=== PATIENT | male | born 1950 ===

== ENCOUNTER → 2021-12-02 11:46 | Outpatient (BNVA) | payer MEDICARE, BC, SELFPAY | PROVIDERS: PCP Internal Medicine; Visit Provider Psychiatry & Neurology Neurology | DX: G20 Parkinson's disease (principal); F41.9 Anxiety disorder, unspecified | CPT/HCPCS: Q3014 ==

== ENCOUNTER → 2022-01-13 10:30 | Outpatient (BNVA) | payer MEDICARE, BC, SELFPAY | PROVIDERS: PCP Internal Medicine; Visit Provider Psychiatry & Neurology Neurology | DX: G20 Parkinson's disease (principal); F41.9 Anxiety disorder, unspecified | CPT/HCPCS: Q3014 ==

== ENCOUNTER → 2022-03-22 10:01 | Outpatient (BNVA) | payer MEDICARE, BC, SELFPAY | PROVIDERS: PCP Internal Medicine; Visit Provider Psychiatry & Neurology Neurology | DX: Z13.89 Encounter for screening for other disorder (principal) ==

== ENCOUNTER → 2022-05-19 09:55 | Outpatient (BNVA) | payer MEDICARE, BC, SELFPAY | PROVIDERS: PCP Internal Medicine; Visit Provider Psychiatry & Neurology Neurology | DX: G20 Parkinson's disease (principal); F41.9 Anxiety disorder, unspecified | CPT/HCPCS: Q3014 ==

== ENCOUNTER → 2022-06-03 09:58 | Outpatient (BNVA) | payer MEDICARE, BC, SELFPAY | PROVIDERS: PCP Internal Medicine; Visit Provider Surgery | DX: G20 Parkinson's disease (principal) | CPT/HCPCS: 99202 ==

== ENCOUNTER → 2022-10-14 13:49 | Outpatient (BNVA) | payer MEDICARE, BC, SELFPAY | PROVIDERS: PCP Internal Medicine; Visit Provider Psychiatry & Neurology Neurology | DX: G20 Parkinson's disease (principal) | CPT/HCPCS: Q3014 ==

== ENCOUNTER 2023-03-03 16:41 | Inpatient (IN) | payer MEDICARE, SELFPAY ==
--- NOTE | ~2023-03-03 | US_ITS ---
EXAMINATION: US VENOUS ULTRASOUND WITH DOPPLER LOWER EXTREMITY, RIGHT CLINICAL INFORMATION: Edema, pain COMPARISON: None available. TECHNIQUE: Ultrasound of the deep veins is performed from the hip to the calf with compression sonography and color and pulse Doppler assessment. Spectral analysis with color-flow imaging is performed. FINDINGS: Nonocclusive deep venous thrombus is noted extending from the proximal femoral vein through the posterior tibial vein in the calf. The peroneal vein was not identified due to edema. Common femoral vein is patent. There is no significant popliteal fossa cyst. US/US venous duplex LE RT IMPRESSION: Nonocclusive deep venous thrombus is noted extending from the proximal femoral vein through the posterior tibial vein in the calf. The peroneal vein was not identified due to edema. The findings and recommendations were discussed with Aydee Ray RN authorized designate for LOVELY Sarabia by telephone at 05/05/2023 9:08 PM and it was ascertained that the content and urgency of the report was understood at the time of direct communication, with read back confirmation of the findings.
--- OUTSIDE RECORDS SUMMARY | 2023-03-03 16:45 | XMS_ITS | Continuity of Care Document ---
Author Name Unknown Organization [facility] ter Address [address] [place] [address]- Care Team Providers Care Occupational Therapist Per Diem Name Role Phone Nolan SYLVESTER, Charly Owen Primary Care Physician Encounter [facility] Date(s): 01/22/23 - 01/23/[address] [id number] Discharge Disposition: A-D/C Home Attending Physician: Charly Mcmillan MD Admitting Physician: Charly Mcmillan MD Referring Physician: Charly Mcmillan MD Allergies, Adverse Reactions, Alerts Substance Reaction Severity Status oxyCODONE hallucination Active Immunizations Given and Recorded Vaccine Date Status Refusal Reason SARS-CoV-2 (COVID-19) mRNA BNT-162b2 vac 05/29/21 Recorded SARS-CoV-2 (COVID-19) mRNA BNT-162b2 vac 05/08/21 Recorded Medications acetaminophen 500 mg oral tablet 2 tablet = 1,000 mg, By Mouth, Daily, PRN pain, Maintenance, 09/24/21 11:31:00 EDT, ; Start Date: 09/24/21 Status: Ordered alfuzosin 10 mg oral tablet, extended release 1 tablet = 10 mg, By Mouth, Daily, at 4pm, 0 Refills, Maintenance, 01/31/21 15:52:00 EST, ; Start Date: 01/31/21 Status: Ordered Ativan 1 mg oral tablet See Instructions, PRN as needed for anxiety, 1 tablet By Mouth 4 times a day, # 120 tablet, 5 Refills, Maintenance, 08/22/22 10:40:00 EDT, [facility]/pharmacy #[id number], Partial fill upon patient request if theprescription is for a schedule II opioid drug., 175... Start Date: 08/22/22 Status: Ordered atorvastatin 10 mg oral tablet 1 tablet = 10 mg, By Mouth, Daily, 4 pm, Maintenance, 09/24/21 11:26:00 EDT, ; Start Date: 09/24/21 Status: Ordered finasteride 5 mg oral tablet 1 tablet = 5 mg, By Mouth, Daily, at 4pm, Maintenance, 09/24/21 11:30:00 EDT, Tablet, ; Start Date: 09/24/21 Status: Ordered fluticasone 50 mcg/inh nasal spray 1 sprays, Nares, Both, 2 times a day, PRN as needed, Maintenance, 09/24/21 11:30:00 EDT, [place], ; Start Date: 09/24/21 Status: Ordered melatonin 1 mg oral tablet 1 tablet = 1 mg, By Mouth, Daily at bedtime, PRN for insomnia, Maintenance, 09/24/21 11:32:00 EDT, Tablet, ; Start Date: 09/24/21 Status: Ordered Stalevo 100 1 tablet, By Mouth, Takes 8 times a day at 1:00AM, 3:00AM, 7:00 AM, 11:00AM, 3:00PM, 7:00pm, 9:00pm, 11:00pm, 0 Refills, Maintenance, 01/30/21 15:47:00 EST, ; Start Date: 01/30/21 Status: Ordered Stalevo 150 oral tablet 1 tablet, By Mouth, 4 times a day, Takes 4 times a day at 5:00AM, 9:00AM, 1:00PM, 5:00PM, Maintenance, 09/24/21 11:23:00 EDT, ; Start Date: 09/24/21 Status: Ordered venlafaxine 150 mg oral capsule, extended release 1 capsule = 150 mg, By Mouth, Daily, # 90 capsule, 1 Refills, Maintenance, 08/12/22 13:58:00 EDT, ER Capsule, [facility]/pharmacy #[id number], Partial fill upon patient request if the prescription is for a schedule II opioid drug., 175, cm, 09/29/21 0:04:00 EDT, H... Start Date: 08/12/22 Status: Ordered venlafaxine 75 mg oral capsule, extended release 75 mg, 1, capsule, By Mouth, Daily, # 90 capsule, Refills 1, Tot. Refills 1, Maintenance, 08/12/22 13:58:00 EDT, Route to Pharmacy Electronically, [facility]/pharmacy #[id number], Partial fill upon patient request if the prescription is for a schedule II opioid . Start Date: 08/12/22 Status: Ordered Problem List Condition Confirmation Course Effective Dates Status Health St atus Informant Parkinson's disease Confirmed Active Vital Signs Most recent to oldest [Reference Range]: 1 2 3 Height 175 cm (01/23/23 11:00 AM) 175 cm (01/23/23 7:21 AM) 175 cm (01/23/23 3:09 AM) Weight 77 kg (01/21/23 4:16 PM) 78.3 kg (01/21/23 10:38 AM) 77.2 kg (01/19/23 11:32 AM) Oxygen Saturation [94-100 %] 99 % (01/23/23 11:00 AM) 98 % (01/23/23 7:21 AM) 98 % (01/23/23 3:09 AM) Pulse Rate [55-90 bpm] 99 bpm *H* (01/23/23 11:00 AM) 87 bpm (01/23/23 7:21 AM) 85 bpm (01/23/23 3:09 AM) Body Mass Index [18.5-24.99 kg/m2] 25.14 kg/m2 *H* (01/21/23 4:16 PM) 25.57 kg/m2 *H* (01/21/23 10:38 AM) 25.21 kg/m2 *H* (01/19/23 11:32 AM) Blood Pressure [90-138/55-84 mm Hg] 150/78mm Hg *H* (01/23/23 7:21 AM) 95/50mm Hg (01/23/23 3:09 AM) 107/56mm Hg (01/22/23 11:26 PM) Respiratory Rate [16-30 br/min] 18 br/min (01/23/23 11:00 AM) 16 br/min (01/23/23 7:21 AM) 16 br/min (01/23/23 3:09 AM) Temperature [96.8-100.4 DegF] 97.2 DegF (01/23/23 11:00 AM) 98.7 DegF (01/23/23 7:21 AM) 98.7 DegF (01/23/23 3:09 AM) Mode of Delivery (Oxygen) Room air (01/23/23 11:00 AM) Room air (01/23/23 7:21 AM) Room air (01/23/23 3:09 AM) Blood pressure sites Arm, left (01/23/23 7:21 AM) Arm, right (01/23/23 3:09 AM) Arm, left (01/22/23 11:26 PM) Temperature Route Oral (01/23/23 11:00 AM) Oral (01/23/23 7:21 AM) Oral (01/23/23 3:09 AM) Dry Weight 77 kg (01/21/23 4:16 PM) 78.3 kg (01/21/23 10:38 AM) 77.2 kg (01/19/23 11:32 AM) Weight Obtained Via Standing scale (01/21/23 10:38 AM) Patient/family stated (01/19/23 11:32 AM) Dry Weight Obtained Via Standing scale (01/21/23 10:38 AM) Patient/family stated (01/19/23 11:32 AM) Social History Social History Type Response Smoking Status Former smoker, quit more than 30 days ago; Other: Pt states he smoked 40 years ago; entered on: 09/24/21 Sex History and physical note * Event Display: History and Physical Hospital Authored Date: * Event Display: History and Physical Hospital Authored Date: Note * Juan Singh RN: PERFORM Event Display: Discharge/Transfer Note Hospital Authored Date: [id number] Nursing Discharge Note Entered On: 01/23/2023 12:31 EST Performed On: 01/23/2023 12:31 EST by Juan Singh RN Nursing Discharge Note 2 Discharge Time : 01/23/2023 12:55 EST Juan Singh RN - 01/23/2023 13:06 EST Discharge Level of Care at Discharge : Home/Assisted/Foster Care Patient Left Unit Via : Ambulatory Patient Accompanied Off Unit with : Significant other, Responsible adult DC Instructions Provided & Signed by Pt : Yes Patient Understands D/C Instructions : Yes Patient Instructions Discharge Signed : Yes Did Pt have Specialty Bed or Wound Vac : No Juan Singh RN - 01/23/2023 12:31 EST * Milind Neville MD: PERFORM, SIGN, VERIFY Event Display: Discharge/Transfer Note Hospital Authored Date: [id number] Patient: PRASHANT CHISHOLM Age: 72 years Sex: Male : 1950 Associated Diagnoses: None Author: Milind Neville MD Discharge Information Principal Discharge Diagnosis Benign prostatic hyperplasia with incomplete bladder emptying: Present on admission - yes. Secondary Discharge Diagnoses Parkinson's disease: Present on admission - yes. Patient is aware of diagnosis Procedures Urology: TURP. Discharge condition: fair Functional Status: ambulatory Discharge Disposition Home: self care, family. Discharge Date 01/23/2023 Admission Date 01/21/2023 Code Status Full Resuscitation. Hospital Course Typed narrative The patient is a 72-year-old gentleman with history of significant lower urinary symptoms and neurogenic voiding dysfunction with Parkinson's disorder cognitive dysfunction who presented for TURP on 01/21/2023. He did not require continuous bladder irrigation and this was discontinued on 01/22/2023. Patient had significant sundowning and psychomotor agitation during hospitalization likely from his underlying dementia and parkinsonian symptomatology. He was getting his home medications throughout hospitalization. He received as needed Ativan and Seroquel to help modify his psychomotor symptoms. He had to be frequently reoriented. According to his this is somewhat consistent with his baseline neuropsychiatric functioning. His catheter was removed on 01/23/2023. The patient was voiding and frequent small amounts. Bladder scan showed no significant postvoid residual. The patient refused to use the urinal despite redirection by nursing staff continue to just void into the toilet. At this point in time I think it would be best for the patient to be discharged into the care of his family or he can be monitored in his home environment which will be better for his cognitive functioning and baseline status. There is no urgent urologic or metabolic reason to keep him into the hospital. It should be noted that the patient did have an ECG which was negative and negative troponins yesterday when he complained of some substernal pressure in his chest. He no longer has the symptoms. Patient should follow-up with Dr. Mcmillan as directed by his primary urologist. Significant Results Results: Vital signs : VITAL SIGNS SECTION 01/23/2023 11:39 EST Early Warning Score 2.00 01/23/2023 11:00 EST Temperature 97.2 DegF Temperature Route Oral Pulse Rate 99 bpm H Respiratory Rate 18 br/min Oxygen Saturation 99 % Mode of Delivery (Oxygen) Room air 01/23/2023 7:22 EST Early Warning Score 0.00 01/23/2023 7:21 EST Temperature 98.7 DegF Temperature Route Oral Pulse Rate 87 bpm Respiratory Rate 16 br/min Systolic Blood Pressure 150 mm Hg H Diastolic Blood Pressure 78 mm Hg Blood pressure sites Arm, left Mean Arterial Pressure 102 mm Hg Pulse Pressure 72 mm Hg Oxygen Saturation 98 % Mode of Delivery (Oxygen) Room air , Laboratory : LABORATORY 01/22/2023 12:32 EST High Sensitivity Troponin (HSTnT) 12 ng/L 01/05/2023 11:23 EST Urine Culture Urine Culture Urine Culture Urine Culture Appear/Color, Urine DARK YELLOW Specific [place], Urine 1.029 pH, Urine 6.0 Albumin, Urine 1+ Glucose, Urine NEGATIVE Ketones, Urine 1+ Bilirubin, Urine NEGATIVE Hemoglobin, Urine 1+ Nitrite, Urine NEGATIVE Leukocyte, Urine NEGATIVE Urobilinogen NORMAL mg/dL WBC's, Urine 26 /HPF H RBC's, Urine 58 /HPF H Bacteria SLIGHT HPF Squamous Epith <1 /HPF Calcium Oxal SLIGHT /HPF Mucus SLIGHT /LPF 01/05/2023 11:22 EST WBC 10.1 k/mm3 RBC 4.44 m/mm3 L Hgb 13.2 Gm/dL L Hct 41.7 % MCV 93.9 femtoliters MCH 29.7 pg MCHC 31.7 g/dL L Platelet Count 316 k/mm3 RDW-SD 43.8 femtoliters MPV 9.2 femtoliters L Nucleated RBC (Automated) 0.0 #/100 WBC'S Abs. NRBC 0.0 k/mm3 Sodium 143 mmol/L Potassium 4.9 mmol/L Chloride 107 mmol/L Bicarbonate Level 28 mmol/L Anion Gap 8 Glucose Level 101 mg/dL H BUN 18 mg/dL Creatinine-Blood 0.8 mg/dL Estimated GFR Creatinine 95 ML/MIN/1.73 M2 Calcium 9.4 mg/dL Urine Culture Urine Culture Appear/Color, Urine DARK YELLOW Specific [place], Urine 1.029 pH, Urine 6.0 Albumin, Urine 1+ Glucose, Urine NEGATIVE Ketones, Urine 1+ Bilirubin, Urine NEGATIVE Hemoglobin, Urine 1+ Nitrite, Urine NEGATIVE Leukocyte, Urine NEGATIVE Urobilinogen NORMAL mg/dL WBC's, Urine 26 /HPF H RBC's, Urine 58 /HPF H Bacteria SLIGHT HPF Squamous Epith <1 /HPF Calcium Oxal SLIGHT /HPF Mucus SLIGHT /LPF 12/04/2022 9:15 EST Urine Culture Urine Culture Appear/Color, Urine ORANGE Clarity CLEAR Specific [place], Urine 1.020 pH, Urine 6.5 Albumin, Urine 1+ Glucose, Urine NEGATIVE Ketones, Urine TRACE Bilirubin, Urine NEGATIVE Hemoglobin, Urine 1+ Nitrite, Urine NEGATIVE Leukocyte, Urine NEGATIVE Urobilinogen NORMAL mg/dL WBC's, Urine 4 /HPF RBC's, Urine 40 /HPF H Bacteria SLIGHT HPF Granular Cast 1 /LPF Amorphous Crystals SLIGHT /HPF Mucus SLIGHT /LPF Hold Urine Culture Testing available 48 hours from time of collection. 12/04/2022 8:55 EST WBC 6.7 k/mm3 RBC 4.55 m/mm3 L Hgb 13.9 Gm/dL Hct 41.8 % MCV 91.9 femtoliters MCH 30.5 pg MCHC 33.3 g/dL Platelet Count 291 k/mm3 RDW-SD 42.2 femtoliters MPV 8.9 femtoliters L Nucleated RBC (Automated) 0.0 #/100 WBC'S Abs. NRBC 0.0 k/mm3 Abs. Neut 4.3 k/mm3 Abs. Lymph 1.5 k/mm3 Abs. [place] 0.6 k/mm3 Abs. Eo 0.2 k/mm3 Abs. Baso 0.0 k/mm3 Neut % 64.0 % Lymph % 22.2 % [place] % 9.6 % Eos % 3.0 % Baso % 0.6 % Imm Gran 0.6 % Abs. Imm Gran 0.0 k/mm3 Sodium 142 mmol/L Potassium 4.4 mmol/L Chloride 108 mmol/L H Bicarbonate Level 26 mmol/L Anion Gap 8 Glucose Level 136 mg/dL H BUN 16 mg/dL Creatinine-Blood 0.7 mg/dL Estimated GFR Creatinine 99 ML/MIN/1.73 M2 Calcium 9.2 mg/dL Protein, Total 6.4 Gm/dL Albumin 4.2 Gm/dL AG Ratio 1.9 Alkaline Phosphatase 59 units/L AST (SGOT) 12 units/L ALT (SGPT) <5 units/L Bilirubin, Total 0.3 mg/dL 12/04/2022 8:40 EST Influenza A PCR NEGATIVE Influenza B PCR NEGATIVE RSV PCR NEGATIVE COVID-19 PCR Specimen Source NASAL COVID-19 PCR Result NEGATIVE . Discharge Plan Discharge Disposition Discharge: home. * Juan Singh RN: PERFORM Event Display: Patient Education/Instruction Authored Date: [id number] Inpatient Adult Discharge Instructions [address] [address] Name: PRASHANT CHISHOLM : 1950 Visit: 01/22/2023 15:48:00 Current Date: 01/23/2023 12:32 Account: [id number] Inpatient Adult Discharge Instructions We would like to thank you for allowing us to assist you with your healthcare needs. The following includes patient education materials and information regarding your injury/illness. Our entire staffstrives to provide an excellent experience for our patients and their families. PLEASE ENSURE YOU FOLLOW-UP PER THE INSTRUCTIONS BELOW! ?? YOUR OPINION IS IMPORTANT TO US! Please complete the survey you may receive by mail or email. Your feedback will be used to make improvements to the healthcare experiences of our patients and their families. Surveys are administered by [employer] ?? If further treatment with your primary care physician or another doctor is recommended, it is important for you to keep the appointment. Call your primary care physician or return to the Emergency Department immediately if your condition worsens, fails to improve, or new symptoms develop. If you need to find a doctor, you can call [facility] for a referral at [phone] or toll free at [phone] or log in to [email or web address].. ?? You can view and manage your care through the patient portal or by using a health care pravin of your choosing. [employer] is a website that allows you to securely view your medical information including your hospital discharge summary, office visit summaries, medications and follow-up visits. You can also request appointments, renew medications, and request access to your medical information using a health care pravin of your choosing, or just ask a question. You can enroll at [email or web address] or register during your next office visit. You have been discharged from [facility], Patient Care Unit: SW6. If you have any questions regarding these instructions after you leave, please call us and we will be happy to assist you. [facility] Your Care Team Attending Physician Charly Mcmillan MD Consulting Providers Charly Mcmillan MD Discharging Providers Milind Neville MD Reason for Admission CALCULUS IN BLADDER TURPOVN CS Your Diagnosis Benign prostatic hyperplasia with incomplete bladder emptying Parkinson's disease Tests Performed Below is a partial list of the tests performed during your hospitalization. You may have had other tests and procedures not included in this list. Please discuss all test results with your provider. Troponin T, High Sensitivity Primary Care Provider Charly Francisco MD Advance Directive Health Care Proxy on File Yes - Health Care Proxy Discharge Vitals Temperature: 97.2 DegF Height: 175 cm Pulse Rate:??99 bpm??High Weight: 77 kg Respiratory Rate: 18 br/min Body Mass Index:??25.14 kg/m2??High Systolic Blood Pressure:??150 mm Hg??High Body surface area: 1.93 Diastolic Blood Pressure: 78 mm Hg ?? Oxygen Saturation: 99 % ?? Studies Pending All tests and labs ordered during this hospital stay have been completed unless listed below. Please discuss all pending results with your provider listed above in these instructions. ?? Kidney Stone Analysis Pathology Tissue Request () What to do next Instructions From Your Doctor Discharge Orders Scheduled Follow-Up Appointments Tuesday 3:00 PM EST ?? With: Lasha Ragland MD Where: [facility] [address] [place] [address]- Tuesday 11:20 AM EDT ?? With: Wallace Nguyen MD Where: [facility] [address] [place] [address]- You Need to Schedule the Following Appointments Follow Up with??Charly Mcmillan MD When?? Where: [address] [facility] [place] [address]- Discharge Medications PRASHANT CHISHOLM :1950 Visit Date:01/22/2023 Medications: Please continue your medications until treatment is completed or stopped by your provider. Medications not listed below should be discontinued. Discuss any questions related to medications with your provider. What How Much When Instructions Next Dose Unchanged Acetaminophen (acetaminophen 500 mg oral tablet) 2 tab(s) Oral Daily as needed for pain resume as prescribed Unchanged alfuzosin (alfuzosin 10 mg oral tablet, extended release) 1 tab(s) Oral Daily at 4pm ?? resume as prescribed Unchanged Atorvastatin (atorvastatin 10 mg oral tablet) 1 tab(s) Oral Daily 4 pm ?? resume as prescribed Unchanged carbidopa/ entacapone/ levodopa (Stalevo 100) 1 tab(s) Oral Takes 8 times a day at 1:00AM, 3:00AM, 7:00 AM, 11:00AM, 3:00PM, 7:00pm, 9:00pm, 11:00pm ?? resume as prescribed Unchanged carbidopa/ entacapone/ levodopa (Stalevo 150 oral tablet) 1 tab(s) Oral 4 times a day Takes 4 times a day at 5:00AM, 9:00AM, 1:00PM, 5:00PM ?? resume as prescribed Unchanged Finasteride (finasteride 5 mg oral tablet) 1 tab(s) Oral Daily at 4pm ?? resume as prescribed Unchanged Fluticasone Nasal (fluticasone 50 mcg/ inh nasal spray) 1 spray(s) Nares, Both Twice a day as needed for as needed resume as prescribed Unchanged Lorazepam (Ativan 1 mg oral tablet) See instructions 1 tablet By Mouth 4 times a day ?? resume as prescribed Unchanged Melatonin (melatonin 1 mg oral tablet) 1 tab(s) Oral Daily at Bedtime as needed for for insomnia resume as prescribed Unchanged Venlafaxine (venlafaxine 150 mg oral capsule, extended release) 1 capsule Oral Daily resume as prescribed Unchanged Venlafaxine (venlafaxine 75 mg oral capsule, extended release) 1 capsule Oral Daily resume as prescribed Test Results Below is a partial list of the most recent Laboratory test results done prior to this discharge. You may have had other tests and procedures not included in this list. Please discuss all test resultswith your provider. Troponin T, High Sensitivity (01/22/2023) ???High Sensitivity Troponin (HSTnT) - 12 ng/L Allergies (NKA means No Known Allergies) oxyCODONE??(hallucination) Problems Active Problems??(1) Parkinson's disease?? Education Materials Below is the list of Educational Leaflet Providered with your Discharge Instructions. Valuables and Belongings I fully understand and agree that [facility] accepts no responsibility for all my personal property including clothing, toilet articles, radios, jewelry, dentures, hearing aids, rings, money, or any other property that is in my possession or is brought to me after admission. I understand certain valuables may be placed in a hospital safe for a short period of time. I understand that the hospital is not liable for loss or damage due to accident, fire, or other natural occurrence while said property is in the safe. I accept full responsibility for any personal property that I keep with me, and will not hold the hospital responsible in case of loss or disappearance. I acknowledge that i have been encouraged to send valuables and belongings home. ?? Review of Valuable and Belonging List: With family Date for Pt to Sign Valuables/Belongings: 01/22/23 17:27:00 ?? Other Discharge Information ? Case Management Discharge Plan?? Discharge Plan?? Discharge Level of Care at Discharge: Home/Assisted/Foster Care ?? Pulmonary Rehab Status?? Pulmonary Rehab Discharge Status?? Respiratory Rate: 18 br/min ? Common Emergency Awareness Tips IS IT A STROKE? Act FAST and Check for these signs: FACE Does the face look uneven? ARM Does one arm drift down? SPEECH Does their speech sound strange? TIME Call at any sign of stroke ?? Heart Attack Signs Chest discomfort: Most heart attacks involve discomfort in the center of the chest and lasts more than a few minutes, or goes away and comes back. It can feel like uncomfortable pressure, squeezing, fullness or pain. Discomfort in upper body: Symptoms can include pain or discomfort in one or both arms, back, neck, jaw or stomach. Shortness of breath: With or without discomfort. Other signs: Breaking out in a cold sweat, nausea, or lightheaded. Remember, MINUTES DO MATTER. If you experience any of these heart attack warning signs, call to get immediate medical attention! ?? Smoking can increase your chances of developing chronic health problems and can cause harmful effects to other family members in your house. If you smoke, you are strongly encouraged to quit. Please call [facility] [employer] at [phone] or [phone] [phone]) or log in to [email or web address] for referrals to smoking cessation programs. ?? The National Suicide Prevention Hotline is available 20/06 if you or someone you know needs to find a reason to keep living. By calling 4-397-104-Enohm (9163) you'll be connected to a skilled, trained counselor at a crisis center in your area. INPATIENT DISCHARGE INSTRUCTIONS SIGNATURE PAGE LILIPRASHANT Location:[facility] Registration Date and Time:01/22/2023 15:48 EST Primary Care Physician: Nolan SYLVESTER, Charly Owen, I PRASHANT CHISHOLM, have received the above patient education materials/instructions and have verbalized understanding. If ambulance or transport services are being used I further acknowledge being given a choice of service. ?? If you need to contact me, please call me at this number: . Patient/Handhole Machine Operator Name: Prashant Chisholm Patient/Handhole Machine Operator Signature: Relationship to Patient: Witness Name/Signature: Date: * Event Display: Adult Preadmission Health Questionnaire Authored Date: EKG study * Event Display: ECG 12-Lead Authored Date: Please click on pdf link to open report * Event Display: ECG 12-Lead Authored Date: Ventricular Rate: 94 BPM Atrial Rate: 94 BPM P-R Interval: 150 ms QRS Duration: 66 ms Q-T Interval: 354 ms QTC Calculation(Bazett): 442 ms P [place]: 53 degrees R [place]: 0 degrees T [place]: 78 degrees Normal sinus rhythm Normal ECG When compared with ECG of 04-DEC-2022 09:04, Nonspecific T wave abnormality now evident in Lateral leads Confirmed by CRYS SYLVESTER [facility] ([id number]) on 01/22/2023 5:14:12 PM [place]: CRYS SYLVESTER,[facility] Progress note * Juan Singh RN: PERFORM, SIGN, VERIFY Event Display: [facility] Authored Date: Patient: PRASHANT CHISHOLM Age: 72 years Sex: Male : 1950 Associated Diagnoses: None Author: Juan Singh RN Findings Problem Related to Alteration in Genitourinary : Alteration in Genitourinary Function/new 01/23/2023 7:00 EST Alteration in Status Related to Urology procedure, Other: TURP Goals & Outcomes, Genitourinary Pt will achieve normal/improved fluid balance, Pt will maintainadequate GI function appropriate for pt, Pt will maintain adequate function appropriate for pt, Pt will maintain normal fluid balance, Pt will resume normal pattern of elimination, Pt/caregiver will state understanding of self-care skills, Resolved problem, Goals/Outcomes met Interventions, Assess/monitor/maintain Genitourinary status, Assist & encourage pt with meticulous federico care, Encourage PO fluid intake as allowed by diet BH Goals/Interventions, Genitourinary Yes Genitourinary, Problem Start 01/21/2023 21:00 Reviewed Plan with, Genitourinary Patient Patient Progression, Genitourinary Patient progressing according to plan Genitourinary, Problem Ongoing Yes . Nursing Data Gastrointestinal Data. : Gastrointestinal Data. 01/23/2023 10:27 EST GI WNL . Genitourinary Data. : Genitourinary Data. 01/23/2023 10:27 EST Genitourinary Symptoms Dysuria Urine Color Sod WNL except . Integumentary Data. : Integumentary Data. 01/23/2023 10:27 EST Integumentary WNL 01/23/2023 10:26 EST Sensory Perception No impairment Moisture Occasionally moist Activity Walks occasionally Mobility Slightly limited Nutrition Probably inadequate Friction and Shear No apparent problem Saúl Score 18 Nursing Care Plan initiated/updated Yes . Musculoskeletal Data. : Musculoskeletal Data. 01/23/2023 10:27 EST Musculoskeletal WNL . Vital Signs : VITAL SIGNS SECTION 01/23/2023 7:21 EST Temperature 98.7 DegF Temperature Route Oral Pulse Rate 87 bpm Respiratory Rate 16 br/min Systolic Blood Pressure 150 mm Hg H Diastolic Blood Pressure 78 mm Hg Blood pressure sites Arm, left Mean Arterial Pressure 102 mm Hg Pulse Pressure 72 mm Hg Oxygen Saturation 98 % Mode of Delivery (Oxygen) Room air . Narrative/Incidental Patient is not alert and oriented, often confused and feels the need to pull trevino catheter and go home. Patient was found to be going down stairwell on unit, charge nurse notified. Security and clinical spooling supervisor were notified and helped escort patient back to room. Patient continues to be oriented by RN for safety. Lung sounds clear in all duque, denies shortness of breath or chest pains. Pulses palpable bilat, no edema noted. Tremors noted at baseline. Denies pain. Bowel sounds hypoactive in all duque, denies nausea or vomiting at this time. Abdomen is round, soft and nontender to palpation. Awaiting patient to void. Ambulates with one to two person assist. Call stephens within reach, resting comfortably now. . . * Kelin SYLVESTER, Milind Rodarte: PERFORM, SIGN, VERIFY Event Display: Progress Note Hospital Authored Date: [id number] Patient: PRASHANT CHISHOLM Age: 72 years Sex: Male : 1950 Associated Diagnoses: None Author: Milind Neville MD LOS 0 days The patient is status post TURP/cystolitholapaxy with Dr. Mcmillan The patient has baseline dementia and confusion and appears confused but is able to be redirected. A code yellow was called earlier this morning as the patient ambulated off the unit and was found inthe stairwell on M4 His catheter was removed and we are awaiting the patient to void. We will communicate with his wifeas to his baseline and whether it would be suitable to discharge the patient as he appears to be having difficulty in the hospital environment He was given a dose of Seroquel yesterday for agitation which was not effective. He was placed backon Ativan 2 mg every 6 hours. Review of Systems Review of systems is Oral Intake: solids. Genitourinary: trevino. Gastrointestinal: abdominal pain. Physical Examination Vital Signs Vitals : VITALS 01/23/2023 7:21 EST Height 175 cm Temperature 98.7 DegF Temperature Route Oral Pulse Rate 87 bpm Respiratory Rate 16 br/min Systolic Blood Pressure 150 mm Hg H Diastolic Blood Pressure 78 mm Hg Blood pressure sites Arm, left Mean Arterial Pressure 102 mm Hg Pulse Pressure 72 mm Hg Oxygen Saturation 98 % Mode of Delivery (Oxygen) Room air . Physical exam Flank: no flank pain, no CVA tendersness. Abdomen/GI: Abdomen is (soft, not distended, not tender). Drains: Urinary Trevino Catheter. Results Review 7 Day Results Results Laboratory : LABORATORY 01/22/2023 12:32 EST High Sensitivity Troponin (HSTnT) 12 ng/L Impression and Plan Benign prostatic hyperplasia with incomplete bladder emptying COMPREHENSIVE PLAN The patient's catheter was removed and we are awaiting voiding trial. We will monitor postvoid residual. Patient's mental status appears to be his biggest issue at the present time and he has a history ofbaseline dementia and psychomotor agitation due to his Parkinson's disorder. He is on his home medications. He was started on Ativan 2 mg every 6 hours. He was given a trial of Seroquel last night without significant improvement. Will discuss with his suitability for discharge as it may be better to get the patient out of the hospital and into his home environment. This is assuming the patient can void without being recatheterized. We will monitor the patient the remainder of the day. Quality/Care Management DC Trevino Cath: Yes. * Ravin Chung RN: PERFORM, SIGN, VERIFY Event Display: Progress Note Hospital Authored Date: Patient: PRASHANT CHISHOLM Age: 72 years Sex: Male : 1950 Associated Diagnoses: None Author: Ravin Chung RN Findings Problem Related to Alteration in Genitourinary : Alteration in Genitourinary Function/new 01/22/2023 21:00 EST Alteration in Status Related to Urology procedure, Other: TURP Goals & Outcomes, Genitourinary Pt will achieve normal/improved fluid balance, Pt will maintainadequate GI function appropriate for pt, Pt will maintain adequate function appropriate for pt, Pt will maintain normal fluid balance, Pt will resume normal pattern of elimination, Pt/caregiver will state understanding of self-care skills, Resolved problem, Goals/Outcomes met Interventions, Assess/monitor/maintain Genitourinary status, Assist & encourage pt with meticulous federico care, Encourage PO fluid intake as allowed by diet, Resolved problem, Interventions no longer in effect Goals/Interventions, Genitourinary Yes Genitourinary, Problem Start 01/21/2023 21:00 Reviewed Plan with, Genitourinary Patient Patient Progression, Genitourinary Patient progressing according to plan Genitourinary, Problem Ongoing Yes . Nursing Data Vital Signs : VITAL SIGNS SECTION 01/22/2023 23:26 EST Temperature 97.9 DegF Temperature Route Oral Pulse Rate 85 bpm Respiratory Rate 16 br/min Systolic Blood Pressure 107 mm Hg Diastolic Blood Pressure 56 mm Hg Blood pressure sites Arm, left Mean Arterial Pressure 73 mm Hg Pulse Pressure 51 mm Hg Oxygen Saturation 96 % Mode of Delivery (Oxygen) Room air . Narrative/Incidental Pt awake alert, going in & out of confusion, constant cancer genetic counselor @ bedside overnight, report some discomfort with trevino, attempted to pull it out but able to redirect, f/c putting out orangy urinept continue on pyridium for urinary spasm, pt have some parkinson tremor, continue on carbidopa every 2 hour, LS diminished, no SOB, not on respiratory distress, denies chest pain, VS stable, no other complaints, cared for & will continue to monitor, call stephens within reach.. Patient Care team information Care Team Personnel Name: Mark Tesfaye RN Position: S RN Member Role: Primary Care Nurse Name: Charly Francisco MD Position: Reference Physician Member Role: PCP Address: Address: [address] [place] [address], [place], [place] [address] Name: Ravin hCung RN Position: S RN Member Role: Primary Care Nurse Name: Dinesh Sheehan RN Position: S RN Member Role: Primary Care Nurse Name: Juan Singh RN Position: S RN Member Role: Primary Care Nurse Care Team Related Persons Name: EM CHISHOLM Address: [address] [address]
--- OUTSIDE RECORDS SUMMARY | 2023-03-03 16:45 | XMS_ITS | Continuity of Care Document ---
Author Name Unknown Organization [facility] Address [address] [place] [id number]- Care Team Providers Care Investment Officer Name Role Phone Nolan SYLVESTER, Charly Owen Primary Care Physician Encounter [facility] [place] Date(s): 10/05/21 - 11/04/21 [facility] [address] [place] [id number]- Attending Physician: Tatianna Kumar Admitting Physician: Tatianna Kumar Referring Physician: AdmtrTatianna Allergies, Adverse Reactions, Alerts Substance Reaction Severity Status oxyCODONE Active Immunizations Given and Recorded Vaccine Date [...] tablet = 10 mg, By Mouth, Daily, 0 Refills, Maintenance, 01/31/21 15:52:00 EST, ; Start Date: 01/31/21 Status: Ordered atorvastatin 10 mg oral tablet 1 tablet = 10 mg, By Mouth, Daily, 6pm, Maintenance, 09/24/21 11:26:00 EDT, ; Start Date: 09/24/21 Status: Ordered clonazePAM 0.25 mg oral tablet, disintegrating See Instructions, 1 tablet By Mouth 7 times daily 6am, 9am, 12pm, 3pm, 8pm, 10pm & 12am, # 98 tablet, 5 Refills, Maintenance, 10/27/21 11:44:00 EST, DIS Tablet, [facility]/pharmacy #[id number], Partial fill upon patient request if the prescription is for a schedu... Start Date: 10/27/21 Status: Ordered clonazePAM 0.5 mg oral tablet = 0.25 mg, By Mouth, 7 times daily 6am, 9am, 12pm, 3pm, 8pm, 10pm & 12am, Maintenance, 09/24/2111:27:00 EDT, ; Start Date: 09/24/21 Status: Ordered Effexor XR 75 mg oral capsule, extended release 75 mg, 1, capsule, By Mouth, Daily, # 30 capsule, Refills 3, Tot. Refills 3, Maintenance, 10/27/21 11:40:00 EST, [id number] fill upon patient request if the prescription is for a schedule II opioid dr... Start Date: 10/27/21 Status: Ordered finasteride 5 mg oral tablet 1 tablet = 5 mg, By Mouth, Daily, Maintenance, 09/24/21 11:30:00 EDT, Tablet, ; Start Date: 09/24/21 Status: Ordered fluticasone 50 mcg/inh nasal spray 1 sprays, Nares, Both, 2 times a day, PRN as needed, Maintenance, 09/24/21 11:30:00 EDT, [place], ; Start Date: 09/24/21 Status: Ordered melatonin 1 mg oral tablet 1 tablet = 1 mg, By Mouth, Daily at bedtime, PRN for insomnia, Maintenance, 09/24/21 11:32:00 EDT, Tablet, ; Start Date: 09/24/21 Status: Ordered SEROquel 25 mg oral tablet 25 mg, 1, tablet, By Mouth, 3 times a day, # 90 tablet, Refills 0, Tot. Refills 0, Maintenance, 09/30/21 10:01:00 EDT, [facility], Partial fill upon patient request if the prescription is for a schedule II opioid drug. Start Date: 09/30/21 Stop Date: 10/30/21 Status: Ordered Stalevo 100 1 tablet, By Mouth, 6 times a day, 12am, 4am, 8am, 12pm, 4pm & 6pm, 0 Refills, Maintenance, 01/30/21 15:47:00 EST, ; Start Date: 01/30/21 Status: Ordered Stalevo 150 oral tablet 1 tablet, By Mouth, 4 times a day, 2am, 6am, 10am & 2pm, Maintenance, 09/24/21 11:23:00 EDT, ; Start Date: 09/24/21 Status: Ordered venlafaxine 37.5 mg oral capsule, extended release 2 capsule = 75 mg, By Mouth, Daily in AM, 8am, Maintenance, 09/24/21 11:25:00 EDT, ; Start Date: 09/24/21 Status: Ordered Problem List Condition Effective Dates Status Health Status Inform ant Parkinson's disease(Confirmed) Active Social History Social History Type Response Smoking Status Former smoker, quit more than 30 days ago; Other: Pt states he smoked 40 years ago; entered on: 09/24/21 Sex
--- OUTSIDE RECORDS SUMMARY | 2023-03-03 16:45 | XMS_ITS | Summary of Care ---
Author Name Unknown Organization [facility] Address [address] [place] [address]- Encounter 07/27/17 - 07/27/17 [facility] [address] [place] [address]- Discharge Disposition: Against medical advice, with follow-up Attending Physician: Mia Carey MD Vital Signs Most recent to oldest [Reference Range]: 1 Temperature Oral F [96.4-99.1 DegF] 98.0 DegF (07/27/17 1:41 PM) Peripheral Pulse Rate [60-100 bpm] 100 b pm (07/27/17 1:41 PM) Blood Pressure [90-140/60-90 mmHg] 152/7 4mmHg *HI* (07/27/17 1:41 PM) Extremity used to obtain blood pressure Left Arm (07/27/17 1:41 PM) Temperature Oral [35.8-37.3 DegC] 36.7 D egC (07/27/17 1:41 PM) Allergies, Adverse Reactions, Alerts Substance Reaction Severity Status No Known Allergies Active Medications acetaminophen 325 mg oral tablet 650 mg = 2 tab, Oral, q4hr PRN, Mild pain Start Date: 07/27/17 Status: Ordered atorvastatin 10 mg oral tablet 10 mg = 1 tab, Oral, Before dinner Start Date: 07/27/17 Status: Ordered carbidopa-levodopa 25 mg-100 mg oral tablet See Instructions, VERIFY TABLET STRENGTH. 1.5 tab PO 6 X day. Due at : [id number] Start Date: 07/27/17 Status: Ordered ceFAZolin IVPB 2 gm, IV Piggyback, q6hr Start Date: 07/27/17 Status: Ordered docusate sodium 100 mg oral capsule 100 mg, Cap, Oral, BID, Hold for : diarrhea or loose stools Start Date: 07/27/17 Status: Ordered DULoxetine 60 mg oral delayed release capsule 60 mg = 1 cap, Cap-DR, Oral, BID, (do not crush or chew) Start Date: 07/27/17 Status: Ordered entacapone 200 mg oral tablet 200 mg = 1 tab, Tab, Oral, 6x/Day, with each dose of carbidopa-levodopa. Due at : [id number] Start Date: 07/27/17 Status: Ordered famotidine 20 mg oral tablet 20 mg = 1 tab, Tab, Oral, BID Start Date: 07/27/17 Status: Ordered finasteride 5 mg oral tablet 5 mg = 1 tab, Tab, Oral, Daily Start Date: 07/27/17 Status: Ordered lactobacillus rhamnosus GG oral capsule 1 cap, Cap, Oral, Daily, cap Start Date: 07/27/17 Status: Ordered LORazepam 1 mg oral tablet 1 mg = 1 tab, Tab, Oral, BID Start Date: 07/27/17 Status: Ordered Milk of Magnesia 8% oral suspension 2.4 gm, 30 mL, Susp, Oral, BID PRN, Constipation Start Date: 07/27/17 Status: Ordered ondansetron 2 mg/mL injectable solution 4 mg = 2 mL, Soln-Inj, IV Push, q6hr PRN, Nausea or vomiting Start Date: 07/27/17 Status: Ordered OXcarbazepine 300 mg oral tablet 300 mg = 1 tab, Tab, Oral, TID, Due at : [id number] Start Date: 07/27/17 Status: Ordered tamsulosin 0.4 mg oral capsule 0.4 mg = 1 cap, Cap, Oral, QHS Start Date: 07/27/17 Status: Ordered
--- OUTSIDE RECORDS SUMMARY | 2023-03-03 16:45 | XMS_ITS | Continuity of Care Document ---
Author Name Unknown Organization [facility] Address [address] [place] [address]- Care Team Providers Care Reinforcing Metal Worker Name Role Phone Nolan SYLVESTER, Charly Owen Primary Care Physician Encounter [facility] [place] Date(s): 02/04/23 - 02/11/[address] [address]- Attending Physician: Lasha Ragland MD Allergies, Adverse Reactions, Alerts Substance Reaction [...] tablet, 5 Refills, Maintenance, 08/22/22 10:40:00 EDT, [facility]/pharmacy #[id number], Partial fill upon patient request if theprescription [...] PRN as needed, Maintenance, 09/24/21 11:30:00 EDT, [place], ; Start Date: 09/24/21 Status: Ordered melatonin [...] 150 mg oral capsule, extended release 1 capsule, By Mouth, Daily, # 90 capsule, 1 Refills, Maintenance, 02/07/23 10:36:00 EDT, [facility] [id number], 175, cm, 01/23/23 11:39:00 EST, Height, 77, kg, 01/21/23 19:32:00 EST, Dry Weight Start Date: 02/07/23 Status: Ordered Problem List Condition Confirmation Course Effective Dates Status Health St [facility]us Informant Parkinson's disease Confirmed Active Social History Social History Type Response Smoking Status Former smoker, quit more than 30 days ago; Other: Pt states he smoked 40 years ago; entered on: 09/24/21 Sex Patient Care team information Care Team Personnel Name: Mark Tesfaye RN Position: S RN Member Role: Primary Care Nurse Name: Charly Francisco MD Position: Reference Physician Member Role: PCP Address: Address: [address] [place] [address], [place], [place] [address] Name: Ravin Chung RN Position: S RN Member Role: Primary Care Nurse Name: Dinesh Sheehan RN Position: S RN Member Role: Primary Care Nurse Name: Juan Singh RN Position: S RN Member Role: Primary Care Nurse Care Team Related Persons Name: EM PEARSON Address: [address] [address]
--- OUTSIDE RECORDS SUMMARY | 2023-03-03 16:45 | XMS_ITS | Continuity of Care Document ---
Author Name Unknown Organization [facility] Address [address] [place] [address]- Care Team Providers Care Sports Medicine Specialist Name Role Phone Nolan SYLVESTER, Charly Owen Primary Care Physician Encounter [facility] Date(s): 12/04/22 - 12/04/[address] [address]- Discharge Disposition: A-Transfer SNF Attending Physician: Ami Arellano MD Admitting Physician: Ami Arellano MD Referring Physician: Not on Staff, Referring MD Allergies, Adverse Reactions, Alerts Substance Reaction [...] tablet, 5 Refills, Maintenance, 08/22/22 10:40:00 EDT, [facility]/pharmacy #[id number], Partial fill upon patient request if theprescription is for a schedule II opioid drug., 175... Start Date: 08/22/22 Status: Ordered atorvastatin 10 mg oral tablet 1 tablet = 10 mg, By Mouth, Daily, 6pm, Maintenance, 09/24/21 11:26:00 EDT, ; Start Date: 09/24/21 Status: Ordered busPIRone 10 mg oral tablet See Instructions, Start 1/2 tablet BID for one week, then 1 tablet BID for two weeks, then 1 tabletTID., # 90 tablet, Refills 2, Tot. Refills 2, Maintenance, 10/12/22 11:28:00 EST, Instructions Replace Required Details, Route to Pharmacy Electronical... Start Date: 10/12/22 Status: Ordered finasteride 5 mg oral tablet 1 tablet = 5 mg, By Mouth, Daily, Maintenance, 09/24/21 11:30:00 EDT, Tablet, ; Start Date: 09/24/21 Status: Ordered fluticasone 50 mcg/inh nasal spray 1 sprays, Nares, Both, 2 times a day, PRN as needed, Maintenance, 09/24/21 11:30:00 EDT, [facility], ; Start Date: 09/24/21 Status: Ordered melatonin 1 mg oral tablet 1 tablet = 1 mg, By Mouth, Daily at bedtime, PRN for insomnia, Maintenance, 09/24/21 11:32:00 EDT, Tablet, ; Start Date: 09/24/21 Status: Ordered QUEtiapine 50 mg oral tablet 1 tablet, By Mouth, 2 times a day, # 60 tablet, 1 Refills, Maintenance, 10/25/22 11:57:00 EST, [id number], 175, cm, 09/29/21 0:04:00 EDT, Height, 80.5, kg, 09/24/21 21:41:00 EDT, Dry Weight Start Date: 10/25/22 Status: Ordered Stalevo 100 1 tablet, By Mouth, pt has own home medication, 0 Refills, Maintenance, 12/04/22 10:31:00 EST, Partial fill upon patient request if the prescription is for a schedule II opioid drug. Start Date: 12/04/22 Status: Ordered Stalevo 100 1 tablet, By [...] Refills, Maintenance, 08/12/22 13:58:00 EDT, ER Capsule, [facility]/pharmacy #[id number], Partial fill upon patient request if the prescription is for a schedule II opioid drug., 175, cm, 09/29/21 0:04:00 EDT, H... Start Date: 08/12/22 Status: Ordered venlafaxine 75 mg oral capsule, extended release 75 mg, 1, capsule, By Mouth, Daily, # 90 capsule, Refills 1, Tot. Refills 1, Maintenance, 08/12/22 13:58:00 EDT, Route to Pharmacy Electronically, [facility]/pharmacy #[id number], Partial fill upon patient request if the prescription is for a schedule II opioid Start Date: 08/12/22 Status: Ordered Problem List Condition Confirmation Course Effective Dates Status [facility] Parkinson's disease Confirmed Active Results Radiology Reports * Exam Date Time Procedure Performing Provider Status 12/04/22 10:[address] Abdomen and Pelvi s W/O Contrast Marisel Walker; Auth (Verified) Notes: (CT Abdomen and Pelvis W/O Contrast) Reason For Exam: Flank pain, kidney stone suspected;Other: RESULT: CT Abdomen and Pelvis W/O Contrast CT Abdomen and Pelvis W/O Contrast Hx of Present Illness: Pt comes in from home via EMS for c o urinary issues x 2 weeks. Recently treat for UTI. Pt also reports feeling sob but reports this happens some times due to his Parkinsons. Pt denies any sob at this time and speaking; Reason: Other:; Flank pain, kidney stone suspected; Clinical Question(s): Calculus; Right Side flank TECHNIQUE: Spiral CT through the abdomen and pelvis without IV contrast formatted in 3 planes. Thisstudy was performed without oral contrast. Weight- based protocol using automatic tube modulation was used to optimize exposure parameters. CTDIvol Body: 16.82 mGy, DLP Body: 827 mGy*cm. COMPARISON: None FINDINGS: Deflash And Wash Operator View Findings, Lines and Tubes: None. Visualized Chest: Lung bases are clear. No pleural effusion. No pericardial effusion. Diaphragm: Normal. Liver: Normal. Gallbladder: No CT evidence of gallbladder pathology. Bile ducts: No biliary ductal dilation. Spleen: Normal. Pancreas: Normal. Adrenal glands: Normal. Kidneys and ureters: No hydronephrosis or noncontrast evidence of suspicious masses. Multiple nonobstructing 0.2 cm bilateral renal calculi. Simple appearing renal cysts are noted, requiring no dedicated follow up. Bladder: Intraluminal bladder stone. 1.8 cm. Hounsfield measurements of 1350. Stomach, small bowel, and large bowel: Diverticulosis of the sigmoid colon without acute inflammation. Appendix: Normal. Peritoneum and retroperitoneum: No ascites or pneumoperitoneum. No omental or mesenteric lesions. Lymph nodes: No enlarged lymph nodes. Blood vessels: Normal. No aneurysm. Abdominal and pelvic wall:Small fat-containing umbilical hernia. Bones: Multilevel degenerative changes of the lumbar spine including grade I anterolisthesis of L5 on S1 with posterior fusion hardware at L5-S1. IMPRESSION: Intraluminal bladder stone with small bilateral nonobstructing renal calculi. I have personally reviewed the images and I agree with this report. WSN: [id number] Ordering Physician: Jose Cherry Dictated By: Ann Gonsalez MD Dictated Date/Time: 12/04/22 11:47 a Reviewed By: Rene Kim MD Signed By: Rene Kim MD Signed Date/Time: 12/04/22 11:52 am Transcribed By: SRINIVAS Transcribed Date/Time: 12/04/22 11:23 am * Exam Date Time Procedure Performing Provider Status 12/04/22 9:41 AM Chest 2 Views Frontal and Lat Laurie Lafleur (Verified) Notes: (Chest 2 Views Frontal and Lat) Reason For Exam: Shortness of Breath, Fever;Other: RESULT: Chest 2 Views Frontal and Lat Chest 2 Views Frontal and Lat Hx of Present Illness: Pt comes in from home via EMS for c o urinary issues x 2 weeks. Recently treat for UTI. Pt also reports feeling sob but reports this happens some times due to his Parkinsons. Pt denies any sob at this time and speaking; Reason: Other:; Shortness of Breath, Fever; Clinical Question(s): Pneumonia COMPARISON: 09/24/2021 FINDINGS: No acute cardiopulmonary process IMPRESSION: No acute abnormality. WSN: [id number] Ordering Physician: Jose Cherry Dictated By: Rene Kim MD Dictated Date/Time: 12/04/22 9:47 am Reviewed By: Rene Kim MD Signed By: Rene Kim MD Signed Date/Time: 12/04/22 9:47 am Transcribed By: SRINIVAS Transcribed Date/Time: 12/04/22 9:46 am Vital Signs Most recent to oldest [Reference Range]: 1 2 3 Height 175 cm (12/04/22 6:37 PM) 175 cm (12/04/22 8:37 AM) Weight 77.5 kg (12/04/22 6:37 PM) 77.5 kg (12/04/22 8:37 AM) Oxygen Saturation [94-100 %] 95 % (12/04/22 6:37 PM) 95 % (12/04/22 1:06 PM) 98 % (12/04/22 8:34 AM) Pulse Rate [55-90 bpm] 73 bpm (12/04/22 6:37 PM) 84 bpm (12/04/22 1:06 PM) 93 bpm *H* (12/04/22 8:34 AM) Body Mass Index [18.5-24.99 kg/m2] 25.31 kg/m2 *H* (12/04/22 6:37 PM) Blood Pressure [90-138/55-84 mm Hg] 149/66mm Hg *H* (12/04/22 6:37 PM) 130/108mm Hg (12/04/22 1:06 PM) 171/88mm Hg *H* (12/04/22 8:34 AM) Respiratory Rate [16-30 br/min] 18 br/min (12/04/22 6:37 PM) 18 br/min (12/04/22 1:06 PM) 20 br/min (12/04/22 8:34 AM) Temperature [96.8-100.4 DegF] 97.3 DegF (12/04/22 6:37 PM) 97.7 DegF (12/04/22 8:34 AM) Liters per Minute 0 L/min (12/04/22 1:06 PM) 0 L/min (12/04/22 8:34 AM) Mode of Delivery (Oxygen) Room air (12/04/22 6:37 PM) Room air (12/04/22 1:06 PM) Room air (12/04/22 8:34 AM) Blood pressure sites Arm, left (12/04/22 6:37 PM) Temperature Route Oral (12/04/22 6:37 PM) Temporal (12/04/22 8:34 AM) Dry Weight 77.5 kg (12/04/22 6:37 PM) 77.5 kg (12/04/22 8:37 AM) Dry Weight Obtained Via Patient lift dyer ging scale (12/04/22 8:37 AM) Social History Social History Type Response Smoking Status Former smoker, quit more than 30 days ago; Other: Pt states he smoked 40 years ago; entered on: 09/24/21 Sex Note * Marianela Dodge: PERFORM, SIGN, VERIFY Event Display: Case Management Discharge Plan Authored Date: Patient: PRASHANT PEARSON Age: 72 years Sex: Male : 1950 Associated Diagnoses: None Author: Marianela Dodge Discharge Plan Case Management Discharge Plan : Case Management Discharge Plan Data 12/04/2022 16:37 EST Discharge Level of Care at Discharge halfway facility Discharge Nursing Homes/Rehab Facilities Care [facility] Discharge Transportation Arranged [facility] [address] [facility] [id number] [phone] Mode of Transportation Arranged Ambulance Name of Agency #1 [facility] Agency Director Of Partnerships #1 Intake Service Categories #1 Occupational Therapy, Physical Therapy, Assisted * MURRAY Jesus S: PIERRE Kim MD, Rene P: VERIFY Event Display: Result: Authored Date: Chest 2 Views Frontal and Lat Hx of Present Illness: Pt comes in from home via EMS for c o urinary issues x 2 weeks. Recently treat for UTI. Pt also reports feeling sob but reports this happens some times due to his Parkinsons. Pt denies any sob at this time and speaking; Reason: Other:; Shortness of Breath, Fever; Clinical Question(s): Pneumonia COMPARISON: 09/24/2021 FINDINGS: No acute cardiopulmonary process IMPRESSION: No acute abnormality. WSN: [id number] Ordering Physician: Jose Cherry Dictated By: Rene Kim MD Dictated Date/Time: 12/04/22 9:47 am Reviewed By: Rene Kim MD Signed By: Rene Kim MD Signed Date/Time: 12/04/22 9:47 am Transcribed By: SRINIVAS Transcribed Date/Time: 12/04/22 9:[address] Abdomen and Pelvis WO contrast * [facility] , CIS S: TRANSCRIBE Rene Kim MD: VERIFY Ann Gonsalez MD: SIGN Event Display: Result: Authored Date: [id number] CT Abdomen and Pelvis W/O Contrast Hx of Present Illness: Pt comes in from home via EMS for c o urinary issues x 2 weeks. Recently treat for UTI. Pt also reports feeling sob but reports this happens some times due to his Parkinsons. Pt denies any sob at this time and speaking; Reason: Other:; Flank pain, kidney stone suspected; Clinical Question(s): Calculus; Right Side flank TECHNIQUE: Spiral CT through the abdomen and pelvis without IV contrast formatted in 3 planes. Thisstudy was performed without oral contrast. Weight- based protocol using automatic tube modulation was used to optimize exposure parameters. CTDIvol Body: 16.82 mGy, DLP Body: 827 mGy*cm. COMPARISON: None FINDINGS: Deflash And Wash Operator View Findings, Lines and Tubes: None. Visualized Chest: Lung bases are clear. No pleural effusion. No pericardial effusion. Diaphragm: Normal. Liver: Normal. Gallbladder: No CT evidence of gallbladder pathology. Bile ducts: No biliary ductal dilation. Spleen: Normal. Pancreas: Normal. Adrenal glands: Normal. Kidneys and ureters: No hydronephrosis or noncontrast evidence of suspicious masses. Multiple nonobstructing 0.2 cm bilateral renal calculi. Simple appearing renal cysts are noted, requiring no dedicated follow up. Bladder: Intraluminal bladder stone. 1.8 cm. Hounsfield measurements of 1350. Stomach, small bowel, and large bowel: Diverticulosis of the sigmoid colon without acute inflammation. Appendix: Normal. Peritoneum and retroperitoneum: No ascites or pneumoperitoneum. No omental or mesenteric lesions. Lymph nodes: No enlarged lymph nodes. Blood vessels: Normal. No aneurysm. Abdominal and pelvic wall:Small fat-containing umbilical hernia. Bones: Multilevel degenerative changes of the lumbar spine including grade I anterolisthesis of L5 on S1 with posterior fusion hardware at L5-S1. IMPRESSION: Intraluminal bladder stone with small bilateral nonobstructing renal calculi. I have personally reviewed the images and I agree with this report. WSN: [id number] Ordering Physician: Jose Cherry Dictated By: Ann Gonsalez MD Dictated Date/Time: 12/04/22 11:47 a Reviewed By: Rene Kim MD Signed By: Rene Kim MD Signed Date/Time: 12/04/22 11:52 am Transcribed By: SRINIVAS Transcribed Date/Time: 12/04/22 11:23 am Patient Care team information Care Team Personnel Name: Mark Tesfaye RN Position: [facility] RN Member Role: Primary Care Nurse Name: Charly Francisco MD Position: Reference Physician Member Role: PCP Address: Address: [address] [place] [id number]- Name: Dinesh Sheehan RN Position: [facility] RN Member Role: Primary Care Nurse Name: Bk Collins RN Position: [facility] ED RN W/OE and Tasks Member Role: Patient Care Provider Name: Daniel Macdonald Position: [facility] ED OA Member Role: Patient Care Provider Name: Ami Arellano MD Position: [facility] ED Medicine MD Member Role: Admitting Physician Address: Address: [address] [place] [address] [place] [address]- Care Team Related Persons Name: LILI EM Address: [address] [address] [place]
--- OUTSIDE RECORDS SUMMARY | 2023-03-03 16:45 | XMS_ITS | Continuity of Care Document ---
Author Name Unknown Organization [facility] Address [address] [place] [address]- Care Team Providers Care Customer Greeter Name Role Phone Nolan SYLVESTER, Charly Owen Primary Care Physician [place] [id number] Date(s): 09/25/21 - 09/30/[address] [address]- Discharge Disposition: A-Transfer SNF Attending Physician: Brenda SYLVESTER, Idrisbreana Admitting Physician: Farrukh Don MD Referring Physician: Not on Staff, Referring [...] 8pm, 10pm & 12am, # 98 tablet, 0 Refills, Maintenance, 09/30/21 10:00:00 EDT, DIS Tablet, Partial fill upon patient request if the prescription is for a schedule II opioid drug. Start Date: 09/30/21 Status: Ordered clonazePAM 0.5 mg oral tablet [...] PRN as needed, Maintenance, 09/24/21 11:30:00 EDT, [place], ; Start Date: 09/24/21 Status: Ordered melatonin [...] Health Status Inform ant Parkinson's disease(Confirmed) Active Results Radiology Reports * Exam Date Time Procedure Performing Provider Status 09/24/21 1:40 PM Chest Portable Nabeel Lee; Auth (V erified) Notes: (Chest Portable) Reason For Exam: Shortness of Breath RESULT: Chest Portable Chest Portable Hx of Present Illness: Pt became unable way to move while he was ambulating at home. Hx of parkinson's. Also had a panic attack and became incontinent of urine; Reason: Shortness of Breath; Clinical Question(s): CHF COMPARISON: 01/30/2021 FINDINGS: LINES AND TUBES: None. LUNGS AND PLEURA: Clear lungs. Normal pulmonary vascularity. No pleural effusion. No pneumothorax. HEART, MEDIASTINUM AND ERICA: Unchanged. BONES AND SOFT TISSUES: No acute abnormality. IMPRESSION: No acute abnormality. WSN: [id number] Ordering Physician: Emiile Martin Dictated By: Cornell Lebron MD Dictated Date/Time: 09/24/21 1:45 pm Reviewed By: Cornell Lebron MD Signed By: Cornell Lebron MD Signed Date/Time: 09/24/21 1:45 pm Transcribed By: SRINIVAS Transcribed Date/Time: 09/24/21 1:45 pm Vital Signs Most recent to oldest [Reference Range]: 1 2 3 Height 175 cm (09/29/21 12:04 AM) 175 cm (09/28/21 8:52 PM) 175 cm (09/28/21 12:49 AM) Weight 80.5 kg (09/24/21 9:41 PM) 78 kg (09/24/21 4:25 PM) 78 kg (09/24/21 11:31 AM) Oxygen Saturation [94-100 %] 95 % (09/30/21 7:32 AM) 97 % (09/29/21 4:11 PM) 98 % (09/29/21 12:23 PM) Pulse Rate [55-90 bpm] 78 bpm (09/30/21 7:32 AM) 90 bpm (09/29/21 4:11 PM) 100 bpm *H* (09/29/21 12:23 PM) Body Mass Index [18.5-24.99] 26.29 *H* (09/24/21 9:41 PM) 25.47 *H* (09/24/21 4:25 PM) 25.47 *H* (09/24/21 11:31 AM) Blood Pressure [90-138/55-84 mm Hg] 122/66mm Hg (09/30/21 7:32 AM) 117/67mm Hg (09/29/21 4:11 PM) 159/76mm Hg *H* (09/29/21 12:23 PM) Respiratory Rate [16-30 br/min] 20 br/min (09/30/21 7:32 AM) 15 br/min *L* (09/29/21 4:11 PM) 18 br/min (09/29/21 12:23 PM) Temperature [96.8-100.4 DegF] 97.9 DegF (09/30/21 7:32 AM) 97.4 DegF (09/29/21 4:11 PM) 97.8 DegF (09/29/21 12:23 PM) Liters per Minute 0 L/min (09/29/21 4:11 PM) 0 L/min (09/29/21 12:23 PM) 0 L/min (09/29/21 8:07 AM) Mode of Delivery (Oxygen) Room air (09/30/21 7:32 AM) Room air (09/29/21 4:11 PM) Room air (09/29/21 12:23 PM) Blood pressure sites Arm, left (09/30/21 7:32 AM) Arm, left (09/29/21 4:11 PM) Arm, left (09/29/21 12:23 PM) Temperature Route Temporal (09/30/21 7:32 AM) Temporal (09/29/21 4:11 PM) Temporal (09/29/21 12:23 PM) Dry Weight 80.5 kg (09/24/21 9:41 PM) 78 kg (09/24/21 4:25 PM) 78 kg (09/24/21 11:31 AM) Social History Social History Type Response Smoking Status Former smoker, quit more than 30 days ago; Other: Pt states he smoked 40 years ago; entered on: 09/24/21 Sex
--- OUTSIDE RECORDS SUMMARY | 2023-03-03 16:45 | XMS_ITS | Continuity of Care Document ---
Author Name Unknown Organization [facility] Address [address] [place] [address]- Care Team Providers Care Manager Rn Case Name Role Phone Nolan SYLVESTER, Charly Owen Primary Care Physician Encounter [facility] NBR [id number] Date(s): 01/30/21 - 01/31/[address] [address]- Encounter Diagnosis Parkinsons disease(Final) - 01/30/21 Discharge Disposition: A-Transfer SNF Attending Physician: Christal Garcia MD Admitting Physician: Iris Duarte DO Referring Physician: Jose Cherry MD Allergies, Adverse Reactions, Alerts Substance Reaction Severity Status LORazepam Active oxyCODONE Active Medications alfuzosin 10 mg oral tablet, extended release 1 tablet = 10 mg, By Mouth, Daily, 0 Refills, Maintenance, 01/31/21 15:52:00 EST, Partial fill uponpatient request if the prescription is for a schedule II opioid drug. Start Date: 01/31/21 Status: Ordered Cymbalta 60 mg oral enteric coated capsule See Instructions, 1 capsule BID, # 180 capsule, 0 Refills, Maintenance, 01/30/21 12:20:00 EST, EC Capsule, [facility]/pharmacy #[id number] Start Date: 01/30/21 Status: Ordered KlonoPIN 0.5 mg oral tablet 1 tablet = 0.5 mg, By Mouth, 3 times a day, This replaces Ativan rx and prior Klonopin rx., # 90 tablet, 5 Refills, Maintenance, 01/31/21 14:57:00 EST Start Date: 01/31/21 Status: Ordered melatonin 10 mg oral capsule 1 capsule = 10 mg, By Mouth, Daily at bedtime, for 14 days, # 14 capsule, 0 Refills, Acute 02/14/2114:53:00 EDT, 01/31/21 14:53:00 EST, Partial fill upon patient request if the prescription is for aschedule II opioid drug. Start Date: 01/31/21 Stop Date: 02/14/21 Status: Ordered OXcarbazepine 300 mg oral tablet 1, tablet, By Mouth, 3 times a day, # 270 tablet, Refills 3, Tot. Refills 0, Maintenance, 10/28/20 9:28:00 EST, Route to Pharmacy Electronically, [id number], 175.26, cm, 11/08/18 7:05:00 EST, Height, 88.9, kg, 11/08/18 7:05:00 EST, Dry Weight Start Date: 10/28/20 Status: Ordered Simvastatin By Mouth, Daily at bedtime, 0 Refills, Maintenance Start Date: 10/19/11 Status: Ordered Stalevo 100 1 tablet, By Mouth, 6 times a day, 0 Refills, Maintenance, 01/30/21 15:47:00 EST, Partial fill uponpatient request if the prescription is for a schedule II opioid drug. Start Date: 01/30/21 Status: Ordered Stalevo 150 oral tablet See Instructions, 1 tablet By Mouth 6 times a day 90 days. May use generic if available., # 540 tablet, 2 Refills, Maintenance, 03/27/18 9:53:28 EDT Start Date: 03/27/18 Status: Ordered Problem List Condition Effective Dates Status Health Status Inform ant Parkinson's disease(Confirmed) Active Results Orders for Microbiology Reports Name Date Blood Culture 01/30/21 Blood Culture #2 01/30/21 Microbiology Reports TEST:Blood Culture, Second Order STATUS:Unauthenticated BODY SITE: SOURCE:Blood COLLECTED DATE/TIME:01/30/21 3:45 PM Blood Culture, Second Order SPECIMEN DESCRIPTION : BLOOD R HAND SPECIAL REQUESTS : NONE CULTURE : NO GROWTH AFTER 24 HOURS REPORT STATUS : PRELIMINARY REPORT TEST:Blood Culture STATUS:Unauthenticated BODY SITE: SOURCE:Blood COLLECTED DATE/TIME:01/30/21 3:40 PM Blood Culture SPECIMEN DESCRIPTION : BLOOD RAC SPECIAL REQUESTS : NONE CULTURE : NO GROWTH AFTER 24 HOURS REPORT STATUS : PRELIMINARY REPORT Radiology Reports * Exam Date Time Procedure Performing Provider Status 01/30/21 5:10 PM Chest Portable Yesica Oreilly; Auth (Verified) Notes: (Chest Portable) Reason For Exam: Shortness of Breath RESULT: Chest Portable Chest Portable Hx of Present Illness: family looking for temp placement for rehab due to weakness and parkinson's 2-3 week decreased fluid and solid intake, has had excessive urination. PCP referred to ER for rehabplacement and med clearance.; Reason: Shortness of Breath; Clinical Question(s): CHF COMPARISON: 09/29/2015 FINDINGS: LINES AND TUBES: None. LUNGS AND PLEURA: Low lung volumes with mild basilar atelectasis. Lungs are otherwise clear with no consolidation. No pleural effusion. No pneumothorax. HEART, MEDIASTINUM AND ERICA: Heart is normal in size. Normal upper mediastinal and hilar contour. BONES AND SOFT TISSUES: No acute abnormality. IMPRESSION: No acute abnormality. WSN: [id number] Ordering Physician: Jose Cherry Dictated By: Daniel Jensen MD Dictated Date/Time: 01/30/21 5:17 pm Reviewed By: Daniel Jensen MD Signed By: Daniel Jensen MD Signed Date/Time: 01/30/21 5:17 pm Transcribed By: SRINIVAS Transcribed Date/Time: 01/30/21 5:16 pm Vital Signs Most recent to oldest [Reference Range]: 1 2 3 Height 176 cm (01/31/21 1:55 PM) 176 cm (01/31/21 5:26 AM) 176 cm (01/30/21 8:51 PM) Weight 82 kg (01/30/21 8:41 PM) 82 kg (01/30/21 3:39 PM) 82 kg (01/30/21 3:37 PM) Oxygen Saturation [94-100 %] 94 % (01/31/21 1:55 PM) 95 % (01/31/21 5:26 AM) 95 % (01/30/21 8:51 PM) Pulse Rate [55-90 bpm] 83 bpm (01/31/21 1:55 PM) 80 bpm (01/31/21 5:26 AM) 79 bpm (01/30/21 8:51 PM) Body Mass Index [18.5-24.99] 26.47 *H* (01/30/21 8:41 PM) 26.47 *H* (01/30/21 3:37 PM) Blood Pressure [90-138/55-84 mm Hg] 112/70mm Hg (01/31/21 1:55 PM) 161/83mm Hg *H* (01/31/21 5:26 AM) 163/88mm Hg *H* (01/30/21 8:51 PM) Respiratory Rate [16-30 br/min] 20 br/min (01/31/21 1:55 PM) 19 br/min (01/31/21 5:26 AM) 19 br/min (01/30/21 8:51 PM) Temperature [96.8-100.4 DegF] 99.1 DegF (01/31/21 1:55 PM) 97.8 DegF (01/31/21 5:26 AM) 98.5 DegF (01/30/21 8:51 PM) Mode of Delivery (Oxygen) Room air (01/31/21 1:55 PM) Room air (01/31/21 5:26 AM) Room air (01/30/21 8:51 PM) Blood pressure sites Arm, right (01/31/21 1:55 PM) Arm, right (01/31/21 5:26 AM) Arm, left (01/30/21 8:51 PM) Temperature Route Oral (01/31/21 1:55 PM) Oral (01/31/21 5:26 AM) Oral (01/30/21 8:51 PM) Dry Weight 82 kg (01/30/21 8:41 PM) 82 kg (01/30/21 3:39 PM) 82 kg (01/30/21 3:37 PM) Weight Obtained Via Standing scale (01/30/21 8:41 PM) Patient/family stated (01/30/21 3:37 PM) Dry Weight Obtained Via Patient/family s tated (01/30/21 8:41 PM) Patient/family stated (01/30/21 3:37 PM) Social History Social History Type Response Smoking Status Former smoker, quit more than 30 days ago entered on: 01/30/21 Sex
--- OUTSIDE RECORDS SUMMARY | 2023-03-03 16:45 | XMS_ITS | Continuity of Care Document ---
Author Name Unknown Organization [facility] Address [address] [place] [address]- Care Team Providers Care Global Logistics Manager Name Role Phone Charly Francisco MD Primary Care Physician Encounter [facility] [place] Date(s): 09/29/21 - 11/04/21 [facility] [address] [place] [id number]- Attending Physician: Ian Schaefer MD Admitting Physician: Ian Schaefer MD Referring Physician: Charly Francisco MD Allergies, Adverse Reactions, Alerts Substance Reaction [...] Refills, Maintenance, 10/27/21 11:44:00 EST, DIS Tablet, [facility]/pharmacy #[id number], Partial fill upon patient request [...] 10/27/21 11:40:00 EST, Route to Pharmacy Electronically, [facility]/pharmacy #[id number], Partial fill upon patient request [...] PRN as needed, Maintenance, 09/24/21 11:30:00 EDT, [place], ; Start Date: 09/24/21 Status: Ordered melatonin [...]
[2023-03-03 17:20] VITALS: BMI 25.1
[2023-03-03 17:36] VITALS: BP 166/87; PULSE 79; RESP 18; TEMP 36.2; O2SAT 97
[2023-03-03 18:00] VITALS: BP 194/88; PULSE 84; RESP 16; TEMP 36.1; O2SAT 94
[2023-03-03] MEDS: LORazepam 1 MG TABLET PO (18:49)
--- NOTE | 2023-03-03 18:57 | PC.NURSE ---
Addendum entered by Ceci Pennington RN 03/03/23 19:09: called and notified of pts admission and will bring HCP information in. Original Note: 72 yr old pt admitted for anxiety/moments of paranoia. Admitted prev to [facility] for UTI treated and resolved per [facility]. Hx of prev TURP due to BPH. Blood tinged urine noted this evening. Pt with extreme diaphoresis due to increased anxiety. Hx of Parkinsons and medicated at home q2h decreased to q6hrs via [facility]. Upper ext tremors notable. Difficulty transferring with walker needing 1 assist. Presently resting in bed, medicated with ativan due to increased anxiety. Oriented to floor but pt unable to comprehend any direction and states cannot answer questions at this time.
[2023-03-03] MEDS: traZODone HCL 50 MG TABLET PO (20:30)
[2023-03-03] MEDS: Melatonin 3 MG TABLET PO (20:30)
[2023-03-04] MEDS: Acetaminophen 325 MG TABLET 650 MG PO (01:30)
[2023-03-04] MEDS: LORazepam 1 MG TABLET PO ×2 (01:37→15:59)
[2023-03-04] MEDS: traZODone HCL 25 MG HALFTAB PO (01:38)
[2023-03-04] MEDS: Carbidopa/Levodopa 25/100 TABLET 2 TAB PO (02:23)
[2023-03-04 06:00] VITALS: BP 105/79; PULSE 102; RESP 18; TEMP 36.8; O2SAT 98
[2023-03-04 09:14] LABS: Alanine Aminotransferase 15 U/L (0-40); Alkaline Phosphatase 53 U/L (39-117); Anion Gap 14 (12-20); Aspartate Amino Transferase 41 U/L (5-37); Bilirubin Total 0.9 mg/dL (0.0-1.0); Blood Urea Nitrogen 19 mg/dL (9-16); Calcium 9.4 mg/dL (8.4-10.2); Carbon Dioxide 23 mmol/L (22-29); Chloride 111 mmol/L (96-108); Cholesterol 143 mg/dL; Creatinine Clr Calc Pharmacy 49.6; Estimated Glomerular Filt Rate 53; Glucose Fasting 115 mg/dL (60-99); HDL Cholesterol 52 mg/dL; LDL Cholesterol Calculated 79 mg/dl; Potassium 4.4 mmol/L (3.3-5.1); Sodium 144 mmol/L (135-145); Total Protein 6.4 g/dL (6.5-8.0); Triglycerides 60 mg/dL
[2023-03-04] MEDS: Atorvastatin Calcium 10 MG TABLET PO (09:47)
[2023-03-04] MEDS: Venlafaxine HCl ER 150 MG CAP.ER.24H PO (09:47)
--- NOTE | 2023-03-04 14:03 | HO.PSYADMNOT ---
HPI Date of Service: 03/04/23 Chief Complaint: SI Sources of Information: patient interviewed, chart reviewed and crisis/core team assessment reviewed HPI Subjective Notes: Li Warning and Conditional Voluntary Narrative: The patient is a 72-year-old male, , mother of adult children, with good social support with a long history of Parkinson's disease for at least 10 years. The patient was initially admitted to the emergency department of [facility] after he presented respiratory distress, changes in his mental status and decreased activity. According to the crisis assessment, his reported that he has several meltdowns with suicidal ideation. He was initially treated at [facility], where he was seen by Neurology and Psychiatry and he was deemed for inpatient level of care. The patient has presented with visual and auditory hallucinations, agitation and anxiety behaviors that scared his . Also, he complained of depressed mood, anhedonia, lack of energy, feelings of hopelessness and worthlessness and suicidal ideation. Since he was not able to contract for safety at [facility] he was transfer into the ureteric unit in this hospital. On the intake interview, the patient was a very poor historian but he reported that he has suffered several years with Parkinson's. He looked confused and scared stating that there is green pillow around his hand. There were no pillows around his hand and he was responding to internal stimuli. He also acknowledged depressive symptoms and passive suicidal ideation. Past Psychiatric History: The patient has a previous diagnosis of depression, treated as an outpatient only by Dr. Nguyen. No prior admissions into psychiatry. According to the chart he had a poor response to SSRIs. Medical Evaluation Reviewed: Yes [facility] Medical History Anxiety Arthritis Parkinsons disease Surgical History H/O spinal fusion Diagnostics Vital Signs (24Hr): Vital Signs - 24 hr 03/03/23 17:36 03/03/23 18:00 03/04/23 06:00 Temperature 97.1 F 96.9 F 98.2 F Pulse Rate 79 84 102 H Respiratory Rate 18 16 18 Blood Pressure 166/87 H 194/88 H 105/79 Pulse Oximetry 97 94 98 Oxygen Delivery Method Room Air Room Air Room Air BMI result Body Mass Index 25.1 Labs 03/04/23 08:47 Labs: Laboratory Results - last 48 hr 03/04/23 08:47 Sodium 144 Potassium 4.4 Chloride 111 H Carbon Dioxide 23 Anion Gap 14 BUN 19 H Creatinine 1.32 Estim Creat Clear Calc 49.6 Estimated GFR 53 Fasting Glucose 115 H Calcium 9.4 Total Bilirubin 0.9 AST 41 H ALT 15 Alkaline Phosphatase 53 Total Protein 6.4 L Albumin 4.0 Triglycerides 60 Cholesterol 143 LDL Cholesterol, Calc 79 HDL Cholesterol 52 Meds/Allergies Meds Home Medications Medication Instructions Recorded Confirmed Type atorvastatin 10 mg tablet (Lipitor) 10 mg PO DAILY 12/02/21 03/03/23 History lorazepam 1 mg tablet 1 mg PO QID PRN Anxiety 05/19/22 03/03/23 History venlafaxine 150 mg 150 mg PO DAILY 10/14/22 03/03/23 History capsule,extended release 24 hr acetaminophen 500 mg PO 1XD PRN Pain 03/03/23 03/03/23 History carbidopa 25 mg-levodopa 100 1 tab PO QID 03/03/23 03/03/23 History mg-entacapone 200 mg tablet (Stalevo 100) fluticasone propionate 50 1 spray intranasal BID 03/03/23 03/03/23 History mcg/actuation nasal spray,suspension melatonin 1 mg tablet 1 mg PO BEDTIME PRN Insomnia 03/03/23 03/03/23 History trazodone 50 mg tablet 25 mg PO BID PRN Anxiety 03/03/23 03/03/23 History Allergies Allergies Allergy/AdvReac Type Severity Reaction Status Date / Time oxycodone Allergy Unknown Verified 10/14/22 13:51 pollen extracts Allergy skin rash Verified 10/14/22 13:51 Mental Status Exam Mental Status Exam Patient Appearance: Appropriate Patient Orientation: Person and Situation Level of Consciousness: Awake and Lethargic Patient Behavior: Passive and Asleep Mood Description: Withdrawn and Depressed Affect Description: Blunted Patient Cognition Impaired: Yes Ability to Follow Directions: Fair Speech Pattern: Soft-Spoken Hallucinations: Visual Delusions: Paranoid Ideation Thought Process: Illogical and Distracted Thought Content: positive for Poverty of Content, positive for Loose Associations and positive for Disorganized Judgement: Poor Assessment & Plan Assessment & Plan (1) Parkinsons disease: Status: Acute Code(s): G20 - Parkinson's disease (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 The patient had been on Sinemet for several years and he reported that he had in the past hallucinations in the context of dopaminergic agents. Plan 1. Gather collateral information. We will have to contact her prior prescriber hers and family. 2. Continue with Sinemet and on her antiparkinsonian medications. 3. Continue with antidepressant. 4. Start a slow titration of haloperidol to target psychotic symptoms. 5. . Continue medical workout . 6. Reassessment with results Patient educated on: diagnosis Informed Consent: further education needed Reason for continued inpatient stay Substantial Risk for: harm to self, inability to function, rapid decompensation and med/psych decompensation Statement Statement: I have reviewed the history and physical and performed a pertinent examination on my patient. No changes have occurred unless specified. If the History and Physical was not performed prior to admission, the Hospitalist's service will be consulted for completing the admission physical. Time Spent With Patient Time: Total time managing care of this patient today _45___ minutes.
[2023-03-04 18:00] VITALS: BP 175/80; PULSE 97; RESP 18; TEMP 36.2; O2SAT 93
[2023-03-04] MEDS: HaloperidoL 0.5 MG TABLET PO (20:05)
[2023-03-04] MEDS: Melatonin 3 MG TABLET PO (20:05)
[2023-03-04] MEDS: traZODone HCL 50 MG TABLET PO (21:56)
[2023-03-05] MEDS: LORazepam 1 MG TABLET PO ×4 (00:39→20:03)
[2023-03-05 08:00] VITALS: BP 160/70; PULSE 95; RESP 18; TEMP 36.7
[2023-03-05] MEDS: Fluticasone Propionate Nasal 16 GM SPRAY 1 SPRAY NOSTRIL-B (08:32)
[2023-03-05] MEDS: Atorvastatin Calcium 10 MG TABLET PO (08:33)
[2023-03-05] MEDS: Venlafaxine HCl ER 150 MG CAP.ER.24H PO (08:33)
[2023-03-05] MEDS: HaloperidoL 0.5 MG TABLET PO ×2 (08:33→20:02)
[2023-03-05] MEDS: Milk of Magnesia 30 ML ORAL.SUSP PO (08:41)
--- NOTE | 2023-03-05 15:35 | HO.PSYCHPN ---
Subjective Subjective Date of Service: 03/05/23 Reason For Visit: SI Interim History: Met with patient; reviewed chart; discussed with team On approach patient lying in bed, right arm shaking rapidly. Patient denies that Ativan overdose was intentional. He says he has been taking his medications but they only help with his Parkinson's a little bit. Patient is oriented to person and situation but not place, says he is not sure where he is. Currently denies SI. Open to medication management for Parkinson's. Mental Status Exam Mental Status Exam Patient Appearance: Appropriate Patient Orientation: Person and Situation Level of Consciousness: Awake Patient Behavior: Anxious and Poor Eye Contact Mood Description: Depressed and Anxious Affect Description: Fearful Patient Cognition Impaired: Yes Ability to Follow Directions: Fair Speech Pattern: Soft-Spoken Hallucinations: None (does not report any) Delusions: Not Present (no expression of delusional thinking) Thought Process: Goal Oriented Thought Content: positive for Perseveration (thinking about parkinsons; Denies SI/HI) Abnormal Motor Activity Signs and Symptoms: Tremors (Parkinsons) Judgement and Insight: impaired Diagnostics Vital Signs (24Hr): Vital Signs - 24 hr 03/04/23 18:00 03/05/23 08:00 Temperature 97.1 F 98.0 F Pulse Rate 97 95 Respiratory Rate 18 18 Blood Pressure 175/80 H 160/70 H Pulse Oximetry 93 Oxygen Delivery Method Room Air Room Air BMI result Body Mass Index 25.1 Labs 03/04/23 08:47 Labs: Laboratory Results - last 48 hr 03/04/23 08:47 Sodium 144 Potassium 4.4 Chloride 111 H Carbon Dioxide 23 Anion Gap 14 BUN 19 H Creatinine 1.32 Estim Creat Clear Calc 49.6 Estimated GFR 53 Fasting Glucose 115 H Calcium 9.4 Total Bilirubin 0.9 AST 41 H ALT 15 Alkaline Phosphatase 53 Total Protein 6.4 L Albumin 4.0 Triglycerides 60 Cholesterol 143 LDL Cholesterol, Calc 79 HDL Cholesterol 52 Medications Medications Current Medications Acetaminophen (Acetaminophen 325 Mg Tablet) 650 mg PO Q6H PRN PRN Reason: Headache/Pain Mild Scale (1-3) Last Admin: 03/04/23 01:30 Dose: 650 mg Al Hydroxide/Mg Hydroxide (Magnesium Hydrox/Alum Hydrox 30 Ml Oral.Susp) 30 ml PO Q6H PRN PRN Reason: Heartburn/Nausea Atorvastatin Calcium (Atorvastatin Calcium 10 Mg Tablet) 10 mg PO DAILY [facility] Last Admin: 03/05/23 08:33 Dose: 10 mg Fluticasone Propionate (Fluticasone Propionate Nasal 16 Gm [place]) 1 spray NOSTRIL-B BID [facility] Last Admin: 03/05/23 08:32 Dose: 1 spray Haloperidol (Haloperidol 0.5 Mg Tablet) 0.5 mg PO BID [facility] Last Admin: 03/05/23 08:33 Dose: 0.5 mg Lorazepam (Lorazepam 1 Mg Tablet) 1 mg PO QID PRN PRN Reason: Anxiety Last Admin: 03/05/23 11:53 Dose: 1 mg Magnesium Hydroxide (Milk Of Magnesia 30 Ml Oral.Susp) 30 ml PO DAILY PRN PRN Reason: Constipation Last Admin: 03/05/23 08:41 Dose: 30 ml Melatonin (Melatonin 3 Mg Tablet) 3 mg PO BEDTIME [facility] Last Admin: 03/04/23 20:05 Dose: 3 mg Pt Own (Carbidopa- Levodopa-Entacapone [Stalevo 100] 25-100 -200 Mg Tablet 1 tab PO QID [facility] Last Admin: 03/05/23 12:30 Dose: 1 tab Trazodone HCl (Trazodone Hcl 50 Mg Tablet) 50 mg PO BEDTIME MRX1 PRN PRN Reason: Insomnia Last Admin: 03/04/23 21:56 Dose: 50 mg Trazodone HCl (Trazodone Hcl 25 Mg Halftab) 25 mg PO BID PRN PRN Reason: Agitation Last Admin: 03/04/23 01:38 Dose: 25 mg Venlafaxine HCl (Venlafaxine Hcl Er 150 Mg Cap.Er.24h) 150 mg PO DAILY [facility] Last Admin: 03/05/23 08:33 Dose: 150 mg Allergies Allergies Allergy/AdvReac Type Severity Reaction Status Date / Time oxycodone Allergy Unknown Verified 10/14/22 13:51 pollen extracts Allergy skin rash Verified 10/14/22 13:51 Assessment & Plan Assessment & Plan (1) Parkinsons disease: Status: Acute Code(s): G20 - Parkinson's disease (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 The patient had been on Sinemet for several years and he reported that he had in the past hallucinations in the context of dopaminergic agents. Hospital course: 03/06 patient obviously suffering from side effects of Parkinson's with severe, bilateral hand tremor, right being the worst. He denies intentional overdose. There was mention and report that his Sinemet medication has been reduced recently, possibly for concern for psychotic symptoms. Currently admitting provider started Haldol to see if can help, though risks worsening parkinsonian symptoms. Will have to discuss history of medication management further; will reach out to pharmacy as well Plan 1. Gather collateral information. We will have to contact her prior prescriber hers and family. 2. Continue with Sinemet and on her antiparkinsonian medications. 3. Continue with antidepressant. 4. Start a slow titration of haloperidol to target psychotic symptoms. 5. . Continue medical workout . 6. Reassessment with results Patient educated on: diagnosis, medication risk/benefits and medical condition Informed Consent: further education needed Reason for contiued inpatient stay Substantial Risk for: inability to function Time Spent With Patient Time: Total time managing care of this patient today ____ minutes.
--- NOTE | 2023-03-05 15:51 | HO.PM.IMCN ---
History of Present Illness Data of Consult Service Date: 03/05/23 Primary Care Provider: Unknown Physician HPI Reason for consult: Admission H&P Pt is a 72-year-old male with a PMH significant for?Parkinson's disorder, TURP for BPH, HLD, anxiety, with acute onset of psychosis with depression and SI who is admitted to [facility] for possible SI attempt. Pt's apparently discovered 50 Ativan pills missing from a recent refill and found pt somnolent and difficult to arouse. Medical consult for admission H&P. Nursing staff states that this morning they discovered patient disoriented, confused, rigid, and incapable of ambulating or speaking. Upon receiving second dose of carbidopa-levodopa today, pt became much more responsive and capable of speaking and ambulating. Stated he had been hallucinating. When pt seen for history and physical, was found lying in bed, with uncontrollable right upper extremity shaking and left-sided rigidity. Pt was alert to person and time only. HPI and physical exam difficult to obtain d/t pt's mentation and condition. Labs reviewed, unremarkable. Review of Systems Review of Systems: Difficult to obtain d/t pt's mentation. Pt complains of headache and wanting to stop shaking. Yes all other systems are reviewed and are negative [facility] Medical History Anxiety Arthritis Parkinsons disease Family History Mother Lung cancer Surgical History H/O spinal fusion Social History Household Members: Spouse and Caregiver Housing: Condominium Do you presently have visiting nurse or other home services: Yes ([employer] 8-3 5 days/wk and 9p-4a 3 days/wk) Unable to assess alcohol history related to: Unknown Alcohol intake: never Patient Tobacco Use Status: Never used Tobacco Use of substances other than those prescribed or required for medical reasons: Unknown Currently Displaying Signs/Symptoms of Drug Intoxication Withdrawal: No Advance Directives: No Advance Directives Information Provided: Yes Do you have thoughts of harming others: None Do you have a plan to hurt others: No Plan Recently lost weight without trying: Unsure Poor oral hygiene: No (speech eval ordered not completed at [facility] swallow eval done ok to take meds) service: Yes Sexual orientation: Straight/Heterosexual Meds Allergies Allergy/AdvReac Type Severity Reaction Status Date / Time oxycodone Allergy Unknown Verified 10/14/22 13:51 pollen extracts Allergy skin rash Verified 10/14/22 13:51 Active Medications: Current Medications Acetaminophen (Acetaminophen 325 Mg Tablet) 650 mg PO Q6H PRN PRN Reason: Headache/Pain Mild Scale (1-3) Last Admin: 03/04/23 01:30 Dose: 650 mg Al Hydroxide/Mg Hydroxide (Magnesium Hydrox/Alum Hydrox 30 Ml Oral.Susp) 30 ml PO Q6H PRN PRN Reason: Heartburn/Nausea Atorvastatin Calcium (Atorvastatin Calcium 10 Mg Tablet) 10 mg PO DAILY [facility] Last Admin: 03/05/23 08:33 Dose: 10 mg Fluticasone Propionate (Fluticasone Propionate Nasal 16 Gm [place]) 1 spray NOSTRIL-B BID [facility] Last Admin: 03/05/23 08:32 Dose: 1 spray Haloperidol (Haloperidol 0.5 Mg Tablet) 0.5 mg PO BID [facility] Last Admin: 03/05/23 08:33 Dose: 0.5 mg Lorazepam (Lorazepam 1 Mg Tablet) 1 mg PO QID PRN PRN Reason: Anxiety Last Admin: 03/05/23 11:53 Dose: 1 mg Magnesium Hydroxide (Milk Of Magnesia 30 Ml Oral.Susp) 30 ml PO DAILY PRN PRN Reason: Constipation Last Admin: 03/05/23 08:41 Dose: 30 ml Melatonin (Melatonin 3 Mg Tablet) 3 mg PO BEDTIME [facility] Last Admin: 03/04/23 20:05 Dose: 3 mg Pt Own (Carbidopa- Levodopa-Entacapone [Stalevo 100] 25-100 -200 Mg Tablet 1 tab PO QID [facility] Last Admin: 03/05/23 12:30 Dose: 1 tab Trazodone HCl (Trazodone Hcl 50 Mg Tablet) 50 mg PO BEDTIME MRX1 PRN PRN Reason: Insomnia Last Admin: 03/04/23 21:56 Dose: 50 mg Trazodone HCl (Trazodone Hcl 25 Mg Halftab) 25 mg PO BID PRN PRN Reason: Agitation Last Admin: 03/04/23 01:38 Dose: 25 mg Venlafaxine HCl (Venlafaxine Hcl Er 150 Mg Cap.Er.24h) 150 mg PO DAILY [facility] Last Admin: 03/05/23 08:33 Dose: 150 mg Home Medications Medication Instructions Recorded Confirmed Last Taken Type atorvastatin 10 mg tablet (Lipitor) 10 mg PO DAILY 12/02/21 03/03/23 Unknown History lorazepam 1 mg tablet 1 mg PO QID PRN Anxiety 05/19/22 03/03/23 Unknown History venlafaxine 150 mg 150 mg PO DAILY 10/14/22 03/03/23 Unknown History capsule,extended release 24 hr acetaminophen 500 mg PO 1XD PRN Pain 03/03/23 03/03/23 Unknown History carbidopa 25 mg-levodopa 100 1 tab PO QID 03/03/23 03/03/23 Unknown History mg-entacapone 200 mg tablet (Stalevo 100) fluticasone propionate 50 1 spray intranasal BID 03/03/23 03/03/23 Unknown History mcg/actuation nasal spray,suspension melatonin 1 mg tablet 1 mg PO BEDTIME PRN Insomnia 03/03/23 03/03/23 Unknown History trazodone 50 mg tablet 25 mg PO BID PRN Anxiety 03/03/23 03/03/23 Unknown History Physical Exam Vital Signs and Narrative: Vital Signs: Last Vital Signs Temp 98.0 F 03/05/23 08:00 Pulse 95 03/05/23 08:00 Resp 18 03/05/23 08:00 BP 160/70 H 03/05/23 08:00 Pulse Ox 93 03/04/23 18:00 O2 Del Method Room Air 03/05/23 08:00 BMI result Body Mass Index 25.1 General: Alert and oriented to person and time only. Pt seen agitated with uncontrollable upper right extremity resting tremor. In no acute distress Resp: CTA bilaterally CVS: S1, S2, RRR GI: +BS, NT, no distention Skin: Warm, dry Neuro: Pt could not move left upper or lower extremity. 1/5 strength right lower extremity. 2/5 strength upper extremity. Severe resting tremor of upper right extremity. No intentional tremor of right upper extremity noted. Extremities: No edema Results Labs 03/04/23 08:47 Assessment and Plan (1) Routine history and physical examination of adult: Status: Acute Plan Pt is a 72-year-old male with a PMH significant for?Parkinson's disorder, TURP for BPH, HLD, anxiety, with acute onset of psychosis with depression and SI who is admitted to [facility] for possible SI attempt. Pt's apparently discovered 50 Ativan pills missing from a recent refill and found pt somnolent and difficult to arouse. Medical consult for admission H&P. Nursing staff states that this morning they discovered patient disoriented, confused, rigid, and incapable of ambulating or speaking. Upon receiving second dose of carbidopa-levodopa today, pt became much more responsive and capable of speaking and ambulating. Stated he had been hallucinating. When pt seen for history and physical, was found lying in bed, with uncontrollable right upper extremity shaking and left-sided rigidity. Mood disorder Plan as per psychiatry Advanced Parkinson's disease Pt has lately been having poor response to his medications Apparently it has been taking 45-90 minutes for Stalevo to have positive response and then lasts for only 30 minutes Has had worsening memory and hallucinations since at least September of last year Followed by Dr. Chavez who has tried numerous medication changes See Dr. Chavez's notes on 10/14/22 and 12/28/22 for more details Continue Stalevo Neurology consult Headache Acetaminophen for pain management HLD Continue statin Thank you for allowing us to participate in the care of this patient. Signing off at this time. Please let us know if there are any acute complaints or questions. Time Spent With Patient Time: Total time managing care of this patient today ____ minutes.
[2023-03-05 18:00] VITALS: BP 130/80; PULSE 100; RESP 18; TEMP 36.8; O2SAT 92
[2023-03-05] MEDS: Melatonin 3 MG TABLET PO (20:03)
[2023-03-05] MEDS: Multivitamin TABLET 1 TAB PO (20:03)
[2023-03-05] MEDS: Acetaminophen 325 MG TABLET 650 MG PO (20:40)
[2023-03-06 08:05] VITALS: BP 172/78; PULSE 106; RESP 22; TEMP 36.1; O2SAT 95
[2023-03-06] MEDS: HaloperidoL 0.5 MG TABLET PO ×2 (08:14→20:05)
[2023-03-06] MEDS: Venlafaxine HCl ER 150 MG CAP.ER.24H PO (08:14)
[2023-03-06] MEDS: Atorvastatin Calcium 10 MG TABLET PO (08:14)
--- NOTE | 2023-03-06 10:24 | P.PNPSI_ITS ---
Subjective Subjective Date of Service: 03/06/23 Reason For Visit: SI Interim History: met w/ patient; discussed with team; discussed med regimen w/ pharmacist pt presents depressed with continued Parkinsons symptoms; he agrees Ativan gave some minor temporary relief; discussed possible tx including Clozapine and pt is open as long as he is still able to sleep. Pharamcy will review med and confirm hx of dosing Mental Status Exam Mental Status Exam Patient Appearance: Appropriate Patient Orientation: Person and Situation Level of Consciousness: Awake Patient Behavior: Anxious and Poor Eye Contact Mood Description: Depressed and Anxious Affect Description: Fearful Patient Cognition Impaired: Yes Ability to Follow Directions: Fair Speech Pattern: Soft-Spoken Hallucinations: None (does not report any) Delusions: Not Present (no expression of delusional thinking) Thought Process: Goal Oriented Thought Content: positive for Perseveration (thinking about parkinsons; Denies SI/HI) Abnormal Motor Activity Signs and Symptoms: Tremors (Parkinsons) Judgement and Insight: impaired Diagnostics Vital Signs (24Hr): Vital Signs - 24 hr 03/05/23 18:00 03/06/23 08:05 Temperature 98.2 F 97 F Pulse Rate 100 106 H Respiratory Rate 18 22 H Blood Pressure 130/80 172/78 H Pulse Oximetry 92 95 Oxygen Delivery Method Room Air Room Air BMI result Body Mass Index 25.1 Labs 03/04/23 08:47 Medications Medications Current Medications Acetaminophen (Acetaminophen 325 Mg Tablet) 650 mg PO Q6H PRN PRN Reason: Headache/Pain Mild Scale (1-3) Last Admin: 03/05/23 20:40 Dose: 650 mg Al Hydroxide/Mg Hydroxide (Magnesium Hydrox/Alum Hydrox 30 Ml Oral.Susp) 30 ml PO Q6H PRN PRN Reason: Heartburn/Nausea Atorvastatin Calcium (Atorvastatin Calcium 10 Mg Tablet) 10 mg PO DAILY [facility] Last Admin: 03/06/23 08:14 Dose: 10 mg Fluticasone Propionate (Fluticasone Propionate Nasal 16 Gm [place]) 1 spray NOST RIL-B BID [facility] Last Admin: 03/06/23 08:31 Dose: Not Given Haloperidol (Haloperidol 0.5 Mg Tablet) 0.5 mg PO BID [facility] Last Admin: 03/06/23 08:14 Dose: 0.5 mg Lorazepam (Lorazepam 1 Mg Tablet) 1 mg PO QID PRN PRN Reason: Anxiety Last Admin: 03/05/23 20:03 Dose: 1 mg Magnesium Hydroxide (Milk Of Magnesia 30 Ml Oral.Susp) 30 ml PO DAILY PRN PRN Reason: Constipation Last Admin: 03/05/23 08:41 Dose: 30 ml Melatonin (Melatonin 3 Mg Tablet) 3 mg PO BEDTIME [facility] Last Admin: 03/05/23 20:03 Dose: 3 mg Multivitamins/Vitamin C (Multivitamin Tablet) 1 tab PO BEDTIME [facility] Last Admin: 03/05/23 20:03 Dose: 1 tab Pt Own (Carbidopa- Levodopa-Entacapone [Stalevo 100] 25-100 -200 Mg Tablet 1 tab PO QID [facility] Last Admin: 03/06/23 08:14 Dose: 1 tab Trazodone HCl (Trazodone Hcl 50 Mg Tablet) 50 mg PO BEDTIME MRX1 PRN PRN Reason: Insomnia Last Admin: 03/04/23 21:56 Dose: 50 mg Trazodone HCl (Trazodone Hcl 25 Mg Halftab) 25 mg PO BID PRN PRN Reason: Agitation Last Admin: 03/04/23 01:38 Dose: 25 mg Venlafaxine HCl (Venlafaxine Hcl Er 150 Mg Cap.Er.24h) 150 mg PO DAILY [facility] Last Admin: 03/06/23 08:14 Dose: 150 mg Allergies Allergies Allergy/AdvReac Type Severity Reaction Status Date / Time oxycodone Allergy Unknown Verified 10/14/22 13:51 pollen extracts Allergy skin rash Verified 10/14/22 13:51 Assessment & Plan Assessment & Plan (1) Parkinsons disease: Status: Acute Code(s): G20 - Parkinson's disease (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 The patient had been on Sinemet for several years and he reported that he had in the past hallucinations in the context of dopaminergic agents. Hospital course: 03/06 patient obviously suffering from side effects of Parkinson's with severe, bilateral hand tremor, right being the worst. He denies intentional overdose. There was mention and report that his Sinemet medication has been reduced recently due to trigger of psychotic symptoms. Currently admitting provider started Haldol to see if can help; considered Clozapine which can also be used for refractory Parkinsons, also limiting psychotic symptoms. This is chronic condition with hx of multiple treatment trials; at this point will leave regimen as is as collateral continues to be gathered and Neuro consult pending. Plan 1. Gather collateral information. We will have to contact her prior prescriber hers and family. 2. Continue with Sinemet and on her antiparkinsonian medications. 3. Continue with antidepressant. 4. Start a slow titration of haloperidol to target psychotic symptoms. 5. . Continue medical workout . 6. Reassessment with results Patient educated on: diagnosis, medication risk/benefits and medical condition Informed Consent: understands, does not understand and further education needed Reason for contiued inpatient stay Substantial Risk for: inability to function Time Spent With Patient Time: Total time managing care of this patient today ____ minutes.
[2023-03-06] MEDS: LORazepam 1 MG TABLET PO ×2 (14:36→20:05)
[2023-03-06 18:00] VITALS: BP 125/59; PULSE 64; RESP 16; TEMP 36.9; O2SAT 95
[2023-03-06] MEDS: Melatonin 3 MG TABLET PO (20:05)
[2023-03-06] MEDS: traZODone HCL 50 MG TABLET PO (20:05)
[2023-03-07] MEDS: LORazepam 1 MG TABLET PO ×2 (01:43→13:04)
[2023-03-07 05:10] VITALS: BP 162/77; PULSE 84; RESP 18; O2SAT 97
[2023-03-07] MEDS: Venlafaxine HCl ER 150 MG CAP.ER.24H PO (08:12)
[2023-03-07] MEDS: Atorvastatin Calcium 10 MG TABLET PO (08:12)
[2023-03-07] MEDS: Fluticasone Propionate Nasal 16 GM SPRAY 1 SPRAY NOSTRIL-B (08:12)
[2023-03-07] MEDS: HaloperidoL 0.5 MG TABLET PO ×3 (08:12→20:23)
--- NOTE | 2023-03-07 13:16 | P.PNPSI_ITS ---
Subjective Subjective Date of Service: 03/07/23 Reason For Visit: SI Subjective Notes: Conditional Voluntary Interim History: The nursing staff reported the patient had been compliant with treatment, he slept only 2 or 3 hours. His blood pressure has been slightly high and he has been requesting more leveled up a carbidopa due to his involuntary movements. He denies auditory or visual hallucinations but staff has noticed delusive statements. On interview the patient looks confused but he was able to contract for safety I explained him that Sinemet can make him more psychotic and confused. Mental Status Exam Mental Status Exam Patient Appearance: Well Grooomed and Appropriate Patient Orientation: Person and Situation Level of Consciousness: Awake and Appropriate Patient Behavior: Guarded and Passive Mood Description: Withdrawn Affect Description: Constricted Patient Cognition Impaired: Yes Ability to Follow Directions: Good Speech Pattern: Clear, Impoverished and Monotone Hallucinations: None Delusions: Paranoid Ideation Thought Process: Distracted and Slowed Thinking Thought Content: positive for [place] and positive for Circumstantial Judgement: Fair Diagnostics Vital Signs (24Hr): Vital Signs - 24 hr 03/06/23 18:00 03/07/23 05:10 Temperature 98.5 F Pulse Rate 64 84 Respiratory Rate 16 18 Blood Pressure 125/59 L 162/77 H Pulse Oximetry 95 97 Oxygen Delivery Method Room Air Room Air BMI result Body Mass Index 25.1 Labs 03/04/23 08:47 Medications Medications Current Medications Acetaminophen (Acetaminophen 325 Mg Tablet) 650 mg PO Q6H PRN PRN Reason: Headache/Pain Mild Scale (1-3) Last Admin: 03/05/23 20:40 Dose: 650 mg Al Hydroxide/Mg Hydroxide (Magnesium Hydrox/Alum Hydrox 30 Ml Oral.Susp) 30 ml PO Q6H PRN PRN Reason: Heartburn/Nausea Atorvastatin Calcium (Atorvastatin Calcium 10 Mg Tablet) 10 mg PO DAILY [facility] Last Admin: 03/07/23 08:12 Dose: 10 mg Fluticasone Propionate (Fluticasone Propionate Nasal 16 Gm [place]) 1 spray NOSTRIL-B BID [facility] Last Admin: 03/07/23 08:12 Dose: 1 spray Haloperidol (Haloperidol 0.5 Mg Tablet) 0.5 mg PO BID [facility] Last Admin: 03/07/23 08:12 Dose: 0.5 mg Lorazepam (Lorazepam 1 Mg Tablet) 1 mg PO QID PRN PRN Reason: Anxiety Last Admin: 03/07/23 13:04 Dose: 1 mg Magnesium Hydroxide (Milk Of Magnesia 30 Ml Oral.Susp) 30 ml PO DAILY PRN PRN Reason: Constipation Last Admin: 03/05/23 08:41 Dose: 30 ml Melatonin (Melatonin 3 Mg Tablet) 3 mg PO BEDTIME [facility] Last Admin: 03/06/23 20:05 Dose: 3 mg Multivitamins/Vitamin C (Multivitamin Tablet) 1 tab PO BEDTIME [facility] Last Admin: 03/06/23 22:35 Dose: Not Given Pt Own (Carbidopa- Levodopa-Entacapone [Stalevo 100] 25-100 -200 Mg Tablet 1 tab PO QID [facility] Last Admin: 03/07/23 13:04 Dose: 1 tab Trazodone HCl (Trazodone Hcl 50 Mg Tablet) 50 mg PO BEDTIME MRX1 PRN PRN Reason: Insomnia Last Admin: 03/06/23 20:05 Dose: 50 mg Trazodone HCl (Trazodone Hcl 25 Mg Halftab) 25 mg PO BID PRN PRN Reason: Agitation Last Admin: 03/04/23 01:38 Dose: 25 mg Venlafaxine HCl (Venlafaxine Hcl Er 150 Mg Cap.Er.24h) 150 mg PO DAILY [facility] Last Admin: 03/07/23 08:12 Dose: 150 mg Allergies Allergies Allergy/AdvReac Type Severity Reaction Status Date / Time oxycodone Allergy Unknown Verified 10/14/22 13:51 pollen extracts Allergy skin rash Verified 10/14/22 13:51 Assessment & Plan Assessment & Plan (1) Parkinsons disease: Status: Acute Code(s): G20 - Parkinson's disease (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 The patient had been on Sinemet for several years and he reported t hat he had in the past hallucinations in the context of dopaminergic agents. Hospital course: 03/06 patient obviously suffering from side effects of Parkinson's with severe, bilateral hand tremor, right being the worst. He denies intentional overdose. There was mention and report that his Sinemet medication has been reduced recently due to trigger of psychotic symptoms. Currently admitting provider started Haldol to see if can help; considered Clozapine which can also be used for refractory Parkinsons, also limiting psychotic symptoms. This is chronic condition with hx of multiple treatment trials; at this point will leave regimen as is as collateral continues to be gathered and Neuro consult pending. Plan 1. Gather collateral information. We will have to contact her prior prescriber hers and family. 2. Continue with Sinemet and on her antiparkinsonian medications. 3. Continue with antidepressant. 4. Start a slow titration of haloperidol to target psychotic symptoms. Increase Haldol to 0.5 mg po tid on 03/07 5. . Continue medical workout . 6. Reassessment with results Reason for contiued inpatient stay Substantial Risk for: inability to function, rapid decompensation and med/psych decompensation Time Spent With Patient Time: Total time managing care of this patient today __20__ minutes.
[2023-03-07 18:00] VITALS: BP 168/83; PULSE 97; RESP 16; TEMP 36.2; O2SAT 97
[2023-03-07] MEDS: Melatonin 3 MG TABLET PO (20:23)
[2023-03-07] MEDS: Multivitamin TABLET 1 TAB PO (20:23)
[2023-03-08] MEDS: LORazepam 1 MG TABLET PO (00:34)
[2023-03-08] MEDS: HaloperidoL 0.5 MG TABLET PO ×3 (09:08→19:58)
[2023-03-08] MEDS: Venlafaxine HCl ER 150 MG CAP.ER.24H PO (09:08)
[2023-03-08] MEDS: Atorvastatin Calcium 10 MG TABLET PO (09:08)
[2023-03-08 09:16] VITALS: BP 162/73; PULSE 106; RESP 18; TEMP 36.2; O2SAT 96
--- NOTE | 2023-03-08 16:54 | HO.PSYCHPN ---
Subjective Subjective Date of Service: 03/08/23 Reason For Visit: SI Subjective Notes: Conditional Voluntary Interim History: The nursing staff reported the patient has been anxious, he slept well and his appetite is normal. He slept well last night. The staff has reported that he did not complained of auditory or visual hallucinations. The pediatric social worker reported that we will have a family meeting on 11:00 o'clock. The occupational therapist could not do a cognitive test since he had been on bed most time. The pediatric social worker also admitted that the family wants to be placed on a nursing home facility. On interview the patient was internally preoccupied disengaged but he denies auditory or visual hallucinations. No evidence of EPS, involuntary movements due to Parkinson Mental Status Exam Mental Status Exam Patient Appearance: Appropriate Patient Orientation: Person and Situation Level of Consciousness: Awake Patient Behavior: Guarded Mood Description: Blunted Affect Description: Constricted Patient Cognition Impaired: Yes Ability to Follow Directions: Good Speech Pattern: Clear Hallucinations: None Delusions: Not Present Thought Content: positive for [place] and positive for [place] Judgement: Poor Diagnostics Vital Signs (24Hr): Vital Signs - 24 hr 03/07/23 18:00 03/08/23 09:16 Temperature 97.2 F 97.1 F Pulse Rate 97 106 H Respiratory Rate 16 18 Blood Pressure 168/83 H 162/73 H Pulse Oximetry 97 96 Oxygen Delivery Method Room Air Room Air BMI result Body Mass Index 25.1 Labs 03/04/23 08:47 Medications Medications Current Medications Acetaminophen (Acetaminophen 325 Mg Tablet) 650 mg PO Q6H PRN PRN Reason: Headache/Pain Mild Scale (1-3) Last Admin: 03/05/23 20:40 Dose: 650 mg Al Hydroxide/Mg Hydroxide (Magnesium Hydrox/Alum Hydrox 30 Ml Oral.Susp) 30 ml PO Q6H PRN PRN Reason: Heartburn/Nausea Atorvastatin Calcium (Atorvastatin Calcium 10 Mg Tablet) 10 mg PO DAILY [facility] Last Admin: 03/08/23 09:08 Dose: 10 mg Fluticasone Propionate (Fluticasone Propionate Nasal 16 Gm [place]) 1 spray NOSTRIL-B BID [facility] Last Admin: 03/08/23 09:16 Dose: Not Given Haloperidol (Haloperidol 0.5 Mg Tablet) 0.5 mg PO TID [facility] Last Admin: 03/08/23 13:57 Dose: 0.5 mg Lorazepam (Lorazepam 1 Mg Tablet) 1 mg PO QID PRN PRN Reason: Anxiety Last Admin: 03/08/23 00:34 Dose: 1 mg Magnesium Hydroxide (Milk Of Magnesia 30 Ml Oral.Susp) 30 ml PO DAILY PRN PRN Reason: Constipation Last Admin: 03/05/23 08:41 Dose: 30 ml Melatonin (Melatonin 3 Mg Tablet) 3 mg PO BEDTIME [facility] Last Admin: 03/07/23 20:23 Dose: 3 mg Multivitamins/Vitamin C (Multivitamin Tablet) 1 tab PO BEDTIME [facility] Last Admin: 03/07/23 20:23 Dose: 1 tab Pt Own (Carbidopa- Levodopa-Entacapone [Stalevo 100] 25-100 -200 Mg Tablet 1 tab PO QID [facility] Last Admin: 03/08/23 16:40 Dose: 1 tab Trazodone HCl (Trazodone Hcl 50 Mg Tablet) 50 mg PO BEDTIME MRX1 PRN PRN Reason: Insomnia Last Admin: 03/06/23 20:05 Dose: 50 mg Trazodone HCl (Trazodone Hcl 25 Mg Halftab) 25 mg PO BID PRN PRN Reason: Agitation Last Admin: 03/04/23 01:38 Dose: 25 mg Venlafaxine HCl (Venlafaxine Hcl Er 150 Mg Cap.Er.24h) 150 mg PO DAILY [facility] Last Admin: 03/08/23 09:08 Dose: 150 mg Allergies Allergies Allergy/AdvReac Type Severity Reaction Status Date / Time oxycodone Allergy Unknown Verified 10/14/22 13:51 pollen extracts Allergy skin rash Verified 10/14/22 13:51 Assessment & Plan Assessment & Plan (1) Parkinsons disease: Status: Acute Code(s): G20 - Parkinson's disease (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 The patient had been on Sinemet for several years and he reported that he had in the past hallucinations in the context of dopaminergic agents. Hospital course: 03/06 patient obviously suffering from side effects of Parkinson's with severe, bilateral hand tremor, right being the worst. He denies intentional overdose. There was mention and report that his Sinemet medication has been reduced recently due to trigger of psychotic symptoms. Currently admitting provider started Haldol to see if can help; considered Clozapine which can also be used for refractory Parkinsons, also limiting psychotic symptoms. This is chronic condition with hx of multiple treatment trials; at this point will leave regimen as is as collateral continues to be gathered and Neuro consult pending. Plan 1. Gather collateral information. We will have to contact her prior prescriber hers and family. 2. Continue with Sinemet and on her antiparkinsonian medications. 3. Continue with antidepressant. 4. Start a slow titration of haloperidol to target psychotic symptoms. Increase Haldol to 0.5 mg po tid on 03/07 5. . Continue medical workout . 6. Reassessment with results Reason for contiued inpatient stay Substantial Risk for: inability to function, rapid decompensation and med/psych decompensation Time Spent With Patient Time: Total time managing care of this patient today __20__ minutes.
[2023-03-08 18:00] VITALS: BP 163/84; PULSE 102; RESP 17; TEMP 36.1; O2SAT 97
[2023-03-08] MEDS: Multivitamin TABLET 1 TAB PO (19:58)
[2023-03-08] MEDS: Melatonin 3 MG TABLET PO (19:58)
[2023-03-08] MEDS: Acetaminophen 325 MG TABLET 650 MG PO (22:05)
[2023-03-09 08:10] VITALS: BP 135/76; PULSE 108; RESP 18; TEMP 36.6; O2SAT 97
[2023-03-09] MEDS: HaloperidoL 0.5 MG TABLET PO ×3 (08:26→20:37)
[2023-03-09] MEDS: Venlafaxine HCl ER 150 MG CAP.ER.24H PO (08:26)
[2023-03-09] MEDS: Atorvastatin Calcium 10 MG TABLET PO (08:26)
--- NOTE | 2023-03-09 10:41 | PM.NEUROCN ---
History of Present Illness Data of Consult Service Date: 03/09/23 Primary Care Provider: Unknown Physician HPI Reason for consult: Parkinson's disease 72 years old man who I was asked to see for Parkinson's disease. At this time he was admitted on psychiatric inpatient floor. Apparently he carried diagnosis of Parkinson's disease for more than 10 years and was treated medicines. He was seeing Dr. Chavez for this condition. He was taking 6-7 tablets of Comtan every day before he recently was admitted to [facility] with change in mental status suicidal ideation depression and hallucinations. Apparently his dose of Parkinson's medicines was decreased and after treatment he was advised to be staying inpatient for psychiatric reasons. At this time, he was taking four Comtan a day. Review of Systems Review of Systems: Recently noted depression and PMFSH Past Medical History Medical History Anxiety Arthritis Parkinsons disease Family History Family History Mother Lung cancer Surgical History Surgical History H/O spinal fusion Social History Social History Household Members: Spouse and Caregiver Housing: Condominium Do you presently have visiting nurse or other home services: Yes ([employer] 8-3 5 days/wk and 9p-4a 3 days/wk) Unable to assess alcohol history related to: Unknown Alcohol intake: never Patient Tobacco Use Status: Never used Tobacco Use of substances other than those prescribed or required for medical reasons: Unknown Currently Displaying Signs/Symptoms of Drug Intoxication Withdrawal: No Advance Directives: No Advance Directives Information Provided: Yes Do you have thoughts of harming others: None Do you have a plan to hurt others: No Plan Recently lost weight without trying: Unsure Poor oral hygiene: No (speech eval ordered not completed at [facility] swallow eval done ok to take meds) service: Yes Sexual orientation: Straight/Heterosexual Meds Allergies Allergy/AdvReac Type Severity Reaction Status Date / Time oxycodone Allergy Unknown Verified 10/14/22 13:51 pollen extracts Allergy skin rash Verified 10/14/22 13:51 Active Medications: Current Medications Acetaminophen (Acetaminophen 325 Mg Tablet) 650 mg PO Q6H PRN PRN Reason: Headache/Pain Mild Scale (1-3) Last Admin: 03/08/23 22:05 Dose: 650 mg Al Hydroxide/Mg Hydroxide (Magnesium Hydrox/Alum Hydrox 30 Ml Oral.Susp) 30 ml PO Q6H PRN PRN Reason: Heartburn/Nausea Atorvastatin Calcium (Atorvastatin Calcium 10 Mg Tablet) 10 mg PO DAILY [facility] Last Admin: 03/09/23 08:26 Dose: 10 mg Fluticasone Propionate (Fluticasone Propionate Nasal 16 Gm [place]) 1 spray NOSTRIL-B BID [facility] Last Admin: 03/09/23 08:33 Dose: Not Given Haloperidol (Haloperidol 0.5 Mg Tablet) 0.5 mg PO TID [facility] Last Admin: 03/09/23 08:26 Dose: 0.5 mg Magnesium Hydroxide (Milk Of Magnesia 30 Ml Oral.Susp) 30 ml PO DAILY PRN PRN Reason: Constipation Last Admin: 03/05/23 08:41 Dose: 30 ml Melatonin (Melatonin 3 Mg Tablet) 3 mg PO BEDTIME [facility] Last Admin: 03/08/23 19:58 Dose: 3 mg Multivitamins/Vitamin C (Multivitamin Tablet) 1 tab PO BEDTIME [facility] Last Admin: 03/08/23 19:58 Dose: 1 tab Pt Own (Carbidopa- Levodopa-Entacapone [Stalevo 100] 25-100 -200 Mg Tablet 1 tab PO QID [facility] Last Admin: 03/09/23 08:25 Dose: 1 tab Trazodone HCl (Trazodone Hcl 50 Mg Tablet) 50 mg PO BEDTIME MRX1 PRN PRN Reason: Insomnia Last Admin: 03/06/23 20:05 Dose: 50 mg Trazodone HCl (Trazodone Hcl 25 Mg Halftab) 25 mg PO BID PRN PRN Reason: Agitation Last Admin: 03/04/23 01:38 Dose: 25 mg Venlafaxine HCl (Venlafaxine Hcl Er 150 Mg Cap.Er.24h) 150 mg PO DAILY [facility] Last Admin: 03/09/23 08:26 Dose: 150 mg Home Medications Medication Instructions Recorded Confirmed Last Taken Type atorvastatin 10 mg tablet (Lipitor) 10 mg PO DAILY 12/02/21 03/03/23 Unknown History lorazepam 1 mg tablet 1 mg PO QID PRN Anxiety 05/19/22 03/03/23 Unknown History venlafaxine 150 mg 150 mg PO DAILY 10/14/22 03/03/23 Unknown History capsule,extended release 24 hr acetaminophen 500 mg PO 1XD PRN Pain 03/03/23 03/03/23 Unknown History carbidopa 25 mg-levodopa 100 1 tab PO QID 03/03/23 03/03/23 Unknown History mg-entacapone 200 mg tablet (Stalevo 100) fluticasone propionate 50 1 spray intranasal BID 03/03/23 03/03/23 Unknown History mcg/actuation nasal spray,suspension melatonin 1 mg tablet 1 mg PO BEDTIME PRN Insomnia 03/03/23 03/03/23 Unknown History trazodone 50 mg tablet 25 mg PO BID PRN Anxiety 03/03/23 03/03/23 Unknown History Physical Exam Vital Signs: Vital Signs: Last Vital Signs Temp 97.9 F 03/09/23 08:10 Pulse 108 H 03/09/23 08:10 Resp 18 03/09/23 08:10 BP 135/76 03/09/23 08:10 Pulse Ox 97 03/09/23 08:10 O2 Del Method Room Air 03/09/23 08:10 BMI result Body Mass Index 25.1 Results Labs 03/04/23 08:47 Labs: sitting in a wheelchair not able to get up. Decreased facial expression blinking. Mild hand tremor. Moderate bilateral arm cogwheeling rigidity. Deep tendon reflexes are absent. Gaze is full. Assessment and Plan (1) Parkinsons disease: Status: Acute [age] years old man with moderate to severe Parkinson's features with EDSS score of 6-7. After years of Parkinson's, he also has developed depression and psychotic features. I do not have access to his previous workup including brain imaging, but this evolution of his condition suggested that he might be going into or his underlying condition could very well be dementia with Lewy body disease. Review of brain scan done, maybe at [facility], can help. In any case, dopaminergic drugs are known to have possible psychiatric side effects but at the same time without dopamine supplementation, patient has significant physical disability. A balance has to be reached. In that regard, I would suggest discontinuing Stalevo, which is a combination of drugs. Instead of that, try plain carbidopa levodopa 25/100 2 tablets 4 to 5 times a day. Starting tomorrow, prescribed 1st does at 06:00 and then repeat that does at 10:00, 14:00, 18:00. make an observation tomorrow if that works out better and further adjustment can be made based upon how he reacts to this dose. If psychiatrically not better, may consider Nuplazid. Time Spent With Patient Time: Total time managing care of this patient today ____ minutes. Procedures Date of Service Date of Service: 03/09/23
--- NOTE | 2023-03-09 12:59 | HO.PSYCHPN ---
Subjective Subjective Date of Service: 03/09/23 Reason For Visit: SI Subjective Notes: Conditional Voluntary Interim History: The nursing staff reported the patient has limited p.o. intake, his urine was very concentrated but he had been eating. The occupational therapist assessed him and he needs help for ADL less. He denies auditory hallucinations. On interview he looks confused at times despondent but denies hallucinations since we started Haldol. Mental Status Exam Mental Status Exam Patient Appearance: Appropriate Patient Orientation: Person and Situation Level of Consciousness: Awake and Appropriate Patient Behavior: Guarded and Passive Mood Description: Withdrawn Affect Description: Constricted Patient Cognition Impaired: Yes Ability to Follow Directions: Good Speech Pattern: Clear Hallucinations: None Delusions: Not Present Thought Process: Distracted and Evasive Thought Content: positive for [place] and positive for [place] Judgement: Fair Diagnostics Vital Signs (24Hr): Vital Signs - 24 hr 03/08/23 18:00 03/09/23 08:10 Temperature 96.9 F 97.9 F Pulse Rate 102 H 108 H Respiratory Rate 17 18 Blood Pressure 163/84 H 135/76 Pulse Oximetry 97 97 Oxygen Delivery Method Room Air Room Air BMI result Body Mass Index 25.1 Labs 03/04/23 08:47 Medications Medications Current Medications Acetaminophen (Acetaminophen 325 Mg Tablet) 650 mg PO Q6H PRN PRN Reason: Headache/Pain Mild Scale (1-3) Last Admin: 03/08/23 22:05 Dose: 650 mg Al Hydroxide/Mg Hydroxide (Magnesium Hydrox/Alum Hydrox 30 Ml Oral.Susp) 30 ml PO Q6H PRN PRN Reason: Heartburn/Nausea Atorvastatin Calcium (Atorvastatin Calcium 10 Mg Tablet) 10 mg PO DAILY [facility] Last Admin: 03/09/23 08:26 Dose: 10 mg Fluticasone Propionate (Fluticasone Propionate Nasal 16 Gm [place]) 1 spray NOSTRIL-B BID [facility] Last Admin: 03/09/23 08:33 Dose: Not Given Haloperidol (Haloperidol 0.5 Mg Tablet) 0.5 mg PO TID [facility] Last Admin: 03/09/23 08:26 Dose: 0.5 mg Magnesium Hydroxide (Milk Of Magnesia 30 Ml Oral.Susp) 30 ml PO DAILY PRN PRN Reason: Constipation Last Admin: 03/05/23 08:41 Dose: 30 ml Melatonin (Melatonin 3 Mg Tablet) 3 mg PO BEDTIME [facility] Last Admin: 03/08/23 19:58 Dose: 3 mg Multivitamins/Vitamin C (Multivitamin Tablet) 1 tab PO BEDTIME [facility] Last Admin: 03/08/23 19:58 Dose: 1 tab Pt Own (Carbidopa- Levodopa-Entacapone [Stalevo 100] 25-100 -200 Mg Tablet 1 tab PO QID [facility] Last Admin: 03/09/23 12:49 Dose: 1 tab Trazodone HCl (Trazodone Hcl 50 Mg Tablet) 50 mg PO BEDTIME MRX1 PRN PRN Reason: Insomnia Last Admin: 03/06/23 20:05 Dose: 50 mg Trazodone HCl (Trazodone Hcl 25 Mg Halftab) 25 mg PO BID PRN PRN Reason: Agitation Last Admin: 03/04/23 01:38 Dose: 25 mg Venlafaxine HCl (Venlafaxine Hcl Er 150 Mg Cap.Er.24h) 150 mg PO DAILY [facility] Last Admin: 03/09/23 08:26 Dose: 150 mg Allergies Allergies Allergy/AdvReac Type Severity Reaction Status Date / Time oxycodone Allergy Unknown Verified 10/14/22 13:51 pollen extracts Allergy skin rash Verified 10/14/22 13:51 Assessment & Plan Assessment & Plan (1) Parkinsons disease: Status: Acute Code(s): G20 - Parkinson's disease Assessment and Plan: [age] years old man with moderate to severe Parkinson's features with EDSS score of 6-7. After years of Parkinson's, he also has developed depression and psychotic features. I do not have access to his previous workup including brain imaging, but this evolution of his condition suggested that he might be going into or his underlying condition could very well be dementia with Lewy body disease. Review of brain scan done, maybe at [facility], can help. In any case, dopaminergic drugs are known to have possible psychiatric side effects but at the same time without dopamine supplementation, patient has significant physical disability. A balance has to be reached. In that regard, I would suggest discontinuing Stalevo, which is a combination of drugs. Instead of that, try plain carbidopa levodopa 25/100 2 tablets 4 to 5 times a day. Starting tomorrow, prescribed 1st does at 06:00 and then repeat that does at 10:00, 14:00, 18:00. make an observation tomorrow if that works out better and further adjustment can be made based upon how he reacts to this dose. If psychiatrically not better, may consider Nuplazid. (2) Major depressive disorder: Status: Acute Code(s): F32.9 - Major depressive disorder, single episode, unspecified (3) Psychosis: Status: Acute Code(s): F29 - Unspecified psychosis not due to a substance or known physiological condition Plan Elderly male with past history of Parkinson's disease that is advanced admitted for psychotic symptoms in the context of Sinemet. Plan 1. Gather collateral information. 2. Continue Haldol 0.5 p.o. t.i.d. to target psychosis. 3. Continue with medical workout. 4. Assessment with results. 5. reported that he had a 2nd dose of effexor in the evenging, we will start 37,5 mg po at 5 pm Reason for contiued inpatient stay Substantial Risk for: inability to function, rapid decompensation and med/psych decompensation Time Spent With Patient Time: Total time managing care of this patient today __20__ minutes.
[2023-03-09 17:14] LABS: Appearance Urine Cloudy; Color Urine Dark Yellow; Glucose Urine UA Negative (Negative); Leukocyte Esterase Urine Moderate (2+) (Negative); Nitrite Urine Negative (Negative); PH 5.5 (5.0-9.0); Specific Gravity - Urine >= 1.030 (1.005-1.025); UMIC TRIGGER UACC YES; Urine Blood Trace (Negative); Urine Ketones 15 mg/dL (Negative); Urine Protein 100 (2+) mg/dL (Neg-Trace)
[2023-03-09 17:43] LABS: Bacteria Urine None Seen (None Seen); Squamous Epithelial Cell Urine 0-2 /HPF (0-2); UACC Culture Trigger YES; WBC Urine >50 /HPF (0-5)
[2023-03-09 18:00] VITALS: BP 128/60; PULSE 90; RESP 16; TEMP 36.6; O2SAT 95
[2023-03-09] MEDS: Melatonin 3 MG TABLET PO (20:37)
[2023-03-09] MEDS: Multivitamin TABLET 1 TAB PO (20:37)
[2023-03-10 07:30] VITALS: BP 134/65; PULSE 96; RESP 16; TEMP 36.5; O2SAT 98
[2023-03-10 08:16] LABS: MANUAL DIFF FLAG NO
[2023-03-10 08:18] LABS: Basophils Percent Auto 0.3 % (0-2); Eosinophils Percent Auto 0.3 % (0-4); Hematocrit 41.7 % (42.0-52.0); Hemoglobin 14.3 g/dl (14.0-18.0); Imm Gran Abs Auto 0.04 X10*3/uL (0.00-0.03); Imm Gran Pct Auto 0.4 % (0.0-0.4); Lymphocytes Absolute Auto 0.9 X10*3/uL (1.2-4.9); Lymphocytes Percent Auto 9.5 % (20-40); Mean Corpuscular HGB Conc 34.3 g/dl (31.0-36.0); Mean Corpuscular Hemoglobin 30.6 pg (27.0-33.0); Mean Corpuscular Volume 89.1 fL (80.0-98.0); Mean Platelet Volume 9.8 fL (9.4-12.4); Monocytes Absolute Auto 0.8 X10*3/uL (0.1-1.2); Monocytes Percent Auto 8.1 % (2-11); Neutrophils Absolute Auto 7.9 x10*3/uL (2.0-8.3); Neutrophils Percent Auto 81.4 % (45-73); Platelet Count 223 X10*3/uL (160-400); Red Blood Count 4.68 X10*6/uL (4.60-5.80); Red Cell Distribution Width 12.6 % (11.0-16.0); White Blood Count 9.7 X10*3/uL (4.8-10.8)
[2023-03-10] MEDS: Atorvastatin Calcium 10 MG TABLET PO (08:56)
[2023-03-10] MEDS: HaloperidoL 0.5 MG TABLET PO ×3 (08:56→20:39)
[2023-03-10] MEDS: Venlafaxine HCl ER 150 MG CAP.ER.24H PO (08:56)
[2023-03-10 09:13] LABS: Anion Gap 14 (12-20); Blood Urea Nitrogen 28 mg/dL (9-16); Calcium 9.2 mg/dL (8.4-10.2); Carbon Dioxide 24 mmol/L (22-29); Chloride 108 mmol/L (96-108); Creatinine Clr Calc Pharmacy 53.7; Estimated Glomerular Filt Rate 59; Glucose Random 146 mg/dL (60-115); Potassium 4.1 mmol/L (3.3-5.1); Sodium 142 mmol/L (135-145)
[2023-03-10 09:26] LABS: Thyroid Stimulating Hormone 0.56 uIU/mL (0.32-4.0)
--- NOTE | 2023-03-10 14:43 | P.PNPSI_ITS ---
Subjective Subjective Date of Service: 03/10/23 Reason For Visit: SI Subjective Notes: Conditional Voluntary Interim History: the nursing staff reported the patient had been compliant with treatment, he looks dysphoric and needs help for his ADL less. Yesterday that neurologist saw him and suggested to discontinue his antiparkinsonian and start level though back carbidopa out only. Today we had a family meeting with his and son and explained him the and nature of the degenerative disease that he suffers. Still dysphoric. On interview denies new symptoms he looks dysphoric. Mental Status Exam Mental Status Exam Patient Appearance: Appropriate Patient Orientation: Person and Situation Level of Consciousness: Appropriate Patient Behavior: Guarded, Cooperative and Passive Mood Description: Withdrawn and Depressed Affect Description: Blunted Patient Cognition Impaired: Yes Ability to Follow Directions: Fair Speech Pattern: Clear Hallucinations: None Delusions: Not Present Thought Process: Distracted and Slowed Thinking Thought Content: positive for [place] and positive for Circumstantial Judgement: Fair Diagnostics Vital Signs (24Hr): Vital Signs - 24 hr 03/09/23 18:00 03/10/23 07:30 Temperature 97.8 F 97.7 F Pulse Rate 90 96 Respiratory Rate 16 16 Blood Pressure 128/60 134/65 Pulse Oximetry 95 98 Oxygen Delivery Method Room Air Room Air BMI result Body Mass Index 25.1 Labs 03/10/23 07:58 03/10/23 07:58 Labs: Laboratory Results - last 48 hr 03/09/23 03/10/23 03/10/23 17:00 07:58 07:58 WBC 9.7 RBC 4.68 Hgb 14.3 Hct 41.7 L MCV 89.1 MCH 30.6 MCHC 34.3 RDW 12.6 Plt Count 223 MPV 9.8 Immature Gran % (Auto) 0.4 Neut % (Auto) 81.4 H Lymph % (Auto) 9.5 L [place] % (Auto) 8.1 Eos % (Auto) 0.3 Baso % (Auto) 0.3 Lymph # (Auto) 0.9 L [place] # (Auto) 0.8 Eos # (Auto) 0.0 Baso # (Auto) 0.0 Abs Immat Gran (auto) 0.04 H Absolute Neuts (auto) 7.9 Absolute Nucleated RBC 0.000 Nucleated RBC % (auto) 0.0 Sodium 142 Potassium 4.1 Chloride 108 Carbon Dioxide 24 Anion Gap 14 BUN 28 H Creatinine 1.22 Estim Creat Clear Calc 53.7 Estimated GFR 59 Random Glucose 146 H Calcium 9.2 TSH 0.56 Urine Color Dark Yellow Urine Appearance Cloudy Urine pH 5.5 Ur Specific [place] >= 1.030 H Urine Protein 100 (2+) H Urine Glucose (UA) Negative Urine Ketones 15 Urine Blood Trace H Urine Nitrite Negative Ur Leukocyte Esterase Moderate (2+) H Urine RBC 6-10 H Urine WBC >50 H Ur Squamous Epith Cells 0-2 Urine Bacteria None Seen Hyaline Casts 6-10 Medications Medications Current Medications Acetaminophen (Acetaminophen 325 Mg Tablet) 650 mg PO Q6H PRN PRN Reason: Headache/Pain Mild Scale (1-3) Last Admin: 03/08/23 22:05 Dose: 650 mg Al Hydroxide/Mg Hydroxide (Magnesium Hydrox/Alum Hydrox 30 Ml Oral.Susp) 30 ml PO Q6H PRN PRN Reason: Heartburn/Nausea Atorvastatin Calcium (Atorvastatin Calcium 10 Mg Tablet) 10 mg PO DAILY [facility]PLACED BY [facility] Last Admin: 03/10/23 08:56 Dose: 10 mg Carbidopa/Levodopa (Carbidopa/Levodopa 10/100 Tablet) 1 tab PO QID REPLACED BY [facility] Last Admin: 03/10/23 13:42 Dose: 1 tab Fluticasone Propionate (Fluticasone Propionate Nasal 16 Gm [place]) 1 spray NOSTRIL-B BID REPLACED BY [facility] Last Admin: 03/10/23 09:00 Dose: Not Given Haloperidol (Haloperidol 0.5 Mg Tablet) 0.5 mg PO TID REPLACED BY [facility] Last Admin: 03/10/23 08:56 Dose: 0.5 mg Magnesium Hydroxide (Milk Of Magnesia 30 Ml Oral.Susp) 30 ml PO DAILY PRN PRN Reason: Constipation Last Admin: 03/05/23 08:41 Dose: 30 ml Melatonin (Melatonin 3 Mg Tablet) 3 mg PO BEDTIME REPLACED BY [facility] Last Admin: 03/09/23 20:37 Dose: 3 mg Multivitamins/Vitamin C (Multivitamin Tablet) 1 tab PO BEDTIME REPLACED BY [facility] Last Admin: 03/09/23 20:37 Dose: 1 tab Trazodone HCl (Trazodone Hcl 50 Mg Tablet) 50 mg PO BEDTIME MRX1 PRN PRN Reason: Insomnia Last Admin: 03/06/23 20:05 Dose: 50 mg Trazodone HCl (Trazodone Hcl 25 Mg Halftab) 25 mg PO BID PRN PRN Reason: Agitation Last Admin: 03/04/23 01:38 Dose: 25 mg Venlafaxine HCl (Venlafaxine Hcl Er 150 Mg Cap.Er.24h) 150 mg PO DAILY [facility] Last Admin: 03/10/23 08:56 Dose: 150 mg Venlafaxine HCl (Venlafaxine Hcl Er 37.5 Mg Cap.Er.24h) 37.5 mg PO DAILY [facility] Allergies Allergies Allergy/AdvReac Type Severity Reaction Status Date / Time oxycodone Allergy Unknown Verified 10/14/22 13:51 pollen extracts Allergy skin rash Verified 10/14/22 13:51 Assessment & Plan Assessment & Plan (1) Parkinsons disease: Status: Acute Code(s): G20 - Parkinson's disease Assessment and Plan: [age] years old man with moderate to severe Parkinson's features with EDSS score of 6-7. After years of Parkinson's, he also has developed depression and psychotic features. I do not have access to his previous workup including brain imaging, but this evolution of his condition suggested that he might be going into or his underlying condition could very well be dementia with Lewy body disease. Review of brain scan done, maybe at [facility], can help. In any case, dopaminergic drugs are known to have possible psychiatric side effects but at the same time without dopamine supplementation, patient has significant physical disability. A balance has to be reached. In that regard, I would suggest discontinuing Stalevo, which is a combination of drugs. Instead of that, try plain carbidopa levodopa 25/100 2 tablets 4 to 5 times a day. Starting tomorrow, prescribed 1st does at 06:00 and then repeat that does at 10:00, 14:00, 18:00. make an observation tomorrow if that works out better and further adjustment can be made based upon how he reacts to this dose. If psychiatrically not better, may consider Nuplazid. (2) Major depressive disorder: Status: Acute Code(s): F32.9 - Major depressive disorder, single episode, unspecified (3) Psychosis: Status: Acute Code(s): F29 - Unspecified psychosis not due to a substance or known physiological condition Plan Elderly male with past history of Parkinson's disease that is advanced admitted for psychotic symptoms in the context of Sinemet. Plan 1. Gather collateral information. 2. Continue Haldol 0.5 p.o. t.i.d. to target psychosis. 3. Continue with medical workout. 4. Assessment with results. 5. reported that he had a 2nd dose of effexor in the evenging, we will start 37,5 mg po at 5 pm On March 09. 6. Change his antiparkinsonian to Sinemet 4 times a day. Reason for contiued inpatient stay Substantial Risk for: inability to function, rapid decompensation and med/psych decompensation Time Spent With Patient Time: Total time managing care of this patient today _20___ minutes.
[2023-03-10] MEDS: Venlafaxine HCl ER 37.5 MG CAP.ER.24H PO (17:16)
[2023-03-10 20:38] VITALS: BP 155/57; PULSE 83; RESP 18; TEMP 36.3; O2SAT 98
[2023-03-10] MEDS: Melatonin 3 MG TABLET PO (20:39)
[2023-03-10] MEDS: Multivitamin TABLET 1 TAB PO (20:40)
[2023-03-11 08:45] VITALS: BP 162/75; PULSE 97; RESP 18; TEMP 36.4; O2SAT 96
[2023-03-11] MEDS: Venlafaxine HCl ER 150 MG CAP.ER.24H PO (08:56)
[2023-03-11] MEDS: HaloperidoL 0.5 MG TABLET PO ×3 (08:57→20:44)
[2023-03-11] MEDS: Venlafaxine HCl ER 37.5 MG CAP.ER.24H PO (08:57)
[2023-03-11] MEDS: Atorvastatin Calcium 10 MG TABLET PO (08:57)
--- NOTE | 2023-03-11 12:57 | MHC.CLN ---
NUTRITION ALERTED BY STAFF THAT PATIENT NOT EATING WELL. NOT TAKING ANY FOODS AT LUNCH TODAY. DIET=REGULAR. RD TO FOLLOW FOR INTAKE.
--- NOTE | 2023-03-11 14:25 | P.PNPSI_ITS ---
Subjective Subjective Date of Service: 03/11/23 Reason For Visit: SI Subjective Notes: Conditional Voluntary Interim History: The nursing staff reported the patient showered yesterday, he showed poor appetite but he slept well last night. The high school social studies tutor reported that we had a family meeting yesterday and showed progressive cognitive and neurological damage. On interview the patient was very dysphoric, selectively mute. We will increase Effexor up to 75 in the afternoon. Mental Status Exam Mental Status Exam Patient Appearance: Well Grooomed and Appropriate Patient Orientation: Person and Situation Level of Consciousness: Awake and Appropriate Patient Behavior: Guarded and Passive Mood Description: Withdrawn and Constricted Affect Description: Calm Patient Cognition Impaired: Yes Ability to Follow Directions: Good Speech Pattern: Clear Hallucinations: None Delusions: Not Present Thought Process: Incoherent and Distracted Thought Content: positive for [place] and positive for Circumstantial Judgement: Fair Diagnostics Vital Signs (24Hr): Vital Signs - 24 hr 03/10/23 20:38 03/11/23 08:45 Temperature 97.4 F 97.6 F Pulse Rate 83 97 Respiratory Rate 18 18 Blood Pressure 155/57 H 162/75 H Pulse Oximetry 98 96 Oxygen Delivery Method Room Air Room Air BMI result Body Mass Index 25.1 Labs 03/10/23 07:58 03/10/23 07:58 Labs: Laboratory Results - last 48 hr 03/09/23 03/10/23 03/10/23 17:00 07:58 07:58 WBC 9.7 RBC 4.68 Hgb 14.3 Hct 41.7 L MCV 89.1 MCH 30.6 MCHC 34.3 RDW 12.6 Plt Count 223 MPV 9.8 Immature Gran % (Auto) 0.4 Neut % (Auto) 81.4 H Lymph % (Auto) 9.5 L [place] % (Auto) 8.1 Eos % (Auto) 0.3 Baso % (Auto) 0.3 Lymph # (Auto) 0.9 L [place] # (Auto) 0.8 Eos # (Auto) 0.0 Baso # (Auto) 0.0 Abs Immat Gran (auto) 0.04 H Absolute Neuts (auto) 7.9 Absolute Nucleated RBC 0.000 Nucleated RBC % (auto) 0.0 Sodium 142 Potassium 4.1 Chloride 108 Carbon Dioxide 24 Anion Gap 14 BUN 28 H Creatinine 1.22 Estim Creat Clear Calc 53.7 Estimated GFR 59 Random Glucose 146 H Calcium 9.2 TSH 0.56 Urine Color Dark Yellow Urine Appearance Cloudy Urine pH 5.5 Ur Specific [place] >= 1.030 H Urine Protein 100 (2+) H Urine Glucose (UA) Negative Urine Ketones 15 Urine Blood Trace H Urine Nitrite Negative Ur Leukocyte Esterase Moderate (2+) H Urine RBC 6-10 H Urine WBC >50 H Ur Squamous Epith Cells 0-2 Urine Bacteria None Seen Hyaline Casts 6-10 Medications Medications Current Medications Acetaminophen (Acetaminophen 325 Mg Tablet) 650 mg PO Q6H PRN PRN Reason: Headache/Pain Mild Scale (1-3) Last Admin: 03/08/23 22:05 Dose: 650 mg Al Hydroxide/Mg Hydroxide (Magnesium Hydrox/Alum Hydrox 30 Ml Oral.Susp) 30 ml PO Q6H PRN PRN Reason: Heartburn/Nausea Atorvastatin Calcium (Atorvastatin Calcium 10 Mg Tablet) 10 mg PO DAILY [facility] Last Admin: 03/11/23 08:57 Dose: 10 mg Carbidopa/Levodopa (Carbidopa/Levodopa 10/100 Tablet) 2 tab PO QID [facility] Last Admin: 03/11/23 08:57 Dose: 2 tab Fluticasone Propionate (Fluticasone Propionate Nasal 16 Gm [place]) 1 spray NOSTRIL-B BID [facility] Last Admin: 03/11/23 09:00 Dose: Not Given Haloperidol (Haloperidol 0.5 Mg Tablet) 0.5 mg PO TID [facility] Last Admin: 03/11/23 08:57 Dose: 0.5 mg Magnesium Hydroxide (Milk Of Magnesia 30 Ml Oral.Susp) 30 ml PO DAILY PRN PRN Reason: Constipation Last Admin: 03/05/23 08:41 Dose: 30 ml Melatonin (Melatonin 3 Mg Tablet) 3 mg PO BEDTIME [facility] Last Admin: 03/10/23 20:39 Dose: 3 mg Multivitamins/Vitamin C (Multivitamin Tablet) 1 tab PO BEDTIME [facility] Last Admin: 03/10/23 20:40 Dose: 1 tab Trazodone HCl (Trazodone Hcl 50 Mg Tablet) 50 mg PO BEDTIME MRX1 PRN PRN Reason: Insomnia Last Admin: 03/06/23 20:05 Dose: 50 mg Trazodone HCl (Trazodone Hcl 25 Mg Halftab) 25 mg PO BID PRN PRN Reason: Agitation Last Admin: 03/04/23 01:38 Dose: 25 mg Venlafaxine HCl (Venlafaxine Hcl Er 150 Mg Cap.Er.24h) 150 mg PO DAILY [facility] Last Admin: 03/11/23 08:56 Dose: 150 mg Venlafaxine HCl (Venlafaxine Hcl Er 75 Mg Cap.Er.24h) 75 mg PO DAILY [facility] Allergies Allergies Allergy/AdvReac Type Severity Reaction Status Date / Time oxycodone Allergy Unknown Verified 10/14/22 13:51 pollen extracts Allergy skin rash Verified 10/14/22 13:51 Assessment & Plan Assessment & Plan (1) Parkinsons disease: Status: Acute Code(s): G20 - Parkinson's disease Assessment and Plan: [age] years old man with moderate to severe Parkinson's features with EDSS score of 6-7. After years of Parkinson's, he also has developed depression and psychotic features. I do not have access to his previous workup including brain imaging, but this evolution of his condition suggested that he might be going into or his underlying condition could very well be dementia with Lewy body disease. Review of brain scan done, maybe at [facility], can help. In any case, dopaminergic drugs are known to have possible psychiatric side effects but at the same time without dopamine supplementation, patient has significant physical disability. A balance has to be reached. In that regard, I would suggest discontinuing Stalevo, which is a combination of drugs. Instead of that, try plain carbidopa levodopa 25/100 2 tablets 4 to 5 times a day. Starting tomorrow, prescribed 1st does at 06:00 and then repeat that does at 10:00, 14:00, 18:00. make an observation tomorrow if that works out better and further adjustment can be made based upon how he reacts to this dose. If psychiatrically not better, may consider Nuplazid. (2) Major depressive disorder: Status: Acute Code(s): F32.9 - Major depressive disorder, single episode, unspecified (3) Psychosis: Status: Acute Code(s): F29 - Unspecified psychosis not due to a substance or known physiological condition Plan Elderly male with past history of Parkinson's disease that is advanced admitted for psychotic symptoms in the context of Sinemet. Plan 1. Gather collateral information. 2. Continue Haldol 0.5 p.o. t.i.d. to target psychosis. 3. Continue with medical workout. 4. Assessment with results. 5. reported that he had a 2nd dose of effexor in the evenging, we will start 37,5 mg po at 5 pm On March 09. Increase Effexor XR 2nd dose up to 75 on March 11 6. Change his antiparkinsonian to Sinemet 4 times a day. Reason for continued inpatient stay Substantial Risk for: inability to function, rapid decompensation and med/psych decompensation Time Spent With Patient Time: Total time managing care of this patient today __20__ minutes.
[2023-03-11 18:00] VITALS: BP 125/62; PULSE 79; RESP 17; TEMP 36.3; O2SAT 93
[2023-03-11] MEDS: Multivitamin TABLET 1 TAB PO (20:44)
[2023-03-11] MEDS: Melatonin 3 MG TABLET PO (20:44)
[2023-03-11] MEDS: traZODone HCL 50 MG TABLET PO (23:33)
[2023-03-12 06:00] VITALS: BP 161/84; PULSE 99; RESP 16; TEMP 35.8; O2SAT 97
[2023-03-12] MEDS: Venlafaxine HCl ER 75 MG CAP.ER.24H PO (08:44)
[2023-03-12] MEDS: HaloperidoL 0.5 MG TABLET PO ×3 (08:44→19:55)
[2023-03-12] MEDS: Atorvastatin Calcium 10 MG TABLET PO (08:44)
[2023-03-12] MEDS: Venlafaxine HCl ER 150 MG CAP.ER.24H PO (08:44)
--- NOTE | 2023-03-12 11:35 | P.PNPSI_ITS ---
Subjective Subjective Date of Service: 03/12/23 Reason For Visit: SI Interim History: Patient depressed and withdrawn tremulous and internally preoccupied Diagnostics Vital Signs (24Hr): Vital Signs - 24 hr 03/11/23 18:00 03/12/23 06:00 Temperature 97.4 F 96.5 F L Pulse Rate 79 99 Respiratory Rate 17 16 Blood Pressure 125/62 161/84 H Pulse Oximetry 93 97 Oxygen Delivery Method Room Air Room Air BMI result Body Mass Index 25.1 Labs 03/10/23 07:58 03/10/23 07:58 Medications Medications Current Medications Acetaminophen (Acetaminophen 325 Mg Tablet) 650 mg PO Q6H PRN PRN Reason: Headache/Pain Mild Scale (1-3) Last Admin: 03/08/23 22:05 Dose: 650 mg Al Hydroxide/Mg Hydroxide (Magnesium Hydrox/Alum Hydrox 30 Ml Oral.Susp) 30 ml PO Q6H PRN PRN Reason: Heartburn/Nausea Atorvastatin Calcium (Atorvastatin Calcium 10 Mg Tablet) 10 mg PO DAILY [facility] Last Admin: 03/12/23 08:44 Dose: 10 mg Carbidopa/Levodopa (Carbidopa/Levodopa 10/100 Tablet) 2 tab PO QID [facility] Last Admin: 03/12/23 08:44 Dose: 2 tab Fluticasone Propionate (Fluticasone Propionate Nasal 16 Gm [place]) 1 spray NOSTRIL-B BID [facility] Last Admin: 03/12/23 08:45 Dose: Not Given Haloperidol (Haloperidol 0.5 Mg Tablet) 0.5 mg PO TID [facility] Last Admin: 03/12/23 08:44 Dose: 0.5 mg Magnesium Hydroxide (Milk Of Magnesia 30 Ml Oral.Susp) 30 ml PO DAILY PRN PRN Reason: Constipation Last Admin: 03/05/23 08:41 Dose: 30 ml Melatonin (Melatonin 3 Mg Tablet) 3 mg PO BEDTIME [facility] Last Admin: 03/11/23 20:44 Dose: 3 mg Multivitamins/Vitamin C (Multivitamin Tablet) 1 tab PO BEDTIME [facility] Last Admin: 03/11/23 20:44 Dose: 1 tab Trazodone HCl (Trazodone Hcl 50 Mg Tablet) 50 mg PO BEDTIME MRX1 PRN PRN Reason: Insomnia Last Admin: 03/11/23 23:33 Dose: 50 mg Trazodone HCl (Trazodone Hcl 25 Mg Halftab) 25 mg PO BID PRN PRN Reason: Agitation Last Admin: 03/04/23 01:38 Dose: 25 mg Venlafaxine HCl (Venlafaxine Hcl Er 150 Mg Cap.Er.24h) 150 mg PO DAILY [facility] Last Admin: 03/12/23 08:44 Dose: 150 mg Venlafaxine HCl (Venlafaxine Hcl Er 75 Mg Cap.Er.24h) 75 mg PO DAILY [facility] Last Admin: 03/12/23 08:44 Dose: 75 mg Allergies Allergies Allergy/AdvReac Type Severity Reaction Status Date / Time oxycodone Allergy Unknown Verified 10/14/22 13:51 pollen extracts Allergy skin rash Verified 10/14/22 13:51 Assessment & Plan Assessment & Plan (1) Parkinsons disease: Status: Acute Code(s): G20 - Parkinson's disease Assessment and Plan: [age] years old man with moderate to severe Parkinson's features with EDSS score of 6-7. After years of Parkinson's, he also has developed depression and psychotic features. I do not have access to his previous workup including brain imaging, but this evolution of his condition suggested that he might be going into or his underlying condition could very well be dementia with Lewy body disease. Review of brain scan done, maybe at [facility], can help. In any case, dopaminergic drugs are known to have possible psychiatric side effects but at the same time without dopamine supplementation, patient has significant physical disability. A balance has to be reached. In that regard, I would suggest discontinuing Stalevo, which is a combination of drugs. Instead of that, try plain carbidopa levodopa 25/100 2 tablets 4 to 5 times a day. Starting tomorrow, prescribed 1st does at 06:00 and then repeat that does at 10:00, 14:00, 18:00. make an observation tomorrow if that works out better and further adjustment can be made based upon how he reacts to this dose. If psychiatrically not better, may consider Nuplazid. 03/12/2023 Patient on Haldol tremulous poor ambulation dysphoric on Haldol unclear why this was chosen Consider clozapine Seroquel (2) Major depressive disorder: Status: Acute Code(s): F32.9 - Major depressive disorder, single episode, unspecified (3) Psychosis: Status: Acute Code(s): F29 - Unspecified psychosis not due to a substance or known physiological condition Plan Elderly male with past history of Parkinson's disease that is advanced admitted for psychotic symptoms in the context of Sinemet. Plan 1. Gather collateral information. 2. Continue Haldol 0.5 p.o. t.i.d. to target psychosis. 3. Continue with medical workout. 4. Assessment with results. 5. reported that he had a 2nd dose of effexor in the evenging, we will start 37,5 mg po at 5 pm On March 09. Increase Effexor XR 2nd dose up to 75 on March 11 6. Change his antiparkinsonian to Sinemet 4 times a day. Reason for continued inpatient stay Substantial Risk for: inability to function and rapid decompensation Time Spent With Patient Time: Total time managing care of this patient today ____ minutes.
[2023-03-12] MEDS: traZODone HCL 25 MG HALFTAB PO (16:16)
[2023-03-12 16:25] VITALS: BP 164/77; PULSE 89; TEMP 36.3
[2023-03-12 19:46] VITALS: BP 119/60; PULSE 78; RESP 18; TEMP 36.1; O2SAT 96
[2023-03-12] MEDS: Melatonin 3 MG TABLET PO (19:55)
[2023-03-12] MEDS: traZODone HCL 50 MG TABLET PO (19:55)
[2023-03-12] MEDS: Multivitamin TABLET 1 TAB PO (19:55)
[2023-03-13] MEDS: Venlafaxine HCl ER 75 MG CAP.ER.24H PO (09:18)
[2023-03-13] MEDS: HaloperidoL 0.5 MG TABLET PO ×3 (09:19→19:56)
[2023-03-13 09:30] VITALS: BP 120/66; PULSE 97; RESP 18; TEMP 36.1; O2SAT 98
--- NOTE | 2023-03-13 14:22 | HO.PSYCHPN ---
Subjective Subjective Date of Service: 03/13/23 Reason For Visit: [facility] Proxy: Yes Interim History: Patient depressed withdrawn quite tremulous case reviewed extensively with patient's Says patient has been talking about dying for many months feels like he has no quality of life there was a discussion regarding hospice Mental Status Exam Mental Status Exam Patient Appearance: Unkempt Patient Orientation: Person and Situation Level of Consciousness: Awake and Appropriate Patient Behavior: Guarded, Passive and Suspicious Mood Description: Withdrawn Affect Description: Constricted Patient Cognition Impaired: Yes Ability to Follow Directions: Fair Speech Pattern: Clear Hallucinations: None Delusions: Not Present Thought Process: Distracted and Slowed Thinking Thought Content: positive for [place] and positive for Circumstantial Judgement: Fair Diagnostics Vital Signs (24Hr): Vital Signs - 24 hr 03/12/23 16:25 03/12/23 19:46 03/13/23 09:30 Temperature 97.4 F 97.0 F 96.9 F Pulse Rate 89 78 97 Respiratory Rate 18 18 Blood Pressure 164/77 H 119/60 120/66 Pulse Oximetry 96 98 Oxygen Delivery Method Room Air Room Air BMI result Body Mass Index 25.1 Labs 03/10/23 07:58 03/10/23 07:58 Medications Medications Current Medications Acetaminophen (Acetaminophen 325 Mg Tablet) 650 mg PO Q6H PRN PRN Reason: Headache/Pain Mild Scale (1-3) Last Admin: 03/08/23 22:05 Dose: 650 mg Al Hydroxide/Mg Hydroxide (Magnesium Hydrox/Alum Hydrox 30 Ml Oral.Susp) 30 ml PO Q6H PRN PRN Reason: Heartburn/Nausea Atorvastatin Calcium (Atorvastatin Calcium 10 Mg Tablet) 10 mg PO DAILY [facility] Last Admin: 03/13/23 09:22 Dose: Not Given Carbidopa/Levodopa (Carbidopa/Levodopa 10/100 Tablet) 2 tab PO QID [facility] Last Admin: 03/13/23 12:36 Dose: 2 tab Fluticasone Propionate (Fluticasone Propionate Nasal 16 Gm [place]) 1 spray NOSTRIL-B BID [facility] Last Admin: 03/13/23 10:03 Dose: Not Given Haloperidol (Haloperidol 0.5 Mg Tablet) 0.5 mg PO TID [facility] Last Admin: 03/13/23 09:19 Dose: 0.5 mg Magnesium Hydroxide (Milk Of Magnesia 30 Ml Oral.Susp) 30 ml PO DAILY PRN PRN Reason: Constipation Last Admin: 03/05/23 08:41 Dose: 30 ml Melatonin (Melatonin 3 Mg Tablet) 3 mg PO BEDTIME [facility] Last Admin: 03/12/23 19:55 Dose: 3 mg Multivitamins/Vitamin C (Multivitamin Tablet) 1 tab PO BEDTIME [facility] Last Admin: 03/12/23 19:55 Dose: 1 tab Trazodone HCl (Trazodone Hcl 50 Mg Tablet) 50 mg PO BEDTIME MRX1 PRN PRN Reason: Insomnia Last Admin: 03/12/23 19:55 Dose: 50 mg Trazodone HCl (Trazodone Hcl 25 Mg Halftab) 25 mg PO BID PRN PRN Reason: Agitation Last Admin: 03/12/23 16:16 Dose: 25 mg Venlafaxine HCl (Venlafaxine Hcl Er 75 Mg Cap.Er.24h) 225 mg PO DAILY [facility] Allergies Allergies Allergy/AdvReac Type Severity Reaction Status Date / Time oxycodone Allergy Unknown Verified 10/14/22 13:51 pollen extracts Allergy skin rash Verified 10/14/22 13:51 Assessment & Plan Assessment & Plan (1) Parkinsons disease: Status: Acute Code(s): G20 - Parkinson's disease Assessment and Plan: [age] years old man with moderate to severe Parkinson's features with EDSS score of 6-7. After years of Parkinson's, he also has developed depression and psychotic features. I do not have access to his previous workup including brain imaging, but this evolution of his condition suggested that he might be going into or his underlying condition could very well be dementia with Lewy body disease. Review of brain scan done, maybe at [facility], can help. In any case, dopaminergic drugs are known to have possible psychiatric side effects but at the same time without dopamine supplementation, patient has significant physical disability. A balance has to be reached. In that regard, I would suggest discontinuing Stalevo, which is a combination of drugs. Instead of that, try plain carbidopa levodopa 25/100 2 tablets 4 to 5 times a day. Starting tomorrow, prescribed 1st does at 06:00 and then repeat that does at 10:00, 14:00, 18:00. make an observation tomorrow if that works out better and further adjustment can be made based upon how he reacts to this dose. If psychiatrically not better, may consider Nuplazid. 03/12/2023 Patient on Haldol tremulous poor ambulation dysphoric on Haldol unclear why this was chosen Consider clozapine Seroquel 03/13/23 Consider as above even ect might be helpful with parkinsons and depression hospice was also discussed with hcp (2) Major depressive disorder: Status: Acute Code(s): F32.9 - Major depressive disorder, single episode, unspecified (3) Psychosis: Status: Acute Code(s): F29 - Unspecified psychosis not due to a substance or known physiological condition Plan Elderly male with past history of Parkinson's disease that is advanced admitted for psychotic symptoms in the context of Sinemet. Plan 1. Gather collateral information. 2. Continue Haldol 0.5 p.o. t.i.d. to target psychosis. 3. Continue with medical workout. 4. Assessment with results. 5. reported that he had a 2nd dose of effexor in the evenging, we will start 37,5 mg po at 5 pm On March 09. Increase Effexor XR 2nd dose up to 75 on March 11 6. Change his antiparkinsonian to Sinemet 4 times a day. Reason for continued inpatient stay Substantial Risk for: harm to self, inability to function and rapid decompensation Time Spent With Patient Time: Total time managing care of this patient today ____ minutes.
[2023-03-13] MEDS: Venlafaxine HCl ER 75 MG CAP.ER.24H 150 MG PO (14:51)
[2023-03-13 15:11] VITALS: BP 175/87; PULSE 98; RESP 28; O2SAT 97
--- NOTE | 2023-03-13 15:11 | PC.NURSE ---
Patient reporting I can't breathe appears very anxious don't leave... pt assisted to bed with elevated HOB, VS obtained and reported to Dr Ozuna w/ symptoms, lungs clear anteriorally, pt declined to allow lung sounds to be assessed posteriorally
--- NOTE | 2023-03-13 15:42 | PC.NURSE ---
Pt resting in bed, resp unlabored.
[2023-03-13] MEDS: LORazepam 0.5 MG TABLET PO ×2 (16:06→23:45)
--- NOTE | 2023-03-13 16:26 | PC.NURSE ---
Pt OOB, at dining table, resp unlabored, no further report of SOB.
[2023-03-13 18:00] VITALS: BP 139/66; PULSE 81; RESP 18; TEMP 36.6; O2SAT 98
--- NOTE | 2023-03-13 18:29 | PC.NURSE ---
After patient received lorazepam he appeared increasingly flexible, ambulated independently, conversing w/ peers. Ate 75% of meal. Currently resting, resp unlabored.
[2023-03-13] MEDS: Multivitamin TABLET 1 TAB PO (19:55)
[2023-03-13] MEDS: traZODone HCL 50 MG TABLET PO (19:55)
[2023-03-13] MEDS: Melatonin 3 MG TABLET PO (19:56)
[2023-03-13 20:00] VITALS: BP 152/72; PULSE 90; RESP 24; TEMP 36.6; O2SAT 97
[2023-03-14 08:45] VITALS: BP 136/72; PULSE 88; RESP 20; TEMP 36.3; O2SAT 97
[2023-03-14] MEDS: Atorvastatin Calcium 10 MG TABLET PO (09:08)
[2023-03-14] MEDS: HaloperidoL 0.5 MG TABLET PO ×3 (09:09→21:03)
[2023-03-14] MEDS: Venlafaxine HCl ER 75 MG CAP.ER.24H 225 MG PO (09:09)
--- NOTE | 2023-03-14 10:49 | P.PNPSI_ITS ---
Subjective Subjective Date of Service: 03/14/23 Reason For Visit: SI Subjective Notes: Conditional Voluntary Interim History: The nursing staff reported the patient had been awake at 04:30 in the morning complaining of anxiety. He reported the for the last 2 nights he complained of dyspnea due to anxiety. his oxygen saturation had been within normal limits. The Effexor had been changed to help him for compliance. On interview the patient remains anxious and dysphoric. No hallucinations or delusions at this moment. Mental Status Exam Mental Status Exam Patient Appearance: Unkempt Patient Orientation: Person and Situation Level of Consciousness: Awake and Appropriate Patient Behavior: Guarded, Passive and Suspicious Mood Description: Withdrawn Affect Description: Constricted Patient Cognition Impaired: Yes Ability to Follow Directions: Fair Speech Pattern: Clear Hallucinations: None Delusions: Not Present Thought Process: Distracted and Slowed Thinking Thought Content: positive for [place] and positive for Circumstantial Judgement: Fair Diagnostics Vital Signs (24Hr): Vital Signs - 24 hr 03/13/23 15:11 03/13/23 18:00 03/13/23 20:00 Temperature 97.8 F 98 F Pulse Rate 98 81 90 Respiratory Rate 28 H 18 24 H Blood Pressure 175/87 H 139/66 152/72 H Pulse Oximetry 97 98 97 Oxygen Delivery Method Room Air Room Air Room Air 03/14/23 08:45 Temperature 97.4 F Pulse Rate 88 Respiratory Rate 20 Blood Pressure 136/72 Pulse Oximetry 97 Oxygen Delivery Method BMI result Body Mass Index 25.1 Labs 03/10/23 07:58 03/10/23 07:58 Medications Medications Current Medications Acetaminophen (Acetaminophen 325 Mg Tablet) 650 mg PO Q6H PRN PRN Reason: Headache/Pain Mild Scale (1-3) Last Admin: 03/08/23 22:05 Dose: 650 mg Al Hydroxide/Mg Hydroxide (Magnesium Hydrox/Alum Hydrox 30 Ml Oral.Susp) 30 ml PO Q6H PRN PRN Reason: Heartburn/Nausea Atorvastatin Calcium (Atorvastatin Calcium 10 Mg Tablet) 10 mg PO DAILY [facility] Last Admin: 03/14/23 09:08 Dose: 10 mg Carbidopa/Levodopa (Carbidopa/Levodopa 10/100 Tablet) 2 tab PO QID [facility] Last Admin: 03/14/23 09:09 Dose: 2 tab Fluticasone Propionate (Fluticasone Propionate Nasal 16 Gm [place]) 1 spray NOSTRIL-B BID [facility] Last Admin: 03/14/23 09:09 Dose: Not Given Haloperidol (Haloperidol 0.5 Mg Tablet) 0.5 mg PO TID [facility] Last Admin: 03/14/23 09:09 Dose: 0.5 mg Lorazepam (Lorazepam 0.5 Mg Tablet) 0.5 mg PO TID PRN PRN Reason: Anxiety Last Admin: 03/13/23 23:45 Dose: 0.5 mg Magnesium Hydroxide (Milk Of Magnesia 30 Ml Oral.Susp) 30 ml PO DAILY PRN PRN Reason: Constipation Last Admin: 03/05/23 08:41 Dose: 30 ml Melatonin (Melatonin 3 Mg Tablet) 3 mg PO BEDTIME [facility] Last Admin: 03/13/23 19:56 Dose: 3 mg Multivitamins/Vitamin C (Multivitamin Tablet) 1 tab PO BEDTIME [facility] Last Admin: 03/13/23 19:55 Dose: 1 tab Trazodone HCl (Trazodone Hcl 50 Mg Tablet) 50 mg PO BEDTIME MRX1 PRN PRN Reason: Insomnia Last Admin: 03/13/23 19:55 Dose: 50 mg Trazodone HCl (Trazodone Hcl 25 Mg Halftab) 25 mg PO BID PRN PRN Reason: Agitation Last Admin: 03/12/23 16:16 Dose: 25 mg Venlafaxine HCl (Venlafaxine Hcl Er 75 Mg Cap.Er.24h) 225 mg PO DAILY [facility] Last Admin: 03/14/23 09:09 Dose: 225 mg Allergies Allergies Allergy/AdvReac Type Severity Reaction Status Date / Time oxycodone Allergy Unknown Verified 10/14/22 13:51 pollen extracts Allergy skin rash Verified 10/14/22 13:51 Assessment & Plan Assessment & Plan (1) Parkinsons disease: Status: Acute Code(s): G20 - Parkinson's disease Assessment and Plan: [age] years old man with moderate to severe Parkinson's features with EDSS score of 6-7. After years of Parkinson's, he also has developed depression and psychotic features. I do not have access to his previous workup including brain imaging, but this evolution of his condition suggested that he might be going into or his underlying condition could very well be dementia with Lewy body disease. Review of brain scan done, maybe at [facility], can help. In any case, dopaminergic drugs are known to have possible psychiatric side effects but at the same time without dopamine supplementation, patient has significant physical disability. A balance has to be reached. In that regard, I would suggest discontinuing Stalevo, which is a combination of drugs. Instead of that, try plain carbidopa levodopa 25/100 2 tablets 4 to 5 times a day. Starting tomorrow, prescribed 1st does at 06:00 and then repeat that does at 10:00, 14:00, 18:00. make an observation tomorrow if that works out better and further adjustment can be made based upon how he reacts to this dose. If psychiatrically not better, may consider Nuplazid. Plan 1. Continue with same treatment. 2. Keep Effexor as prescribed (2) Major depressive disorder: Status: Acute Code(s): F32.9 - Major depressive disorder, single episode, unspecified (3) Psychosis: Status: Acute Code(s): F29 - Unspecified psychosis not due to a substance or known physiological condition Plan Elderly male with past history of Parkinson's disease that is advanced admitted for psychotic symptoms in the context of Sinemet. Plan 1. Gather collateral information. 2. Continue Haldol 0.5 p.o. t.i.d. to target psychosis. 3. Continue with medical workout. 4. Assessment with results. 5. reported that he had a 2nd dose of effexor in the evenging, we will start 37,5 mg po at 5 pm On March 09. Increase Effexor XR 2nd dose up to 75 on March 11 6. Change his antiparkinsonian to Sinemet 4 times a day. Reason for continued inpatient stay Substantial Risk for: inability to function, rapid decompensation and med/psych decompensation Time Spent With Patient Time: Total time managing care of this patient today ___20_ minutes.
[2023-03-14] MEDS: LORazepam 0.5 MG TABLET PO ×2 (11:59→15:58)
--- NOTE | 2023-03-14 14:25 | MHC.CLN ---
F/U STAFF REPORTED THAT PATIENT ATE WELL AT BREAKFAST TODAY. MED ADJUSTMENTS, SEE MD NOTES. DIET=REGULAR. CONTINUE TO FOLLOW FOR INTAKE.
[2023-03-14 18:00] VITALS: BP 144/68; PULSE 87; RESP 18; TEMP 36.4; O2SAT 100
[2023-03-14] MEDS: traZODone HCL 25 MG HALFTAB PO (19:40)
[2023-03-14] MEDS: Multivitamin TABLET 1 TAB PO (21:03)
[2023-03-14] MEDS: Melatonin 3 MG TABLET PO (21:03)
[2023-03-15] MEDS: LORazepam 0.5 MG TABLET PO ×3 (05:47→18:10)
[2023-03-15 08:33] VITALS: BP 164/75; PULSE 77; RESP 16; TEMP 36.5; O2SAT 96
[2023-03-15] MEDS: Venlafaxine HCl ER 75 MG CAP.ER.24H 225 MG PO (08:37)
[2023-03-15] MEDS: Atorvastatin Calcium 10 MG TABLET PO (08:37)
[2023-03-15] MEDS: HaloperidoL 0.5 MG TABLET PO ×3 (08:37→21:33)
--- NOTE | 2023-03-15 12:07 | HO.PSYCHPN ---
Subjective Subjective Date of Service: 03/15/23 Reason For Visit: SI Subjective Notes: Conditional Voluntary Interim History: The nursing staff reported the patient has been alert oriented x2, he receive a p.r.n. Ativan with good response. His speech is clear and he has a little more balance. He had been incontinent of urine and feces. His appetite improved he is eating better and yesterday he have a good day according to occupational therapist. On interview the patient reports feeling slightly anxious but more engaged he looked more awake and alert. Mental Status Exam Mental Status Exam Patient Appearance: Well Grooomed Patient Orientation: Person and Situation Level of Consciousness: Awake and Appropriate Patient Behavior: Guarded and Passive Mood Description: Withdrawn Affect Description: Constricted Patient Cognition Impaired: Yes Ability to Follow Directions: Good Speech Pattern: Clear Hallucinations: None Delusions: Not Present Thought Process: Goal Oriented and Slowed Thinking Thought Content: positive for [place] and positive for Circumstantial Judgement: Fair Diagnostics Vital Signs (24Hr): Vital Signs - 24 hr 03/14/23 18:00 03/15/23 08:33 Temperature 97.5 F 97.7 F Pulse Rate 87 77 Respiratory Rate 18 16 Blood Pressure 144/68 H 164/75 H Pulse Oximetry 100 96 Oxygen Delivery Method Room Air Room Air BMI result Body Mass Index 25.1 Labs 03/10/23 07:58 03/10/23 07:58 Medications Medications Current Medications Acetaminophen (Acetaminophen 325 Mg Tablet) 650 mg PO Q6H PRN PRN Reason: Headache/Pain Mild Scale (1-3) Last Admin: 03/08/23 22:05 Dose: 650 mg Al Hydroxide/Mg Hydroxide (Magnesium Hydrox/Alum Hydrox 30 Ml Oral.Susp) 30 ml PO Q6H PRN PRN Reason: Heartburn/Nausea Atorvastatin Calcium (Atorvastatin Calcium 10 Mg Tablet) 10 mg PO DAILY [facility] Last Admin: 03/15/23 08:37 Dose: 10 mg Carbidopa/Levodopa (Carbidopa/Levodopa 10/100 Tablet) 2 tab PO QID [facility] Last Admin: 03/15/23 08:37 Dose: 2 tab Fluticasone Propionate (Fluticasone Propionate Nasal 16 Gm [place]) 1 spray NOSTRIL-B BID [facility] Last Admin: 03/15/23 08:38 Dose: Not Given Haloperidol (Haloperidol 0.5 Mg Tablet) 0.5 mg PO TID [facility] Last Admin: 03/15/23 08:37 Dose: 0.5 mg Lorazepam (Lorazepam 0.5 Mg Tablet) 0.5 mg PO TID PRN PRN Reason: Anxiety Last Admin: 03/15/23 05:47 Dose: 0.5 mg Magnesium Hydroxide (Milk Of Magnesia 30 Ml Oral.Susp) 30 ml PO DAILY PRN PRN Reason: Constipation Last Admin: 03/05/23 08:41 Dose: 30 ml Melatonin (Melatonin 3 Mg Tablet) 3 mg PO BEDTIME [facility] Last Admin: 03/14/23 21:03 Dose: 3 mg Multivitamins/Vitamin C (Multivitamin Tablet) 1 tab PO BEDTIME [facility] Last Admin: 03/14/23 21:03 Dose: 1 tab Trazodone HCl (Trazodone Hcl 50 Mg Tablet) 50 mg PO BEDTIME MRX1 PRN PRN Reason: Insomnia Last Admin: 03/13/23 19:55 Dose: 50 mg Trazodone HCl (Trazodone Hcl 25 Mg Halftab) 25 mg PO BID PRN PRN Reason: Agitation Last Admin: 03/14/23 19:40 Dose: 25 mg Venlafaxine HCl (Venlafaxine Hcl Er 75 Mg Cap.Er.24h) 225 mg PO DAILY [facility] Last Admin: 03/15/23 08:37 Dose: 225 mg Allergies Allergies Allergy/AdvReac Type Severity Reaction Status Date / Time oxycodone Allergy Unknown Verified 10/14/22 13:51 pollen extracts Allergy skin rash Verified 10/14/22 13:51 Assessment & Plan Assessment & Plan (1) Parkinsons disease: Status: Acute Code(s): G20 - Parkinson's disease Assessment and Plan: [age] years old man with moderate to severe Parkinson's features with EDSS score of 6-7. After years of Parkinson's, he also has developed depression and psychotic features. I do not have access to his previous workup including brain imaging, but this evolution of his condition suggested that he might be going into or his underlying condition could very well be dementia with Lewy body disease. Review of brain scan done, maybe at [facility], can help. In any case, dopaminergic drugs are known to have possible psychiatric side effects but at the same time without dopamine supplementation, patient has significant physical disability. A balance has to be reached. In that regard, I would suggest discontinuing Stalevo, which is a combination of drugs. Instead of that, try plain carbidopa levodopa 25/100 2 tablets 4 to 5 times a day. Starting tomorrow, prescribed 1st does at 06:00 and then repeat that does at 10:00, 14:00, 18:00. make an observation tomorrow if that works out better and further adjustment can be made based upon how he reacts to this dose. If psychiatrically not better, may consider Nuplazid. Plan 1. Continue with same treatment. 2. Keep Effexor as prescribed 225 mg only the morning. 3. Keep on Sinemet as a prescribing doses. 4. We will keep Ativan 00.5 p.o. t.i.d. since it has helped him (2) Major depressive disorder: Status: Acute Code(s): F32.9 - Major depressive disorder, single episode, unspecified (3) Psychosis: Status: Acute Code(s): F29 - Unspecified psychosis not due to a substance or known physiological condition Plan Elderly male with past history of Parkinson's disease that is advanced admitted for psychotic symptoms in the context of Sinemet. Plan 1. Gather collateral information. 2. Continue Haldol 0.5 p.o. t.i.d. to target psychosis. 3. Continue with medical workout. 4. Assessment with results. 5. reported that he had a 2nd dose of effexor in the evenging, we will start 37,5 mg po at 5 pm On March 09. Increase Effexor XR 2nd dose up to 75 on March 11. Later on, Effexor has been changed to 1 single dose of 225 mg in the morning 6. Change his antiparkinsonian to Sinemet 4 times a day. Reason for continued inpatient stay Substantial Risk for: inability to function, rapid decompensation and med/psych decompensation Time Spent With Patient Time: Total time managing care of this patient today __20__ minutes.
[2023-03-15] MEDS: Magnesium Hydrox/Alum Hydrox 30 ML ORAL.SUSP PO (17:37)
[2023-03-15 18:51] VITALS: BP 155/77; PULSE 93; RESP 18; TEMP 37.1; O2SAT 97
[2023-03-15] MEDS: Melatonin 3 MG TABLET PO (21:32)
[2023-03-15] MEDS: Multivitamin TABLET 1 TAB PO (21:33)
[2023-03-15] MEDS: Acetaminophen 325 MG TABLET 650 MG PO (21:33)
[2023-03-15] MEDS: traZODone HCL 25 MG HALFTAB PO (21:45)
[2023-03-16] MEDS: traZODone HCL 50 MG TABLET PO (01:44)
[2023-03-16 02:06] VITALS: BP 153/74; PULSE 82; RESP 20; TEMP 37.2; O2SAT 95
[2023-03-16] MEDS: LORazepam 0.5 MG TABLET PO ×4 (06:04→20:15)
[2023-03-16 08:10] VITALS: BP 117/60; PULSE 82; RESP 16; TEMP 36.7; O2SAT 98
[2023-03-16] MEDS: Atorvastatin Calcium 10 MG TABLET PO (08:28)
[2023-03-16] MEDS: Venlafaxine HCl ER 75 MG CAP.ER.24H 225 MG PO (08:28)
[2023-03-16] MEDS: Acetaminophen 325 MG TABLET 650 MG PO ×2 (08:28→18:08)
[2023-03-16] MEDS: HaloperidoL 0.5 MG TABLET PO ×3 (08:28→20:15)
[2023-03-16] MEDS: Trolamine Salicylate 10 % Cream 85 GM TUBE 1 APPL TOPICAL (10:53)
--- NOTE | 2023-03-16 14:09 | P.PNPSI_ITS ---
Subjective Subjective Date of Service: 03/16/23 Reason For Visit: SI Subjective Notes: Conditional Voluntary Interim History: the nursing staff reported the patient has been restless and anxious, he complains of stomach pain after meals. She has been noticed by the staff that we combined lorazepam with Sinemet his symptoms improved dramatically. On interview the patient denies new symptoms he is awake and alert, confused at times but much better. Dysphoria has improved in the last days. Mental Status Exam Mental Status Exam Patient Appearance: Appropriate Patient Orientation: Person and Situation Level of Consciousness: Awake and Appropriate Patient Behavior: Guarded and Passive Mood Description: Calm Affect Description: Constricted Patient Cognition Impaired: Yes Ability to Follow Directions: Good Speech Pattern: Clear Hallucinations: None Delusions: Not Present Thought Process: Distracted and Evasive Thought Content: positive for [place] Judgement: Fair Diagnostics Vital Signs (24Hr): Vital Signs - 24 hr 03/15/23 18:51 03/16/23 02:06 03/16/23 08:10 Temperature 98.7 F 98.9 F 98.0 F Pulse Rate 93 82 82 Respiratory Rate 18 20 16 Blood Pressure 155/77 H 153/74 H 117/60 Pulse Oximetry 97 95 98 Oxygen Delivery Method Room Air Room Air Room Air BMI result Body Mass Index 25.1 Labs 03/10/23 07:58 03/10/23 07:58 Medications Medications Current Medications Acetaminophen (Acetaminophen 325 Mg Tablet) 650 mg PO Q6H PRN PRN Reason: Headache/Pain Mild Scale (1-3) Last Admin: 03/16/23 08:28 Dose: 650 mg Al Hydroxide/Mg Hydroxide (Magnesium Hydrox/Alum Hydrox 30 Ml Oral.Susp) 30 ml PO Q6H PRN PRN Reason: Heartburn/Nausea Last Admin: 03/15/23 17:37 Dose: 30 ml Atorvastatin Calcium (Atorvastatin Calcium 10 Mg Tablet) 10 mg PO DAILY [facility] Last Admin: 03/16/23 08:28 Dose: 10 mg Carbidopa/Levodopa (Carbidopa/Levodopa 10/100 Tablet) 2 tab PO QID [facility] Last Admin: 03/16/23 12:53 Dose: 2 tab Fluticasone Propionate (Fluticasone Propionate Nasal 16 Gm [place]) 1 spray NOSTRIL-B BID [facility] Last Admin: 03/16/23 08:28 Dose: Not Given Haloperidol (Haloperidol 0.5 Mg Tablet) 0.5 mg PO TID [facility] Last Admin: 03/16/23 08:28 Dose: 0.5 mg Lorazepam (Lorazepam 0.5 Mg Tablet) 0.5 mg PO TID PRN PRN Reason: Anxiety Last Admin: 03/16/23 06:04 Dose: 0.5 mg Magnesium Hydroxide (Milk Of Magnesia 30 Ml Oral.Susp) 30 ml PO DAILY PRN PRN Reason: Constipation Last Admin: 03/05/23 08:41 Dose: 30 ml Melatonin (Melatonin 3 Mg Tablet) 3 mg PO BEDTIME [facility] Last Admin: 03/15/23 21:32 Dose: 3 mg Multivitamins/Vitamin C (Multivitamin Tablet) 1 tab PO BEDTIME [facility] Last Admin: 03/15/23 21:33 Dose: 1 tab Trazodone HCl (Trazodone Hcl 50 Mg Tablet) 50 mg PO BEDTIME MRX1 PRN PRN Reason: Insomnia Last Admin: 03/16/23 01:44 Dose: 50 mg Trazodone HCl (Trazodone Hcl 25 Mg Halftab) 25 mg PO BID PRN PRN Reason: Agitation Last Admin: 03/15/23 21:45 Dose: 25 mg Trolamine Salicylate (Trolamine Salicylate 10 % Cream 141 Gm Tube) 1 appl TOPICAL QID PRN; Protocol PRN Reason: Pain, Moderate (Pain Scale 4-6 Venlafaxine HCl (Venlafaxine Hcl Er 75 Mg Cap.Er.24h) 225 mg PO DAILY [facility] Last Admin: 03/16/23 08:28 Dose: 225 mg Allergies Allergies Allergy/AdvReac Type Severity Reaction Status Date / Time oxycodone Allergy Unknown Verified 10/14/22 13:51 pollen extracts Allergy skin rash Verified 10/14/22 13:51 Assessment & Plan Assessment & Plan (1) Parkinsons disease: Status: Acute Code(s): G20 - Parkinson's disease Assessment and Plan: [age] years old man with moderate to severe Parkinson's features with EDSS score of 6-7. After years of Parkinson's, he also has developed depression and psychotic features. I do not have access to his previous workup including brain imaging, but this evolution of his condition suggested that he might be going into or his underlying condition could very well be dementia with Lewy body disease. Review of brain scan done, maybe at [facility], can help. In any case, dopaminergic drugs are known to have possible psychiatric side effects but at the same time without dopamine supplementation, patient has significant physical disability. A balance has to be reached. In that regard, I would suggest discontinuing Stalevo, which is a combination of drugs. Instead of that, try plain carbidopa levodopa 25/100 2 tablets 4 to 5 times a day. Starting tomorrow, prescribed 1st does at 06:00 and then repeat that does at 10:00, 14:00, 18:00. make an observation tomorrow if that works out better and further adjustment can be made based upon how he reacts to this dose. If psychiatrically not better, may consider Nuplazid. Plan 1. Continue with same treatment. 2. Keep Effexor as prescribed 225 mg only the morning. 3. Keep on Sinemet as a prescribing doses. 4. Ativan will be changed to 4 times a day we Sinemet (2) Major depressive disorder: Status: Acute Code(s): F32.9 - Major depressive disorder, single episode, unspecified (3) Psychosis: Status: Acute Code(s): F29 - Unspecified psychosis not due to a substance or known physiological condition Plan Elderly male with past history of Parkinson's disease that is advanced admitted for psychotic symptoms in the context of Sinemet. Plan 1. Gather collateral information. 2. Continue Haldol 0.5 p.o. t.i.d. to target psychosis. 3. Continue with medical workout. 4. Assessment with results. 5. reported that he had a 2nd dose of effexor in the evenging, we will start 37,5 mg po at 5 pm On March 09. Increase Effexor XR 2nd dose up to 75 on March 11. Later on, Effexor has been changed to 1 single dose of 225 mg in the morning 6. Change his antiparkinsonian to Sinemet 4 times a day. Reason for continued inpatient stay Substantial Risk for: inability to function, rapid decompensation and med/psych decompensation Time Spent With Patient Time: Total time managing care of this patient today _20___ minutes.
[2023-03-16] MEDS: Trolamine Salicylate 10 % Cream 141 gm Tube 1 APPL TOPICAL (14:46)
[2023-03-16 18:00] VITALS: BP 118/56; PULSE 79; RESP 18; TEMP 36.6; O2SAT 94
[2023-03-16] MEDS: Multivitamin TABLET 1 TAB PO (20:15)
[2023-03-16] MEDS: Melatonin 3 MG TABLET PO (20:15)
[2023-03-17] MEDS: Acetaminophen 325 MG TABLET 650 MG PO ×3 (00:34→20:00)
[2023-03-17] MEDS: traZODone HCL 50 MG TABLET PO ×2 (00:34→20:02)
[2023-03-17] MEDS: Trolamine Salicylate 10 % Cream 141 gm Tube 1 APPL TOPICAL (00:35)
[2023-03-17 06:00] VITALS: BP 154/76; PULSE 99; RESP 18; TEMP 36.4; O2SAT 98
[2023-03-17] MEDS: LORazepam 0.5 MG TABLET PO ×4 (08:20→20:02)
[2023-03-17] MEDS: HaloperidoL 0.5 MG TABLET PO ×3 (08:20→20:02)
[2023-03-17] MEDS: Atorvastatin Calcium 10 MG TABLET PO (08:21)
[2023-03-17] MEDS: Venlafaxine HCl ER 75 MG CAP.ER.24H 225 MG PO (08:21)
--- NOTE | 2023-03-17 14:04 | P.PNPSI_ITS ---
Subjective Subjective Date of Service: 03/17/23 Reason For Visit: SI Subjective Notes: Conditional Voluntary Interim History: The nursing staff reported the patient had been more cooperative and pleasant still anxious and depressed but better with a combination of Ativan and Sinemet. The social services coordinator reported that his family wants to place him or [facility]. On interview the patient denies new symptoms Mental Status Exam Mental Status Exam Patient Appearance: Well Grooomed and Appropriate Patient Orientation: Person and Situation Level of Consciousness: Awake and Appropriate Patient Behavior: Guarded and Passive Mood Description: Calm Affect Description: Constricted Patient Cognition Impaired: Yes Ability to Follow Directions: Good Speech Pattern: Clear Hallucinations: None Delusions: Not Present Thought Process: Distracted and Linear Thought Content: positive for [place] and positive for Circumstantial Judgement: Fair Diagnostics Vital Signs (24Hr): Vital Signs - 24 hr 03/16/23 18:00 03/17/23 06:00 Temperature 97.9 F 97.5 F Pulse Rate 79 99 Respiratory Rate 18 18 Blood Pressure 118/56 L 154/76 H Pulse Oximetry 94 98 Oxygen Delivery Method Room Air BMI result Body Mass Index 25.1 Labs 03/10/23 07:58 03/10/23 07:58 Medications Medications Current Medications Acetaminophen (Acetaminophen 325 Mg Tablet) 650 mg PO Q6H PRN PRN Reason: Headache/Pain Mild Scale (1-3) Last Admin: 03/17/23 12:58 Dose: 650 mg Al Hydroxide/Mg Hydroxide (Magnesium Hydrox/Alum Hydrox 30 Ml Oral.Susp) 30 ml PO Q6H PRN PRN Reason: Heartburn/Nausea Last Admin: 03/15/23 17:37 Dose: 30 ml Atorvastatin Calcium (Atorvastatin Calcium 10 Mg Tablet) 10 mg PO DAILY [facility] Last Admin: 03/17/23 08:21 Dose: 10 mg Carbidopa/Levodopa (Carbidopa/Levodopa 10/100 Tablet) 2 tab PO QID [facility] Last Admin: 03/17/23 12:22 Dose: 2 tab Fluticasone Propionate (Fluticasone Propionate Nasal 16 Gm [place]) 1 spray NOSTRIL-B BID [facility] Last Admin: 03/17/23 08:26 Dose: Not Given Haloperidol (Haloperidol 0.5 Mg Tablet) 0.5 mg PO TID [facility] Last Admin: 03/17/23 08:20 Dose: 0.5 mg Lorazepam (Lorazepam 0.5 Mg Tablet) 0.5 mg PO QID [facility] Last Admin: 03/17/23 12:22 Dose: 0.5 mg Magnesium Hydroxide (Milk Of Magnesia 30 Ml Oral.Susp) 30 ml PO DAILY PRN PRN Reason: Constipation Last Admin: 03/05/23 08:41 Dose: 30 ml Melatonin (Melatonin 3 Mg Tablet) 3 mg PO BEDTIME [facility] Last Admin: 03/16/23 20:15 Dose: 3 mg Multivitamins/Vitamin C (Multivitamin Tablet) 1 tab PO BEDTIME [facility] Last Admin: 03/16/23 20:15 Dose: 1 tab Trazodone HCl (Trazodone Hcl 50 Mg Tablet) 50 mg PO BEDTIME MRX1 PRN PRN Reason: Insomnia Last Admin: 03/17/23 00:34 Dose: 50 mg Trazodone HCl (Trazodone Hcl 25 Mg Halftab) 25 mg PO BID PRN PRN Reason: Agitation Last Admin: 03/15/23 21:45 Dose: 25 mg Trolamine Salicylate (Trolamine Salicylate 10 % Cream 141 Gm Tube) 1 appl TOPICAL QID PRN; Protocol PRN Reason: Pain, Moderate (Pain Scale 4-6 Last Admin: 03/17/23 00:35 Dose: 1 appl Venlafaxine HCl (Venlafaxine Hcl Er 75 Mg Cap.Er.24h) 225 mg PO DAILY [facility] Last Admin: 03/17/23 08:21 Dose: 225 mg Allergies Allergies Allergy/AdvReac Type Severity Reaction Status Date / Time oxycodone Allergy Unknown Verified 10/14/22 13:51 pollen extracts Allergy skin rash Verified 10/14/22 13:51 Assessment & Plan Assessment & Plan (1) Parkinsons disease: Status: Acute Code(s): G20 - Parkinson's disease Assessment and Plan: [age] years old man with moderate to severe Parkinson's features with EDSS score of 6-7. After years of Parkinson's, he also has developed depression and psychotic features. I do not have access to his previous workup including brain imaging, but this evolution of his condition suggested that he might be going into or his underlying condition could very well be dementia with Lewy body disease. Review of brain scan done, maybe at [facility], can help. In any case, dopaminergic drugs are known to have possible psychiatric side effects but at the same time without dopamine supplementation, patient has significant physical disability. A balance has to be reached. In that regard, I would suggest discontinuing Stalevo, which is a combination of drugs. Instead of that, try plain carbidopa levodopa 25/100 2 tablets 4 to 5 times a day. Starting tomorrow, prescribed 1st does at 06:00 and then repeat that does at 10:00, 14:00, 18:00. make an observation tomorrow if that works out better and further adjustment can be made based upon how he reacts to this dose. If psychiatrically not better, may consider Nuplazid. Plan 1. Continue with same treatment. 2. Keep Effexor as prescribed 225 mg only the morning. 3. Keep on Sinemet as a prescribing doses. 4. Ativan will be changed to 4 times a day we Sinemet (2) Major depressive disorder: Status: Acute Code(s): F32.9 - Major depressive disorder, single episode, unspecified (3) Psychosis: Status: Acute Code(s): F29 - Unspecified psychosis not due to a substance or known physiological condition Plan Elderly male with past history of Parkinson's disease that is advanced admitted for psychotic symptoms in the context of Sinemet. Plan 1. Gather collateral information. 2. Continue Haldol 0.5 p.o. t.i.d. to target psychosis. 3. Continue with medical workout. 4. Assessment with results. 5. reported that he had a 2nd dose of effexor in the evenging, we will start 37,5 mg po at 5 pm On March 09. Increase Effexor XR 2nd dose up to 75 on March 11. Later on, Effexor has been changed to 1 single dose of 225 mg in the morning 6. Change his antiparkinsonian to Sinemet 4 times a day. Reason for continued inpatient stay Substantial Risk for: inability to function, rapid decompensation and med/psych decompensation Time Spent With Patient Time: Total time managing care of this patient today _20___ minutes.
[2023-03-17 19:56] VITALS: BP 137/65; PULSE 88; RESP 18; TEMP 36.6; O2SAT 96
[2023-03-17] MEDS: Melatonin 3 MG TABLET PO (20:02)
[2023-03-17] MEDS: traZODone HCL 25 MG HALFTAB PO (20:02)
[2023-03-17] MEDS: Multivitamin TABLET 1 TAB PO (20:02)
[2023-03-18] MEDS: traZODone HCL 50 MG TABLET PO ×2 (00:27→20:21)
[2023-03-18] MEDS: traMADoL HCL 50 MG TABLET 25 MG PO (03:25)
[2023-03-18 06:00] VITALS: BP 166/73; PULSE 82; RESP 18; TEMP 36.6; O2SAT 93
[2023-03-18] MEDS: LORazepam 0.5 MG TABLET PO ×4 (09:00→20:20)
[2023-03-18] MEDS: Venlafaxine HCl ER 75 MG CAP.ER.24H 225 MG PO (09:00)
[2023-03-18] MEDS: HaloperidoL 0.5 MG TABLET PO ×3 (09:01→20:20)
[2023-03-18] MEDS: Atorvastatin Calcium 10 MG TABLET PO (09:01)
[2023-03-18] MEDS: traZODone HCL 25 MG HALFTAB PO (11:38)
[2023-03-18] MEDS: Acetaminophen 325 MG TABLET 650 MG PO ×2 (11:38→20:19)
--- NOTE | 2023-03-18 15:09 | HO.PSYCHPN ---
Subjective Subjective Date of Service: 03/18/23 Reason For Visit: SI Subjective Notes: Conditional Voluntary Interim History: The nursing staff reported the patient complained of pain at night and the hospitalist suggested to used tramadol with for improvement. He slept poorly last night trazodone has helped him. On interview we discussed options, he reported that he is sleeping poorly he agreed increase melatonin and start standing trazodone 50 p.o. q.h.s. every night. Mental Status Exam Mental Status Exam Patient Appearance: Appropriate Patient Orientation: Person and Situation Level of Consciousness: Awake and Appropriate Patient Behavior: Guarded and Passive Mood Description: Calm Affect Description: Constricted Patient Cognition Impaired: Yes Ability to Follow Directions: Good Speech Pattern: Appropriate Hallucinations: None Delusions: Not Present Thought Process: Evasive and Slowed Thinking Thought Content: positive for [place] and positive for Circumstantial Judgement: Fair Diagnostics Vital Signs (24Hr): Vital Signs - 24 hr 03/17/23 19:56 Temperature 97.9 F Pulse Rate 88 Respiratory Rate 18 Blood Pressure 137/65 Pulse Oximetry 96 Oxygen Delivery Method Room Air BMI result Body Mass Index 25.1 Labs 03/10/23 07:58 03/10/23 07:58 Medications Medications Current Medications Acetaminophen (Acetaminophen 325 Mg Tablet) 650 mg PO Q6H PRN PRN Reason: Headache/Pain Mild Scale (1-3) Last Admin: 03/18/23 11:38 Dose: 650 mg Al Hydroxide/Mg Hydroxide (Magnesium Hydrox/Alum Hydrox 30 Ml Oral.Susp) 30 ml PO Q6H PRN PRN Reason: Heartburn/Nausea Last Admin: 03/15/23 17:37 Dose: 30 ml Atorvastatin Calcium (Atorvastatin Calcium 10 Mg Tablet) 10 mg PO DAILY [facility] Last Admin: 03/18/23 09:01 Dose: 10 mg Carbidopa/Levodopa (Carbidopa/Levodopa 10/100 Tablet) 2 tab PO QID [facility] Last Admin: 03/18/23 12:10 Dose: 2 tab Fluticasone Propionate (Fluticasone Propionate Nasal 16 Gm [place]) 1 spray NOSTRIL-B BID [facility] Last Admin: 03/18/23 09:07 Dose: Not Given Haloperidol (Haloperidol 0.5 Mg Tablet) 0.5 mg PO TID [facility] Last Admin: 03/18/23 15:00 Dose: 0.5 mg Lorazepam (Lorazepam 0.5 Mg Tablet) 0.5 mg PO QID [facility] Last Admin: 03/18/23 12:10 Dose: 0.5 mg Magnesium Hydroxide (Milk Of Magnesia 30 Ml Oral.Susp) 30 ml PO DAILY PRN PRN Reason: Constipation Last Admin: 03/05/23 08:41 Dose: 30 ml Melatonin (Melatonin 3 Mg Tablet) 6 mg PO BEDTIME [facility] Multivitamins/Vitamin C (Multivitamin Tablet) 1 tab PO BEDTIME [facility] Last Admin: 03/17/23 20:02 Dose: 1 tab Tramadol HCl (Tramadol Hcl 50 Mg Tablet) 25 mg PO Q6H PRN PRN Reason: Pain, Moderate (Pain Scale 4-6 Trazodone HCl (Trazodone Hcl 50 Mg Tablet) 50 mg PO BEDTIME MRX1 PRN PRN Reason: Insomnia Last Admin: 03/18/23 00:27 Dose: 50 mg Trazodone HCl (Trazodone Hcl 25 Mg Halftab) 25 mg PO BID PRN PRN Reason: Agitation Last Admin: 03/18/23 11:38 Dose: 25 mg Trolamine Salicylate (Trolamine Salicylate 10 % Cream 141 Gm Tube) 1 appl TOPICAL QID PRN; Protocol PRN Reason: Pain, Moderate (Pain Scale 4-6 Last Admin: 03/17/23 00:35 Dose: 1 appl Venlafaxine HCl (Venlafaxine Hcl Er 75 Mg Cap.Er.24h) 225 mg PO DAILY [facility] Last Admin: 03/18/23 09:00 Dose: 225 mg Allergies Allergies Allergy/AdvReac Type Severity Reaction Status Date / Time oxycodone Allergy Unknown Verified 10/14/22 13:51 pollen extracts Allergy skin rash Verified 10/14/22 13:51 Assessment & Plan Assessment & Plan (1) Parkinsons disease: Status: Acute Code(s): G20 - Parkinson's disease Assessment and Plan: [age] years old man with moderate to severe Parkinson's features with EDSS score of 6-7. After years of Parkinson's, he also has developed depression and psychotic features. I do not have access to his previous workup including brain imaging, but this evolution of his condition suggested that he might be going into or his underlying condition could very well be dementia with Lewy body disease. Review of brain scan done, maybe at [facility], can help. In any case, dopaminergic drugs are known to have possible psychiatric side effects but at the same time without dopamine supplementation, patient has significant physical disability. A balance has to be reached. In that regard, I would suggest discontinuing Stalevo, which is a combination of drugs. Instead of that, try plain carbidopa levodopa 25/100 2 tablets 4 to 5 times a day. Starting tomorrow, prescribed 1st does at 06:00 and then repeat that does at 10:00, 14:00, 18:00. make an observation tomorrow if that works out better and further adjustment can be made based upon how he reacts to this dose. If psychiatrically not better, may consider Nuplazid. Plan 1. Continue with same treatment. 2. Keep Effexor as prescribed 225 mg only the morning. 3. Keep on Sinemet as a prescribing doses. 4. Ativan will be changed to 4 times a day we Sinemet 5. Minute and increased up to 6 mg on March 18. 6. Trazodone started at 50 mg p.o. q.h.s. standing every night on March 18 (2) Major depressive disorder: Status: Acute Code(s): F32.9 - Major depressive disorder, single episode, unspecified (3) Psychosis: Status: Acute Code(s): F29 - Unspecified psychosis not due to a substance or known physiological condition Plan Elderly male with past history of Parkinson's disease that is advanced admitted for psychotic symptoms in the context of Sinemet. Plan 1. Gather collateral information. 2. Continue Haldol 0.5 p.o. t.i.d. to target psychosis. 3. Continue with medical workout. 4. Assessment with results. 5. reported that he had a 2nd dose of effexor in the evenging, we will start 37,5 mg po at 5 pm On March 09. Increase Effexor XR 2nd dose up to 75 on March 11. Later on, Effexor has been changed to 1 single dose of 225 mg in the morning 6. Change his antiparkinsonian to Sinemet 4 times a day. Reason for continued inpatient stay Substantial Risk for: inability to function, rapid decompensation and med/psych decompensation Time Spent With Patient Time: Total time managing care of this patient today __20__ minutes.
[2023-03-18 18:00] VITALS: BP 112/80; PULSE 82; RESP 18; TEMP 36.1; O2SAT 96
[2023-03-18] MEDS: Melatonin 3 MG TABLET 6 MG PO (20:21)
[2023-03-18] MEDS: Multivitamin TABLET 1 TAB PO (20:21)
[2023-03-19 01:39] VITALS: O2SAT 96
[2023-03-19] MEDS: traZODone HCL 25 MG HALFTAB PO (03:11)
[2023-03-19 08:40] VITALS: BP 157/88; PULSE 93; RESP 16; TEMP 36.6; O2SAT 98
[2023-03-19] MEDS: LORazepam 0.5 MG TABLET PO (08:41)
[2023-03-19] MEDS: Venlafaxine HCl ER 75 MG CAP.ER.24H 225 MG PO (08:41)
[2023-03-19] MEDS: Atorvastatin Calcium 10 MG TABLET PO (08:41)
[2023-03-19] MEDS: HaloperidoL 0.5 MG TABLET PO ×3 (08:41→20:28)
[2023-03-19] MEDS: polyethylene glycoL 3350 17 GM POWD.PACK PO (10:04)
--- NOTE | 2023-03-19 10:53 | P.PNPSI_ITS ---
Subjective Subjective Date of Service: 03/19/23 Reason For Visit: SI Subjective Notes: Conditional Voluntary Interim History: The nursing staff reported the patient had been complaining of dyspnea, that he cannot breathe but his saturations over 98% he looks very anxious. He has been using his walker and his involuntary movements and anxiety have improved with t he change of Ativan and Sinemet. We discussed with the patient the possibility to increase his Ativan a little more to target his anxiety and he agreed on the plan. Mental Status Exam Mental Status Exam Patient Appearance: Well Grooomed and Appropriate Patient Orientation: Person and Situation Level of Consciousness: Awake and Appropriate Patient Behavior: Guarded and Passive Mood Description: Withdrawn and Constricted Affect Description: Calm Patient Cognition Impaired: Yes Ability to Follow Directions: Good Speech Pattern: Clear Hallucinations: None Delusions: Not Present Thought Process: Linear Thought Content: positive for Circumstantial Judgement: Fair Diagnostics Vital Signs (24Hr): Vital Signs - 24 hr 03/18/23 18:00 03/19/23 01:39 03/19/23 08:40 Temperature 97 F 97.8 F Pulse Rate 82 93 Respiratory Rate 18 16 Blood Pressure 112/80 157/88 H Pulse Oximetry 96 96 98 Oxygen Delivery Method Room Air Room Air Room Air BMI result Body Mass Index 25.1 Labs 03/10/23 07:58 03/10/23 07:58 Medications Medications Current Medications Acetaminophen (Acetaminophen 325 Mg Tablet) 650 mg PO Q6H PRN PRN Reason: Headache/Pain Mild Scale (1-3) Last Admin: 03/18/23 20:19 Dose: 650 mg Al Hydroxide/Mg Hydroxide (Magnesium Hydrox/Alum Hydrox 30 Ml Oral.Susp) 30 ml PO Q6H PRN PRN Reason: Heartburn/Nausea Last Admin: 03/15/23 17:37 Dose: 30 ml Atorvastatin Calcium (Atorvastatin Calcium 10 Mg Tablet) 10 mg PO DAILY [facility] Last Admin: 03/19/23 08:41 Dose: 10 mg Carbidopa/Levodopa (Carbidopa/Levodopa 10/100 Tablet) 2 tab PO QID [facility] Last Admin: 03/19/23 08:41 Dose: 2 tab Fluticasone Propionate (Fluticasone Propionate Nasal 16 Gm [place]) 1 spray NOSTRIL-B BID [facility] Last Admin: 03/19/23 08:41 Dose: Not Given Haloperidol (Haloperidol 0.5 Mg Tablet) 0.5 mg PO TID [facility] Last Admin: 03/19/23 08:41 Dose: 0.5 mg Lorazepam (Lorazepam 0.5 Mg Tablet) 0.5 mg PO QID [facility] Last Admin: 03/19/23 08:41 Dose: 0.5 mg Magnesium Hydroxide (Milk Of Magnesia 30 Ml Oral.Susp) 30 ml PO DAILY PRN PRN Reason: Constipation Last Admin: 03/05/23 08:41 Dose: 30 ml Melatonin (Melatonin 3 Mg Tablet) 6 mg PO BEDTIME [facility] Last Admin: 03/18/23 20:21 Dose: 6 mg Multivitamins/Vitamin C (Multivitamin Tablet) 1 tab PO BEDTIME [facility] Last Admin: 03/18/23 20:21 Dose: 1 tab Polyethylene Glycol (Polyethylene Glycol 3350 17 Gm Powd.Pack) 17 gm PO DAILY PRN PRN Reason: Constipation Last Admin: 03/19/23 10:04 Dose: 17 gm Tramadol HCl (Tramadol Hcl 50 Mg Tablet) 25 mg PO Q6H PRN PRN Reason: Pain, Moderate (Pain Scale 4-6 Trazodone HCl (Trazodone Hcl 50 Mg Tablet) 50 mg PO BEDTIME MRX1 PRN PRN Reason: Insomnia Last Admin: 03/18/23 00:27 Dose: 50 mg Trazodone HCl (Trazodone Hcl 25 Mg Halftab) 25 mg PO BID PRN PRN Reason: Agitation Last Admin: 03/19/23 03:11 Dose: 25 mg Trazodone HCl (Trazodone Hcl 50 Mg Tablet) 50 mg PO BEDTIME [facility] Last Admin: 03/18/23 20:21 Dose: 50 mg Trolamine Salicylate (Trolamine Salicylate 10 % Cream 141 Gm Tube) 1 appl TOPICAL QID PRN; Protocol PRN Reason: Pain, Moderate (Pain Scale 4-6 Last Admin: 03/17/23 00:35 Dose: 1 appl Venlafaxine HCl (Venlafaxine Hcl Er 75 Mg Cap.Er.24h) 225 mg PO DAILY [facility] Last Admin: 03/19/23 08:41 Dose: 225 mg Allergies Allergies Allergy/AdvReac Type Severity Reaction Status Date / Time oxycodone Allergy Unknown Verified 10/14/22 13:51 pollen extracts Allergy skin rash Verified 10/14/22 13:51 Assessment & Plan Assessment & Plan (1) Parkinsons disease: Status: Acute Code(s): G20 - Parkinson's disease Assessment and Plan: [age] years old man with moderate to severe Parkinson's features with EDSS score of 6-7. After years of Parkinson's, he also has developed depression and psychotic features. I do not have access to his previous workup including brain imaging, but this evolution of his condition suggested that he might be going into or his underlying condition could very well be dementia with Lewy body disease. Review of brain scan done, maybe at [facility], can help. In any case, dopaminergic drugs are known to have possible psychiatric side effects but at the same time without dopamine supplementation, patient has significant physical disability. A balance has to be reached. In that regard, I would suggest discontinuing Stalevo, which is a combination of drugs. Instead of that, try plain carbidopa levodopa 25/100 2 tablets 4 to 5 times a day. Starting tomorrow, prescribed 1st does at 06:00 and then repeat that does at 10:00, 14:00, 18:00. make an observation tomorrow if that works out better and further adjustment can be made based upon how he reacts to this dose. If psychiatrically not better, may consider Nuplazid. Plan 1. Continue with same treatment. 2. Keep Effexor as prescribed 225 mg only the morning. 3. Keep on Sinemet as a prescribing doses. 4. Ativan will be changed to 4 times a day we Sinemet on March 19 Ativan is increased up to 0.75 5. Minute and increased up to 6 mg on March 18. 6. Trazodone started at 50 mg p.o. q.h.s. standing every night on March 18 (2) Major depressive disorder: Status: Acute Code(s): F32.9 - Major depressive disorder, single episode, unspecified (3) Psychosis: Status: Acute Code(s): F29 - Unspecified psychosis not due to a substance or known physiological condition Plan Elderly male with past history of Parkinson's disease that is advanced admitted for psychotic symptoms in the context of Sinemet. Plan 1. Gather collateral information. 2. Continue Haldol 0.5 p.o. t.i.d. to target psychosis. 3. Continue with medical workout. 4. Assessment with results. 5. reported that he had a 2nd dose of effexor in the evenging, we will start 37,5 mg po at 5 pm On March 09. Increase Effexor XR 2nd dose up to 75 on March 11. Later on, Effexor has been changed to 1 single dose of 225 mg in the morning 6. Change his antiparkinsonian to Sinemet 4 times a day. Reason for continued inpatient stay Substantial Risk for: inability to function, rapid decompensation and med/psych decompensation Time Spent With Patient Time: Total time managing care of this patient today __20__ minutes.
[2023-03-19] MEDS: LORazepam 0.5 MG TABLET 0.75 MG PO ×3 (12:53→20:27)
[2023-03-19] MEDS: Acetaminophen 325 MG TABLET 650 MG PO (12:57)
[2023-03-19 18:37] VITALS: BP 138/95; PULSE 98; RESP 18; TEMP 36.6; O2SAT 98
[2023-03-19] MEDS: Multivitamin TABLET 1 TAB PO (20:27)
[2023-03-19] MEDS: Melatonin 3 MG TABLET 6 MG PO (20:27)
[2023-03-19] MEDS: traZODone HCL 50 MG TABLET PO (20:28)
[2023-03-19] MEDS: Fluticasone Propionate Nasal 16 GM SPRAY 1 SPRAY NOSTRIL-B (20:28)
[2023-03-20 08:31] VITALS: BP 187/88; PULSE 100; RESP 18; TEMP 36.1; O2SAT 96
[2023-03-20] MEDS: HaloperidoL 0.5 MG TABLET PO ×3 (08:35→21:49)
[2023-03-20] MEDS: LORazepam 0.5 MG TABLET 0.75 MG PO ×4 (08:35→21:49)
[2023-03-20] MEDS: Atorvastatin Calcium 10 MG TABLET PO (08:36)
[2023-03-20] MEDS: Venlafaxine HCl ER 75 MG CAP.ER.24H 225 MG PO (08:36)
[2023-03-20] MEDS: Acetaminophen 325 MG TABLET 650 MG PO (09:16)
--- NOTE | 2023-03-20 09:43 | P.PNPSI_ITS ---
Subjective Subjective Date of Service: 03/20/23 Reason For Visit: SI Subjective Notes: Conditional Voluntary Interim History: The nursing staff reported the patient had been very anxious in the evening. The staff has noticed that whenever he receive his Sinemet with Ativan he feels better no over-sedation. On interview the patient had been pleasant but still complains of anxiety no over-sedation with increase of Ativan up to 0.75. We discussed options and he agreed increase up to 1 mg at night. Mental Status Exam Mental Status Exam Patient Appearance: Appropriate Patient Orientation: Person and Situation Level of Consciousness: Awake and Appropriate Patient Behavior: Guarded and Passive Mood Description: Withdrawn Affect Description: Constricted Patient Cognition Impaired: Yes Ability to Follow Directions: Good Speech Pattern: Clear Hallucinations: None Delusions: Not Present Thought Process: Distracted and Slowed Thinking Thought Content: positive for [place] and positive for Circumstantial Judgement: Fair Diagnostics Vital Signs (24Hr): Vital Signs - 24 hr 03/19/23 18:37 03/20/23 08:31 Temperature 97.8 F 97.0 F Pulse Rate 98 100 Respiratory Rate 18 18 Blood Pressure 138/95 H 187/88 H Pulse Oximetry 98 96 Oxygen Delivery Method Room Air Room Air BMI result Body Mass Index 25.1 Labs 03/10/23 07:58 03/10/23 07:58 Medications Medications Current Medications Acetaminophen (Acetaminophen 325 Mg Tablet) 650 mg PO Q6H PRN PRN Reason: Headache/Pain Mild Scale (1-3) Last Admin: 03/20/23 09:16 Dose: 650 mg Al Hydroxide/Mg Hydroxide (Magnesium Hydrox/Alum Hydrox 30 Ml Oral.Susp) 30 ml PO Q6H PRN PRN Reason: Heartburn/Nausea Last Admin: 03/15/23 17:37 Dose: 30 ml Atorvastatin Calcium (Atorvastatin Calcium 10 Mg Tablet) 10 mg PO DAILY [facility] Last Admin: 03/20/23 08:36 Dose: 10 mg Carbidopa/Levodopa (Carbidopa/Levodopa 10/100 Tablet) 2 tab PO QID [facility] Last Admin: 03/20/23 08:35 Dose: 2 tab Fluticasone Propionate (Fluticasone Propionate Nasal 16 Gm [place]) 1 spray NOSTRIL-B BID [facility] Last Admin: 03/20/23 08:36 Dose: Not Given Haloperidol (Haloperidol 0.5 Mg Tablet) 0.5 mg PO TID [facility] Last Admin: 03/20/23 08:35 Dose: 0.5 mg Lorazepam (Lorazepam 0.5 Mg Tablet) 0.75 mg PO QID [facility] Last Admin: 03/20/23 08:35 Dose: 0.75 mg Magnesium Hydroxide (Milk Of Magnesia 30 Ml Oral.Susp) 30 ml PO DAILY PRN PRN Reason: Constipation Last Admin: 03/05/23 08:41 Dose: 30 ml Melatonin (Melatonin 3 Mg Tablet) 6 mg PO BEDTIME [facility] Last Admin: 03/19/23 20:27 Dose: 6 mg Multivitamins/Vitamin C (Multivitamin Tablet) 1 tab PO BEDTIME [facility] Last Admin: 03/19/23 20:27 Dose: 1 tab Polyethylene Glycol (Polyethylene Glycol 3350 17 Gm Powd.Pack) 17 gm PO DAILY PRN PRN Reason: Constipation Last Admin: 03/19/23 10:04 Dose: 17 gm Tramadol HCl (Tramadol Hcl 50 Mg Tablet) 25 mg PO Q6H PRN PRN Reason: Pain, Moderate (Pain Scale 4-6 Trazodone HCl (Trazodone Hcl 50 Mg Tablet) 50 mg PO BEDTIME MRX1 PRN PRN Reason: Insomnia Last Admin: 03/18/23 00:27 Dose: 50 mg Trazodone HCl (Trazodone Hcl 25 Mg Halftab) 25 mg PO BID PRN PRN Reason: Agitation Last Admin: 03/19/23 03:11 Dose: 25 mg Trazodone HCl (Trazodone Hcl 50 Mg Tablet) 50 mg PO BEDTIME [facility] Last Admin: 03/19/23 20:28 Dose: 50 mg Trolamine Salicylate (Trolamine Salicylate 10 % Cream 141 Gm Tube) 1 appl TOPICAL QID PRN; Protocol PRN Reason: Pain, Moderate (Pain Scale 4-6 Last Admin: 03/17/23 00:35 Dose: 1 appl Venlafaxine HCl (Venlafaxine Hcl Er 75 Mg Cap.Er.24h) 225 mg PO DAILY [facility] Last Admin: 03/20/23 08:36 Dose: 225 mg Allergies Allergies Allergy/AdvReac Type Severity Reaction Status Date / Time oxycodone Allergy Unknown Verified 10/14/22 13:51 pollen extracts Allergy skin rash Verified 10/14/22 13:51 Assessment & Plan Assessment & Plan (1) Parkinsons disease: Status: Acute Code(s): G20 - Parkinson's disease Assessment and Plan: [age] years old man with moderate to severe Parkinson's features with EDSS score of 6-7. After years of Parkinson's, he also has developed depression and psychotic features. I do not have access to his previous workup including brain imaging, but this evolution of his condition suggested that he might be going into or his underlying condition could very well be dementia with Lewy body disease. Review of brain scan done, maybe at [facility], can help. In any case, dopaminergic drugs are known to have possible psychiatric side effects but at the same time without dopamine supplementation, patient has significant physical disability. A balance has to be reached. In that regard, I would suggest discontinuing Stalevo, which is a combination of drugs. Instead of that, try plain carbidopa levodopa 25/100 2 tablets 4 to 5 times a day. Starting tomorrow, prescribed 1st does at 06:00 and then repeat that does at 10:00, 14:00, 18:00. make an observation tomorrow if that works out better and further adjustment can be made based upon how he reacts to this dose. If psychiatrically not better, may consider Nuplazid. Plan 1. Continue with same treatment. 2. Keep Effexor as prescribed 225 mg only the morning. 3. Keep on Sinemet as a prescribing doses. 4. Ativan will be changed to 4 times a day we Sinemet on March 19 Ativan is increased up to 0.75 5. Minute and increased up to 6 mg on March 18. 6. Trazodone started at 50 mg p.o. q.h.s. standing every night on March 18 7. Increased Ativan up to 1 mg at night to target anxiety (2) Major depressive disorder: Status: Acute Code(s): F32.9 - Major depressive disorder, single episode, unspecified (3) Psychosis: Status: Acute Code(s): F29 - Unspecified psychosis not due to a substance or known physiological condition Plan Elderly male with past history of Parkinson's disease that is advanced admitted for psychotic symptoms in the context of Sinemet. Plan 1. Gather collateral information. 2. Continue Haldol 0.5 p.o. t.i.d. to target psychosis. 3. Continue with medical workout. 4. Assessment with results. 5. reported that he had a 2nd dose of effexor in the evenging, we will start 37,5 mg po at 5 pm On March 09. Increase Effexor XR 2nd dose up to 75 on March 11. Later on, Effexor has been changed to 1 single dose of 225 mg in the morning 6. Change his antiparkinsonian to Sinemet 4 times a day. Reason for continued inpatient stay Substantial Risk for: inability to function, rapid decompensation and med/psych decompensation Time Spent With Patient Time: Total time managing care of this patient today ___20_ minutes.
[2023-03-20 18:00] VITALS: BP 163/72; PULSE 90; RESP 22; TEMP 37.2; O2SAT 99
[2023-03-20] MEDS: traZODone HCL 50 MG TABLET PO (21:51)
[2023-03-20] MEDS: LORazepam 1 MG TABLET 2 MG PO (21:51)
[2023-03-20] MEDS: Multivitamin TABLET 1 TAB PO (21:51)
[2023-03-20] MEDS: Melatonin 3 MG TABLET 6 MG PO (21:51)
[2023-03-21] MEDS: traMADoL HCL 50 MG TABLET 25 MG PO (06:47)
[2023-03-21 08:00] VITALS: BP 154/74; PULSE 75; RESP 18; TEMP 36.7; O2SAT 95
[2023-03-21] MEDS: LORazepam 0.5 MG TABLET 0.75 MG PO ×4 (09:01→20:10)
[2023-03-21] MEDS: Venlafaxine HCl ER 75 MG CAP.ER.24H 225 MG PO (09:02)
[2023-03-21] MEDS: Atorvastatin Calcium 10 MG TABLET PO (09:03)
[2023-03-21] MEDS: HaloperidoL 0.5 MG TABLET PO ×3 (09:03→20:10)
--- NOTE | 2023-03-21 14:00 | HO.PSYCHPN ---
Subjective Subjective Date of Service: 03/21/23 Reason For Visit: SI Subjective Notes: Conditional Voluntary Interim History: The nursing staff reported the patient had been compliant with treatment, he has been incontinent of stool 3 times last night. Today the staff of the intermediate facility will come and visit him to assess him. The nursing staff also reported that he needed tramadol p.r.n. pain. On interview the patient denies new symptoms he looks tired and dysphoric but no evidence of psychosis. Mental Status Exam Mental Status Exam Patient Appearance: Well Grooomed and Appropriate Patient Orientation: Person and Situation Level of Consciousness: Awake and Appropriate Patient Behavior: Guarded and Passive Mood Description: Withdrawn Affect Description: Constricted Patient Cognition Impaired: Yes Ability to Follow Directions: Good Speech Pattern: Clear Hallucinations: None Delusions: Not Present Thought Process: Linear Thought Content: positive for Circumstantial Judgement: Fair Diagnostics Vital Signs (24Hr): Vital Signs - 24 hr 03/20/23 18:00 03/21/23 08:00 Temperature 99 F 98.1 F Pulse Rate 90 75 Respiratory Rate 22 H 18 Blood Pressure 163/72 H 154/74 H Pulse Oximetry 99 95 Oxygen Delivery Method Room Air Room Air BMI result Body Mass Index 25.1 Labs 03/10/23 07:58 03/10/23 07:58 Medications Medications Current Medications Acetaminophen (Acetaminophen 325 Mg Tablet) 650 mg PO Q6H PRN PRN Reason: Headache/Pain Mild Scale (1-3) Last Admin: 03/20/23 09:16 Dose: 650 mg Al Hydroxide/Mg Hydroxide (Magnesium Hydrox/Alum Hydrox 30 Ml Oral.Susp) 30 ml PO Q6H PRN PRN Reason: Heartburn/Nausea Last Admin: 03/15/23 17:37 Dose: 30 ml Atorvastatin Calcium (Atorvastatin Calcium 10 Mg Tablet) 10 mg PO DAILY [facility] Last Admin: 03/21/23 09:03 Dose: 10 mg Carbidopa/Levodopa (Carbidopa/Levodopa 10/100 Tablet) 2 tab PO QID [facility] Last Admin: 03/21/23 09:02 Dose: 2 tab Fluticasone Propionate (Fluticasone Propionate Nasal 16 Gm [place]) 1 spray NOSTRIL-B BID [facility] Last Admin: 03/21/23 09:34 Dose: Not Given Haloperidol (Haloperidol 0.5 Mg Tablet) 0.5 mg PO TID [facility] Last Admin: 03/21/23 09:03 Dose: 0.5 mg Lorazepam (Lorazepam 0.5 Mg Tablet) 0.75 mg PO QID [facility] Last Admin: 03/21/23 09:01 Dose: 0.75 mg Lorazepam (Lorazepam 1 Mg Tablet) 2 mg PO BEDTIME [facility] Last Admin: 03/20/23 21:51 Dose: 2 mg Magnesium Hydroxide (Milk Of Magnesia 30 Ml Oral.Susp) 30 ml PO DAILY PRN PRN Reason: Constipation Last Admin: 03/05/23 08:41 Dose: 30 ml Melatonin (Melatonin 3 Mg Tablet) 6 mg PO BEDTIME [facility] Last Admin: 03/20/23 21:51 Dose: 6 mg Multivitamins/Vitamin C (Multivitamin Tablet) 1 tab PO BEDTIME [facility] Last Admin: 03/20/23 21:51 Dose: 1 tab Polyethylene Glycol (Polyethylene Glycol 3350 17 Gm Powd.Pack) 17 gm PO DAILY PRN PRN Reason: Constipation Last Admin: 03/19/23 10:04 Dose: 17 gm Tramadol HCl (Tramadol Hcl 50 Mg Tablet) 25 mg PO Q6H PRN PRN Reason: Pain, Moderate (Pain Scale 4-6 Last Admin: 03/21/23 06:47 Dose: 25 mg Trazodone HCl (Trazodone Hcl 50 Mg Tablet) 50 mg PO BEDTIME MRX1 PRN PRN Reason: Insomnia Last Admin: 03/18/23 00:27 Dose: 50 mg Trazodone HCl (Trazodone Hcl 25 Mg Halftab) 25 mg PO BID PRN PRN Reason: Agitation Last Admin: 03/19/23 03:11 Dose: 25 mg Trazodone HCl (Trazodone Hcl 50 Mg Tablet) 50 mg PO BEDTIME [facility] Last Admin: 03/20/23 21:51 Dose: 50 mg Trolamine Salicylate (Trolamine Salicylate 10 % Cream 141 Gm Tube) 1 appl TOPICAL QID PRN; Protocol PRN Reason: Pain, Moderate (Pain Scale 4-6 Last Admin: 03/17/23 00:35 Dose: 1 appl Venlafaxine HCl (Venlafaxine Hcl Er 75 Mg Cap.Er.24h) 225 mg PO DAILY [facility] Last Admin: 03/21/23 09:02 Dose: 225 mg Allergies Allergies Allergy/AdvReac Type Severity Reaction Status Date / Time oxycodone Allergy Unknown Verified 10/14/22 13:51 pollen extracts Allergy skin rash Verified 10/14/22 13:51 Assessment & Plan Assessment & Plan (1) Parkinsons disease: Status: Acute Code(s): G20 - Parkinson's disease Assessment and Plan: [age] years old man with moderate to severe Parkinson's features with EDSS score of 6-7. After years of Parkinson's, he also has developed depression and psychotic features. I do not have access to his previous workup including brain imaging, but this evolution of his condition suggested that he might be going into or his underlying condition could very well be dementia with Lewy body disease. Review of brain scan done, maybe at [facility], can help. In any case, dopaminergic drugs are known to have possible psychiatric side effects but at the same time without dopamine supplementation, patient has significant physical disability. A balance has to be reached. In that regard, I would suggest discontinuing Stalevo, which is a combination of drugs. Instead of that, try plain carbidopa levodopa 25/100 2 tablets 4 to 5 times a day. Starting tomorrow, prescribed 1st does at 06:00 and then repeat that does at 10:00, 14:00, 18:00. make an observation tomorrow if that works out better and further adjustment can be made based upon how he reacts to this dose. If psychiatrically not better, may consider Nuplazid. Plan 1. Continue with same treatment. 2. Keep Effexor as prescribed 225 mg only the morning. 3. Keep on Sinemet as a prescribing doses. 4. Ativan will be changed to 4 times a day we Sinemet on March 19 Ativan is increased up to 0.75 5. Minute and increased up to 6 mg on March 18. 6. Trazodone started at 50 mg p.o. q.h.s. standing every night on March 18 7. Increased Ativan up to 1 mg at night to target anxiety on March 19 (2) Major depressive disorder: Status: Acute Code(s): F32.9 - Major depressive disorder, single episode, unspecified (3) Psychosis: Status: Acute Code(s): F29 - Unspecified psychosis not due to a substance or known physiological condition Plan Elderly male with past history of Parkinson's disease that is advanced admitted for psychotic symptoms in the context of Sinemet. Plan 1. Gather collateral information. 2. Continue Haldol 0.5 p.o. t.i.d. to target psychosis. 3. Continue with medical workout. 4. Assessment with results. 5. reported that he had a 2nd dose of effexor in the evenging, we will start 37,5 mg po at 5 pm On March 09. Increase Effexor XR 2nd dose up to 75 on March 11. Later on, Effexor has been changed to 1 single dose of 225 mg in the morning 6. Change his antiparkinsonian to Sinemet 4 times a day. Reason for continued inpatient stay Substantial Risk for: inability to function, rapid decompensation and med/psych decompensation Time Spent With Patient Time: Total time managing care of this patient today __20__ minutes.
[2023-03-21] MEDS: Acetaminophen 325 MG TABLET 650 MG PO (18:41)
[2023-03-21] MEDS: Melatonin 3 MG TABLET 6 MG PO (20:09)
[2023-03-21] MEDS: LORazepam 1 MG TABLET 2 MG PO (20:10)
[2023-03-21] MEDS: Multivitamin TABLET 1 TAB PO (20:10)
[2023-03-21] MEDS: traZODone HCL 50 MG TABLET PO (20:10)
[2023-03-21 22:17] VITALS: BP 131/62; PULSE 82; RESP 16; TEMP 36.9; O2SAT 95
[2023-03-22] MEDS: Acetaminophen 325 MG TABLET 650 MG PO (05:44)
[2023-03-22 06:00] VITALS: BP 158/77; PULSE 86; RESP 16; TEMP 36.4; O2SAT 95
[2023-03-22] MEDS: LORazepam 0.5 MG TABLET 0.75 MG PO ×4 (09:50→20:01)
[2023-03-22] MEDS: HaloperidoL 0.5 MG TABLET PO ×3 (09:50→20:03)
[2023-03-22] MEDS: Atorvastatin Calcium 10 MG TABLET PO (09:51)
[2023-03-22] MEDS: Venlafaxine HCl ER 75 MG CAP.ER.24H 225 MG PO (09:53)
--- NOTE | 2023-03-22 14:53 | HO.PSYCHPN ---
Subjective Subjective Date of Service: 03/22/23 Reason For Visit: SI Subjective Notes: Conditional Voluntary Interim History: The nursing staff reported the patient have eating 100% of his meal he is medication compliant in good spirits. He slept well last night. On interview he reports that he has some pain at times but in general his anxiety and involuntary movements have improve sings admission, no evidence of psychosis with the addition of a low-dose of Haldol. Mental Status Exam Mental Status Exam Patient Appearance: Well Grooomed and Appropriate Patient Orientation: Person and Situation Level of Consciousness: Awake and Appropriate Patient Behavior: Guarded and Passive Mood Description: Calm Affect Description: Constricted Patient Cognition Impaired: Yes Ability to Follow Directions: Good Speech Pattern: Clear Hallucinations: None Delusions: Not Present Thought Process: Distracted and Slowed Thinking Thought Content: positive for [place] and positive for Circumstantial Judgement: Fair Diagnostics Vital Signs (24Hr): Vital Signs - 24 hr 03/21/23 22:17 03/22/23 06:00 Temperature 98.4 F 97.6 F Pulse Rate 82 86 Respiratory Rate 16 16 Blood Pressure 131/62 158/77 H Pulse Oximetry 95 95 Oxygen Delivery Method Room Air Room Air BMI result Body Mass Index 25.1 Labs 03/10/23 07:58 03/10/23 07:58 Medications Medications Current Medications Acetaminophen (Acetaminophen 325 Mg Tablet) 650 mg PO Q6H PRN PRN Reason: Headache/Pain Mild Scale (1-3) Last Admin: 03/22/23 05:44 Dose: 650 mg Al Hydroxide/Mg Hydroxide (Magnesium Hydrox/Alum Hydrox 30 Ml Oral.Susp) 30 ml PO Q6H PRN PRN Reason: Heartburn/Nausea Last Admin: 03/15/23 17:37 Dose: 30 ml Atorvastatin Calcium (Atorvastatin Calcium 10 Mg Tablet) 10 mg PO DAILY [facility] Last Admin: 03/22/23 09:51 Dose: 10 mg Carbidopa/Levodopa (Carbidopa/Levodopa 10/100 Tablet) 2 tab PO QID [facility] Last Admin: 03/22/23 12:41 Dose: 2 tab Fluticasone Propionate (Fluticasone Propionate Nasal 16 Gm [place]) 1 spray NOSTRIL-B BID [facility] Last Admin: 03/22/23 09:56 Dose: Not Given Haloperidol (Haloperidol 0.5 Mg Tablet) 0.5 mg PO TID [facility] Last Admin: 03/22/23 14:52 Dose: 0.5 mg Lorazepam (Lorazepam 0.5 Mg Tablet) 0.75 mg PO QID [facility] Last Admin: 03/22/23 12:40 Dose: 0.75 mg Lorazepam (Lorazepam 1 Mg Tablet) 2 mg PO BEDTIME [facility] Last Admin: 03/21/23 20:10 Dose: 2 mg Magnesium Hydroxide (Milk Of Magnesia 30 Ml Oral.Susp) 30 ml PO DAILY PRN PRN Reason: Constipation Last Admin: 03/05/23 08:41 Dose: 30 ml Melatonin (Melatonin 3 Mg Tablet) 6 mg PO BEDTIME [facility] Last Admin: 03/21/23 20:09 Dose: 6 mg Multivitamins/Vitamin C (Multivitamin Tablet) 1 tab PO BEDTIME [facility] Last Admin: 03/21/23 20:10 Dose: 1 tab Polyethylene Glycol (Polyethylene Glycol 3350 17 Gm Powd.Pack) 17 gm PO DAILY PRN PRN Reason: Constipation Last Admin: 03/19/23 10:04 Dose: 17 gm Tramadol HCl (Tramadol Hcl 50 Mg Tablet) 25 mg PO Q6H PRN PRN Reason: Pain, Moderate (Pain Scale 4-6 Last Admin: 03/21/23 06:47 Dose: 25 mg Trazodone HCl (Trazodone Hcl 50 Mg Tablet) 50 mg PO BEDTIME MRX1 PRN PRN Reason: Insomnia Last Admin: 03/18/23 00:27 Dose: 50 mg Trazodone HCl (Trazodone Hcl 25 Mg Halftab) 25 mg PO BID PRN PRN Reason: Agitation Last Admin: 03/19/23 03:11 Dose: 25 mg Trazodone HCl (Trazodone Hcl 50 Mg Tablet) 50 mg PO BEDTIME [facility] Last Admin: 03/21/23 20:10 Dose: 50 mg Trolamine Salicylate (Trolamine Salicylate 10 % Cream 141 Gm Tube) 1 appl TOPICAL QID PRN; Protocol PRN Reason: Pain, Moderate (Pain Scale 4-6 Last Admin: 03/17/23 00:35 Dose: 1 appl Venlafaxine HCl (Venlafaxine Hcl Er 75 Mg Cap.Er.24h) 225 mg PO DAILY [facility] Last Admin: 03/22/23 09:53 Dose: 225 mg Allergies Allergies Allergy/AdvReac Type Severity Reaction Status Date / Time oxycodone Allergy Unknown Verified 10/14/22 13:51 pollen extracts Allergy skin rash Verified 10/14/22 13:51 Assessment & Plan Assessment & Plan (1) Parkinsons disease: Status: Acute Code(s): G20 - Parkinson's disease Assessment and Plan: [age] years old man with moderate to severe Parkinson's features with EDSS score of 6-7. After years of Parkinson's, he also has developed depression and psychotic features. I do not have access to his previous workup including brain imaging, but this evolution of his condition suggested that he might be going into or his underlying condition could very well be dementia with Lewy body disease. Review of brain scan done, maybe at [facility], can help. In any case, dopaminergic drugs are known to have possible psychiatric side effects but at the same time without dopamine supplementation, patient has significant physical disability. A balance has to be reached. In that regard, I would suggest discontinuing Stalevo, which is a combination of drugs. Instead of that, try plain carbidopa levodopa 25/100 2 tablets 4 to 5 times a day. Starting tomorrow, prescribed 1st does at 06:00 and then repeat that does at 10:00, 14:00, 18:00. make an observation tomorrow if that works out better and further adjustment can be made based upon how he reacts to this dose. If psychiatrically not better, may consider Nuplazid. Plan 1. Continue with same treatment. 2. Keep Effexor as prescribed 225 mg only the morning. 3. Keep on Sinemet as a prescribing doses. 4. Ativan will be changed to 4 times a day we Sinemet on March 19 Ativan is increased up to 0.75 5. Minute and increased up to 6 mg on March 18. 6. Trazodone started at 50 mg p.o. q.h.s. standing every night on March 18 7. Increased Ativan up to 1 mg at night to target anxiety on March 19 (2) Major depressive disorder: Status: Acute Code(s): F32.9 - Major depressive disorder, single episode, unspecified (3) Psychosis: Status: Acute Code(s): F29 - Unspecified psychosis not due to a substance or known physiological condition Plan Elderly male with past history of Parkinson's disease that is advanced admitted for psychotic symptoms in the context of Sinemet. Plan 1. Gather collateral information. 2. Continue Haldol 0.5 p.o. t.i.d. to target psychosis. 3. Continue with medical workout. 4. Assessment with results. 5. reported that he had a 2nd dose of effexor in the evenging, we will start 37,5 mg po at 5 pm On March 09. Increase Effexor XR 2nd dose up to 75 on March 11. Later on, Effexor has been changed to 1 single dose of 225 mg in the morning 6. Change his antiparkinsonian to Sinemet 4 times a day. Reason for continued inpatient stay Substantial Risk for: inability to function, rapid decompensation and med/psych decompensation Time Spent With Patient Time: Total time managing care of this patient today __20__ minutes.
[2023-03-22 18:00] VITALS: BP 112/56; PULSE 79; TEMP 37
[2023-03-22] MEDS: Multivitamin TABLET 1 TAB PO (20:02)
[2023-03-22] MEDS: LORazepam 1 MG TABLET 2 MG PO (20:02)
[2023-03-22] MEDS: traZODone HCL 50 MG TABLET PO (20:03)
[2023-03-22] MEDS: Melatonin 3 MG TABLET 6 MG PO (20:03)
[2023-03-23] MEDS: HaloperidoL 0.5 MG TABLET PO ×3 (08:15→21:22)
[2023-03-23] MEDS: LORazepam 0.5 MG TABLET 0.75 MG PO ×4 (08:15→21:19)
[2023-03-23] MEDS: Venlafaxine HCl ER 75 MG CAP.ER.24H 225 MG PO (08:15)
[2023-03-23] MEDS: Atorvastatin Calcium 10 MG TABLET PO (08:15)
[2023-03-23 09:05] VITALS: BP 106/58; PULSE 93; RESP 20; TEMP 37.1; O2SAT 99
[2023-03-23] MEDS: Lidocaine 5 % Ointment 35 GM 1 APPL TOPICAL (17:04)
[2023-03-23] MEDS: Hydrocortisone 1 % Ointment 28.35 GM TUBE 1 APPL TOPICAL (17:04)
[2023-03-23] MEDS: traZODone HCL 50 MG TABLET PO (21:22)
[2023-03-23] MEDS: LORazepam 1 MG TABLET 2 MG PO (21:23)
[2023-03-23] MEDS: Multivitamin TABLET 1 TAB PO (21:23)
[2023-03-23] MEDS: Melatonin 3 MG TABLET 6 MG PO (21:24)
[2023-03-23 21:29] VITALS: BP 143/72; PULSE 84; TEMP 36.2; O2SAT 97
--- NOTE | 2023-03-23 22:04 | P.PNPSI_ITS ---
Subjective Subjective Date of Service: 03/23/23 Reason For Visit: SI Subjective Notes: Conditional Voluntary Interim History: Pt reports feeling depressed, no SI/HI. He reports pain around rectum, and feeling constipated. Pt somewhat irritable but not combative behaviors. added hydrocortisone, lidocaine ointment for rectum- will check for hemorroids. Son came to visit pt- updated on treatment. Per nursing, pt slept through the night. No behavioral concerns. Medication Compliance: Yes Review of Systems Review of Systems Recently noted depression and Yes all other systems are reviewed and are negative Mental Status Exam Mental Status Exam Patient Appearance: Well Grooomed and Appropriate Patient Orientation: Person and Situation Level of Consciousness: Awake and Appropriate Patient Behavior: Guarded and Passive Mood Description: Calm Affect Description: Constricted Patient Cognition Impaired: Yes Ability to Follow Directions: Good Speech Pattern: Clear Diagnostics Vital Signs (24Hr): Vital Signs - 24 hr 03/23/23 09:05 03/23/23 21:29 Temperature 98.7 F 97.1 F Pulse Rate 93 84 Respiratory Rate 20 Blood Pressure 106/58 L 143/72 H Pulse Oximetry 99 97 Oxygen Delivery Method Room Air Room Air BMI result Body Mass Index 25.1 Labs 03/10/23 07:58 03/10/23 07:58 Medications Medications Current Medications Acetaminophen (Acetaminophen 325 Mg Tablet) 650 mg PO Q6H PRN PRN Reason: Headache/Pain Mild Scale (1-3) Last Admin: 03/22/23 05:44 Dose: 650 mg Al Hydroxide/Mg Hydroxide (Magnesium Hydrox/Alum Hydrox 30 Ml Oral.Susp) 30 ml PO Q6H PRN PRN Reason: Heartburn/Nausea Last Admin: 03/15/23 17:37 Dose: 30 ml Atorvastatin Calcium (Atorvastatin Calcium 10 Mg Tablet) 10 mg PO DAILY [facility] Last Admin: 03/23/23 08:15 Dose: 10 mg Carbidopa/Levodopa (Carbidopa/Levodopa 10/100 Tablet) 2 tab PO QID [facility] Last Admin: 03/23/23 21:23 Dose: 2 tab Fluticasone Propionate (Fluticasone Propionate Nasal 16 Gm [place]) 1 spray NOSTRIL-B BID [facility] Last Admin: 03/23/23 10:12 Dose: Not Given Haloperidol (Haloperidol 0.5 Mg Tablet) 0.5 mg PO TID [facility] Last Admin: 03/23/23 21:22 Dose: 0.5 mg Hydrocortisone (Hydrocortisone 1 % Ointment 28.35 Gm Tube) 1 appl TOPICAL BID PRN; Protocol PRN Reason: hemorroids Last Admin: 03/23/23 17:04 Dose: 1 appl Lidocaine (Lidocaine 5 % Ointment 35 Gm) 1 appl TOPICAL Q6H PRN; Protocol PRN Reason: hemorroid pain Last Admin: 03/23/23 17:04 Dose: 1 appl Lorazepam (Lorazepam 0.5 Mg Tablet) 0.75 mg PO QID [facility] Last Admin: 03/23/23 21:19 Dose: 0.75 mg Lorazepam (Lorazepam 1 Mg Tablet) 2 mg PO BEDTIME [facility] Last Admin: 03/23/23 21:23 Dose: 2 mg Magnesium Hydroxide (Milk Of Magnesia 30 Ml Oral.Susp) 30 ml PO DAILY PRN PRN Reason: Constipation Last Admin: 03/05/23 08:41 Dose: 30 ml Melatonin (Melatonin 3 Mg Tablet) 6 mg PO BEDTIME [facility] Last Admin: 03/23/23 21:24 Dose: 6 mg Multivitamins/Vitamin C (Multivitamin Tablet) 1 tab PO BEDTIME [facility] Last Admin: 03/23/23 21:23 Dose: 1 tab Polyethylene Glycol (Polyethylene Glycol 3350 17 Gm Powd.Pack) 17 gm PO DAILY PRN PRN Reason: Constipation Last Admin: 03/19/23 10:04 Dose: 17 gm Tramadol HCl (Tramadol Hcl 50 Mg Tablet) 25 mg PO Q6H PRN PRN Reason: Pain, Moderate (Pain Scale 4-6 Last Admin: 03/21/23 06:47 Dose: 25 mg Trazodone HCl (Trazodone Hcl 50 Mg Tablet) 50 mg PO BEDTIME MRX1 PRN PRN Reason: Insomnia Last Admin: 03/18/23 00:27 Dose: 50 mg Trazodone HCl (Trazodone Hcl 25 Mg Halftab) 25 mg PO BID PRN PRN Reason: Agitation Last Admin: 03/19/23 03:11 Dose: 25 mg Trazodone HCl (Trazodone Hcl 50 Mg Tablet) 50 mg PO BEDTIME [facility] Last Admin: 03/23/23 21:22 Dose: 50 mg Trolamine Salicylate (Trolamine Salicylate 10 % Cream 141 Gm Tube) 1 appl TOPICAL QID PRN; Protocol PRN Reason: Pain, Moderate (Pain Scale 4-6 Last Admin: 03/17/23 00:35 Dose: 1 appl Venlafaxine HCl (Venlafaxine Hcl Er 75 Mg Cap.Er.24h) 225 mg PO DAILY [facility] Last Admin: 03/23/23 08:15 Dose: 225 mg Allergies Allergies Allergy/AdvReac Type Severity Reaction Status Date / Time oxycodone Allergy Unknown Verified 10/14/22 13:51 pollen extracts Allergy skin rash Verified 10/14/22 13:51 Assessment & Plan Assessment & Plan (1) Parkinsons disease: Status: Acute Code(s): G20 - Parkinson's disease Assessment and Plan: [age] years old man with moderate to severe Parkinson's features with EDSS score of 6-7. After years of Parkinson's, he also has developed depression and psychotic features. I do not have access to his previous workup including brain imaging, but this evolution of his condition suggested that he might be going into or his underlying condition could very well be dementia with Lewy body disease. Review of brain scan done, maybe at [facility], can help. In any case, dopaminergic drugs are known to have possible psychiatric side effects but at the same time without dopamine supplementation, patient has significant physical disability. A balance has to be reached. In that regard, I would suggest discontinuing Stalevo, which is a combination of drugs. Instead of that, try plain carbidopa levodopa 25/100 2 tablets 4 to 5 times a day. Starting tomorrow, prescribed 1st does at 06:00 and then repeat that does at 10:00, 14:00, 18:00. make an observation tomorrow if that works out better and further adjustment can be made based upon how he reacts to this dose. If psychiatrically not better, may consider Nuplazid. Plan 1. Continue with same treatment. 2. Keep Effexor as prescribed 225 mg only the morning. 3. Keep on Sinemet as a prescribing doses. 4. Ativan will be changed to 4 times a day we Sinemet on March 19 Ativan is increased up to 0.75 5. Minute and increased up to 6 mg on March 18. 6. Trazodone started at 50 mg p.o. q.h.s. standing every night on March 18 7. Increased Ativan up to 1 mg at night to target anxiety on March 1903/23 continue tx. (2) Major depressive disorder: Status: Acute Code(s): F32.9 - Major depressive disorder, single episode, unspecified (3) Psychosis: Status: Acute Code(s): F29 - Unspecified psychosis not due to a substance or known physiological condition Plan Elderly male with past history of Parkinson's disease that is advanced admitted for psychotic symptoms in the context of Sinemet. Plan 1. Gather collateral information. 2. Continue Haldol 0.5 p.o. t.i.d. to target psychosis. 3. Continue with medical workout. 4. Assessment with results. 5. reported that he had a 2nd dose of effexor in the evenging, we will start 37,5 mg po at 5 pm On March 09. Increase Effexor XR 2nd dose up to 75 on March 11. Later on, Effexor has been changed to 1 single dose of 225 mg in the morning 6. Change his antiparkinsonian to Sinemet 4 times a day. Reason for continued inpatient stay Substantial Risk for: inability to function Time Spent With Patient Time: Total time managing care of this patient today ____ minutes.
[2023-03-24 07:00] VITALS: BMI 23.5
[2023-03-24 09:09] VITALS: BP 160/72; PULSE 76; RESP 18; TEMP 36.4; O2SAT 76
[2023-03-24] MEDS: LORazepam 0.5 MG TABLET 0.75 MG PO ×4 (09:13→23:31)
[2023-03-24] MEDS: Venlafaxine HCl ER 75 MG CAP.ER.24H 225 MG PO (09:14)
[2023-03-24] MEDS: Atorvastatin Calcium 10 MG TABLET PO (09:14)
[2023-03-24] MEDS: HaloperidoL 0.5 MG TABLET PO ×3 (09:15→20:16)
[2023-03-24] MEDS: Acetaminophen 325 MG TABLET 650 MG PO ×2 (11:42→23:30)
--- NOTE | 2023-03-24 13:30 | P.PNPSI_ITS ---
Subjective Subjective Date of Service: 03/24/23 Reason For Visit: SI Subjective Notes: Conditional Voluntary Interim History: The nursing staff reported the patient had been medication compliant, he had diarrhea yesterday overall he feels much better with a combination of Sinemet and Ativan at night. He has poor safety awareness he was seen trying to walk without the help of his [facility] Walker. The director of social services reported that another facility could take him since Health system has rejected him. On interview the patient denies symptoms he looks pleasantly confused, easily redirectable. Mental Status Exam Mental Status Exam Patient Appearance: Well Grooomed and Appropriate Patient Orientation: Person and Situation Level of Consciousness: Awake and Appropriate Patient Behavior: Cooperative and Passive Mood Description: Calm Affect Description: Constricted Patient Cognition Impaired: Yes Ability to Follow Directions: Good Speech Pattern: Clear Hallucinations: None Delusions: Not Present Thought Process: Linear Judgement: Fair Diagnostics Vital Signs (24Hr): Vital Signs - 24 hr 03/23/23 21:29 03/24/23 09:09 Temperature 97.1 F 97.6 F Pulse Rate 84 76 Respiratory Rate 18 Blood Pressure 143/72 H 160/72 H Pulse Oximetry 97 76 L Oxygen Delivery Method Room Air Room Air BMI result Body Mass Index 25.1 Labs 03/10/23 07:58 03/10/23 07:58 Medications Medications Current Medications Acetaminophen (Acetaminophen 325 Mg Tablet) 650 mg PO Q6H PRN PRN Reason: Headache/Pain Mild Scale (1-3) Last Admin: 03/24/23 11:42 Dose: 650 mg Al Hydroxide/Mg Hydroxide (Magnesium Hydrox/Alum Hydrox 30 Ml Oral.Susp) 30 ml PO Q6H PRN PRN Reason: Heartburn/Nausea Last Admin: 03/15/23 17:37 Dose: 30 ml Atorvastatin Calcium (Atorvastatin Calcium 10 Mg Tablet) 10 mg PO DAILY [facility] Last Admin: 03/24/23 09:14 Dose: 10 mg Carbidopa/Levodopa (Carbidopa/Levodopa 10/100 Tablet) 2 tab PO QID [facility] Last Admin: 03/24/23 12:36 Dose: 2 tab Fluticasone Propionate (Fluticasone Propionate Nasal 16 Gm [place]) 1 spray NOSTRIL-B BID [facility] Last Admin: 03/24/23 09:15 Dose: Not Given Haloperidol (Haloperidol 0.5 Mg Tablet) 0.5 mg PO TID [facility] Last Admin: 03/24/23 09:15 Dose: 0.5 mg Hydrocortisone (Hydrocortisone 1 % Ointment 28.35 Gm Tube) 1 appl TOPICAL BID PRN; Protocol PRN Reason: hemorroids Last Admin: 03/23/23 17:04 Dose: 1 appl Lidocaine (Lidocaine 5 % Ointment 35 Gm) 1 appl TOPICAL Q6H PRN; Protocol PRN Reason: hemorroid pain Last Admin: 03/23/23 17:04 Dose: 1 appl Lorazepam (Lorazepam 1 Mg Tablet) 2 mg PO BEDTIME [facility] Last Admin: 03/23/23 21:23 Dose: 2 mg Magnesium Hydroxide (Milk Of Magnesia 30 Ml Oral.Susp) 30 ml PO DAILY PRN PRN Reason: Constipation Last Admin: 03/05/23 08:41 Dose: 30 ml Melatonin (Melatonin 3 Mg Tablet) 6 mg PO BEDTIME [facility] Last Admin: 03/23/23 21:24 Dose: 6 mg Multivitamins/Vitamin C (Multivitamin Tablet) 1 tab PO BEDTIME [facility] Last Admin: 03/23/23 21:23 Dose: 1 tab Polyethylene Glycol (Polyethylene Glycol 3350 17 Gm Powd.Pack) 17 gm PO DAILY PRN PRN Reason: Constipation Last Admin: 03/19/23 10:04 Dose: 17 gm Tramadol HCl (Tramadol Hcl 50 Mg Tablet) 25 mg PO Q6H PRN PRN Reason: Pain, Moderate (Pain Scale 4-6 Last Admin: 03/21/23 06:47 Dose: 25 mg Trazodone HCl (Trazodone Hcl 50 Mg Tablet) 50 mg PO BEDTIME MRX1 PRN PRN Reason: Insomnia Last Admin: 03/18/23 00:27 Dose: 50 mg Trazodone HCl (Trazodone Hcl 25 Mg Halftab) 25 mg PO BID PRN PRN Reason: Agitation Last Admin: 03/19/23 03:11 Dose: 25 mg Trazodone HCl (Trazodone Hcl 50 Mg Tablet) 50 mg PO BEDTIME [facility] Last Admin: 03/23/23 21:22 Dose: 50 mg Trolamine Salicylate (Trolamine Salicylate 10 % Cream 141 Gm Tube) 1 appl TOPICAL QID PRN; Protocol PRN Reason: Pain, Moderate (Pain Scale 4-6 Last Admin: 03/17/23 00:35 Dose: 1 appl Venlafaxine HCl (Venlafaxine Hcl Er 75 Mg Cap.Er.24h) 225 mg PO DAILY [facility] Last Admin: 03/24/23 09:14 Dose: 225 mg Allergies Allergies Allergy/AdvReac Type Severity Reaction Status Date / Time oxycodone Allergy Unknown Verified 10/14/22 13:51 pollen extracts Allergy skin rash Verified 10/14/22 13:51 Assessment & Plan Assessment & Plan (1) Neurodegenerative cognitive impairment: Status: Acute Code(s): G31.9 - Degenerative disease of nervous system, unspecified (2) Parkinsons disease: Status: Acute Code(s): G20 - Parkinson's disease Assessment and Plan: [age] years old man with moderate to severe Parkinson's features with EDSS score of 6-7. After years of Parkinson's, he also has developed depression and psychotic features. I do not have access to his previous workup including brain imaging, but this evolution of his condition suggested that he might be going into or his underlying condition could very well be dementia with Lewy body disease. Review of brain scan done, maybe at [facility], can help. In any case, dopaminergic drugs are known to have possible psychiatric side effects but at the same time without dopamine supplementation, patient has significant physical disability. A balance has to be reached. In that regard, I would suggest discontinuing Stalevo, which is a combination of drugs. Instead of that, try plain carbidopa levodopa 25/100 2 tablets 4 to 5 times a day. Starting tomorrow, prescribed 1st does at 06:00 and then repeat that does at 10:00, 14:00, 18:00. make an observation tomorrow if that works out better and further adjustment can be made based upon how he reacts to this dose. If psychiatrically not better, may consider Nuplazid. Plan 1. Continue with same treatment. 2. Keep Effexor as prescribed 225 mg only the morning. 3. Keep on Sinemet as a prescribing doses. 4. Ativan will be changed to 4 times a day we Sinemet on March 19 Ativan is increased up to 0.75 5. Minute and increased up to 6 mg on March 18. 6. Trazodone started at 50 mg p.o. q.h.s. standing every night on March 18 7. Increased Ativan up to 1 mg at night to target anxiety on [place] 22nd (3) Major depressive disorder: Status: Acute Code(s): F32.9 - Major depressive disorder, single episode, unspecified (4) Psychosis: Status: Acute Code(s): F29 - Unspecified psychosis not due to a substance or known physiological condition Plan Elderly male with past history of Parkinson's disease that is advanced admitted for psychotic symptoms in the context of Sinemet. Plan 1. Gather collateral information. 2. Continue Haldol 0.5 p.o. t.i.d. to target psychosis. 3. Continue with medical workout. 4. Assessment with results. 5. reported that he had a 2nd dose of effexor in the evenging, we will start 37,5 mg po at 5 pm On March 09. Increase Effexor XR 2nd dose up to 75 on March 11. Later on, Effexor has been changed to 1 single dose of 225 mg in the morning 6. Change his antiparkinsonian to Sinemet 4 times a day. 7. Waiting for placement Reason for continued inpatient stay Substantial Risk for: inability to function, rapid decompensation and med/psych decompensation Time Spent With Patient Time: Total time managing care of this patient today __20__ minutes.
[2023-03-24 18:00] VITALS: BP 154/74; PULSE 87; RESP 18; TEMP 36.7; O2SAT 97
[2023-03-24] MEDS: Melatonin 3 MG TABLET 6 MG PO (20:16)
[2023-03-24] MEDS: LORazepam 1 MG TABLET 2 MG PO (20:16)
[2023-03-24] MEDS: Multivitamin TABLET 1 TAB PO (20:16)
[2023-03-24] MEDS: traZODone HCL 50 MG TABLET PO (20:16)
[2023-03-25] MEDS: Acetaminophen 325 MG TABLET 650 MG PO (05:53)
[2023-03-25] MEDS: traZODone HCL 25 MG HALFTAB PO (05:54)
[2023-03-25 08:00] VITALS: BP 152/71; PULSE 76; RESP 16; TEMP 36.7; O2SAT 94
[2023-03-25] MEDS: Atorvastatin Calcium 10 MG TABLET PO (08:46)
[2023-03-25] MEDS: LORazepam 0.5 MG TABLET 0.75 MG PO ×4 (08:46→21:37)
[2023-03-25] MEDS: HaloperidoL 0.5 MG TABLET PO ×3 (08:46→21:37)
[2023-03-25] MEDS: Venlafaxine HCl ER 75 MG CAP.ER.24H 225 MG PO (08:47)
--- NOTE | 2023-03-25 09:17 | HO.PSYCHPN ---
Subjective Subjective Date of Service: 03/25/23 Reason For Visit: SI Subjective Notes: Conditional Voluntary Interim History: The nursing staff reported the patient was agitated in the evening but in general his behavior is much better. The health care social worker reported that another jail facility could take him. On interview the patient denies new symptoms, waiting for placement Mental Status Exam Mental Status Exam Patient Appearance: Well Grooomed and Appropriate Patient Orientation: Person and Situation Level of Consciousness: Awake and Appropriate Patient Behavior: Guarded and Passive Mood Description: Withdrawn and Constricted Affect Description: Calm Patient Cognition Impaired: Yes Ability to Follow Directions: Good Speech Pattern: Clear Hallucinations: None Delusions: Not Present Thought Process: Evasive Thought Content: positive for Parker and positive for Poverty of Content Judgement: Poor Diagnostics Vital Signs (24Hr): Vital Signs - 24 hr 03/24/23 18:00 03/25/23 08:00 Temperature 98.1 F 98.1 F Pulse Rate 87 76 Respiratory Rate 18 16 Blood Pressure 154/74 H 152/71 H Pulse Oximetry 97 94 Oxygen Delivery Method Room Air Room Air BMI result Body Mass Index 25.1 Labs 03/10/23 07:58 03/10/23 07:58 Medications Medications Current Medications Acetaminophen (Acetaminophen 325 Mg Tablet) 650 mg PO Q6H PRN PRN Reason: Headache/Pain Mild Scale (1-3) Last Admin: 03/25/23 05:53 Dose: 650 mg Al Hydroxide/Mg Hydroxide (Magnesium Hydrox/Alum Hydrox 30 Ml Oral.Susp) 30 ml PO Q6H PRN PRN Reason: Heartburn/Nausea Last Admin: 03/15/23 17:37 Dose: 30 ml Atorvastatin Calcium (Atorvastatin Calcium 10 Mg Tablet) 10 mg PO DAILY [facility] Last Admin: 03/25/23 08:46 Dose: 10 mg Carbidopa/Levodopa (Carbidopa/Levodopa 10/100 Tablet) 2 tab PO QID [facility] Last Admin: 03/25/23 08:46 Dose: 2 tab Fluticasone Propionate (Fluticasone Propionate Nasal 16 Gm [place]) 1 spray NOSTRIL-B BID [facility] Last Admin: 03/24/23 20:20 Dose: Not Given Haloperidol (Haloperidol 0.5 Mg Tablet) 0.5 mg PO TID [facility] Last Admin: 03/25/23 08:46 Dose: 0.5 mg Hydrocortisone (Hydrocortisone 1 % Ointment 28.35 Gm Tube) 1 appl TOPICAL BID PRN; Protocol PRN Reason: hemorroids Last Admin: 03/23/23 17:04 Dose: 1 appl Lidocaine (Lidocaine 5 % Ointment 35 Gm) 1 appl TOPICAL Q6H PRN; Protocol PRN Reason: hemorroid pain Last Admin: 03/23/23 17:04 Dose: 1 appl Lorazepam (Lorazepam 1 Mg Tablet) 2 mg PO BEDTIME [facility] Last Admin: 03/24/23 20:16 Dose: 2 mg Lorazepam (Lorazepam 0.5 Mg Tablet) 0.75 mg PO QID [facility] Last Admin: 03/25/23 08:46 Dose: 0.75 mg Magnesium Hydroxide (Milk Of Magnesia 30 Ml Oral.Susp) 30 ml PO DAILY PRN PRN Reason: Constipation Last Admin: 03/05/23 08:41 Dose: 30 ml Melatonin (Melatonin 3 Mg Tablet) 6 mg PO BEDTIME [facility] Last Admin: 03/24/23 20:16 Dose: 6 mg Multivitamins/Vitamin C (Multivitamin Tablet) 1 tab PO BEDTIME [facility] Last Admin: 03/24/23 20:16 Dose: 1 tab Polyethylene Glycol (Polyethylene Glycol 3350 17 Gm Powd.Pack) 17 gm PO DAILY PRN PRN Reason: Constipation Last Admin: 03/19/23 10:04 Dose: 17 gm Tramadol HCl (Tramadol Hcl 50 Mg Tablet) 25 mg PO Q6H PRN PRN Reason: Pain, Moderate (Pain Scale 4-6 Last Admin: 03/21/23 06:47 Dose: 25 mg Trazodone HCl (Trazodone Hcl 50 Mg Tablet) 50 mg PO BEDTIME MRX1 PRN PRN Reason: Insomnia Last Admin: 03/18/23 00:27 Dose: 50 mg Trazodone HCl (Trazodone Hcl 25 Mg Halftab) 25 mg PO BID PRN PRN Reason: Agitation Last Admin: 03/25/23 05:54 Dose: 25 mg Trazodone HCl (Trazodone Hcl 50 Mg Tablet) 50 mg PO BEDTIME [facility] Last Admin: 03/24/23 20:16 Dose: 50 mg Trolamine Salicylate (Trolamine Salicylate 10 % Cream 141 Gm Tube) 1 appl TOPICAL QID PRN; Protocol PRN Reason: Pain, Moderate (Pain Scale 4-6 Last Admin: 03/17/23 00:35 Dose: 1 appl Venlafaxine HCl (Venlafaxine Hcl Er 75 Mg Cap.Er.24h) 225 mg PO DAILY [facility] Last Admin: 03/25/23 08:47 Dose: 225 mg Allergies Allergies Allergy/AdvReac Type Severity Reaction Status Date / Time oxycodone Allergy Unknown Verified 10/14/22 13:51 pollen extracts Allergy skin rash Verified 10/14/22 13:51 Assessment & Plan Assessment & Plan (1) Neurodegenerative cognitive impairment: Status: Acute Code(s): G31.9 - Degenerative disease of nervous system, unspecified (2) Parkinsons disease: Status: Acute Code(s): G20 - Parkinson's disease Assessment and Plan: [age] years old man with moderate to severe Parkinson's features with EDSS score of 6-7. After years of Parkinson's, he also has developed depression and psychotic features. I do not have access to his previous workup including brain imaging, but this evolution of his condition suggested that he might be going into or his underlying condition could very well be dementia with Lewy body disease. Review of brain scan done, maybe at [facility], can help. In any case, dopaminergic drugs are known to have possible psychiatric side effects but at the same time without dopamine supplementation, patient has significant physical disability. A balance has to be reached. In that regard, I would suggest discontinuing Stalevo, which is a combination of drugs. Instead of that, try plain carbidopa levodopa 25/100 2 tablets 4 to 5 times a day. Starting tomorrow, prescribed 1st does at 06:00 and then repeat that does at 10:00, 14:00, 18:00. make an observation tomorrow if that works out better and further adjustment can be made based upon how he reacts to this dose. If psychiatrically not better, may consider Nuplazid. Plan 1. Continue with same treatment. 2. Keep Effexor as prescribed 225 mg only the morning. 3. Keep on Sinemet as a prescribing doses. 4. Ativan will be changed to 4 times a day we Sinemet on March 19 Ativan is increased up to 0.75 5. Minute and increased up to 6 mg on March 18. 6. Trazodone started at 50 mg p.o. q.h.s. standing every night on March 18 7. Increased Ativan up to 1 mg at night to target anxiety on March 19 (3) Major depressive disorder: Status: Acute Code(s): F32.9 - Major depressive disorder, single episode, unspecified (4) Psychosis: Status: Acute Code(s): F29 - Unspecified psychosis not due to a substance or known physiological condition Plan Elderly male with past history of Parkinson's disease that is advanced admitted for psychotic symptoms in the context of Sinemet. Plan 1. Gather collateral information. 2. Continue Haldol 0.5 p.o. t.i.d. to target psychosis. 3. Continue with medical workout. 4. Assessment with results. 5. reported that he had a 2nd dose of effexor in the evenging, we will start 37,5 mg po at 5 pm On March 09. Increase Effexor XR 2nd dose up to 75 on March 11. Later on, Effexor has been changed to 1 single dose of 225 mg in the morning 6. Change his antiparkinsonian to Sinemet 4 times a day. 7. Waiting for placement Reason for continued inpatient stay Substantial Risk for: inability to function, rapid decompensation and med/psych decompensation Time Spent With Patient Time: Total time managing care of this patient today __20__ minutes.
[2023-03-25 18:00] VITALS: BP 105/53; PULSE 77; RESP 16; TEMP 36.3; O2SAT 97
[2023-03-25] MEDS: Melatonin 3 MG TABLET 6 MG PO (21:36)
[2023-03-25] MEDS: traZODone HCL 50 MG TABLET PO (21:37)
[2023-03-25] MEDS: Multivitamin TABLET 1 TAB PO (21:37)
[2023-03-26] MEDS: Acetaminophen 325 MG TABLET 650 MG PO ×2 (03:32→20:16)
[2023-03-26] MEDS: traZODone HCL 25 MG HALFTAB PO (03:32)
[2023-03-26 08:00] VITALS: BP 162/79; PULSE 90; RESP 20; TEMP 36.7; O2SAT 99
[2023-03-26] MEDS: LORazepam 0.5 MG TABLET 0.75 MG PO ×4 (08:13→18:30)
[2023-03-26] MEDS: HaloperidoL 0.5 MG TABLET PO ×3 (08:13→20:17)
[2023-03-26] MEDS: Atorvastatin Calcium 10 MG TABLET PO (08:18)
[2023-03-26] MEDS: Venlafaxine HCl ER 75 MG CAP.ER.24H 225 MG PO (08:18)
[2023-03-26] MEDS: traMADoL HCL 50 MG TABLET 25 MG PO (10:47)
[2023-03-26 18:54] VITALS: BP 135/63; PULSE 90; RESP 14; TEMP 36.6; O2SAT 97
--- NOTE | 2023-03-26 19:30 | HO.PSYCHPN ---
Subjective Subjective Date of Service: 03/26/23 Reason For Visit: SI Interim History: The nursing staff reported the patient has been restless and having Parkinsonian tremor. He reports he has been doing so so . He is bothered by his tremors. He continues to feel depressed but no noted agitation or combative behavior. Tolerating medications well. On interview the patient denies new symptoms, waiting for placement. Review of Systems Review of Systems Recently noted depression and Yes all other systems are reviewed and are negative Mental Status Exam Mental Status Exam Patient Appearance: Well Grooomed and Appropriate Patient Orientation: Person and Situation Level of Consciousness: Awake and Appropriate Patient Behavior: Guarded and Passive Mood Description: Withdrawn and Constricted Affect Description: Calm Patient Cognition Impaired: Yes Ability to Follow Directions: Good Speech Pattern: Clear and Soft-Spoken Abnormal Motor Activity Signs and Symptoms: Tremors Diagnostics Vital Signs (24Hr): Vital Signs - 24 hr 03/26/23 08:00 03/26/23 18:54 Temperature 98.0 F 98 F Pulse Rate 90 90 Respiratory Rate 20 14 Blood Pressure 162/79 H 135/63 Pulse Oximetry 99 97 Oxygen Delivery Method Room Air Room Air BMI result Body Mass Index 23.5 Labs 03/10/23 07:58 03/10/23 07:58 Medications Medications Current Medications Acetaminophen (Acetaminophen 325 Mg Tablet) 650 mg PO Q6H PRN PRN Reason: Headache/Pain Mild Scale (1-3) Last Admin: 03/26/23 03:32 Dose: 650 mg Al Hydroxide/Mg Hydroxide (Magnesium Hydrox/Alum Hydrox 30 Ml Oral.Susp) 30 ml PO Q6H PRN PRN Reason: Heartburn/Nausea Last Admin: 03/15/23 17:37 Dose: 30 ml Atorvastatin Calcium (Atorvastatin Calcium 10 Mg Tablet) 10 mg PO DAILY [facility] Last Admin: 03/26/23 08:18 Dose: 10 mg Carbidopa/Levodopa (Carbidopa/Levodopa 10/100 Tablet) 2 tab PO QID [facility] Last Admin: 03/26/23 15:53 Dose: 2 tab Fluticasone Propionate (Fluticasone Propionate Nasal 16 Gm [place]) 1 spray NOSTRIL-B BID [facility] Last Admin: 03/26/23 08:18 Dose: Not Given Haloperidol (Haloperidol 0.5 Mg Tablet) 0.5 mg PO TID [facility] Last Admin: 03/26/23 15:53 Dose: 0.5 mg Hydrocortisone (Hydrocortisone 1 % Ointment 28.35 Gm Tube) 1 appl TOPICAL BID PRN; Protocol PRN Reason: hemorroids Last Admin: 03/23/23 17:04 Dose: 1 appl Lidocaine (Lidocaine 5 % Ointment 35 Gm) 1 appl TOPICAL Q6H PRN; Protocol PRN Reason: hemorroid pain Last Admin: 03/23/23 17:04 Dose: 1 appl Lorazepam (Lorazepam 0.5 Mg Tablet) 0.75 mg PO QID [facility] Last Admin: 03/26/23 18:30 Dose: 0.75 mg Lorazepam (Lorazepam 1 Mg Tablet) 2 mg PO BEDTIME [facility] Magnesium Hydroxide (Milk Of Magnesia 30 Ml Oral.Susp) 30 ml PO DAILY PRN PRN Reason: Constipation Last Admin: 03/05/23 08:41 Dose: 30 ml Melatonin (Melatonin 3 Mg Tablet) 6 mg PO BEDTIME [facility] Last Admin: 03/25/23 21:36 Dose: 6 mg Multivitamins/Vitamin C (Multivitamin Tablet) 1 tab PO BEDTIME [facility] Last Admin: 03/25/23 21:37 Dose: 1 tab Polyethylene Glycol (Polyethylene Glycol 3350 17 Gm Powd.Pack) 17 gm PO DAILY PRN PRN Reason: Constipation Last Admin: 03/19/23 10:04 Dose: 17 gm Tramadol HCl (Tramadol Hcl 50 Mg Tablet) 25 mg PO Q6H PRN PRN Reason: Pain, Moderate (Pain Scale 4-6 Last Admin: 03/26/23 10:47 Dose: 25 mg Trazodone HCl (Trazodone Hcl 50 Mg Tablet) 50 mg PO BEDTIME MRX1 PRN PRN Reason: Insomnia Last Admin: 03/18/23 00:27 Dose: 50 mg Trazodone HCl (Trazodone Hcl 25 Mg Halftab) 25 mg PO BID PRN PRN Reason: Agitation Last Admin: 03/26/23 03:32 Dose: 25 mg Trazodone HCl (Trazodone Hcl 50 Mg Tablet) 50 mg PO BEDTIME [facility] Last Admin: 03/25/23 21:37 Dose: 50 mg Trolamine Salicylate (Trolamine Salicylate 10 % Cream 141 Gm Tube) 1 appl TOPICAL QID PRN; Protocol PRN Reason: Pain, Moderate (Pain Scale 4-6 Last Admin: 03/17/23 00:35 Dose: 1 appl Venlafaxine HCl (Venlafaxine Hcl Er 75 Mg Cap.Er.24h) 225 mg PO DAILY [facility] Last Admin: 03/26/23 08:18 Dose: 225 mg Allergies Allergies Allergy/AdvReac Type Severity Reaction Status Date / Time oxycodone Allergy Unknown Verified 10/14/22 13:51 pollen extracts Allergy skin rash Verified 10/14/22 13:51 Assessment & Plan Assessment & Plan (1) Neurodegenerative cognitive impairment: Status: Acute Code(s): G31.9 - Degenerative disease of nervous system, unspecified (2) Parkinsons disease: Status: Acute Code(s): G20 - Parkinson's disease Assessment and Plan: [age] years old man with moderate to severe Parkinson's features with EDSS score of 6-7. After years of Parkinson's, he also has developed depression and psychotic features. I do not have access to his previous workup including brain imaging, but this evolution of his condition suggested that he might be going into or his underlying condition could very well be dementia with Lewy body disease. Review of brain scan done, maybe at [facility], can help. In any case, dopaminergic drugs are known to have possible psychiatric side effects but at the same time without dopamine supplementation, patient has significant physical disability. A balance has to be reached. In that regard, I would suggest discontinuing Stalevo, which is a combination of drugs. Instead of that, try plain carbidopa levodopa 25/100 2 tablets 4 to 5 times a day. Starting tomorrow, prescribed 1st does at 06:00 and then repeat that does at 10:00, 14:00, 18:00. make an observation tomorrow if that works out better and further adjustment can be made based upon how he reacts to this dose. If psychiatrically not better, may consider Nuplazid. Plan 1. Continue with same treatment. 2. Keep Effexor as prescribed 225 mg only the morning. 3. Keep on Sinemet as a prescribing doses. 4. Ativan will be changed to 4 times a day we Sinemet on March 19 Ativan is increased up to 0.75 5. Minute and increased up to 6 mg on March 18. 6. Trazodone started at 50 mg p.o. q.h.s. standing every night on March 18 7. Increased Ativan up to 1 mg at night to target anxiety on March 19 (3) Major depressive disorder: Status: Acute Code(s): F32.9 - Major depressive disorder, single episode, unspecified (4) Psychosis: Status: Acute Code(s): F29 - Unspecified psychosis not due to a substance or known physiological condition Plan Elderly male with past history of Parkinson's disease that is advanced admitted for psychotic symptoms in the context of Sinemet. Plan 1. Gather collateral information. 2. Continue Haldol 0.5 p.o. t.i.d. to target psychosis. 3. Continue with medical workout. 4. Assessment with results. 5. reported that he had a 2nd dose of effexor in the evenging, we will start 37,5 mg po at 5 pm On March 09. Increase Effexor XR 2nd dose up to 75 on March 11. Later on, Effexor has been changed to 1 single dose of 225 mg in the morning 6. Change his antiparkinsonian to Sinemet 4 times a day. 7. Waiting for placement 03/26: continue current management. Reason for continued inpatient stay Substantial Risk for: harm to self, inability to function and rapid decompensation Time Spent With Patient Time: Total time managing care of this patient today ____ minutes.
[2023-03-26] MEDS: Multivitamin TABLET 1 TAB PO (20:17)
[2023-03-26] MEDS: traZODone HCL 50 MG TABLET PO (20:17)
[2023-03-26] MEDS: LORazepam 1 MG TABLET 2 MG PO (20:17)
[2023-03-26] MEDS: Melatonin 3 MG TABLET 6 MG PO (20:17)
[2023-03-27] MEDS: Venlafaxine HCl ER 75 MG CAP.ER.24H 225 MG PO (08:16)
[2023-03-27] MEDS: Atorvastatin Calcium 10 MG TABLET PO (08:16)
[2023-03-27] MEDS: LORazepam 0.5 MG TABLET 0.75 MG PO ×4 (08:16→20:06)
[2023-03-27] MEDS: HaloperidoL 0.5 MG TABLET PO ×3 (08:17→20:09)
[2023-03-27] MEDS: Acetaminophen 325 MG TABLET 650 MG PO (08:26)
[2023-03-27 08:44] VITALS: BP 174/79; PULSE 97; RESP 15; TEMP 36.2; O2SAT 97
--- NOTE | 2023-03-27 09:31 | HO.PSYCHPN ---
Subjective Subjective Date of Service: 03/27/23 Reason For Visit: SI Interim History: The nursing staff reported the patient has been restless and having Parkinsonian tremor. He needs a lot of encouragement to move. He reports he has been doing so so . He is bothered by his tremors. He continues to feel depressed but no noted agitation or combative behavior. Tolerating medications well. was visiting late morning. On interview the patient denies new symptoms, waiting for placement. Review of Systems Review of Systems Recently noted depression and Yes all other systems are reviewed and are negative Mental Status Exam Mental Status Exam Patient Appearance: Well Grooomed and Appropriate Patient Orientation: Person and Situation Level of Consciousness: Awake and Appropriate Patient Behavior: Guarded and Passive Mood Description: Withdrawn and Constricted Affect Description: Calm Patient Cognition Impaired: Yes Ability to Follow Directions: Good Speech Pattern: Clear and Soft-Spoken Diagnostics Vital Signs (24Hr): Vital Signs - 24 hr 03/26/23 18:54 03/27/23 08:44 Temperature 98 F 97.2 F Pulse Rate 90 97 Respiratory Rate 14 15 Blood Pressure 135/63 174/79 H Pulse Oximetry 97 97 Oxygen Delivery Method Room Air Room Air BMI result Body Mass Index 23.5 Labs 03/10/23 07:58 03/10/23 07:58 Medications Medications Current Medications Acetaminophen (Acetaminophen 325 Mg Tablet) 650 mg PO Q6H PRN PRN Reason: Headache/Pain Mild Scale (1-3) Last Admin: 03/27/23 08:26 Dose: 650 mg Al Hydroxide/Mg Hydroxide (Magnesium Hydrox/Alum Hydrox 30 Ml Oral.Susp) 30 ml PO Q6H PRN PRN Reason: Heartburn/Nausea Last Admin: 03/15/23 17:37 Dose: 30 ml Atorvastatin Calcium (Atorvastatin Calcium 10 Mg Tablet) 10 mg PO DAILY [facility] Last Admin: 03/27/23 08:16 Dose: 10 mg Carbidopa/Levodopa (Carbidopa/Levodopa 10/100 Tablet) 2 tab PO QID [facility] Last Admin: 03/27/23 08:16 Dose: 2 tab Fluticasone Propionate (Fluticasone Propionate Nasal 16 Gm [place]) 1 spray NOSTRIL-B BID [facility] Last Admin: 03/27/23 08:43 Dose: Not Given Haloperidol (Haloperidol 0.5 Mg Tablet) 0.5 mg PO TID [facility] Last Admin: 03/27/23 08:17 Dose: 0.5 mg Hydrocortisone (Hydrocortisone 1 % Ointment 28.35 Gm Tube) 1 appl TOPICAL BID PRN; Protocol PRN Reason: hemorroids Last Admin: 03/23/23 17:04 Dose: 1 appl Lidocaine (Lidocaine 5 % Ointment 35 Gm) 1 appl TOPICAL Q6H PRN; Protocol PRN Reason: hemorroid pain Last Admin: 03/23/23 17:04 Dose: 1 appl Lorazepam (Lorazepam 0.5 Mg Tablet) 0.75 mg PO QID [facility] Last Admin: 03/27/23 08:16 Dose: 0.75 mg Lorazepam (Lorazepam 1 Mg Tablet) 2 mg PO BEDTIME [facility] Last Admin: 03/26/23 20:17 Dose: 2 mg Magnesium Hydroxide (Milk Of Magnesia 30 Ml Oral.Susp) 30 ml PO DAILY PRN PRN Reason: Constipation Last Admin: 03/05/23 08:41 Dose: 30 ml Melatonin (Melatonin 3 Mg Tablet) 6 mg PO BEDTIME [facility] Last Admin: 03/26/23 20:17 Dose: 6 mg Multivitamins/Vitamin C (Multivitamin Tablet) 1 tab PO BEDTIME [facility] Last Admin: 03/26/23 20:17 Dose: 1 tab Polyethylene Glycol (Polyethylene Glycol 3350 17 Gm Powd.Pack) 17 gm PO DAILY PRN PRN Reason: Constipation Last Admin: 03/19/23 10:04 Dose: 17 gm Tramadol HCl (Tramadol Hcl 50 Mg Tablet) 25 mg PO Q6H PRN PRN Reason: Pain, Moderate (Pain Scale 4-6 Last Admin: 03/26/23 10:47 Dose: 25 mg Trazodone HCl (Trazodone Hcl 50 Mg Tablet) 50 mg PO BEDTIME MRX1 PRN PRN Reason: Insomnia Last Admin: 03/18/23 00:27 Dose: 50 mg Trazodone HCl (Trazodone Hcl 25 Mg Halftab) 25 mg PO BID PRN PRN Reason: Agitation Last Admin: 03/26/23 03:32 Dose: 25 mg Trazodone HCl (Trazodone Hcl 50 Mg Tablet) 50 mg PO BEDTIME [facility] Last Admin: 03/26/23 20:17 Dose: 50 mg Trolamine Salicylate (Trolamine Salicylate 10 % Cream 141 Gm Tube) 1 appl TOPICAL QID PRN; Protocol PRN Reason: Pain, Moderate (Pain Scale 4-6 Last Admin: 03/17/23 00:35 Dose: 1 appl Venlafaxine HCl (Venlafaxine Hcl Er 75 Mg Cap.Er.24h) 225 mg PO DAILY [facility] Last Admin: 03/27/23 08:16 Dose: 225 mg Allergies Allergies Allergy/AdvReac Type Severity Reaction Status Date / Time oxycodone Allergy Unknown Verified 10/14/22 13:51 pollen extracts Allergy skin rash Verified 10/14/22 13:51 Assessment & Plan Assessment & Plan (1) Neurodegenerative cognitive impairment: Status: Acute Code(s): G31.9 - Degenerative disease of nervous system, unspecified (2) Parkinsons disease: Status: Acute Code(s): G20 - Parkinson's disease Assessment and Plan: [age] years old man with moderate to severe Parkinson's features with EDSS score of 6-7. After years of Parkinson's, he also has developed depression and psychotic features. I do not have access to his previous workup including brain imaging, but this evolution of his condition suggested that he might be going into or his underlying condition could very well be dementia with Lewy body disease. Review of brain scan done, maybe at [facility], can help. In any case, dopaminergic drugs are known to have possible psychiatric side effects but at the same time without dopamine supplementation, patient has significant physical disability. A balance has to be reached. In that regard, I would suggest discontinuing Stalevo, which is a combination of drugs. Instead of that, try plain carbidopa levodopa 25/100 2 tablets 4 to 5 times a day. Starting tomorrow, prescribed 1st does at 06:00 and then repeat that does at 10:00, 14:00, 18:00. make an observation tomorrow if that works out better and further adjustment can be made based upon how he reacts to this dose. If psychiatrically not better, may consider Nuplazid. Plan 1. Continue with same treatment. 2. Keep Effexor as prescribed 225 mg only the morning. 3. Keep on Sinemet as a prescribing doses. 4. Ativan will be changed to 4 times a day we Sinemet on March 19 Ativan is increased up to 0.75 5. Minute and increased up to 6 mg on March 18. 6. Trazodone started at 50 mg p.o. q.h.s. standing every night on March 18 7. Increased Ativan up to 1 mg at night to target anxiety on March 19 (3) Major depressive disorder: Status: Acute Code(s): F32.9 - Major depressive disorder, single episode, unspecified (4) Psychosis: Status: Acute Code(s): F29 - Unspecified psychosis not due to a substance or known physiological condition Plan Elderly male with past history of Parkinson's disease that is advanced admitted for psychotic symptoms in the context of Sinemet. Plan 1. Gather collateral information. 2. Continue Haldol 0.5 p.o. t.i.d. to target psychosis. 3. Continue with medical workout. 4. Assessment with results. 5. reported that he had a 2nd dose of effexor in the evenging, we will start 37,5 mg po at 5 pm On March 09. Increase Effexor XR 2nd dose up to 75 on March 11. Later on, Effexor has been changed to 1 single dose of 225 mg in the morning 6. Change his antiparkinsonian to Sinemet 4 times a day. 7. Waiting for placement 03/26: continue current management. 03/27: continue current management. Reason for continued inpatient stay Substantial Risk for: inability to function and rapid decompensation Time Spent With Patient Time: Total time managing care of this patient today ____ minutes.
[2023-03-27] MEDS: traMADoL HCL 50 MG TABLET 25 MG PO (17:06)
[2023-03-27 18:00] VITALS: BP 139/72; PULSE 78; RESP 18; TEMP 36.4; O2SAT 96
[2023-03-27] MEDS: Multivitamin TABLET 1 TAB PO (20:08)
[2023-03-27] MEDS: Melatonin 3 MG TABLET 6 MG PO (20:09)
[2023-03-27] MEDS: traZODone HCL 50 MG TABLET PO (20:09)
[2023-03-27] MEDS: LORazepam 1 MG TABLET 2 MG PO (20:27)
[2023-03-28] MEDS: traMADoL HCL 50 MG TABLET 25 MG PO (02:47)
[2023-03-28] MEDS: traZODone HCL 50 MG TABLET PO ×2 (03:54→19:57)
[2023-03-28 06:00] VITALS: BP 178/81; PULSE 80; RESP 14; TEMP 35.9; O2SAT 93
[2023-03-28] MEDS: Acetaminophen 325 MG TABLET 650 MG PO (06:35)
[2023-03-28] MEDS: Venlafaxine HCl ER 75 MG CAP.ER.24H 225 MG PO (08:00)
[2023-03-28] MEDS: HaloperidoL 0.5 MG TABLET PO (08:00)
[2023-03-28] MEDS: Atorvastatin Calcium 10 MG TABLET PO (08:01)
[2023-03-28] MEDS: LORazepam 0.5 MG TABLET 0.75 MG PO ×4 (08:01→19:57)
--- NOTE | 2023-03-28 13:44 | P.PNPSI_ITS ---
Subjective Subjective Date of Service: 03/28/23 Reason For Visit: SI Subjective Notes: Conditional Voluntary Interim History: The nursing staff reported the patient had been visible in the unit, he shower yesterday and reported some anxiety and depression. The occupational therapist reported that they have to work on strategies to improve his gait safety with his Merry Walker. The web content & social media manager reported that continue on the bed search. On interview the patient reports sporadic AH and still anxious and depressed but no suicidal ideation. His main complaint was poor sleep. We discussed options and agreed to D/C Haldol and try Zyprexa at . Mental Status Exam Mental Status Exam Patient Appearance: Well Grooomed and Appropriate Patient Orientation: Person and Situation Level of Consciousness: Awake and Appropriate Patient Behavior: Guarded and Passive Mood Description: Withdrawn Affect Description: Constricted Patient Cognition Impaired: Yes Ability to Follow Directions: Good Speech Pattern: Clear Hallucinations: None Delusions: Not Present Thought Process: Illogical and Distracted Thought Content: positive for [place] Judgement: Fair Diagnostics Vital Signs (24Hr): Vital Signs - 24 hr 03/27/23 18:00 03/28/23 06:00 Temperature 97.6 F 96.7 F L Pulse Rate 78 80 Respiratory Rate 18 14 Blood Pressure 139/72 178/81 H Pulse Oximetry 96 93 Oxygen Delivery Method Room Air Room Air BMI result Body Mass Index 23.5 Labs 03/10/23 07:58 03/10/23 07:58 Medications Medications Current Medications Acetaminophen (Acetaminophen 325 Mg Tablet) 650 mg PO Q6H PRN PRN Reason: Headache/Pain Mild Scale (1-3) Last Admin: 03/28/23 06:35 Dose: 650 mg Al Hydroxide/Mg Hydroxide (Magnesium Hydrox/Alum Hydrox 30 Ml Oral.Susp) 30 ml PO Q6H PRN PRN Reason: Heartburn/Nausea Last Admin: 03/15/23 17:37 Dose: 30 ml Atorvastatin Calcium (Atorvastatin Calcium 10 Mg Tablet) 10 mg PO DAILY [facility] Last Admin: 03/28/23 08:01 Dose: 10 mg Carbidopa/Levodopa (Carbidopa/Levodopa 10/100 Tablet) 2 tab PO QID [facility] Last Admin: 03/28/23 12:11 Dose: 2 tab Fluticasone Propionate (Fluticasone Propionate Nasal 16 Gm [place]) 1 spray NOSTRIL-B BID [facility] Last Admin: 03/28/23 09:00 Dose: Not Given Haloperidol (Haloperidol 0.5 Mg Tablet) 0.5 mg PO TID [facility] Last Admin: 03/28/23 08:00 Dose: 0.5 mg Hydrocortisone (Hydrocortisone 1 % Ointment 28.35 Gm Tube) 1 appl TOPICAL BID PRN; Protocol PRN Reason: hemorroids Last Admin: 03/23/23 17:04 Dose: 1 appl Lidocaine (Lidocaine 5 % Ointment 35 Gm) 1 appl TOPICAL Q6H PRN; Protocol PRN Reason: hemorroid pain Last Admin: 03/23/23 17:04 Dose: 1 appl Lorazepam (Lorazepam 0.5 Mg Tablet) 0.75 mg PO QID [facility] Last Admin: 03/28/23 12:11 Dose: 0.75 mg Lorazepam (Lorazepam 1 Mg Tablet) 2 mg PO BEDTIME [facility] Last Admin: 03/27/23 20:27 Dose: 2 mg Magnesium Hydroxide (Milk Of Magnesia 30 Ml Oral.Susp) 30 ml PO DAILY PRN PRN Reason: Constipation Last Admin: 03/05/23 08:41 Dose: 30 ml Melatonin (Melatonin 3 Mg Tablet) 6 mg PO BEDTIME [facility] Last Admin: 03/27/23 20:09 Dose: 6 mg Multivitamins/Vitamin C (Multivitamin Tablet) 1 tab PO BEDTIME [facility] Last Admin: 03/27/23 20:08 Dose: 1 tab Polyethylene Glycol (Polyethylene Glycol 3350 17 Gm Powd.Pack) 17 gm PO DAILY PRN PRN Reason: Constipation Last Admin: 03/19/23 10:04 Dose: 17 gm Trazodone HCl (Trazodone Hcl 50 Mg Tablet) 50 mg PO BEDTIME MRX1 PRN PRN Reason: Insomnia Last Admin: 03/28/23 03:54 Dose: 50 mg Trazodone HCl (Trazodone Hcl 25 Mg Halftab) 25 mg PO BID PRN PRN Reason: Agitation Last Admin: 03/26/23 03:32 Dose: 25 mg Trazodone HCl (Trazodone Hcl 50 Mg Tablet) 50 mg PO BEDTIME [facility] Last Admin: 03/27/23 20:09 Dose: 50 mg Trolamine Salicylate (Trolamine Salicylate 10 % Cream 141 Gm Tube) 1 appl TOPICAL QID PRN; Protocol PRN Reason: Pain, Moderate (Pain Scale 4-6 Last Admin: 03/17/23 00:35 Dose: 1 appl Venlafaxine HCl (Venlafaxine Hcl Er 75 Mg Cap.Er.24h) 225 mg PO DAILY [facility] Last Admin: 03/28/23 08:00 Dose: 225 mg Allergies Allergies Allergy/AdvReac Type Severity Reaction Status Date / Time oxycodone Allergy Unknown Verified 10/14/22 13:51 pollen extracts Allergy skin rash Verified 10/14/22 13:51 Assessment & Plan Assessment & Plan (1) Neurodegenerative cognitive impairment: Status: Acute Code(s): G31.9 - Degenerative disease of nervous system, unspecified (2) Parkinsons disease: Status: Acute Code(s): G20 - Parkinson's disease Assessment and Plan: [age] years old man with moderate to severe Parkinson's features with EDSS score of 6-7. After years of Parkinson's, he also has developed depression and psychotic features. I do not have access to his previous workup including brain imaging, but this evolution of his condition suggested that he might be going into or his underlying condition could very well be dementia with Lewy body disease. Review of brain scan done, maybe at [facility], can help. In any case, dopaminergic drugs are known to have possible psychiatric side effects but at the same time without dopamine supplementation, patient has significant physical disability. A balance has to be reached. In that regard, I would suggest discontinuing Stalevo, which is a combination of drugs. Instead of that, try plain carbidopa levodopa 25/100 2 tablets 4 to 5 times a day. Starting tomorrow, prescribed 1st does at 06:00 and then repeat that does at 10:00, 14:00, 18:00. make an observation tomorrow if that works out better and further adjustment can be made based upon how he reacts to this dose. If psychiatrically not better, may consider Nuplazid. Plan 1. Continue with same treatment. 2. Keep Effexor as prescribed 225 mg only the morning. 3. Keep on Sinemet as a prescribing doses. 4. Ativan will be changed to 4 times a day we Sinemet on March 19 Ativan is increased up to 0.75 5. Minute and increased up to 6 mg on March 18. 6. Trazodone started at 50 mg p.o. q.h.s. standing every night on March 18 7. Increased Ativan up to 1 mg at night to target anxiety on March 19 8. D/C Haldol on 03/28 and start Zyprexa 5 mg po qhs at 19:00. 9. Waiting for proper placement. (3) Major depressive disorder: Status: Acute Code(s): F32.9 - Major depressive disorder, single episode, unspecified (4) Psychosis: Status: Acute Code(s): F29 - Unspecified psychosis not due to a substance or known physiological condition Plan Elderly male with past history of Parkinson's disease that is advanced admitted for psychotic symptoms in the context of Sinemet. Plan 1. Gather collateral information. 2. Continue Haldol 0.5 p.o. t.i.d. to target psychosis. Stop on 03/28 and start Zyprexa at hs 3. Continue with medical workout. 4. Assessment with results. 5. reported that he had a 2nd dose of effexor in the evenging, we will start 37,5 mg po at 5 pm On March 09. Increase Effexor XR 2nd dose up to 75 on March 11. Later on, Effexor has been changed to 1 single dose of 225 mg in the morning 6. Change his antiparkinsonian to Sinemet 4 times a day. 7. Waiting for placement Reason for continued inpatient stay Substantial Risk for: inability to function, rapid decompensation and med/psych decompensation Time Spent With Patient Time: Total time managing care of this patient today __20__ minutes.
[2023-03-28 19:00] VITALS: BP 133/60; PULSE 71; RESP 18; TEMP 36.7; O2SAT 96
[2023-03-28] MEDS: Melatonin 3 MG TABLET 6 MG PO (19:57)
[2023-03-28] MEDS: LORazepam 1 MG TABLET 2 MG PO (19:58)
[2023-03-29 08:00] VITALS: BP 151/74; PULSE 89; RESP 18; TEMP 36.5; O2SAT 98
[2023-03-29] MEDS: LORazepam 0.5 MG TABLET 0.75 MG PO ×4 (09:06→21:07)
[2023-03-29] MEDS: Atorvastatin Calcium 10 MG TABLET PO (09:06)
[2023-03-29] MEDS: Venlafaxine HCl ER 75 MG CAP.ER.24H 225 MG PO (09:06)
--- NOTE | 2023-03-29 15:11 | HO.PSYCHPN ---
Subjective Subjective Date of Service: 03/29/23 Reason For Visit: SI Subjective Notes: Conditional Voluntary Interim History: The nursing staff reported the patient slept well last night since we started Zyprexa. His son visited him and he reported that he is less anxious. On interview the patient reports that he slept well, will keep Zyprexa at night since it has helped for [facility] Mental Status Exam Mental Status Exam Patient Appearance: Well Grooomed and Appropriate Patient Orientation: Person and Situation Level of Consciousness: Awake and Appropriate Patient Behavior: Guarded and Passive Mood Description: Withdrawn Affect Description: Constricted Patient Cognition Impaired: Yes Ability to Follow Directions: Good Speech Pattern: Clear Hallucinations: Auditory Delusions: Not Present Thought Process: Linear Thought Content: positive for [place] Judgement: Fair Diagnostics Vital Signs (24Hr): Vital Signs - 24 hr 03/28/23 19:00 03/29/23 08:00 Temperature 98.1 F 97.7 F Pulse Rate 71 89 Respiratory Rate 18 18 Blood Pressure 133/60 151/74 H Pulse Oximetry 96 98 Oxygen Delivery Method Room Air Room Air BMI result Body Mass Index 23.5 Labs 03/10/23 07:58 03/10/23 07:58 Medications Medications Current Medications Acetaminophen (Acetaminophen 325 Mg Tablet) 650 mg PO Q6H PRN PRN Reason: Headache/Pain Mild Scale (1-3) Last Admin: 03/28/23 06:35 Dose: 650 mg Al Hydroxide/Mg Hydroxide (Magnesium Hydrox/Alum Hydrox 30 Ml Oral.Susp) 30 ml PO Q6H PRN PRN Reason: Heartburn/Nausea Last Admin: 03/15/23 17:37 Dose: 30 ml Atorvastatin Calcium (Atorvastatin Calcium 10 Mg Tablet) 10 mg PO DAILY [facility] Last Admin: 03/29/23 09:06 Dose: 10 mg Carbidopa/Levodopa (Carbidopa/Levodopa 10/100 Tablet) 2 tab PO QID [facility] Last Admin: 03/29/23 11:52 Dose: 2 tab Fluticasone Propionate (Fluticasone Propionate Nasal 16 Gm [place]) 1 spray NOSTRIL-B BID [facility] Last Admin: 03/29/23 09:11 Dose: Not Given Hydrocortisone (Hydrocortisone 1 % Ointment 28.35 Gm Tube) 1 appl TOPICAL BID PRN; Protocol PRN Reason: hemorroids Last Admin: 03/23/23 17:04 Dose: 1 appl Lidocaine (Lidocaine 5 % Ointment 35 Gm) 1 appl TOPICAL Q6H PRN; Protocol PRN Reason: hemorroid pain Last Admin: 03/23/23 17:04 Dose: 1 appl Lorazepam (Lorazepam 0.5 Mg Tablet) 0.75 mg PO QID [facility] Last Admin: 03/29/23 11:53 Dose: 0.75 mg Lorazepam (Lorazepam 1 Mg Tablet) 2 mg PO BEDTIME [facility] Last Admin: 03/28/23 19:58 Dose: 2 mg Magnesium Hydroxide (Milk Of Magnesia 30 Ml Oral.Susp) 30 ml PO DAILY PRN PRN Reason: Constipation Last Admin: 03/05/23 08:41 Dose: 30 ml Melatonin (Melatonin 3 Mg Tablet) 6 mg PO BEDTIME [facility] Last Admin: 03/28/23 19:57 Dose: 6 mg Multivitamins/Vitamin C (Multivitamin Tablet) 1 tab PO BEDTIME [facility] Last Admin: 03/28/23 20:36 Dose: Not Given Olanzapine (Olanzapine 5 Mg Tablet) 5 mg PO DAILY@1900 [facility] Polyethylene Glycol (Polyethylene Glycol 3350 17 Gm Powd.Pack) 17 gm PO DAILY PRN PRN Reason: Constipation Last Admin: 03/19/23 10:04 Dose: 17 gm Trazodone HCl (Trazodone Hcl 50 Mg Tablet) 50 mg PO BEDTIME MRX1 PRN PRN Reason: Insomnia Last Admin: 03/28/23 03:54 Dose: 50 mg Trazodone HCl (Trazodone Hcl 25 Mg Halftab) 25 mg PO BID PRN PRN Reason: Agitation Last Admin: 03/26/23 03:32 Dose: 25 mg Trazodone HCl (Trazodone Hcl 50 Mg Tablet) 50 mg PO BEDTIME [facility] Last Admin: 03/28/23 19:57 Dose: 50 mg Trolamine Salicylate (Trolamine Salicylate 10 % Cream 141 Gm Tube) 1 appl TOPICAL QID PRN; Protocol PRN Reason: Pain, Moderate (Pain Scale 4-6 Last Admin: 03/17/23 00:35 Dose: 1 appl Venlafaxine HCl (Venlafaxine Hcl Er 75 Mg Cap.Er.24h) 225 mg PO DAILY [facility] Last Admin: 03/29/23 09:06 Dose: 225 mg Allergies Allergies Allergy/AdvReac Type Severity Reaction Status Date / Time oxycodone Allergy Unknown Verified 10/14/22 13:51 pollen extracts Allergy skin rash Verified 10/14/22 13:51 Assessment & Plan Assessment & Plan (1) Neurodegenerative cognitive impairment: Status: Acute Code(s): G31.9 - Degenerative disease of nervous system, unspecified (2) Parkinsons disease: Status: Acute Code(s): G20 - Parkinson's disease Assessment and Plan: [age] years old man with moderate to severe Parkinson's features with EDSS score of 6-7. After years of Parkinson's, he also has developed depression and psychotic features. I do not have access to his previous workup including brain imaging, but this evolution of his condition suggested that he might be going into or his underlying condition could very well be dementia with Lewy body disease. Review of brain scan done, maybe at [facility], can help. In any case, dopaminergic drugs are known to have possible psychiatric side effects but at the same time without dopamine supplementation, patient has significant physical disability. A balance has to be reached. In that regard, I would suggest discontinuing Stalevo, which is a combination of drugs. Instead of that, try plain carbidopa levodopa 25/100 2 tablets 4 to 5 times a day. Starting tomorrow, prescribed 1st does at 06:00 and then repeat that does at 10:00, 14:00, 18:00. make an observation tomorrow if that works out better and further adjustment can be made based upon how he reacts to this dose. If psychiatrically not better, may consider Nuplazid. Plan 1. Continue with same treatment. 2. Keep Effexor as prescribed 225 mg only the morning. 3. Keep on Sinemet as a prescribing doses. 4. Ativan will be changed to 4 times a day we Sinemet on March 19 Ativan is increased up to 0.75 5. Minute and increased up to 6 mg on March 18. 6. Trazodone started at 50 mg p.o. q.h.s. standing every night on March 18 7. Increased Ativan up to 1 mg at night to target anxiety on March 19 8. D/C Haldol on 03/28 and start Zyprexa 5 mg po qhs at 19:00. 9. Waiting for proper placement. (3) Major depressive disorder: Status: Acute Code(s): F32.9 - Major depressive disorder, single episode, unspecified (4) Psychosis: Status: Acute Code(s): F29 - Unspecified psychosis not due to a substance or known physiological condition Plan Elderly male with past history of Parkinson's disease that is advanced admitted for psychotic symptoms in the context of Sinemet. Plan 1. Gather collateral information. 2. Continue Haldol 0.5 p.o. t.i.d. to target psychosis. Stop on 03/28 and start Zyprexa at hs 3. Continue with medical workout. 4. Assessment with results. 5. reported that he had a 2nd dose of effexor in the evenging, we will start 37,5 mg po at 5 pm On March 09. Increase Effexor XR 2nd dose up to 75 on March 11. Later on, Effexor has been changed to 1 single dose of 225 mg in the morning 6. Change his antiparkinsonian to Sinemet 4 times a day. 7. Waiting for placement Reason for continued inpatient stay Substantial Risk for: inability to function, rapid decompensation and med/psych decompensation Time Spent With Patient Time: Total time managing care of this patient today __20__ minutes.
[2023-03-29 18:00] VITALS: BP 175/82; PULSE 92; RESP 14; TEMP 37.1
[2023-03-29] MEDS: Melatonin 3 MG TABLET 6 MG PO (21:04)
[2023-03-29] MEDS: Multivitamin TABLET 1 TAB PO (21:05)
[2023-03-29] MEDS: OLANZapine 5 MG TABLET PO (21:06)
[2023-03-29] MEDS: LORazepam 1 MG TABLET 2 MG PO (21:06)
[2023-03-29] MEDS: traZODone HCL 50 MG TABLET PO (21:07)
[2023-03-30] MEDS: Acetaminophen 325 MG TABLET 650 MG PO (04:44)
[2023-03-30 08:00] VITALS: BP 149/70; PULSE 95; RESP 18; TEMP 36.8; O2SAT 97
[2023-03-30] MEDS: Venlafaxine HCl ER 75 MG CAP.ER.24H 225 MG PO (08:22)
[2023-03-30] MEDS: Atorvastatin Calcium 10 MG TABLET PO (08:23)
[2023-03-30] MEDS: LORazepam 0.5 MG TABLET 0.75 MG PO (08:23)
--- NOTE | 2023-03-30 08:24 | P.PNPSI_ITS ---
Subjective Subjective Date of Service: 03/30/23 Reason For Visit: SI Subjective Notes: Conditional Voluntary Interim History: The nursing staff reported the patient has a lot of involuntary movements but it resolved with Sinemet 8 last only a few hours. He remains mostly dysphoric but with no auditory hallucinations. He was seen in the common areas. On interview the patient reported that Zyprexa help her better than Haldol to control his auditory hallucinations and poor sleep. Still anxious. Mental Status Exam Mental Status Exam Patient Appearance: Appropriate Patient Orientation: Person and Situation Level of Consciousness: Awake and Appropriate Patient Behavior: Guarded and Passive Mood Description: Withdrawn Affect Description: Blunted Patient Cognition Impaired: Yes Ability to Follow Directions: Good Speech Pattern: Clear Hallucinations: None Delusions: Not Present Thought Process: Distracted and Evasive Thought Content: positive for [place] and positive for Circumstantial Judgement: Fair Diagnostics Vital Signs (24Hr): Vital Signs - 24 hr 03/29/23 18:00 Temperature 98.7 F Pulse Rate 92 Respiratory Rate 14 Blood Pressure 175/82 H Oxygen Delivery Method Room Air BMI result Body Mass Index 23.5 Labs 03/10/23 07:58 03/10/23 07:58 Medications Medications Current Medications Acetaminophen (Acetaminophen 325 Mg Tablet) 650 mg PO Q6H PRN PRN Reason: Headache/Pain Mild Scale (1-3) Last Admin: 03/30/23 04:44 Dose: 650 mg Al Hydroxide/Mg Hydroxide (Magnesium Hydrox/Alum Hydrox 30 Ml Oral.Susp) 30 ml PO Q6H PRN PRN Reason: Heartburn/Nausea Last Admin: 03/15/23 17:37 Dose: 30 ml Atorvastatin Calcium (Atorvastatin Calcium 10 Mg Tablet) 10 mg PO DAILY [facility] Last Admin: 03/29/23 09:06 Dose: 10 mg Carbidopa/Levodopa (Carbidopa/Levodopa 10/100 Tablet) 2 tab PO QID [facility] Last Admin: 03/29/23 21:05 Dose: 2 tab Fluticasone Propionate (Fluticasone Propionate Nasal 16 Gm [place]) 1 spray NOSTRIL-B BID [facility] Last Admin: 03/30/23 01:11 Dose: Not Given Hydrocortisone (Hydrocortisone 1 % Ointment 28.35 Gm Tube) 1 appl TOPICAL BID PRN; Protocol PRN Reason: hemorroids Last Admin: 03/23/23 17:04 Dose: 1 appl Lidocaine (Lidocaine 5 % Ointment 35 Gm) 1 appl TOPICAL Q6H PRN; Protocol PRN Reason: hemorroid pain Last Admin: 03/23/23 17:04 Dose: 1 appl Lorazepam (Lorazepam 0.5 Mg Tablet) 0.75 mg PO QID [facility] Last Admin: 03/29/23 21:07 Dose: 0.75 mg Lorazepam (Lorazepam 1 Mg Tablet) 2 mg PO BEDTIME [facility] Last Admin: 03/29/23 21:06 Dose: 2 mg Magnesium Hydroxide (Milk Of Magnesia 30 Ml Oral.Susp) 30 ml PO DAILY PRN PRN Reason: Constipation Last Admin: 03/05/23 08:41 Dose: 30 ml Melatonin (Melatonin 3 Mg Tablet) 6 mg PO BEDTIME [facility] Last Admin: 03/29/23 21:04 Dose: 6 mg Multivitamins/Vitamin C (Multivitamin Tablet) 1 tab PO BEDTIME [facility] Last Admin: 03/29/23 21:05 Dose: 1 tab Olanzapine (Olanzapine 5 Mg Tablet) 5 mg PO DAILY@1900 [facility] Last Admin: 03/29/23 21:06 Dose: 5 mg Polyethylene Glycol (Polyethylene Glycol 3350 17 Gm Powd.Pack) 17 gm PO DAILY PRN PRN Reason: Constipation Last Admin: 03/19/23 10:04 Dose: 17 gm Trazodone HCl (Trazodone Hcl 50 Mg Tablet) 50 mg PO BEDTIME MRX1 PRN PRN Reason: Insomnia Last Admin: 03/28/23 03:54 Dose: 50 mg Trazodone HCl (Trazodone Hcl 25 Mg Halftab) 25 mg PO BID PRN PRN Reason: Agitation Last Admin: 03/26/23 03:32 Dose: 25 mg Trazodone HCl (Trazodone Hcl 50 Mg Tablet) 50 mg PO BEDTIME [facility] Last Admin: 03/29/23 21:07 Dose: 50 mg Trolamine Salicylate (Trolamine Salicylate 10 % Cream 141 Gm Tube) 1 appl TO PICAL QID PRN; Protocol PRN Reason: Pain, Moderate (Pain Scale 4-6 Last Admin: 03/17/23 00:35 Dose: 1 appl Venlafaxine HCl (Venlafaxine Hcl Er 75 Mg Cap.Er.24h) 225 mg PO DAILY [facility] Last Admin: 03/29/23 09:06 Dose: 225 mg Allergies Allergies Allergy/AdvReac Type Severity Reaction Status Date / Time oxycodone Allergy Unknown Verified 10/14/22 13:51 pollen extracts Allergy skin rash Verified 10/14/22 13:51 Assessment & Plan Assessment & Plan (1) Neurodegenerative cognitive impairment: Status: Acute Code(s): G31.9 - Degenerative disease of nervous system, unspecified (2) Parkinsons disease: Status: Acute Code(s): G20 - Parkinson's disease Assessment and Plan: [age] years old man with moderate to severe Parkinson's features with EDSS score of 6-7. After years of Parkinson's, he also has developed depression and psychotic features. I do not have access to his previous workup including brain imaging, but this evolution of his condition suggested that he might be going into or his underlying condition could very well be dementia with Lewy body disease. Review of brain scan done, maybe at [facility], can help. In any case, dopaminergic drugs are known to have possible psychiatric side effects but at the same time without dopamine supplementation, patient has significant physical disability. A balance has to be reached. In that regard, I would suggest discontinuing Stalevo, which is a combination of drugs. Instead of that, try plain carbidopa levodopa 25/100 2 tablets 4 to 5 times a day. Starting tomorrow, prescribed 1st does at 06:00 and then repeat that does at 10:00, 14:00, 18:00. make an observation tomorrow if that works out better and further adjustment can be made based upon how he reacts to this dose. If psychiatrically not better, may consider Nuplazid. Plan 1. Continue with same treatment. 2. Keep Effexor as prescribed 225 mg only the morning. 3. Keep on Sinemet as a prescribing doses. 4. Ativan will be changed to 4 times a day we Sinemet on March 19 Ativan is increased up to 1 mg on 03/30. 5. Minute and increased up to 6 mg on March 18. 6. Trazodone started at 50 mg p.o. q.h.s. standing every night on March 18 7. Increased Ativan up to 2 mg at night to target anxiety on March 19 8. D/C Haldol on 03/28 and start Zyprexa 5 mg po qhs at 19:00. 9. Waiting for proper placement. (3) Major depressive disorder: Status: Acute Code(s): F32.9 - Major depressive disorder, single episode, unspecified (4) Psychosis: Status: Acute Code(s): F29 - Unspecified psychosis not due to a substance or known physiological condition Plan Elderly male with past history of Parkinson's disease that is advanced admitted for psychotic symptoms in the context of Sinemet. Plan 1. Gather collateral information. 2. Continue Haldol 0.5 p.o. t.i.d. to target psychosis. Stop on 03/28 and start Zyprexa at hs 3. Continue with medical workout. 4. Assessment with results. 5. reported that he had a 2nd dose of effexor in the evenging, we will start 37,5 mg po at 5 pm On March 09. Increase Effexor XR 2nd dose up to 75 on March 11. Later on, Effexor has been changed to 1 single dose of 225 mg in the morning 6. Change his antiparkinsonian to Sinemet 4 times a day. 7. Waiting for placement Reason for continued inpatient stay Substantial Risk for: inability to function, rapid decompensation and med/psych decompensation Time Spent With Patient Time: Total time managing care of this patient today _20___ minutes.
[2023-03-30] MEDS: LORazepam 1 MG TABLET PO ×3 (12:35→20:11)
[2023-03-30] MEDS: Lidocaine 5 % Ointment 35 GM 1 APPL TOPICAL (17:29)
[2023-03-30] MEDS: Hydrocortisone 1 % Ointment 28.35 GM TUBE 1 APPL TOPICAL (17:29)
[2023-03-30 18:00] VITALS: BP 144/72; PULSE 78; TEMP 36.1; O2SAT 94
[2023-03-30] MEDS: OLANZapine 5 MG TABLET PO (20:08)
[2023-03-30] MEDS: traZODone HCL 50 MG TABLET PO (20:09)
[2023-03-30] MEDS: Melatonin 3 MG TABLET 6 MG PO (20:09)
[2023-03-30] MEDS: Multivitamin TABLET 1 TAB PO (20:10)
[2023-03-30] MEDS: LORazepam 1 MG TABLET 2 MG PO (20:22)
[2023-03-31 06:00] VITALS: BP 166/81; PULSE 74; RESP 18; TEMP 36.2; O2SAT 96
[2023-03-31 07:00] VITALS: BMI 23.5
[2023-03-31] MEDS: Atorvastatin Calcium 10 MG TABLET PO (08:04)
[2023-03-31] MEDS: Venlafaxine HCl ER 75 MG CAP.ER.24H 225 MG PO (08:04)
[2023-03-31] MEDS: LORazepam 1 MG TABLET PO ×4 (08:04→19:53)
--- NOTE | 2023-03-31 15:21 | HO.PSYCHPN ---
Subjective Subjective Date of Service: 03/31/23 Reason For Visit: SI Subjective Notes: Conditional Voluntary Interim History: The nursing staff reported the patient slept well last night he is doing well he had been more active. The social staff worker reported that [facility] will come today to assess him and looking for placement. On interview the patient denies new symptoms he feels much better, waiting for placement Mental Status Exam Mental Status Exam Patient Appearance: Appropriate Patient Orientation: Person and Situation Level of Consciousness: Awake and Appropriate Patient Behavior: Guarded and Passive Mood Description: Calm Affect Description: Constricted Patient Cognition Impaired: Yes Ability to Follow Directions: Good Speech Pattern: Clear Hallucinations: None Delusions: Not Present Thought Process: Linear Thought Content: positive for Circumstantial Judgement: Fair Diagnostics Vital Signs (24Hr): Vital Signs - 24 hr 03/30/23 18:00 03/31/23 06:00 Temperature 96.9 F 97.1 F Pulse Rate 78 74 Respiratory Rate 18 Blood Pressure 144/72 H 166/81 H Pulse Oximetry 94 96 Oxygen Delivery Method Room Air Room Air BMI result Body Mass Index 23.5 Labs 03/10/23 07:58 03/10/23 07:58 Medications Medications Current Medications Acetaminophen (Acetaminophen 325 Mg Tablet) 650 mg PO Q6H PRN PRN Reason: Headache/Pain Mild Scale (1-3) Last Admin: 03/30/23 04:44 Dose: 650 mg Al Hydroxide/Mg Hydroxide (Magnesium Hydrox/Alum Hydrox 30 Ml Oral.Susp) 30 ml PO Q6H PRN PRN Reason: Heartburn/Nausea Last Admin: 03/15/23 17:37 Dose: 30 ml Atorvastatin Calcium (Atorvastatin Calcium 10 Mg Tablet) 10 mg PO DAILY [facility] Last Admin: 03/31/23 08:04 Dose: 10 mg Carbidopa/Levodopa (Carbidopa/Levodopa 10/100 Tablet) 2 tab PO QID [facility] Last Admin: 03/31/23 12:03 Dose: 2 tab Fluticasone Propionate (Fluticasone Propionate Nasal 16 Gm [place]) 1 spray NOSTRIL-B BID [facility] Last Admin: 03/31/23 08:43 Dose: Not Given Hydrocortisone (Hydrocortisone 1 % Ointment 28.35 Gm Tube) 1 appl TOPICAL BID PRN; Protocol PRN Reason: hemorroids Last Admin: 03/30/23 17:29 Dose: 1 appl Lidocaine (Lidocaine 5 % Ointment 35 Gm) 1 appl TOPICAL Q6H PRN; Protocol PRN Reason: hemorroid pain Last Admin: 03/30/23 17:29 Dose: 1 appl Lorazepam (Lorazepam 1 Mg Tablet) 2 mg PO BEDTIME [facility] Last Admin: 03/30/23 20:22 Dose: 2 mg Lorazepam (Lorazepam 1 Mg Tablet) 1 mg PO QID [facility] Last Admin: 03/31/23 12:03 Dose: 1 mg Magnesium Hydroxide (Milk Of Magnesia 30 Ml Oral.Susp) 30 ml PO DAILY PRN PRN Reason: Constipation Last Admin: 03/05/23 08:41 Dose: 30 ml Melatonin (Melatonin 3 Mg Tablet) 6 mg PO BEDTIME [facility] Last Admin: 03/30/23 20:09 Dose: 6 mg Multivitamins/Vitamin C (Multivitamin Tablet) 1 tab PO BEDTIME [facility] Last Admin: 03/30/23 20:10 Dose: 1 tab Olanzapine (Olanzapine 5 Mg Tablet) 5 mg PO DAILY@1900 [facility] Last Admin: 03/30/23 20:08 Dose: 5 mg Polyethylene Glycol (Polyethylene Glycol 3350 17 Gm Powd.Pack) 17 gm PO DAILY PRN PRN Reason: Constipation Last Admin: 03/19/23 10:04 Dose: 17 gm Trazodone HCl (Trazodone Hcl 50 Mg Tablet) 50 mg PO BEDTIME MRX1 PRN PRN Reason: Insomnia Last Admin: 03/28/23 03:54 Dose: 50 mg Trazodone HCl (Trazodone Hcl 25 Mg Halftab) 25 mg PO BID PRN PRN Reason: Agitation Last Admin: 03/26/23 03:32 Dose: 25 mg Trazodone HCl (Trazodone Hcl 50 Mg Tablet) 50 mg PO BEDTIME [facility] Last Admin: 03/30/23 20:09 Dose: 50 mg Trolamine Salicylate (Trolamine Salicylate 10 % Cream 141 Gm Tube) 1 appl TOPICAL QID PRN; Protocol PRN Reason: Pain, Moderate (Pain Scale 4-6 Last Admin: 03/17/23 00:35 Dose: 1 appl Venlafaxine HCl (Venlafaxine Hcl Er 75 Mg Cap.Er.24h) 225 mg PO DAILY [facility] Last Admin: 03/31/23 08:04 Dose: 225 mg Allergies Allergies Allergy/AdvReac Type Severity Reaction Status Date / Time oxycodone Allergy Unknown Verified 10/14/22 13:51 pollen extracts Allergy skin rash Verified 10/14/22 13:51 Assessment & Plan Assessment & Plan (1) Neurodegenerative cognitive impairment: Status: Acute Code(s): G31.9 - Degenerative disease of nervous system, unspecified (2) Parkinsons disease: Status: Acute Code(s): G20 - Parkinson's disease Assessment and Plan: [age] years old man with moderate to severe Parkinson's features with EDSS score of 6-7. After years of Parkinson's, he also has developed depression and psychotic features. I do not have access to his previous workup including brain imaging, but this evolution of his condition suggested that he might be going into or his underlying condition could very well be dementia with Lewy body disease. Review of brain scan done, maybe at [facility], can help. In any case, dopaminergic drugs are known to have possible psychiatric side effects but at the same time without dopamine supplementation, patient has significant physical disability. A balance has to be reached. In that regard, I would suggest discontinuing Stalevo, which is a combination of drugs. Instead of that, try plain carbidopa levodopa 25/100 2 tablets 4 to 5 times a day. Starting tomorrow, prescribed 1st does at 06:00 and then repeat that does at 10:00, 14:00, 18:00. make an observation tomorrow if that works out better and further adjustment can be made based upon how he reacts to this dose. If psychiatrically not better, may consider Nuplazid. Plan 1. Continue with same treatment. 2. Keep Effexor as prescribed 225 mg only the morning. 3. Keep on Sinemet as a prescribing doses. 4. Ativan will be changed to 4 times a day we Sinemet on March 19 Ativan is increased up to 1 mg on 03/30. 5. Minute and increased up to 6 mg on March 18. 6. Trazodone started at 50 mg p.o. q.h.s. standing every night on March 18 7. Increased Ativan up to 2 mg at night to target anxiety on March 19 8. D/C Haldol on 03/28 and start Zyprexa 5 mg po qhs at 19:00. 9. Waiting for proper placement. (3) Major depressive disorder: Status: Acute Code(s): F32.9 - Major depressive disorder, single episode, unspecified (4) Psychosis: Status: Acute Code(s): F29 - Unspecified psychosis not due to a substance or known physiological condition Plan Elderly male with past history of Parkinson's disease that is advanced admitted for psychotic symptoms in the context of Sinemet. Plan 1. Gather collateral information. 2. Continue Haldol 0.5 p.o. t.i.d. to target psychosis. Stop on 03/28 and start Zyprexa at hs 3. Continue with medical workout. 4. Assessment with results. 5. reported that he had a 2nd dose of effexor in the evenging, we will start 37,5 mg po at 5 pm On March 09. Increase Effexor XR 2nd dose up to 75 on March 11. Later on, Effexor has been changed to 1 single dose of 225 mg in the morning 6. Change his antiparkinsonian to Sinemet 4 times a day. 7. Waiting for placement Reason for continued inpatient stay Substantial Risk for: inability to function, rapid decompensation and med/psych decompensation Time Spent With Patient Time: Total time managing care of this patient today _20___ minutes.
[2023-03-31] MEDS: LORazepam 1 MG TABLET 2 MG PO (19:53)
[2023-03-31] MEDS: OLANZapine 5 MG TABLET PO (19:54)
[2023-03-31] MEDS: traZODone HCL 50 MG TABLET PO (19:55)
[2023-03-31] MEDS: Melatonin 3 MG TABLET 6 MG PO (19:55)
[2023-03-31] MEDS: Multivitamin TABLET 1 TAB PO (19:56)
[2023-04-01 08:00] VITALS: BP 155/72; PULSE 104; RESP 18; TEMP 36.8; O2SAT 99
[2023-04-01] MEDS: Venlafaxine HCl ER 75 MG CAP.ER.24H 225 MG PO (08:22)
[2023-04-01] MEDS: LORazepam 1 MG TABLET PO ×3 (08:22→16:12)
[2023-04-01] MEDS: Atorvastatin Calcium 10 MG TABLET PO (08:22)
--- NOTE | 2023-04-01 12:18 | HO.PSYCHPN ---
Subjective Subjective Date of Service: 04/01/23 Reason For Visit: SI Subjective Notes: Conditional Voluntary Interim History: The nursing staff reported the patient had been doing well fully compliant with treatment, anxiety has improved. The dialysis social worker reported that we are waiting for financial clearance. Yesterday [facility] came and assessed him. On interview the patient denies new symptoms, waiting for placement Mental Status Exam Mental Status Exam Patient Appearance: Well Grooomed and Appropriate Patient Orientation: Person and Situation Level of Consciousness: Awake and Appropriate Patient Behavior: Guarded and Cooperative Mood Description: Calm Affect Description: Constricted Patient Cognition Impaired: Yes Ability to Follow Directions: Good Speech Pattern: Clear Hallucinations: None Delusions: Not Present Thought Process: Distracted and Linear Thought Content: positive for [place] and positive for Circumstantial Judgement: Fair Diagnostics Vital Signs (24Hr): Vital Signs - 24 hr 04/01/23 08:00 Temperature 98.2 F Pulse Rate 104 H Respiratory Rate 18 Blood Pressure 155/72 H Pulse Oximetry 99 Oxygen Delivery Method Room Air BMI result Body Mass Index 23.5 Labs 03/10/23 07:58 03/10/23 07:58 Medications Medications Current Medications Acetaminophen (Acetaminophen 325 Mg Tablet) 650 mg PO Q6H PRN PRN Reason: Headache/Pain Mild Scale (1-3) Last Admin: 03/30/23 04:44 Dose: 650 mg Al Hydroxide/Mg Hydroxide (Magnesium Hydrox/Alum Hydrox 30 Ml Oral.Susp) 30 ml PO Q6H PRN PRN Reason: Heartburn/Nausea Last Admin: 03/15/23 17:37 Dose: 30 ml Atorvastatin Calcium (Atorvastatin Calcium 10 Mg Tablet) 10 mg PO DAILY [facility] Last Admin: 04/01/23 08:22 Dose: 10 mg Carbidopa/Levodopa (Carbidopa/Levodopa 10/100 Tablet) 2 tab PO QID [facility] Last Admin: 04/01/23 12:03 Dose: 2 tab Fluticasone Propionate (Fluticasone Propionate Nasal 16 Gm [place]) 1 spray NOSTRIL-B BID [facility] Last Admin: 04/01/23 09:05 Dose: Not Given Hydrocortisone (Hydrocortisone 1 % Ointment 28.35 Gm Tube) 1 appl TOPICAL BID PRN; Protocol PRN Reason: hemorroids Last Admin: 03/30/23 17:29 Dose: 1 appl Lidocaine (Lidocaine 5 % Ointment 35 Gm) 1 appl TOPICAL Q6H PRN; Protocol PRN Reason: hemorroid pain Last Admin: 03/30/23 17:29 Dose: 1 appl Lorazepam (Lorazepam 1 Mg Tablet) 1 mg PO QID [facility] Last Admin: 04/01/23 12:03 Dose: 1 mg Lorazepam (Lorazepam 1 Mg Tablet) 2 mg PO BEDTIME [facility] Magnesium Hydroxide (Milk Of Magnesia 30 Ml Oral.Susp) 30 ml PO DAILY PRN PRN Reason: Constipation Last Admin: 03/05/23 08:41 Dose: 30 ml Melatonin (Melatonin 3 Mg Tablet) 6 mg PO BEDTIME [facility] Last Admin: 03/31/23 19:55 Dose: 6 mg Multivitamins/Vitamin C (Multivitamin Tablet) 1 tab PO BEDTIME [facility] Last Admin: 03/31/23 19:56 Dose: 1 tab Olanzapine (Olanzapine 5 Mg Tablet) 5 mg PO DAILY@1900 [facility] Last Admin: 03/31/23 19:54 Dose: 5 mg Polyethylene Glycol (Polyethylene Glycol 3350 17 Gm Powd.Pack) 17 gm PO DAILY PRN PRN Reason: Constipation Last Admin: 03/19/23 10:04 Dose: 17 gm Trazodone HCl (Trazodone Hcl 50 Mg Tablet) 50 mg PO BEDTIME MRX1 PRN PRN Reason: Insomnia Last Admin: 03/28/23 03:54 Dose: 50 mg Trazodone HCl (Trazodone Hcl 25 Mg Halftab) 25 mg PO BID PRN PRN Reason: Agitation Last Admin: 03/26/23 03:32 Dose: 25 mg Trazodone HCl (Trazodone Hcl 50 Mg Tablet) 50 mg PO BEDTIME [facility] Last Admin: 03/31/23 19:55 Dose: 50 mg Trolamine Salicylate (Trolamine Salicylate 10 % Cream 141 Gm Tube) 1 appl TOPICAL QID PRN; Protocol PRN Reason: Pain, Moderate (Pain Scale 4-6 Last Admin: 03/17/23 00:35 Dose: 1 appl Venlafaxine HCl (Venlafaxine Hcl Er 75 Mg Cap.Er.24h) 225 mg PO DAILY [facility] Last Admin: 04/01/23 08:22 Dose: 225 mg Allergies Allergies Allergy/AdvReac Type Severity Reaction Status Date / Time oxycodone Allergy Unknown Verified 10/14/22 13:51 pollen extracts Allergy skin rash Verified 10/14/22 13:51 Assessment & Plan Assessment & Plan (1) Neurodegenerative cognitive impairment: Status: Acute Code(s): G31.9 - Degenerative disease of nervous system, unspecified (2) Parkinsons disease: Status: Acute Code(s): G20 - Parkinson's disease Assessment and Plan: [age] years old man with moderate to severe Parkinson's features with EDSS score of 6-7. After years of Parkinson's, he also has developed depression and psychotic features. I do not have access to his previous workup including brain imaging, but this evolution of his condition suggested that he might be going into or his underlying condition could very well be dementia with Lewy body disease. Review of brain scan done, maybe at [facility], can help. In any case, dopaminergic drugs are known to have possible psychiatric side effects but at the same time without dopamine supplementation, patient has significant physical disability. A balance has to be reached. In that regard, I would suggest discontinuing Stalevo, which is a combination of drugs. Instead of that, try plain carbidopa levodopa 25/100 2 tablets 4 to 5 times a day. Starting tomorrow, prescribed 1st does at 06:00 and then repeat that does at 10:00, 14:00, 18:00. make an observation tomorrow if that works out better and further adjustment can be made based upon how he reacts to this dose. If psychiatrically not better, may consider Nuplazid. Plan 1. Continue with same treatment. 2. Keep Effexor as prescribed 225 mg only the morning. 3. Keep on Sinemet as a prescribing doses. 4. Ativan will be changed to 4 times a day we Sinemet on March 19 Ativan is increased up to 1 mg on 03/30. 5. Minute and increased up to 6 mg on March 18. 6. Trazodone started at 50 mg p.o. q.h.s. standing every night on March 18 7. Increased Ativan up to 2 mg at night to target anxiety on March 19 8. D/C Haldol on 03/28 and start Zyprexa 5 mg po qhs at 19:00. 9. Waiting for proper placement. (3) Major depressive disorder: Status: Acute Code(s): F32.9 - Major depressive disorder, single episode, unspecified (4) Psychosis: Status: Acute Code(s): F29 - Unspecified psychosis not due to a substance or known physiological condition Plan Elderly male with past history of Parkinson's disease that is advanced admitted for psychotic symptoms in the context of Sinemet. Plan 1. Gather collateral information. 2. Continue Haldol 0.5 p.o. t.i.d. to target psychosis. Stop on 03/28 and start Zyprexa at hs 3. Continue with medical workout. 4. Assessment with results. 5. reported that he had a 2nd dose of effexor in the evenging, we will start 37,5 mg po at 5 pm On March 09. Increase Effexor XR 2nd dose up to 75 on March 11. Later on, Effexor has been changed to 1 single dose of 225 mg in the morning 6. Change his antiparkinsonian to Sinemet 4 times a day. 7. Waiting for placement Reason for continued inpatient stay Substantial Risk for: inability to function, rapid decompensation and med/psych decompensation Time Spent With Patient Time: Total time managing care of this patient today _20___ minutes.
[2023-04-01] MEDS: LORazepam 1 MG TABLET 2 MG PO (19:53)
[2023-04-01] MEDS: Multivitamin TABLET 1 TAB PO (19:53)
[2023-04-01] MEDS: Melatonin 3 MG TABLET 6 MG PO (19:54)
[2023-04-01] MEDS: traZODone HCL 50 MG TABLET PO (19:55)
[2023-04-01] MEDS: OLANZapine 5 MG TABLET PO (19:55)
[2023-04-01 20:00] VITALS: BP 156/74; PULSE 81; RESP 18; TEMP 36.7; O2SAT 98
[2023-04-02] MEDS: traZODone HCL 50 MG TABLET PO ×2 (00:47→19:51)
[2023-04-02 08:00] VITALS: BP 137/61; PULSE 92; RESP 16; TEMP 36.3; O2SAT 96
[2023-04-02] MEDS: LORazepam 1 MG TABLET PO ×3 (08:41→16:10)
[2023-04-02] MEDS: Venlafaxine HCl ER 75 MG CAP.ER.24H 225 MG PO (08:41)
[2023-04-02] MEDS: Atorvastatin Calcium 10 MG TABLET PO (08:41)
[2023-04-02] MEDS: Fluticasone Propionate Nasal 16 GM SPRAY 1 SPRAY NOSTRIL-B (08:46)
--- NOTE | 2023-04-02 16:45 | HO.PSYCHPN ---
Subjective Subjective Date of Service: 04/02/23 Reason For Visit: SI Interim History: Met with patient; discussed with team Patient reports that he has a lot of anxiety still and that it gets worse right before he takes his next anxiety pill Mental Status Exam Mental Status Exam Patient Appearance: Well Grooomed and Appropriate Patient Orientation: Person and Situation Level of Consciousness: Awake and Appropriate Patient Behavior: Guarded and Cooperative Mood Description: Anxious Affect Description: Constricted and Anxious Patient Cognition Impaired: Yes Ability to Follow Directions: Good Speech Pattern: Clear Hallucinations: None Delusions: Not Present Thought Process: Distracted and Linear Thought Content: positive for [place] and positive for Circumstantial Judgement: Fair Diagnostics Vital Signs (24Hr): Vital Signs - 24 hr 04/01/23 20:00 04/02/23 08:00 Temperature 98.1 F 97.4 F Pulse Rate 81 92 Respiratory Rate 18 16 Blood Pressure 156/74 H 137/61 Pulse Oximetry 98 96 Oxygen Delivery Method Room Air Room Air BMI result Body Mass Index 23.5 Labs 03/10/23 07:58 03/10/23 07:58 Medications Medications Current Medications Acetaminophen (Acetaminophen 325 Mg Tablet) 650 mg PO Q6H PRN PRN Reason: Headache/Pain Mild Scale (1-3) Last Admin: 03/30/23 04:44 Dose: 650 mg Al Hydroxide/Mg Hydroxide (Magnesium Hydrox/Alum Hydrox 30 Ml Oral.Susp) 30 ml PO Q6H PRN PRN Reason: Heartburn/Nausea Last Admin: 03/15/23 17:37 Dose: 30 ml Atorvastatin Calcium (Atorvastatin Calcium 10 Mg Tablet) 10 mg PO DAILY [facility] Last Admin: 04/02/23 08:41 Dose: 10 mg Carbidopa/Levodopa (Carbidopa/Levodopa 10/100 Tablet) 2 tab PO QID [facility] Last Admin: 04/02/23 16:10 Dose: 2 tab Fluticasone Propionate (Fluticasone Propionate Nasal 16 Gm [place]) 1 spray NOSTRIL-B BID [facility] Last Admin: 04/02/23 08:46 Dose: 1 spray Hydrocortisone (Hydrocortisone 1 % Ointment 28.35 Gm Tube) 1 appl TOPICAL BID PRN; Protocol PRN Reason: hemorroids Last Admin: 03/30/23 17:29 Dose: 1 appl Lidocaine (Lidocaine 5 % Ointment 35 Gm) 1 appl TOPICAL Q6H PRN; Protocol PRN Reason: hemorroid pain Last Admin: 03/30/23 17:29 Dose: 1 appl Lorazepam (Lorazepam 1 Mg Tablet) 1 mg PO QID [facility] Last Admin: 04/02/23 16:10 Dose: 1 mg Lorazepam (Lorazepam 1 Mg Tablet) 2 mg PO BEDTIME [facility] Last Admin: 04/01/23 19:53 Dose: 2 mg Magnesium Hydroxide (Milk Of Magnesia 30 Ml Oral.Susp) 30 ml PO DAILY PRN PRN Reason: Constipation Last Admin: 03/05/23 08:41 Dose: 30 ml Melatonin (Melatonin 3 Mg Tablet) 6 mg PO BEDTIME [facility] Last Admin: 04/01/23 19:54 Dose: 6 mg Multivitamins/Vitamin C (Multivitamin Tablet) 1 tab PO BEDTIME [facility] Last Admin: 04/01/23 19:53 Dose: 1 tab Olanzapine (Olanzapine 5 Mg Tablet) 5 mg PO DAILY@1900 [facility] Last Admin: 04/01/23 19:55 Dose: 5 mg Polyethylene Glycol (Polyethylene Glycol 3350 17 Gm Powd.Pack) 17 gm PO DAILY PRN PRN Reason: Constipation Last Admin: 03/19/23 10:04 Dose: 17 gm Tramadol HCl (Tramadol Hcl 50 Mg Tablet) 50 mg PO Q6H PRN PRN Reason: Pain, Moderate(Pain Scale 4-6) Trazodone HCl (Trazodone Hcl 50 Mg Tablet) 50 mg PO BEDTIME MRX1 PRN PRN Reason: Insomnia Last Admin: 04/02/23 00:47 Dose: 50 mg Trazodone HCl (Trazodone Hcl 25 Mg Halftab) 25 mg PO BID PRN PRN Reason: Agitation Last Admin: 03/26/23 03:32 Dose: 25 mg Trazodone HCl (Trazodone Hcl 50 Mg Tablet) 50 mg PO BEDTIME [facility] Last Admin: 04/01/23 19:55 Dose: 50 mg Trolamine Salicylate (Trolamine Salicylate 10 % Cream 141 Gm Tube) 1 appl TOPICAL QID PRN; Protocol PRN Reason: Pain, Moderate (Pain Scale 4-6 Last Admin: 03/17/23 00:35 Dose: 1 appl Venlafaxine HCl (Venlafaxine Hcl Er 75 Mg Cap.Er.24h) 225 mg PO DAILY [facility] Last Admin: 04/02/23 08:41 Dose: 225 mg Allergies Allergies Allergy/AdvReac Type Severity Reaction Status Date / Time oxycodone Allergy Unknown Verified 10/14/22 13:51 pollen extracts Allergy skin rash Verified 10/14/22 13:51 Assessment & Plan Assessment & Plan (1) Neurodegenerative cognitive impairment: Status: Acute Code(s): G31.9 - Degenerative disease of nervous system, unspecified (2) Parkinsons disease: Status: Acute Code(s): G20 - Parkinson's disease Assessment and Plan: [age] years old man with moderate to severe Parkinson's features with EDSS score of 6-7. After years of Parkinson's, he also has developed depression and psychotic features. I do not have access to his previous workup including brain imaging, but this evolution of his condition suggested that he might be going into or his underlying condition could very well be dementia with Lewy body disease. Review of brain scan done, maybe at [facility], can help. In any case, dopaminergic drugs are known to have possible psychiatric side effects but at the same time without dopamine supplementation, patient has significant physical disability. A balance has to be reached. In that regard, I would suggest discontinuing Stalevo, which is a combination of drugs. Instead of that, try plain carbidopa levodopa 25/100 2 tablets 4 to 5 times a day. Starting tomorrow, prescribed 1st does at 06:00 and then repeat that does at 10:00, 14:00, 18:00. make an observation tomorrow if that works out better and further adjustment can be made based upon how he reacts to this dose. If psychiatrically not better, may consider Nuplazid. Plan 1. Continue with same treatment. 2. Keep Effexor as prescribed 225 mg only the morning. 3. Keep on Sinemet as a prescribing doses. 4. Ativan will be changed to 4 times a day we Sinemet on March 19 Ativan is increased up to 1 mg on 03/30. 5. Minute and increased up to 6 mg on March 18. 6. Trazodone started at 50 mg p.o. q.h.s. standing every night on March 18 7. Increased Ativan up to 2 mg at night to target anxiety on March 19 8. D/C Haldol on 03/28 and start Zyprexa 5 mg po qhs at 19:00. 9. Waiting for proper placement. (3) Major depressive disorder: Status: Acute Code(s): F32.9 - Major depressive disorder, single episode, unspecified (4) Psychosis: Status: Acute Code(s): F29 - Unspecified psychosis not due to a substance or known physiological condition Plan Elderly male with past history of Parkinson's disease that is advanced admitted for psychotic symptoms in the context of Sinemet. Hospital course: 04/02 continue current treatment; patient already on considerable amount of Ativan; likely defer to primary team to address continued anxiety Plan 1. Gather collateral information. 2. Continue Haldol 0.5 p.o. t.i.d. to target psychosis. Stop on 03/28 and start Zyprexa at hs 3. Continue with medical workout. 4. Assessment with results. 5. reported that he had a 2nd dose of effexor in the evenging, we will start 37,5 mg po at 5 pm On March 09. Increase Effexor XR 2nd dose up to 75 on March 11. Later on, Effexor has been changed to 1 single dose of 225 mg in the morning 6. Change his antiparkinsonian to Sinemet 4 times a day. 7. Waiting for placement Patient educated on: diagnosis and medication risk/benefits Informed Consent: understands and further education needed Reason for continued inpatient stay Substantial Risk for: inability to function Time Spent With Patient Time: Total time managing care of this patient today ____ minutes.
[2023-04-02 18:00] VITALS: BP 143/68; PULSE 82; RESP 16; TEMP 36.3; O2SAT 98
[2023-04-02] MEDS: OLANZapine 5 MG TABLET PO (18:05)
[2023-04-02] MEDS: Melatonin 3 MG TABLET 6 MG PO (19:41)
[2023-04-02] MEDS: LORazepam 1 MG TABLET 2 MG PO (19:41)
[2023-04-03 06:00] VITALS: BP 172/79; PULSE 91; RESP 18; TEMP 36.8; O2SAT 98
[2023-04-03] MEDS: Venlafaxine HCl ER 75 MG CAP.ER.24H 225 MG PO (08:05)
[2023-04-03] MEDS: LORazepam 1 MG TABLET PO ×3 (08:06→16:03)
[2023-04-03] MEDS: Atorvastatin Calcium 10 MG TABLET PO (08:06)
[2023-04-03] MEDS: traZODone HCL 25 MG HALFTAB PO (11:06)
[2023-04-03 18:00] VITALS: BP 151/72; PULSE 82; RESP 16; TEMP 36.6; O2SAT 98
--- NOTE | 2023-04-03 18:15 | P.PNPSI_ITS ---
Subjective Subjective Date of Service: 04/03/23 Reason For Visit: SI Interim History: Met with patient; discussed with team Discussed medications with patient and he agrees to wait to discuss further with primary team; otherwise same presentation Mental Status Exam Mental Status Exam Patient Appearance: Well Grooomed and Appropriate Patient Orientation: Person and Situation Level of Consciousness: Awake and Appropriate Patient Behavior: Guarded and Cooperative Mood Description: Anxious Affect Description: Constricted and Anxious Patient Cognition Impaired: Yes Ability to Follow Directions: Good Speech Pattern: Clear Hallucinations: None Delusions: Not Present Thought Process: Distracted and Linear Thought Content: positive for [place] and positive for Circumstantial Judgement: Fair Diagnostics Vital Signs (24Hr): Vital Signs - 24 hr 04/03/23 06:00 Temperature 98.2 F Pulse Rate 91 Respiratory Rate 18 Blood Pressure 172/79 H Pulse Oximetry 98 Oxygen Delivery Method Room Air BMI result Body Mass Index 23.5 Labs 03/10/23 07:58 03/10/23 07:58 Medications Medications Current Medications Acetaminophen (Acetaminophen 325 Mg Tablet) 650 mg PO Q6H PRN PRN Reason: Headache/Pain Mild Scale (1-3) Last Admin: 03/30/23 04:44 Dose: 650 mg Al Hydroxide/Mg Hydroxide (Magnesium Hydrox/Alum Hydrox 30 Ml Oral.Susp) 30 ml PO Q6H PRN PRN Reason: Heartburn/Nausea Last Admin: 03/15/23 17:37 Dose: 30 ml Atorvastatin Calcium (Atorvastatin Calcium 10 Mg Tablet) 10 mg PO DAILY [facility] Last Admin: 04/03/23 08:06 Dose: 10 mg Carbidopa/Levodopa (Carbidopa/Levodopa 10/100 Tablet) 2 tab PO QID [facility] Last Admin: 04/03/23 16:02 Dose: 2 tab Fluticasone Propionate (Fluticasone Propionate Nasal 16 Gm [place]) 1 spray NOSTRIL-B BID [facility] Last Admin: 04/03/23 08:06 Dose: Not Given Hydrocortisone (Hydrocortisone 1 % Ointment 28.35 Gm Tube) 1 appl TOPICAL BID PRN; Protocol PRN Reason: hemorroids Last Admin: 03/30/23 17:29 Dose: 1 appl Lidocaine (Lidocaine 5 % Ointment 35 Gm) 1 appl TOPICAL Q6H PRN; Protocol PRN Reason: hemorroid pain Last Admin: 03/30/23 17:29 Dose: 1 appl Lorazepam (Lorazepam 1 Mg Tablet) 2 mg PO BEDTIME [facility] Last Admin: 04/02/23 19:41 Dose: 2 mg Lorazepam (Lorazepam 1 Mg Tablet) 1 mg PO TID@0900,1300,1600 [facility] Last Admin: 04/03/23 16:03 Dose: 1 mg Magnesium Hydroxide (Milk Of Magnesia 30 Ml Oral.Susp) 30 ml PO DAILY PRN PRN Reason: Constipation Last Admin: 03/05/23 08:41 Dose: 30 ml Melatonin (Melatonin 3 Mg Tablet) 6 mg PO BEDTIME [facility] Last Admin: 04/02/23 19:41 Dose: 6 mg Multivitamins/Vitamin C (Multivitamin Tablet) 1 tab PO BEDTIME [facility] Last Admin: 04/02/23 19:41 Dose: Not Given Olanzapine (Olanzapine 5 Mg Tablet) 5 mg PO DAILY@1900 [facility] Last Admin: 04/02/23 18:05 Dose: 5 mg Polyethylene Glycol (Polyethylene Glycol 3350 17 Gm Powd.Pack) 17 gm PO DAILY PRN PRN Reason: Constipation Last Admin: 03/19/23 10:04 Dose: 17 gm Tramadol HCl (Tramadol Hcl 50 Mg Tablet) 50 mg PO Q6H PRN PRN Reason: Pain, Moderate(Pain Scale 4-6) Trazodone HCl (Trazodone Hcl 50 Mg Tablet) 50 mg PO BEDTIME MRX1 PRN PRN Reason: Insomnia Last Admin: 04/02/23 00:47 Dose: 50 mg Trazodone HCl (Trazodone Hcl 25 Mg Halftab) 25 mg PO BID PRN PRN Reason: Agitation Last Admin: 04/03/23 11:06 Dose: 25 mg Trazodone HCl (Trazodone Hcl 50 Mg Tablet) 50 mg PO BEDTIME [facility] Last Admin: 04/02/23 19:51 Dose: 50 mg Trolamine Salicylate (Trolamine Salicylate 10 % Cream 141 Gm Tube) 1 appl T OPICAL QID PRN; Protocol PRN Reason: Pain, Moderate (Pain Scale 4-6 Last Admin: 03/17/23 00:35 Dose: 1 appl Venlafaxine HCl (Venlafaxine Hcl Er 75 Mg Cap.Er.24h) 225 mg PO DAILY [facility] Last Admin: 04/03/23 08:05 Dose: 225 mg Allergies Allergies Allergy/AdvReac Type Severity Reaction Status Date / Time oxycodone Allergy Unknown Verified 11/17/22 13:51 pollen extracts Allergy skin rash Verified 10/14/22 13:51 Assessment & Plan Assessment & Plan (1) Neurodegenerative cognitive impairment: Status: Acute Code(s): G31.9 - Degenerative disease of nervous system, unspecified (2) Parkinsons disease: Status: Acute Code(s): G20 - Parkinson's disease Assessment and Plan: [age] years old man with moderate to severe Parkinson's features with EDSS score of 6-7. After years of Parkinson's, he also has developed depression and psychotic features. I do not have access to his previous workup including brain imaging, but this evolution of his condition suggested that he might be going into or his underlying condition could very well be dementia with Lewy body disease. Review of brain scan done, maybe at [facility], can help. In any case, dopaminergic drugs are known to have possible psychiatric side effects but at the same time without dopamine supplementation, patient has significant physical disability. A balance has to be reached. In that regard, I would suggest discontinuing Stalevo, which is a combination of drugs. Instead of that, try plain carbidopa levodopa 25/100 2 tablets 4 to 5 times a day. Starting tomorrow, prescribed 1st does at 06:00 and then repeat that does at 10:00, 14:00, 18:00. make an observation tomorrow if that works out better and further adjustment can be made based upon how he reacts to this dose. If psychiatrically not better, may consider Nuplazid. Plan 1. Continue with same treatment. 2. Keep Effexor as prescribed 225 mg only the morning. 3. Keep on Sinemet as a prescribing doses. 4. Ativan will be changed to 4 times a day we Sinemet on March 19 Ativan is increased up to 1 mg on 03/30. 5. Minute and increased up to 6 mg on March 18. 6. Trazodone started at 50 mg p.o. q.h.s. standing every night on March 18 7. Increased Ativan up to 2 mg at night to target anxiety on March 19 8. D/C Haldol on 03/28 and start Zyprexa 5 mg po qhs at 19:00. 9. Waiting for proper placement. (3) Major depressive disorder: Status: Acute Code(s): F32.9 - Major depressive disorder, single episode, unspecified (4) Psychosis: Status: Acute Code(s): F29 - Unspecified psychosis not due to a substance or known physiological condition Plan Elderly male with past history of Parkinson's disease that is advanced admitted for psychotic symptoms in the context of Sinemet. Hospital course: 04/02 continue current treatment; patient already on considerable amount of Ativan; likely defer to primary team to address continued anxiety 04/03 discussed medications with patient; primary team may consider clonazepam since is longer acting then Ativan Plan 1. Gather collateral information. 2. Continue Haldol 0.5 p.o. t.i.d. to target psychosis. Stop on 03/28 and start Zyprexa at hs 3. Continue with medical workout. 4. Assessment with results. 5. reported that he had a 2nd dose of effexor in the evenging, we will start 37,5 mg po at 5 pm On March 09. Increase Effexor XR 2nd dose up to 75 on March 11. Later on, Effexor has been changed to 1 single dose of 225 mg in the morning 6. Change his antiparkinsonian to Sinemet 4 times a day. 7. Waiting for placement Patient educated on: medication risk/benefits Informed Consent: understands Reason for continued inpatient stay Substantial Risk for: inability to function Time Spent With Patient Time: Total time managing care of this patient today ____ minutes.
[2023-04-03] MEDS: OLANZapine 5 MG TABLET PO (18:48)
[2023-04-03] MEDS: LORazepam 1 MG TABLET 2 MG PO (20:02)
[2023-04-03] MEDS: traZODone HCL 50 MG TABLET PO (20:03)
[2023-04-03] MEDS: Melatonin 3 MG TABLET 6 MG PO (20:04)
[2023-04-04 06:00] VITALS: BP 170/92; PULSE 88; RESP 18; TEMP 36.6; O2SAT 97
--- NOTE | 2023-04-04 08:21 | P.PNPSI_ITS ---
Subjective Subjective Date of Service: 04/04/23 Reason For Visit: SI Subjective Notes: Conditional Voluntary Interim History: The nursing staff reported the patient slept well last night, he had been incontinent of urine in the morning. He had been fully compliant with treatment. On interview the patient denies new symptoms, waiting for placement. Mental Status Exam Mental Status Exam Patient Appearance: Appropriate Patient Orientation: Person and Situation Level of Consciousness: Awake and Appropriate Patient Behavior: Guarded and Passive Mood Description: Withdrawn and Constricted Affect Description: Blunted Patient Cognition Impaired: Yes Ability to Follow Directions: Good Speech Pattern: Clear Hallucinations: None Delusions: Not Present Thought Content: positive for [place] and positive for Linear Judgement: Fair Diagnostics Vital Signs (24Hr): Vital Signs - 24 hr 04/03/23 18:00 Temperature 97.8 F Pulse Rate 82 Respiratory Rate 16 Blood Pressure 151/72 H Pulse Oximetry 98 Oxygen Delivery Method Room Air BMI result Body Mass Index 23.5 Labs 03/10/23 07:58 03/10/23 07:58 Medications Medications Current Medications Acetaminophen (Acetaminophen 325 Mg Tablet) 650 mg PO Q6H PRN PRN Reason: Headache/Pain Mild Scale (1-3) Last Admin: 03/30/23 04:44 Dose: 650 mg Al Hydroxide/Mg Hydroxide (Magnesium Hydrox/Alum Hydrox 30 Ml Oral.Susp) 30 ml PO Q6H PRN PRN Reason: Heartburn/Nausea Last Admin: 03/15/23 17:37 Dose: 30 ml Atorvastatin Calcium (Atorvastatin Calcium 10 Mg Tablet) 10 mg PO DAILY [facility] Last Admin: 04/03/23 08:06 Dose: 10 mg Carbidopa/Levodopa (Carbidopa/Levodopa 10/100 Tablet) 2 tab PO QID [facility] Last Admin: 04/03/23 20:03 Dose: 2 tab Fluticasone Propionate (Fluticasone Propionate Nasal 16 Gm [place]) 1 spray NOSTRIL-B BID [facility] Last Admin: 04/03/23 20:08 Dose: Not Given Hydrocortisone (Hydrocortisone 1 % Ointment 28.35 Gm Tube) 1 appl TOPICAL BID PRN; Protocol PRN Reason: hemorroids Last Admin: 03/30/23 17:29 Dose: 1 appl Lidocaine (Lidocaine 5 % Ointment 35 Gm) 1 appl TOPICAL Q6H PRN; Protocol PRN Reason: hemorroid pain Last Admin: 03/30/23 17:29 Dose: 1 appl Lorazepam (Lorazepam 1 Mg Tablet) 2 mg PO BEDTIME [facility] Last Admin: 04/03/23 20:02 Dose: 2 mg Lorazepam (Lorazepam 1 Mg Tablet) 1 mg PO TID@0900,1300,1600 [facility] Last Admin: 04/03/23 16:03 Dose: 1 mg Magnesium Hydroxide (Milk Of Magnesia 30 Ml Oral.Susp) 30 ml PO DAILY PRN PRN Reason: Constipation Last Admin: 03/05/23 08:41 Dose: 30 ml Melatonin (Melatonin 3 Mg Tablet) 6 mg PO BEDTIME [facility] Last Admin: 04/03/23 20:04 Dose: 6 mg Multivitamins/Vitamin C (Multivitamin Tablet) 1 tab PO BEDTIME [facility] Last Admin: 04/03/23 20:08 Dose: Not Given Olanzapine (Olanzapine 5 Mg Tablet) 5 mg PO DAILY@1900 [facility] Last Admin: 04/03/23 18:48 Dose: 5 mg Polyethylene Glycol (Polyethylene Glycol 3350 17 Gm Powd.Pack) 17 gm PO DAILY PRN PRN Reason: Constipation Last Admin: 03/19/23 10:04 Dose: 17 gm Tramadol HCl (Tramadol Hcl 50 Mg Tablet) 50 mg PO Q6H PRN PRN Reason: Pain, Moderate(Pain Scale 4-6) Trazodone HCl (Trazodone Hcl 50 Mg Tablet) 50 mg PO BEDTIME MRX1 PRN PRN Reason: Insomnia Last Admin: 04/02/23 00:47 Dose: 50 mg Trazodone HCl (Trazodone Hcl 25 Mg Halftab) 25 mg PO BID PRN PRN Reason: Agitation Last Admin: 04/03/23 11:06 Dose: 25 mg Trazodone HCl (Trazodone Hcl 50 Mg Tablet) 50 mg PO BEDTIME [facility] Last Admin: 04/03/23 20:03 Dose: 50 mg Trolamine Salicylate (Trolamine Salicylate 10 % Cream 141 Gm Tube) 1 appl TOPICAL QID PRN; Protocol PRN Reason: Pain, Moderate (Pain Scale 4-6 Last Admin: 03/17/23 00:35 Dose: 1 appl Venlafaxine HCl (Venlafaxine Hcl Er 75 Mg Cap.Er.24h) 225 mg PO DAILY [facility] Last Admin: 04/03/23 08:05 Dose: 225 mg Allergies Allergies Allergy/AdvReac Type Severity Reaction Status Date / Time oxycodone Allergy Unknown Verified 10/14/22 13:51 pollen extracts Allergy skin rash Verified 10/14/22 13:51 Assessment & Plan Assessment & Plan (1) Neurodegenerative cognitive impairment: Status: Acute Code(s): G31.9 - Degenerative disease of nervous system, unspecified (2) Parkinsons disease: Status: Acute Code(s): G20 - Parkinson's disease Assessment and Plan: [age] years old man with moderate to severe Parkinson's features with EDSS score of 6-7. After years of Parkinson's, he also has developed depression and psychotic features. I do not have access to his previous workup including brain imaging, but this evolution of his condition suggested that he might be going into or his underlying condition could very well be dementia with Lewy body disease. Review of brain scan done, maybe at [facility], can help. In any case, dopaminergic drugs are known to have possible psychiatric side effects but at the same time without dopamine supplementation, patient has significant physical disability. A balance has to be reached. In that regard, I would whalen ggest discontinuing Stalevo, which is a combination of drugs. Instead of that, try plain carbidopa levodopa 25/100 2 tablets 4 to 5 times a day. Starting tomorrow, prescribed 1st does at 06:00 and then repeat that does at 10:00, 14:00, 18:00. make an observation tomorrow if that works out better and further adjustment can be made based upon how he reacts to this dose. If psychiatrically not better, may consider Nuplazid. Plan 1. Continue with same treatment. 2. Keep Effexor as prescribed 225 mg only the morning. 3. Keep on Sinemet as a prescribing doses. 4. Ativan will be changed to 4 times a day we Sinemet on March 19 Ativan is increased up to 1 mg on 03/30. 5. Minute and increased up to 6 mg on March 18. 6. Trazodone started at 50 mg p.o. q.h.s. standing every night on March 18 7. Increased Ativan up to 2 mg at night to target anxiety on March 19 8. D/C Haldol on 03/28 and start Zyprexa 5 mg po qhs at 19:00. 9. Waiting for proper placement. (3) Major depressive disorder: Status: Acute Code(s): F32.9 - Major depressive disorder, single episode, unspecified (4) Psychosis: Status: Acute Code(s): F29 - Unspecified psychosis not due to a substance or known physiological condition Plan Elderly male with past history of Parkinson's disease that is advanced admitted for psychotic symptoms in the context of Sinemet. Plan 1. Gather collateral information. 2. Continue Haldol 0.5 p.o. t.i.d. to target psychosis. Stop on 03/28 and start Zyprexa at hs 3. Continue with medical workout. 4. Assessment with results. 5. reported that he had a 2nd dose of effexor in the evenging, we will start 37,5 mg po at 5 pm On March 09. Increase Effexor XR 2nd dose up to 75 on March 11. Later on, Effexor has been changed to 1 single dose of 225 mg in the morning 6. Change his antiparkinsonian to Sinemet 4 times a day. 7. Waiting for placement Reason for continued inpatient stay Substantial Risk for: inability to function, rapid decompensation and med/psych decompensation Time Spent With Patient Time: Total time managing care of this patient today __20__ minutes.
[2023-04-04] MEDS: Venlafaxine HCl ER 75 MG CAP.ER.24H 225 MG PO (08:35)
[2023-04-04] MEDS: Atorvastatin Calcium 10 MG TABLET PO (08:35)
[2023-04-04] MEDS: LORazepam 1 MG TABLET PO ×3 (09:21→16:33)
[2023-04-04 18:00] VITALS: BP 129/64; PULSE 74; RESP 18; TEMP 36.6; O2SAT 97
[2023-04-04] MEDS: OLANZapine 5 MG TABLET PO (19:05)
[2023-04-04] MEDS: Melatonin 3 MG TABLET 6 MG PO (19:54)
[2023-04-04] MEDS: LORazepam 1 MG TABLET 2 MG PO (19:55)
[2023-04-04] MEDS: traZODone HCL 50 MG TABLET PO (19:56)
[2023-04-05] MEDS: LORazepam 1 MG TABLET PO ×3 (09:14→16:33)
[2023-04-05] MEDS: Atorvastatin Calcium 10 MG TABLET PO (09:14)
[2023-04-05 09:15] VITALS: BP 163/75; PULSE 85; RESP 18; TEMP 36.2; O2SAT 96
[2023-04-05] MEDS: Venlafaxine HCl ER 75 MG CAP.ER.24H 225 MG PO (09:15)
--- NOTE | 2023-04-05 16:33 | P.PNPSI_ITS ---
Subjective Subjective Date of Service: 04/05/23 Reason For Visit: SI Subjective Notes: Conditional Voluntary Interim History: The nursing staff reported the patient has been ambulatory with his walker. He slept well last night and he looks anxious mostly before his Ativan. The social sciences instructor reported that he had been referred to [facility] and they are waiting for financial clearance. On interview the patient denies new symptoms no active psychotic symptoms Mental Status Exam Mental Status Exam Patient Appearance: Appropriate Patient Orientation: Person and Situation Level of Consciousness: Awake Patient Behavior: Guarded Mood Description: Calm Affect Description: Constricted Patient Cognition Impaired: Yes Ability to Follow Directions: Good Speech Pattern: Clear Hallucinations: None Delusions: Not Present Thought Process: Linear Thought Content: positive for [place] Judgement: Fair Diagnostics Vital Signs (24Hr): Vital Signs - 24 hr 04/04/23 18:00 04/05/23 09:15 Temperature 98 F 97.2 F Pulse Rate 74 85 Respiratory Rate 18 18 Blood Pressure 129/64 163/75 H Pulse Oximetry 97 96 Oxygen Delivery Method Room Air Room Air BMI result Body Mass Index 23.5 Labs 03/10/23 07:58 03/10/23 07:58 Medications Medications Current Medications Acetaminophen (Acetaminophen 325 Mg Tablet) 650 mg PO Q6H PRN PRN Reason: Headache/Pain Mild Scale (1-3) Last Admin: 03/30/23 04:44 Dose: 650 mg Al Hydroxide/Mg Hydroxide (Magnesium Hydrox/Alum Hydrox 30 Ml Oral.Susp) 30 ml PO Q6H PRN PRN Reason: Heartburn/Nausea Last Admin: 03/15/23 17:37 Dose: 30 ml Atorvastatin Calcium (Atorvastatin Calcium 10 Mg Tablet) 10 mg PO DAILY [facility] Last Admin: 04/05/23 09:14 Dose: 10 mg Carbidopa/Levodopa (Carbidopa/Levodopa 10/100 Tablet) 2 tab PO QID [facility] Last Admin: 04/05/23 12:29 Dose: 2 tab Fluticasone Propionate (Fluticasone Propionate Nasal 16 Gm [place]) 1 spray NOSTRIL-B BID [facility] Last Admin: 04/05/23 09:16 Dose: Not Given Hydrocortisone (Hydrocortisone 1 % Ointment 28.35 Gm Tube) 1 appl TOPICAL BID PRN; Protocol PRN Reason: hemorroids Last Admin: 03/30/23 17:29 Dose: 1 appl Lidocaine (Lidocaine 5 % Ointment 35 Gm) 1 appl TOPICAL Q6H PRN; Protocol PRN Reason: hemorroid pain Last Admin: 03/30/23 17:29 Dose: 1 appl Lorazepam (Lorazepam 1 Mg Tablet) 2 mg PO BEDTIME [facility] Last Admin: 04/04/23 19:55 Dose: 2 mg Lorazepam (Lorazepam 1 Mg Tablet) 1 mg PO TID@0900,1300,1600 [facility] Last Admin: 04/05/23 12:29 Dose: 1 mg Magnesium Hydroxide (Milk Of Magnesia 30 Ml Oral.Susp) 30 ml PO DAILY PRN PRN Reason: Constipation Last Admin: 03/05/23 08:41 Dose: 30 ml Melatonin (Melatonin 3 Mg Tablet) 6 mg PO BEDTIME [facility] Last Admin: 04/04/23 19:54 Dose: 6 mg Multivitamins/Vitamin C (Multivitamin Tablet) 1 tab PO BEDTIME [facility] Last Admin: 04/04/23 19:58 Dose: Not Given Olanzapine (Olanzapine 5 Mg Tablet) 5 mg PO DAILY@1900 [facility] Last Admin: 04/04/23 19:05 Dose: 5 mg Polyethylene Glycol (Polyethylene Glycol 3350 17 Gm Powd.Pack) 17 gm PO DAILY PRN PRN Reason: Constipation Last Admin: 03/19/23 10:04 Dose: 17 gm Tramadol HCl (Tramadol Hcl 50 Mg Tablet) 50 mg PO Q6H PRN PRN Reason: Pain, Moderate(Pain Scale 4-6) Trazodone HCl (Trazodone Hcl 50 Mg Tablet) 50 mg PO BEDTIME MRX1 PRN PRN Reason: Insomnia Last Admin: 04/02/23 00:47 Dose: 50 mg Trazodone HCl (Trazodone Hcl 25 Mg Halftab) 25 mg PO BID PRN PRN Reason: Agitation Last Admin: 04/03/23 11:06 Dose: 25 mg Trazodone HCl (Trazodone Hcl 50 Mg Tablet) 50 mg PO BEDTIME [facility] Last Admin: 04/04/23 19:56 Dose: 50 mg Trolamine Salicylate (Trolamine Salicylate 10 % Cream 141 Gm Tube) 1 appl TOPICAL QID PRN; Protocol PRN Reason: Pain, Moderate (Pain Scale 4-6 Last Admin: 03/17/23 00:35 Dose: 1 appl Venlafaxine HCl (Venlafaxine Hcl Er 75 Mg Cap.Er.24h) 225 mg PO DAILY [facility] Last Admin: 04/05/23 09:15 Dose: 225 mg Allergies Allergies Allergy/AdvReac Type Severity Reaction Status Date / Time oxycodone Allergy Unknown Verified 10/14/22 13:51 pollen extracts Allergy skin rash Verified 10/14/22 13:51 Assessment & Plan Assessment & Plan (1) Neurodegenerative cognitive impairment: Status: Acute Code(s): G31.9 - Degenerative disease of nervous system, unspecified (2) Parkinsons disease: Status: Acute Code(s): G20 - Parkinson's disease Assessment and Plan: [age] years old man with moderate to severe Parkinson's features with EDSS score of 6-7. After years of Parkinson's, he also has developed depression and psychotic features. I do not have access to his previous workup including brain imaging, but this evolution of his condition suggested that he might be going into or his underlying condition could very well be dementia with Lewy body disease. Review of brain scan done, maybe at [facility], can help. In any case, dopaminergic drugs are known to have possible psychiatric side effects but at the same time without dopamine supplementation, patient has significant physical disability. A balance has to be reached. In that regard, I would suggest discontinuing Stalevo, which is a combination of drugs. Instead of that, try plain carbidopa levodopa 25/100 2 tablets 4 to 5 times a day. Starting tomorrow, prescribed 1st does at 06:00 and then repeat that does at 10:00, 14:00, 18:00. make an observation tomorrow if that works out better and further adjustment can be made based upon how he reacts to this dose. If psychiatrically not better, may consider Nuplazid. Plan 1. Continue with same treatment. 2. Keep Effexor as prescribed 225 mg only the morning. 3. Keep on Sinemet as a prescribing doses. 4. Ativan will be changed to 4 times a day we Sinemet on March 19 Ativan is increased up to 1 mg on 03/30. 5. Minute and increased up to 6 mg on March 18. 6. Trazodone started at 50 mg p.o. q.h.s. standing every night on March 18 7. Increased Ativan up to 2 mg at night to target anxiety on March 19 8. D/C Haldol on 03/28 and start Zyprexa 5 mg po qhs at 19:00. 9. Waiting for proper placement. (3) Major depressive disorder: Status: Acute Code(s): F32.9 - Major depressive disorder, single episode, unspecified (4) Psychosis: Status: Acute Code(s): F29 - Unspecified psychosis not due to a substance or known physiological condition Plan Elderly male with past history of Parkinson's disease that is advanced admitted for psychotic symptoms in the context of Sinemet. Plan 1. Gather collateral information. 2. Continue Haldol 0.5 p.o. t.i.d. to target psychosis. Stop on 03/28 and start Zyprexa at hs 3. Continue with medical workout. 4. Assessment with results. 5. reported that he had a 2nd dose of effexor in the evenging, we will st art 37,5 mg po at 5 pm On March 09. Increase Effexor XR 2nd dose up to 75 on March 11. Later on, Effexor has been changed to 1 single dose of 225 mg in the morning 6. Change his antiparkinsonian to Sinemet 4 times a day. 7. Waiting for placement Reason for continued inpatient stay Substantial Risk for: inability to function, rapid decompensation and med/psych decompensation Time Spent With Patient Time: Total time managing care of this patient today __20__ minutes.
[2023-04-05 18:00] VITALS: BP 170/88; PULSE 84; RESP 18; TEMP 36.4; O2SAT 97
[2023-04-05] MEDS: OLANZapine 5 MG TABLET PO (18:48)
[2023-04-05] MEDS: Multivitamin TABLET 1 TAB PO (19:50)
[2023-04-05] MEDS: Melatonin 3 MG TABLET 6 MG PO (19:51)
[2023-04-05] MEDS: LORazepam 1 MG TABLET 2 MG PO (19:52)
[2023-04-06 06:00] VITALS: BP 179/85; PULSE 85; RESP 16; TEMP 36; O2SAT 96
[2023-04-06] MEDS: Venlafaxine HCl ER 75 MG CAP.ER.24H 225 MG PO (08:30)
[2023-04-06] MEDS: Atorvastatin Calcium 10 MG TABLET PO (08:30)
[2023-04-06] MEDS: LORazepam 1 MG TABLET PO ×3 (08:30→15:32)
--- NOTE | 2023-04-06 13:33 | HO.PSYCHPN ---
Subjective Subjective Date of Service: 04/06/23 Reason For Visit: SI Subjective Notes: Conditional Voluntary Interim History: The nursing staff reported the patient had been compliant with treatment, doing better. He slept 7 hours. The social media sr strategy manager reported that he had been accepted at [facility] and they are waiting for financial clearance. On interview the patient denies new symptoms, waiting for placement Mental Status Exam Mental Status Exam Patient Appearance: Well Grooomed and Appropriate Patient Orientation: Person and Situation Level of Consciousness: Awake and Appropriate Patient Behavior: Guarded and Passive Mood Description: Calm Affect Description: Constricted Patient Cognition Impaired: Yes Ability to Follow Directions: Fair Speech Pattern: Clear and Appropriate Hallucinations: None Delusions: Not Present Thought Process: Distracted Thought Content: positive for Shade and positive for Poverty of Content Judgement: Fair Diagnostics Vital Signs (24Hr): Vital Signs - 24 hr 04/05/23 18:00 04/06/23 06:00 Temperature 97.6 F 96.8 F Pulse Rate 84 85 Respiratory Rate 18 16 Blood Pressure 170/88 H 179/85 H Pulse Oximetry 97 96 Oxygen Delivery Method Room Air Room Air BMI result Body Mass Index 23.5 Labs 03/10/23 07:58 03/10/23 07:58 Medications Medications Current Medications Acetaminophen (Acetaminophen 325 Mg Tablet) 650 mg PO Q6H PRN PRN Reason: Headache/Pain Mild Scale (1-3) Last Admin: 03/30/23 04:44 Dose: 650 mg Al Hydroxide/Mg Hydroxide (Magnesium Hydrox/Alum Hydrox 30 Ml Oral.Susp) 30 ml PO Q6H PRN PRN Reason: Heartburn/Nausea Last Admin: 03/15/23 17:37 Dose: 30 ml Atorvastatin Calcium (Atorvastatin Calcium 10 Mg Tablet) 10 mg PO DAILY [facility] Last Admin: 04/06/23 08:30 Dose: 10 mg Carbidopa/Levodopa (Carbidopa/Levodopa 10/100 Tablet) 2 tab PO QID [facility] Last Admin: 04/06/23 12:04 Dose: 2 tab Fluticasone Propionate (Fluticasone Propionate Nasal 16 Gm [place]) 1 spray NOSTRIL-B BID [facility] Last Admin: 04/06/23 08:30 Dose: Not Given Hydrocortisone (Hydrocortisone 1 % Ointment 28.35 Gm Tube) 1 appl TOPICAL BID PRN; Protocol PRN Reason: hemorroids Last Admin: 03/30/23 17:29 Dose: 1 appl Lidocaine (Lidocaine 5 % Ointment 35 Gm) 1 appl TOPICAL Q6H PRN; Protocol PRN Reason: hemorroid pain Last Admin: 03/30/23 17:29 Dose: 1 appl Lorazepam (Lorazepam 1 Mg Tablet) 2 mg PO BEDTIME [facility] Last Admin: 04/05/23 19:52 Dose: 2 mg Lorazepam (Lorazepam 1 Mg Tablet) 1 mg PO TID@0900,1300,1600 [facility] Last Admin: 04/06/23 12:04 Dose: 1 mg Magnesium Hydroxide (Milk Of Magnesia 30 Ml Oral.Susp) 30 ml PO DAILY PRN PRN Reason: Constipation Last Admin: 03/05/23 08:41 Dose: 30 ml Melatonin (Melatonin 3 Mg Tablet) 6 mg PO BEDTIME [facility] Last Admin: 04/05/23 19:51 Dose: 6 mg Multivitamins/Vitamin C (Multivitamin Tablet) 1 tab PO BEDTIME [facility] Last Admin: 04/05/23 19:50 Dose: 1 tab Olanzapine (Olanzapine 5 Mg Tablet) 5 mg PO DAILY@1900 [facility] Last Admin: 04/05/23 18:48 Dose: 5 mg Polyethylene Glycol (Polyethylene Glycol 3350 17 Gm Powd.Pack) 17 gm PO DAILY PRN PRN Reason: Constipation Last Admin: 03/19/23 10:04 Dose: 17 gm Tramadol HCl (Tramadol Hcl 50 Mg Tablet) 50 mg PO Q6H PRN PRN Reason: Pain, Moderate(Pain Scale 4-6) Trazodone HCl (Trazodone Hcl 50 Mg Tablet) 50 mg PO BEDTIME MRX1 PRN PRN Reason: Insomnia Last Admin: 04/02/23 00:47 Dose: 50 mg Trazodone HCl (Trazodone Hcl 25 Mg Halftab) 25 mg PO BID PRN PRN Reason: Agitation Last Admin: 04/03/23 11:06 Dose: 25 mg Trazodone HCl (Trazodone Hcl 50 Mg Tablet) 50 mg PO BEDTIME [facility] Last Admin: 04/05/23 19:52 Dose: Not Given Trolamine Salicylate (Trolamine Salicylate 10 % Cream 141 Gm Tube) 1 appl TOPICAL QID PRN; Protocol PRN Reason: Pain, Moderate (Pain Scale 4-6 Last Admin: 03/17/23 00:35 Dose: 1 appl Venlafaxine HCl (Venlafaxine Hcl Er 75 Mg Cap.Er.24h) 225 mg PO DAILY [facility] Last Admin: 04/06/23 08:30 Dose: 225 mg Allergies Allergies Allergy/AdvReac Type Severity Reaction Status Date / Time oxycodone Allergy Unknown Verified 10/14/22 13:51 pollen extracts Allergy skin rash Verified 10/14/22 13:51 Assessment & Plan Assessment & Plan (1) Neurodegenerative cognitive impairment: Status: Acute Code(s): G31.9 - Degenerative disease of nervous system, unspecified (2) Parkinsons disease: Status: Acute Code(s): G20 - Parkinson's disease Assessment and Plan: [age] years old man with moderate to severe Parkinson's features with EDSS score of 6-7. After years of Parkinson's, he also has developed depression and psychotic features. I do not have access to his previous workup including brain imaging, but this evolution of his condition suggested that he might be going into or his underlying condition could very well be dementia with Lewy body disease. Review of brain scan done, maybe at [facility], can help. In any case, dopaminergic drugs are known to have possible psychiatric side effects but at the same time without dopamine supplementation, patient has significant physical disability. A balance has to be reached. In that regard, I would suggest discontinuing Stalevo, which is a combination of drugs. Instead of that, try plain carbidopa levodopa 25/100 2 tablets 4 to 5 times a day. Starting tomorrow, prescribed 1st does at 06:00 and then repeat that does at 10:00, 14:00, 18:00. make an observation tomorrow if that works out better and further adjustment can be made based upon how he reacts to this dose. If psychiatrically not better, may consider Nuplazid. Plan 1. Continue with same treatment. 2. Keep Effexor as prescribed 225 mg only the morning. 3. Keep on Sinemet as a prescribing doses. 4. Ativan will be changed to 4 times a day we Sinemet on March 19 Ativan is increased up to 1 mg on 03/30. 5. Minute and increased up to 6 mg on March 18. 6. Trazodone started at 50 mg p.o. q.h.s. standing every night on March 18 7. Increased Ativan up to 2 mg at night to target anxiety on March 19 8. D/C Haldol on 03/28 and start Zyprexa 5 mg po qhs at 19:00. 9. Waiting for proper placement. (3) Major depressive disorder: Status: Acute Code(s): F32.9 - Major depressive disorder, single episode, unspecified (4) Psychosis: Status: Acute Code(s): F29 - Unspecified psychosis not due to a substance or known physiological condition Plan Elderly male with past history of Parkinson's disease that is advanced admitted for psychotic symptoms in the context of Sinemet. Plan 1. Gather collateral information. 2. Continue Haldol 0.5 p.o. t.i.d. to target psychosis. Stop on 03/28 and start Zyprexa at hs 3. Continue with medical workout. 4. Assessment with results. 5. reported that he had a 2nd dose of effexor in the evenging, we will start 37,5 mg po at 5 pm On March 09. Increase Effexor XR 2nd dose up to 75 on March 11. Later on, Effexor has been changed to 1 single dose of 225 mg in the morning 6. Change his antiparkinsonian to Sinemet 4 times a day. 7. Waiting for placement Reason for continued inpatient stay Substantial Risk for: inability to function, rapid decompensation and med/psych decompensation Time Spent With Patient Time: Total time managing care of this patient today _20___ minutes.
[2023-04-06 18:00] VITALS: BP 158/71; PULSE 93; RESP 18; TEMP 37.1; O2SAT 98
[2023-04-06] MEDS: OLANZapine 5 MG TABLET PO (21:11)
[2023-04-06] MEDS: Melatonin 3 MG TABLET 6 MG PO (21:11)
[2023-04-06] MEDS: traZODone HCL 50 MG TABLET PO (21:11)
[2023-04-06] MEDS: LORazepam 1 MG TABLET 2 MG PO (21:11)
[2023-04-07] MEDS: traZODone HCL 25 MG HALFTAB PO (04:30)
[2023-04-07] MEDS: LORazepam 1 MG TABLET PO ×4 (04:48→16:40)
[2023-04-07 06:00] VITALS: BP 153/74; PULSE 103; RESP 18; TEMP 36.7; O2SAT 98
--- NOTE | 2023-04-07 08:25 | HO.PSYCHPN ---
Subjective Subjective Date of Service: 04/07/23 Reason For Visit: SI Subjective Notes: Conditional Voluntary Interim History: The nursing staff reported the patient had been compliant with treatment, no changes in his mental status. The social services technician reported that the son called and they are going to have a meeting next Tuesday. [facility] and they are looking for financial clearance. On interview the patient denies new symptoms, waiting for placement. Mental Status Exam Mental Status Exam Patient Appearance: Well Grooomed and Appropriate Patient Orientation: Person and Situation Level of Consciousness: Awake and Appropriate Patient Behavior: Guarded and Passive Mood Description: Withdrawn Affect Description: Constricted Patient Cognition Impaired: Yes Ability to Follow Directions: Good Speech Pattern: Clear Hallucinations: None Delusions: Not Present Thought Process: Linear Thought Content: positive for Circumstantial Judgement: Fair Diagnostics Vital Signs (24Hr): Vital Signs - 24 hr 04/06/23 18:00 Temperature 98.8 F Pulse Rate 93 Respiratory Rate 18 Blood Pressure 158/71 H Pulse Oximetry 98 Oxygen Delivery Method Room Air BMI result Body Mass Index 23.5 Labs 03/10/23 07:58 03/10/23 07:58 Medications Medications Current Medications Acetaminophen (Acetaminophen 325 Mg Tablet) 650 mg PO Q6H PRN PRN Reason: Headache/Pain Mild Scale (1-3) Last Admin: 03/30/23 04:44 Dose: 650 mg Al Hydroxide/Mg Hydroxide (Magnesium Hydrox/Alum Hydrox 30 Ml Oral.Susp) 30 ml PO Q6H PRN PRN Reason: Heartburn/Nausea Last Admin: 03/15/23 17:37 Dose: 30 ml Atorvastatin Calcium (Atorvastatin Calcium 10 Mg Tablet) 10 mg PO DAILY [facility] Last Admin: 04/06/23 08:30 Dose: 10 mg Carbidopa/Levodopa (Carbidopa/Levodopa 10/100 Tablet) 2 tab PO QID [facility] Last Admin: 04/06/23 21:11 Dose: 2 tab Fluticasone Propionate (Fluticasone Propionate Nasal 16 Gm [place]) 1 spray NOSTRIL-B BID [facility] Last Admin: 04/06/23 22:26 Dose: Not Given Hydrocortisone (Hydrocortisone 1 % Ointment 28.35 Gm Tube) 1 appl TOPICAL BID PRN; Protocol PRN Reason: hemorroids Last Admin: 03/30/23 17:29 Dose: 1 appl Lidocaine (Lidocaine 5 % Ointment 35 Gm) 1 appl TOPICAL Q6H PRN; Protocol PRN Reason: hemorroid pain Last Admin: 03/30/23 17:29 Dose: 1 appl Lorazepam (Lorazepam 1 Mg Tablet) 2 mg PO BEDTIME [facility] Last Admin: 04/06/23 21:11 Dose: 2 mg Lorazepam (Lorazepam 1 Mg Tablet) 1 mg PO TID@0900,1300,1600 [facility] Last Admin: 04/06/23 15:32 Dose: 1 mg Magnesium Hydroxide (Milk Of Magnesia 30 Ml Oral.Susp) 30 ml PO DAILY PRN PRN Reason: Constipation Last Admin: 03/05/23 08:41 Dose: 30 ml Melatonin (Melatonin 3 Mg Tablet) 6 mg PO BEDTIME [facility] Last Admin: 04/06/23 21:11 Dose: 6 mg Multivitamins/Vitamin C (Multivitamin Tablet) 1 tab PO BEDTIME [facility] Last Admin: 04/06/23 22:26 Dose: Not Given Olanzapine (Olanzapine 5 Mg Tablet) 5 mg PO DAILY@1900 [facility] Last Admin: 04/06/23 21:11 Dose: 5 mg Polyethylene Glycol (Polyethylene Glycol 3350 17 Gm Powd.Pack) 17 gm PO DAILY PRN PRN Reason: Constipation Last Admin: 03/19/23 10:04 Dose: 17 gm Trazodone HCl (Trazodone Hcl 50 Mg Tablet) 50 mg PO BEDTIME MRX1 PRN PRN Reason: Insomnia Last Admin: 04/02/23 00:47 Dose: 50 mg Trazodone HCl (Trazodone Hcl 25 Mg Halftab) 25 mg PO BID PRN PRN Reason: Agitation Last Admin: 04/07/23 04:30 Dose: 25 mg Trazodone HCl (Trazodone Hcl 50 Mg Tablet) 50 mg PO BEDTIME [facility] Last Admin: 04/06/23 21:11 Dose: 50 mg Trolamine Salicylate (Trolamine Salicylate 10 % Cream 141 Gm Tube) 1 appl TOPICAL QID PRN; Protocol PRN Reason: Pain, Moderate (Pain Scale 4-6 Last Admin: 03/17/23 00:35 Dose: 1 appl Venlafaxine HCl (Venlafaxine Hcl Er 75 Mg Cap.Er.24h) 225 mg PO DAILY [facility] Last Admin: 04/06/23 08:30 Dose: 225 mg Allergies Allergies Allergy/AdvReac Type Severity Reaction Status Date / Time oxycodone Allergy Unknown Verified 10/14/22 13:51 pollen extracts Allergy skin rash Verified 10/14/22 13:51 Assessment & Plan Assessment & Plan (1) Neurodegenerative cognitive impairment: Status: Acute Code(s): G31.9 - Degenerative disease of nervous system, unspecified (2) Parkinsons disease: Status: Acute Code(s): G20 - Parkinson's disease Assessment and Plan: [age] years old man with moderate to severe Parkinson's features with EDSS score of 6-7. After years of Parkinson's, he also has developed depression and psychotic features. I do not have access to his previous workup including brain imaging, but this evolution of his condition suggested that he might be going into or his underlying condition could very well be dementia with Lewy body disease. Review of brain scan done, maybe at [facility], can help. In any case, dopaminergic drugs are known to have possible psychiatric side effects but at the same time without dopamine supplementation, patient has significant physical disability. A balance has to be reached. In that regard, I would suggest discontinuing Stalevo, which is a combination of drugs. Instead of that, try plain carbidopa levodopa 25/100 2 tablets 4 to 5 times a day. Starting tomorrow, prescribed 1st does at 06:00 and then repeat that does at 10:00, 14:00, 18:00. make an observation tomorrow if that works out better and further adjustment can be made based upon how he reacts to this dose. If psychiatrically not better, may consider Nuplazid. Plan 1. Continue with same treatment. 2. Keep Effexor as prescribed 225 mg only the morning. 3. Keep on Sinemet as a prescribing doses. 4. Ativan will be changed to 4 times a day we Sinemet on March 19 Ativan is increased up to 1 mg on 03/30. 5. Minute and increased up to 6 mg on March 18. 6. Trazodone started at 50 mg p.o. q.h.s. standing every night on March 18 7. Increased Ativan up to 2 mg at night to target anxiety on March 19 8. D/C Haldol on 03/28 and start Zyprexa 5 mg po qhs at 19:00. 9. Waiting for proper placement. (3) Major depressive disorder: Status: Acute Code(s): F32.9 - Major depressive disorder, single episode, unspecified (4) Psychosis: Status: Acute Code(s): F29 - Unspecified psychosis not due to a substance or known physiological condition Plan Elderly male with past history of Parkinson's disease that is advanced admitted for psychotic symptoms in the context of Sinemet. Plan 1. Gather collateral information. 2. Continue Haldol 0.5 p.o. t.i.d. to target psychosis. Stop on 03/28 and start Zyprexa at hs 3. Continue with medical workout. 4. Assessment with results. 5. reported that he had a 2nd dose of effexor in the evenging, we will start 37,5 mg po at 5 pm On March 09. Increase Effexor XR 2nd dose up to 75 on March 11. Later on, Effexor has been changed to 1 single dose of 225 mg in the morning 6. Change his antiparkinsonian to Sinemet 4 times a day. 7. Waiting for placement Reason for continued inpatient stay Substantial Risk for: inability to function, rapid decompensation and med/psych decompensation Time Spent With Patient Time: Total time managing care of this patient today _20___ minutes.
[2023-04-07] MEDS: Venlafaxine HCl ER 75 MG CAP.ER.24H 225 MG PO (09:12)
[2023-04-07] MEDS: Atorvastatin Calcium 10 MG TABLET PO (09:12)
[2023-04-07] MEDS: Acetaminophen 325 MG TABLET 650 MG PO (12:24)
[2023-04-07] MEDS: LORazepam 1 MG TABLET 2 MG PO (20:09)
[2023-04-07] MEDS: OLANZapine 5 MG TABLET PO (20:10)
[2023-04-07] MEDS: Melatonin 3 MG TABLET 6 MG PO (20:10)
[2023-04-07] MEDS: traZODone HCL 50 MG TABLET PO (20:10)
[2023-04-07 20:13] VITALS: BP 177/83; PULSE 92; RESP 18; TEMP 36.7; O2SAT 92
[2023-04-08 08:13] VITALS: BP 160/79; PULSE 101; RESP 16; TEMP 36.3; O2SAT 96
[2023-04-08] MEDS: Venlafaxine HCl ER 75 MG CAP.ER.24H 225 MG PO (08:24)
[2023-04-08] MEDS: Atorvastatin Calcium 10 MG TABLET PO (08:24)
[2023-04-08] MEDS: LORazepam 1 MG TABLET PO ×3 (08:24→15:59)
--- NOTE | 2023-04-08 15:05 | P.PNPSI_ITS ---
Subjective Subjective Date of Service: 04/08/23 Reason For Visit: SI Subjective Notes: Conditional Voluntary Interim History: The nursing staff reported the patient slept well, fully compliant with treatment. The social director reported that [facility] has accepted him and we are waiting for the to sign the paperwork. The patient denies new symptoms, waiting for placement. Mental Status Exam Mental Status Exam Patient Appearance: Well Grooomed and Appropriate Patient Orientation: Person and Situation Level of Consciousness: Awake and Appropriate Patient Behavior: Guarded and Passive Mood Description: Calm Affect Description: Constricted Patient Cognition Impaired: Yes Ability to Follow Directions: Good Speech Pattern: Clear Hallucinations: None Delusions: Not Present Thought Process: Linear Thought Content: positive for Circumstantial Judgement: Fair Diagnostics Vital Signs (24Hr): Vital Signs - 24 hr 04/07/23 20:13 04/08/23 08:13 Temperature 98.1 F 97.4 F Pulse Rate 92 101 H Respiratory Rate 18 16 Blood Pressure 177/83 H 160/79 H Pulse Oximetry 92 96 Oxygen Delivery Method Room Air Room Air BMI result Body Mass Index 23.5 Labs 03/10/23 07:58 03/10/23 07:58 Medications Medications Current Medications Acetaminophen (Acetaminophen 325 Mg Tablet) 650 mg PO Q6H PRN PRN Reason: Headache/Pain Mild Scale (1-3) Last Admin: 04/07/23 12:24 Dose: 650 mg Al Hydroxide/Mg Hydroxide (Magnesium Hydrox/Alum Hydrox 30 Ml Oral.Susp) 30 ml PO Q6H PRN PRN Reason: Heartburn/Nausea Last Admin: 03/15/23 17:37 Dose: 30 ml Atorvastatin Calcium (Atorvastatin Calcium 10 Mg Tablet) 10 mg PO DAILY [facility] Last Admin: 04/08/23 08:24 Dose: 10 mg Carbidopa/Levodopa (Carbidopa/Levodopa 10/100 Tablet) 2 tab PO QID [facility] Last Admin: 04/08/23 12:16 Dose: 2 tab Fluticasone Propionate (Fluticasone Propionate Nasal 16 Gm [place]) 1 spray NOSTRIL-B BID [facility] Last Admin: 04/08/23 08:25 Dose: Not Given Hydrocortisone (Hydrocortisone 1 % Ointment 28.35 Gm Tube) 1 appl TOPICAL BID PRN; Protocol PRN Reason: hemorroids Last Admin: 03/30/23 17:29 Dose: 1 appl Lidocaine (Lidocaine 5 % Ointment 35 Gm) 1 appl TOPICAL Q6H PRN; Protocol PRN Reason: hemorroid pain Last Admin: 03/30/23 17:29 Dose: 1 appl Lorazepam (Lorazepam 1 Mg Tablet) 2 mg PO BEDTIME [facility] Last Admin: 04/07/23 20:09 Dose: 2 mg Lorazepam (Lorazepam 1 Mg Tablet) 1 mg PO TID@0900,1300,1600 [facility] Last Admin: 04/08/23 12:16 Dose: 1 mg Magnesium Hydroxide (Milk Of Magnesia 30 Ml Oral.Susp) 30 ml PO DAILY PRN PRN Reason: Constipation Last Admin: 03/05/23 08:41 Dose: 30 ml Melatonin (Melatonin 3 Mg Tablet) 6 mg PO BEDTIME [facility] Last Admin: 04/07/23 20:10 Dose: 6 mg Multivitamins/Vitamin C (Multivitamin Tablet) 1 tab PO BEDTIME [facility] Last Admin: 04/07/23 20:13 Dose: Not Given Olanzapine (Olanzapine 5 Mg Tablet) 5 mg PO DAILY@1900 [facility] Last Admin: 04/07/23 20:10 Dose: 5 mg Polyethylene Glycol (Polyethylene Glycol 3350 17 Gm Powd.Pack) 17 gm PO DAILY PRN PRN Reason: Constipation Last Admin: 03/19/23 10:04 Dose: 17 gm Trazodone HCl (Trazodone Hcl 50 Mg Tablet) 50 mg PO BEDTIME MRX1 PRN PRN Reason: Insomnia Last Admin: 04/02/23 00:47 Dose: 50 mg Trazodone HCl (Trazodone Hcl 25 Mg Halftab) 25 mg PO BID PRN PRN Reason: Agitation Last Admin: 04/07/23 04:30 Dose: 25 mg Trazodone HCl (Trazodone Hcl 50 Mg Tablet) 50 mg PO BEDTIME [facility] Last Admin: 04/07/23 20:10 Dose: 50 mg Trolamine Salicylate (Trolamine Salicylate 10 % Cream 141 Gm Tube) 1 appl TOPICAL QID PRN; Protocol PRN Reason: Pain, Moderate (Pain Scale 4-6 Last Admin: 03/17/23 00:35 Dose: 1 appl Venlafaxine HCl (Venlafaxine Hcl Er 75 Mg Cap.Er.24h) 225 mg PO DAILY [facility] Last Admin: 04/08/23 08:24 Dose: 225 mg Allergies Allergies Allergy/AdvReac Type Severity Reaction Status Date / Time oxycodone Allergy Unknown Verified 10/14/22 13:51 pollen extracts Allergy skin rash Verified 10/14/22 13:51 Assessment & Plan Assessment & Plan (1) Neurodegenerative cognitive impairment: Status: Acute Code(s): G31.9 - Degenerative disease of nervous system, unspecified (2) Parkinsons disease: Status: Acute Code(s): G20 - Parkinson's disease Assessment and Plan: [age] years old man with moderate to severe Parkinson's features with EDSS score of 6-7. After years of Parkinson's, he also has developed depression and psychotic features. I do not have access to his previous workup including brain imaging, but this evolution of his condition suggested that he might be going into or his underlying condition could very well be dementia with Lewy body disease. Review of brain scan done, maybe at [facility], can help. In any case, dopaminergic drugs are known to have possible psychiatric side effects but at the same time without dopamine supplementation, patient has significant physical disability. A balance has to be reached. In that regard, I would suggest discontinuing Stalevo, which is a combination of drugs. Instead of that, try plain carbidopa levodopa 25/100 2 tablets 4 to 5 times a day. Starting tomorrow, prescribed 1st does at 06:00 and then repeat that does at 10:00, 14:00, 18:00. make an observation tomorrow if that works out better and further adjustment can be made based upon how he reacts to this dose. If psychiatrically not better, may consider Nuplazid. Plan 1. Continue with same treatment. 2. Keep Effexor as prescribed 225 mg only the morning. 3. Keep on Sinemet as a prescribing doses. 4. Ativan will be changed to 4 times a day we Sinemet on March 19 Ativan is increased up to 1 mg on 03/30. 5. Minute and increased up to 6 mg on March 18. 6. Trazodone started at 50 mg p.o. q.h.s. standing every night on March 18 7. Increased Ativan up to 2 mg at night to target anxiety on March 19 8. D/C Haldol on 03/28 and start Zyprexa 5 mg po qhs at 19:00. 9. Waiting for proper placement. (3) Major depressive disorder: Status: Acute Code(s): F32.9 - Major depressive disorder, single episode, unspecified (4) Psychosis: Status: Acute Code(s): F29 - Unspecified psychosis not due to a substance or known physiological condition Plan Elderly male with past history of Parkinson's disease that is advanced admitted for psychotic symptoms in the context of Sinemet. Plan 1. Gather collateral information. 2. Continue Haldol 0.5 p.o. t.i.d. to target psychosis. Stop on 03/28 and start Zyprexa at hs 3. Continue with medical workout. 4. Assessment with results. 5. reported that he had a 2nd dose of effexor in the evenging, we will start 37,5 mg po at 5 pm On March 09. Increase Effexor XR 2nd dose up to 75 on March 11. Later on, Effexor has been changed to 1 single dose of 225 mg in the morning 6. Change his antiparkinsonian to Sinemet 4 times a day. 7. Waiting for placement Reason for continued inpatient stay Substantial Risk for: inability to function, rapid decompensation and med/psych decompensation Time Spent With Patient Time: Total time managing care of this patient today _20___ minutes.
[2023-04-08 18:00] VITALS: BP 162/77; PULSE 92; RESP 16; TEMP 37.1; O2SAT 94
[2023-04-08] MEDS: Melatonin 3 MG TABLET 6 MG PO (20:25)
[2023-04-08] MEDS: traZODone HCL 50 MG TABLET PO (20:26)
[2023-04-08] MEDS: OLANZapine 5 MG TABLET PO (20:28)
[2023-04-08] MEDS: LORazepam 1 MG TABLET 2 MG PO (20:55)
[2023-04-09] MEDS: traZODone HCL 25 MG HALFTAB PO (05:21)
[2023-04-09 06:00] VITALS: BP 164/79; PULSE 99
[2023-04-09] MEDS: LORazepam 1 MG TABLET PO ×3 (09:16→15:13)
[2023-04-09] MEDS: Atorvastatin Calcium 10 MG TABLET PO (09:16)
[2023-04-09] MEDS: Venlafaxine HCl ER 75 MG CAP.ER.24H 225 MG PO (09:16)
--- NOTE | 2023-04-09 12:26 | P.PNPSI_ITS ---
Subjective Subjective Date of Service: 04/09/23 Reason For Visit: SI Subjective Notes: Conditional Voluntary Healthcare Proxy: No Guardianship: No Medical Problems Affecting Mental Status: Yes (parkinsons) Interim History: Patient reports less depressed, more anxious- trouble breathing which they are working on figuring out here on unit Wondered with pt if like with eps/td it could be part of on /off phenomenon of parkinsons Provider did not witness patient having any trouble breathing Discussed anxiety denies si at this time Medication Compliance: Yes Side effects from medications: No Attending Groups: No Review of Systems Acute medical concerns: No Medical Review of Systems: unchanged Mental Status Exam Mental Status Exam Narrative: lying in bed, casual dress Patient Appearance: Unkempt Patient Orientation: Person, Place, Time and Situation Level of Consciousness: Awake and Appropriate Patient Behavior: Passive and Poor Eye Contact Mood Description: Withdrawn Affect Description: Depressed and Anxious Patient Cognition Impaired: No Ability to Follow Directions: Good Speech Pattern: Clear Hallucinations: None Thought Process: Intact and Goal Oriented Thought Content: positive for Intact Abnormal Motor Activity Signs and Symptoms: Psychomotor Retardation Judgement: Good Diagnostics Vital Signs (24Hr): Vital Signs - 24 hr 04/08/23 18:00 04/09/23 06:00 Temperature 98.8 F Pulse Rate 92 99 Respiratory Rate 16 Blood Pressure 162/77 H 164/79 H Pulse Oximetry 94 Oxygen Delivery Method Room Air BMI result Body Mass Index 23.5 Labs 03/10/23 07:58 03/10/23 07:58 Medications Medications Current Medications Acetaminophen (Acetaminophen 325 Mg Tablet) 650 mg PO Q6H PRN PRN Reason: Headache/Pain Mild Scale (1-3) Last Admin: 04/07/23 12:24 Dose: 650 mg Al Hydroxide/Mg Hydroxide (Magnesium Hydrox/Alum Hydrox 30 Ml Oral.Susp) 30 ml PO Q6H PRN PRN Reason: Heartburn/Nausea Last Admin: 03/15/23 17:37 Dose: 30 ml Atorvastatin Calcium (Atorvastatin Calcium 10 Mg Tablet) 10 mg PO DAILY [facility] Last Admin: 04/09/23 09:16 Dose: 10 mg Carbidopa/Levodopa (Carbidopa/Levodopa 10/100 Tablet) 2 tab PO QID [facility] Last Admin: 04/09/23 11:51 Dose: 2 tab Fluticasone Propionate (Fluticasone Propionate Nasal 16 Gm [place]) 1 spray NOSTRIL-B BID [facility] Last Admin: 04/09/23 09:17 Dose: Not Given Hydrocortisone (Hydrocortisone 1 % Ointment 28.35 Gm Tube) 1 appl TOPICAL BID PRN; Protocol PRN Reason: hemorroids Last Admin: 03/30/23 17:29 Dose: 1 appl Lidocaine (Lidocaine 5 % Ointment 35 Gm) 1 appl TOPICAL Q6H PRN; Protocol PRN Reason: hemorroid pain Last Admin: 03/30/23 17:29 Dose: 1 appl Lorazepam (Lorazepam 1 Mg Tablet) 2 mg PO BEDTIME [facility] Last Admin: 04/08/23 20:55 Dose: 2 mg Lorazepam (Lorazepam 1 Mg Tablet) 1 mg PO TID@0900,1300,1600 [facility] Last Admin: 04/09/23 11:51 Dose: 1 mg Magnesium Hydroxide (Milk Of Magnesia 30 Ml Oral.Susp) 30 ml PO DAILY PRN PRN Reason: Constipation Last Admin: 03/05/23 08:41 Dose: 30 ml Melatonin (Melatonin 3 Mg Tablet) 6 mg PO BEDTIME [facility] Last Admin: 04/08/23 20:25 Dose: 6 mg Multivitamins/Vitamin C (Multivitamin Tablet) 1 tab PO BEDTIME [facility] Last Admin: 04/08/23 20:44 Dose: Not Given Olanzapine (Olanzapine 5 Mg Tablet) 5 mg PO DAILY@1900 [facility] Last Admin: 04/08/23 20:28 Dose: 5 mg Polyethylene Glycol (Polyethylene Glycol 3350 17 Gm Powd.Pack) 17 gm PO DAILY PRN PRN Reason: Constipation Last Admin: 03/19/23 10:04 Dose: 17 gm Trazodone HCl (Trazodone Hcl 50 Mg Tablet) 50 mg PO BEDTIME MRX1 PRN PRN Reason: Insomnia Last Admin: 04/02/23 00:47 Dose: 50 mg Trazodone HCl (Trazodone Hcl 25 Mg Halftab) 25 mg PO BID PRN PRN Reason: Agitation Last Admin: 04/09/23 05:21 Dose: 25 mg Trazodone HCl (Trazodone Hcl 50 Mg Tablet) 50 mg PO BEDTIME [facility] Last Admin: 04/08/23 20:26 Dose: 50 mg Trolamine Salicylate (Trolamine Salicylate 10 % Cream 141 Gm Tube) 1 appl TOPICAL QID PRN; Protocol PRN Reason: Pain, Moderate (Pain Scale 4-6 Last Admin: 03/17/23 00:35 Dose: 1 appl Venlafaxine HCl (Venlafaxine Hcl Er 75 Mg Cap.Er.24h) 225 mg PO DAILY [facility] Last Admin: 04/09/23 09:16 Dose: 225 mg Allergies Allergies Allergy/AdvReac Type Severity Reaction Status Date / Time oxycodone Allergy Unknown Verified 10/14/22 13:51 pollen extracts Allergy skin rash Verified 10/14/22 13:51 Assessment & Plan Assessment & Plan (1) Neurodegenerative cognitive impairment: Status: Acute Code(s): G31.9 - Degenerative disease of nervous system, unspecified (2) Parkinsons disease: Status: Acute Code(s): G20 - Parkinson's disease Assessment and Plan: [age] years old man with moderate to severe Parkinson's features with EDSS score of 6-7. After years of Parkinson's, he also has developed depression and psychotic features. I do not have access to his previous workup including brain imaging, but this evolution of his condition suggested that he might be going into or his underlying condition could very well be dementia with Lewy body disease. Review of brain scan done, maybe at [facility], can help. In any case, dopaminergic drugs are known to have possible psychiatric side effects but at the same time without dopamine supplementation, patient has significant physical disability. A balance has to be reached. In that regard, I would suggest discontinuing Stalevo, which is a combination of drugs. Instead of that, try plain carbidopa levodopa 25/100 2 tablets 4 to 5 times a day. Starting tomorrow, prescribed 1st does at 06:00 and then repeat that does at 10:00, 14:00, 18:00. make an observation tomorrow if that works out better and further adjustment can be made based upon how he reacts to this dose. If psychiatrically not better, may consider Nuplazid. Plan 1. Continue with same treatment. 2. Keep Effexor as prescribed 225 mg only the morning. 3. Keep on Sinemet as a prescribing doses. 4. Ativan will be changed to 4 times a day we Sinemet on March 19 Ativan is increased up to 1 mg on 03/30. 5. Minute and increased up to 6 mg on March 18. 6. Trazodone started at 50 mg p.o. q.h.s. standing every night on March 18 7. Increased Ativan up to 2 mg at night to target anxiety on March 19 8. D/C Haldol on 03/28 and start Zyprexa 5 mg po qhs at 19:00. 9. Waiting for proper placement. (3) Major depressive disorder: Status: Acute Code(s): F32.9 - Major depressive disorder, single episode, unspecified Assessment and Plan: 04/09 denies si (4) Psychosis: Status: Acute Code(s): F29 - Unspecified psychosis not due to a substance or known physiological condition Assessment and Plan: meds for this must be working was not in evidence with provider today 04/09 Plan Elderly male with past history of Parkinson's disease that is advanced admitted for psychotic symptoms in the context of Sinemet. Plan 1. Gather collateral information. 2. Continue Haldol 0.5 p.o. t.i.d. to target psychosis. Stop on 03/28 and start Zyprexa at hs 3. Continue with medical workout. 4. Assessment with results. 5. reported that he had a 2nd dose of effexor in the evenging, we will start 37,5 mg po at 5 pm On March 09. Increase Effexor XR 2nd dose up to 75 on March 11. Later on, Effexor has been changed to 1 single dose of 225 mg in the morning 6. Change his antiparkinsonian to Sinemet 4 times a day. 7. Waiting for placement Patient educated on: medication risk/benefits Informed Consent: understands Reason for continued inpatient stay Substantial Risk for: rapid decompensation and med/psych decompensation Time Spent With Patient Time: Total time managing care of this patient today ____ minutes.
[2023-04-09 16:51] VITALS: BP 118/57; PULSE 85
[2023-04-09] MEDS: Melatonin 3 MG TABLET 6 MG PO (21:06)
[2023-04-09] MEDS: traZODone HCL 50 MG TABLET PO (21:07)
[2023-04-09] MEDS: Multivitamin TABLET 1 TAB PO (21:07)
[2023-04-09] MEDS: LORazepam 1 MG TABLET 2 MG PO (21:07)
[2023-04-10] MEDS: hydrOXYzine HCL 10 MG TABLET PO (01:54)
[2023-04-10] MEDS: traZODone HCL 50 MG TABLET PO ×2 (01:55→20:39)
[2023-04-10] MEDS: traZODone HCL 25 MG HALFTAB PO (06:42)
[2023-04-10] MEDS: Venlafaxine HCl ER 75 MG CAP.ER.24H 225 MG PO (07:48)
[2023-04-10] MEDS: Atorvastatin Calcium 10 MG TABLET PO (07:48)
[2023-04-10] MEDS: LORazepam 1 MG TABLET PO ×3 (07:49→16:12)
[2023-04-10 08:50] VITALS: BP 129/63; PULSE 90; RESP 18; TEMP 37.1; O2SAT 96
--- NOTE | 2023-04-10 10:43 | HO.PSYCHPN ---
Subjective Subjective Date of Service: 04/10/23 Reason For Visit: SI Subjective Notes: Conditional Voluntary Healthcare Proxy: Yes Guardianship: No Medical Problems Affecting Mental Status: Yes (severe parkinsons do) Interim History: Today pt seems confused- can't get up due to not due for dose of med and can't get himself up - thinks he is at work and his boss Nabeel can do something- - hotel administrative assistant told me he isn't due for next dose for 1.5 hr- had to help him to get up to go to lunch- pt appears quite depressed and psychomotor retarded which might coincide with dosing of anti-parkinsonian med (on /off ) but also dementia? re confusion checked with nursing and they report has times like that Medication Compliance: Yes Attending Groups: No Review of Systems Acute medical concerns: Yes parkinsons, with dementia managing between med doses Medical Review of Systems: changed (was massaging his calf muscles) Review of Systems Review of Systems does not appear sob but does appear quite stiff (between dose effect) yet thinkng he is at work with boss ( would be an on dose sys or s/e) Mental Status Exam Mental Status Exam Narrative: sitting on edge of bed looking down, leg tremor massaging calf, addressing Nabeel his boss who could some how fix things Patient Appearance: Rigid Patient Orientation: Person Level of Consciousness: Awake Patient Behavior: Fatigued and Confused Behavior Comments: nursing also tells me he calls psych counselor on unit [facility] who is Flavio- so maybe it was more matter of communication- Mood Description: Constricted and Depressed Affect Description: Flat, Sad and Apprehensive Patient Cognition Impaired: Yes Ability to Follow Directions: Fair Speech Pattern: Impoverished Thought Process: Confusion Thought Content: positive for Poverty of Content Depressive Symptoms: Muscle Tension and Isolating-Friends/Family (refused family visit yesterday) Abnormal Motor Activity Signs and Symptoms: Psychomotor Retardation Judgement: Poor Diagnostics Vital Signs (24Hr): Vital Signs - 24 hr 04/09/23 16:51 04/10/23 08:50 Temperature 98.7 F Pulse Rate 85 90 Respiratory Rate 18 Blood Pressure 118/57 L 129/63 Pulse Oximetry 96 Oxygen Delivery Method Room Air BMI result Body Mass Index 23.5 Labs 03/10/23 07:58 03/10/23 07:58 Medications Medications Current Medications Acetaminophen (Acetaminophen 325 Mg Tablet) 650 mg PO Q6H PRN PRN Reason: Headache/Pain Mild Scale (1-3) Last Admin: 04/07/23 12:24 Dose: 650 mg Al Hydroxide/Mg Hydroxide (Magnesium Hydrox/Alum Hydrox 30 Ml Oral.Susp) 30 ml PO Q6H PRN PRN Reason: Heartburn/Nausea Last Admin: 03/15/23 17:37 Dose: 30 ml Atorvastatin Calcium (Atorvastatin Calcium 10 Mg Tablet) 10 mg PO DAILY [facility] Last Admin: 04/10/23 07:48 Dose: 10 mg Carbidopa/Levodopa (Carbidopa/Levodopa 10/100 Tablet) 2 tab PO QID [facility] Last Admin: 04/10/23 07:48 Dose: 2 tab Fluticasone Propionate (Fluticasone Propionate Nasal 16 Gm [place]) 1 spray NOSTRIL-B BID [facility] Last Admin: 04/10/23 09:08 Dose: Not Given Hydrocortisone (Hydrocortisone 1 % Ointment 28.35 Gm Tube) 1 appl TOPICAL BID PRN; Protocol PRN Reason: hemorroids Last Admin: 03/30/23 17:29 Dose: 1 appl Hydroxyzine HCl (Hydroxyzine Hcl 10 Mg Tablet) 10 mg PO Q6H PRN PRN Reason: Anxiety Last Admin: 04/10/23 01:54 Dose: 10 mg Lidocaine (Lidocaine 5 % Ointment 35 Gm) 1 appl TOPICAL Q6H PRN; Protocol PRN Reason: hemorroid pain Last Admin: 03/30/23 17:29 Dose: 1 appl Lorazepam (Lorazepam 1 Mg Tablet) 2 mg PO BEDTIME [facility] Last Admin: 04/09/23 21:07 Dose: 2 mg Lorazepam (Lorazepam 1 Mg Tablet) 1 mg PO TID@0900,1300,1600 [facility] Last Admin: 04/10/23 07:49 Dose: 1 mg Magnesium Hydroxide (Milk Of Magnesia 30 Ml Oral.Susp) 30 ml PO DAILY PRN PRN Reason: Constipation Last Admin: 03/05/23 08:41 Dose: 30 ml Melatonin (Melatonin 3 Mg Tablet) 6 mg PO BEDTIME [facility] Last Admin: 04/09/23 21:06 Dose: 6 mg Multivitamins/Vitamin C (Multivitamin Tablet) 1 tab PO BEDTIME [facility] Last Admin: 04/09/23 21:07 Dose: 1 tab Olanzapine (Olanzapine 5 Mg Tablet) 5 mg PO DAILY@1900 [facility] Last Admin: 04/09/23 20:58 Dose: Not Given Polyethylene Glycol (Polyethylene Glycol 3350 17 Gm Powd.Pack) 17 gm PO DAILY PRN PRN Reason: Constipation Last Admin: 03/19/23 10:04 Dose: 17 gm Trazodone HCl (Trazodone Hcl 50 Mg Tablet) 50 mg PO BEDTIME MRX1 PRN PRN Reason: Insomnia Last Admin: 04/10/23 01:55 Dose: 50 mg Trazodone HCl (Trazodone Hcl 25 Mg Halftab) 25 mg PO BID PRN PRN Reason: Agitation Last Admin: 04/10/23 06:42 Dose: 25 mg Trazodone HCl (Trazodone Hcl 50 Mg Tablet) 50 mg PO BEDTIME [facility] Last Admin: 04/09/23 21:07 Dose: 50 mg Trolamine Salicylate (Trolamine Salicylate 10 % Cream 141 Gm Tube) 1 appl TOPICAL QID PRN; Protocol PRN Reason: Pain, Moderate (Pain Scale 4-6 Last Admin: 03/17/23 00:35 Dose: 1 appl Venlafaxine HCl (Venlafaxine Hcl Er 75 Mg Cap.Er.24h) 225 mg PO DAILY [facility] Last Admin: 04/10/23 07:48 Dose: 225 mg Allergies Allergies Allergy/AdvReac Type Severity Reaction Status Date / Time oxycodone Allergy Unknown Verified 10/14/22 13:51 pollen extracts Allergy skin rash Verified 10/14/22 13:51 Assessment & Plan Assessment & Plan (1) Neurodegenerative cognitive impairment: Status: Acute Code(s): G31.9 - Degenerative disease of nervous system, unspecified Assessment and Plan: definite on/off phenemon mixed with confusion and restricted affect, movement limitations (2) Parkinsons disease: Status: Acute Code(s): G20 - Parkinson's disease Assessment and Plan: [age] would years old man with moderate to severe Parkinson's features with EDSS score of 6-7. After years of Parkinson's, he also has developed depression and psychotic features. I do not have access to his previous workup including brain imaging, but this evolution of his condition suggested that he might be going into or his underlying condition could very well be dementia with Lewy body disease. Review of brain scan done, maybe at [facility], can help. In any case, dopaminergic drugs are known to have possible psychiatric side effects but at the same time without dopamine supplementation, patient has significant physical disability. A balance has to be reached. In that regard, I would suggest discontinuing Stalevo, which is a combination of drugs. Instead of that, try plain carbidopa levodopa 25/100 2 tablets 4 to 5 times a day. Starting tomorrow, prescribed 1st does at 06:00 and then repeat that does at 10:00, 14:00, 18:00. make an observation tomorrow if that works out better and further adjustment can be made based upon how he reacts to this dose. If psychiatrically not better, may consider Nuplazid. Plan 1. Continue with same treatment. 2. Keep Effexor as prescribed 225 mg only the morning. 3. Keep on Sinemet as a prescribing doses. 4. Ativan will be changed to 4 times a day we Sinemet on March 19 Ativan is increased up to 1 mg on 03/30. 5. Minute and increased up to 6 mg on March 18. 6. Trazodone started at 50 mg p.o. q.h.s. standing every night on March 18 7. Increased Ativan up to 2 mg at night to target anxiety on March 19 8. D/C Haldol on 03/28 and start Zyprexa 5 mg po qhs at 19:00. 9. Waiting for proper placement. (3) Major depressive disorder: Status: Acute Code(s): F32.9 - Major depressive disorder, single episode, unspecified Assessment and Plan: 04/09 denies si (4) Psychosis: Status: Acute Code(s): F29 - Unspecified psychosis not due to a substance or known physiological condition Assessment and Plan: meds for this must be working was not in evidence with provider today 04/09 Plan Elderly male with past history of Parkinson's disease that is advanced admitted for psychotic symptoms in the context of Sinemet. Plan 1. Gather collateral information. 2. Continue Haldol 0.5 p.o. t.i.d. to target psychosis. Stop on 03/28 and start Zyprexa at hs 3. Continue with medical workout. 4. Assessment with results. 5. reported that he had a 2nd dose of effexor in the evenging, we will start 37,5 mg po at 5 pm On March 09. Increase Effexor XR 2nd dose up to 75 on March 11. Later on, Effexor has been changed to 1 single dose of 225 mg in the morning 6. Change his antiparkinsonian to Sinemet 4 times a day. 7. Waiting for placement Reason for continued inpatient stay Substantial Risk for: inability to function, rapid decompensation and med/psych decompensation Time Spent With Patient Time: Total time managing care of this patient today ____ minutes.
[2023-04-10 18:00] VITALS: BP 133/68; PULSE 79; RESP 18; TEMP 36.2; O2SAT 97
[2023-04-10] MEDS: OLANZapine 5 MG TABLET PO (20:39)
[2023-04-10] MEDS: Melatonin 3 MG TABLET 6 MG PO (20:39)
[2023-04-10] MEDS: Multivitamin TABLET 1 TAB PO (20:39)
[2023-04-10] MEDS: LORazepam 1 MG TABLET 2 MG PO (20:39)
[2023-04-11 08:42] VITALS: BP 169/84; PULSE 95; RESP 20; TEMP 36.5; O2SAT 95
[2023-04-11] MEDS: LORazepam 1 MG TABLET PO ×3 (08:50→16:14)
[2023-04-11] MEDS: Venlafaxine HCl ER 75 MG CAP.ER.24H 225 MG PO (08:50)
[2023-04-11] MEDS: Atorvastatin Calcium 10 MG TABLET PO (08:50)
--- NOTE | 2023-04-11 14:52 | P.PNPSI_ITS ---
Subjective Subjective Date of Service: 04/11/23 Reason For Visit: SI Subjective Notes: Conditional Voluntary Interim History: The nursing staff reported the patient has been awake and alert medication compliant 100%. He had been walking with the help of his Merry Walkerleida. The social services analyst reported that his has been working on placement. On interview the patient denies new symptoms, content with current treatment, waiting for placement Mental Status Exam Mental Status Exam Patient Appearance: Well Grooomed and Appropriate Patient Orientation: Person and Situation Level of Consciousness: Awake and Appropriate Patient Behavior: Guarded and Passive Mood Description: Constricted Affect Description: Withdrawn Patient Cognition Impaired: Yes Ability to Follow Directions: Good Speech Pattern: Clear Hallucinations: None Delusions: Not Present Thought Process: Linear Thought Content: positive for [place] and positive for Thought Blocking Judgement: Fair Diagnostics Vital Signs (24Hr): Vital Signs - 24 hr 04/10/23 18:00 04/11/23 08:42 Temperature 97.2 F 97.7 F Pulse Rate 79 95 Respiratory Rate 18 20 Blood Pressure 133/68 169/84 H Pulse Oximetry 97 95 Oxygen Delivery Method Room Air Room Air BMI result Body Mass Index 23.5 Labs 03/10/23 07:58 03/10/23 07:58 Medications Medications Current Medications Acetaminophen (Acetaminophen 325 Mg Tablet) 650 mg PO Q6H PRN PRN Reason: Headache/Pain Mild Scale (1-3) Last Admin: 04/07/23 12:24 Dose: 650 mg Al Hydroxide/Mg Hydroxide (Magnesium Hydrox/Alum Hydrox 30 Ml Oral.Susp) 30 ml PO Q6H PRN PRN Reason: Heartburn/Nausea Last Admin: 03/15/23 17:37 Dose: 30 ml Atorvastatin Calcium (Atorvastatin Calcium 10 Mg Tablet) 10 mg PO DAILY [facility] Last Admin: 04/11/23 08:50 Dose: 10 mg Carbidopa/Levodopa (Carbidopa/Levodopa 10/100 Tablet) 2 tab PO QID [facility] Last Admin: 04/11/23 13:10 Dose: 2 tab Fluticasone Propionate (Fluticasone Propionate Nasal 16 Gm [place]) 1 spray NOSTRIL-B BID [facility] Last Admin: 04/11/23 08:50 Dose: Not Given Hydrocortisone (Hydrocortisone 1 % Ointment 28.35 Gm Tube) 1 appl TOPICAL BID PRN; Protocol PRN Reason: hemorroids Last Admin: 03/30/23 17:29 Dose: 1 appl Hydroxyzine HCl (Hydroxyzine Hcl 10 Mg Tablet) 10 mg PO Q6H PRN PRN Reason: Anxiety Last Admin: 04/10/23 01:54 Dose: 10 mg Lidocaine (Lidocaine 5 % Ointment 35 Gm) 1 appl TOPICAL Q6H PRN; Protocol PRN Reason: hemorroid pain Last Admin: 03/30/23 17:29 Dose: 1 appl Lorazepam (Lorazepam 1 Mg Tablet) 2 mg PO BEDTIME [facility] Last Admin: 04/10/23 20:39 Dose: 2 mg Lorazepam (Lorazepam 1 Mg Tablet) 1 mg PO TID@0900,1300,1600 [facility] Last Admin: 04/11/23 13:10 Dose: 1 mg Magnesium Hydroxide (Milk Of Magnesia 30 Ml Oral.Susp) 30 ml PO DAILY PRN PRN Reason: Constipation Last Admin: 03/05/23 08:41 Dose: 30 ml Melatonin (Melatonin 3 Mg Tablet) 6 mg PO BEDTIME [facility] Last Admin: 04/10/23 20:39 Dose: 6 mg Multivitamins/Vitamin C (Multivitamin Tablet) 1 tab PO BEDTIME [facility] Last Admin: 04/10/23 20:39 Dose: 1 tab Olanzapine (Olanzapine 5 Mg Tablet) 5 mg PO DAILY@1900 [facility] Last Admin: 04/10/23 20:39 Dose: 5 mg Polyethylene Glycol (Polyethylene Glycol 3350 17 Gm Powd.Pack) 17 gm PO DAILY PRN PRN Reason: Constipation Last Admin: 03/19/23 10:04 Dose: 17 gm Trazodone HCl (Trazodone Hcl 50 Mg Tablet) 50 mg PO BEDTIME MRX1 PRN PRN Reason: Insomnia Last Admin: 04/10/23 01:55 Dose: 50 mg Trazodone HCl (Trazodone Hcl 25 Mg Halftab) 25 mg PO BID PRN PRN Reason: Agitation Last Admin: 04/10/23 06:42 Dose: 25 mg Trazodone HCl (Trazodone Hcl 50 Mg Tablet) 50 mg PO BEDTIME [facility] Last Admin: 04/10/23 20:39 Dose: 50 mg Trolamine Salicylate (Trolamine Salicylate 10 % Cream 141 Gm Tube) 1 appl TOPICAL QID PRN; Protocol PRN Reason: Pain, Moderate (Pain Scale 4-6 Last Admin: 03/17/23 00:35 Dose: 1 appl Venlafaxine HCl (Venlafaxine Hcl Er 75 Mg Cap.Er.24h) 225 mg PO DAILY [facility] Last Admin: 04/11/23 08:50 Dose: 225 mg Allergies Allergies Allergy/AdvReac Type Severity Reaction Status Date / Time oxycodone Allergy Unknown Verified 10/14/22 13:51 pollen extracts Allergy skin rash Verified 10/14/22 13:51 Assessment & Plan Assessment & Plan (1) Neurodegenerative cognitive impairment: Status: Acute Code(s): G31.9 - Degenerative disease of nervous system, unspecified Assessment and Plan: definite on/off phenemon mixed with confusion and restricted affect, movement limitations (2) Parkinsons disease: Status: Acute Code(s): G20 - Parkinson's disease Assessment and Plan: [age] years old man with moderate to severe Parkinson's features with EDSS score of 6-7. After years of Parkinson's, he also has developed depression and psychotic features. I do not have access to his previous workup including brain imaging, but this evolution of his condition suggested that he might be going into or his underlying condition could very well be dementia with Lewy body disease. Review of brain scan done, maybe at [facility], can help. In any case, dopaminergic drugs are known to have possible psychiatric side effects but at the same time without dopamine supplementation, patient has significant physical disability. A balance has to be reached. In that regard, I would suggest discontinuing Stalevo, which is a combination of drugs. Instead of that, try plain carbidopa levodopa 25/100 2 tablets 4 to 5 times a day. Starting tomorrow, prescribed 1st does at 06:00 and then repeat that does at 10:00, 14:00, 18:00. make an observation tomorrow if that works out better and further adjustment can be made based upon how he reacts to this dose. If psyc hiatrically not better, may consider Nuplazid. Plan 1. Continue with same treatment. 2. Keep Effexor as prescribed 225 mg only the morning. 3. Keep on Sinemet as a prescribing doses. 4. Ativan will be changed to 4 times a day we Sinemet on March 19 Ativan is increased up to 1 mg on 03/30. 5. Minute and increased up to 6 mg on March 18. 6. Trazodone started at 50 mg p.o. q.h.s. standing every night on March 18 7. Increased Ativan up to 2 mg at night to target anxiety on March 19 8. D/C Haldol on 03/28 and start Zyprexa 5 mg po qhs at 19:00. 9. Waiting for proper placement. (3) Major depressive disorder: Status: Acute Code(s): F32.9 - Major depressive disorder, single episode, unspecified Assessment and Plan: 04/09 denies si (4) Psychosis: Status: Acute Code(s): F29 - Unspecified psychosis not due to a substance or known physiological condition Assessment and Plan: meds for this must be working was not in evidence with provider today 04/09 Plan Elderly male with past history of Parkinson's disease that is advanced admitted for psychotic symptoms in the context of Sinemet. Plan 1. Gather collateral information. 2. Continue Haldol 0.5 p.o. t.i.d. to target psychosis. Stop on 03/28 and start Zyprexa at hs 3. Continue with medical workout. 4. Assessment with results. 5. reported that he had a 2nd dose of effexor in the evenging, we will start 37,5 mg po at 5 pm On March 09. Increase Effexor XR 2nd dose up to 75 on March 11. Later on, Effexor has been changed to 1 single dose of 225 mg in the morning 6. Change his antiparkinsonian to Sinemet 4 times a day. 7. Waiting for placement Reason for continued inpatient stay Substantial Risk for: inability to function, rapid decompensation and med/psych decompensation Time Spent With Patient Time: Total time managing care of this patient today __20__ minutes.
[2023-04-11] MEDS: LORazepam 1 MG TABLET 2 MG PO (20:59)
[2023-04-11] MEDS: OLANZapine 5 MG TABLET PO (20:59)
[2023-04-11] MEDS: traZODone HCL 50 MG TABLET PO (20:59)
[2023-04-11] MEDS: Melatonin 3 MG TABLET 6 MG PO (20:59)
[2023-04-12 07:30] VITALS: BP 162/76; PULSE 73; RESP 18; TEMP 36.7; O2SAT 96
[2023-04-12] MEDS: Atorvastatin Calcium 10 MG TABLET PO (08:44)
[2023-04-12] MEDS: Venlafaxine HCl ER 75 MG CAP.ER.24H 225 MG PO (08:44)
[2023-04-12] MEDS: LORazepam 1 MG TABLET PO ×3 (08:44→16:13)
--- NOTE | 2023-04-12 12:12 | P.PNPSI_ITS ---
Subjective Subjective Date of Service: 04/12/23 Reason For Visit: SI Subjective Notes: Conditional Voluntary Interim History: The nursing staff reported the patient had been fully compliant with treatment denies anxiety or depression. We have noticed the patient is very safe on transferring and it is same to use the commode on his room. The certified social workers in health care reported that his has not sign to the custodial facility yet [facility] to not have a bed at this moment. On the interview the patient denies new symptoms besides sporadic AH, he agreed to increase Zyprexa waiting for placement. Mental Status Exam Mental Status Exam Patient Appearance: Appropriate Patient Orientation: Person and Situation Level of Consciousness: Awake and Appropriate Patient Behavior: Guarded and Passive Mood Description: Calm Affect Description: Constricted Patient Cognition Impaired: Yes Ability to Follow Directions: Good Speech Pattern: Clear Hallucinations: None Delusions: Not Present Thought Process: Linear Thought Content: positive for [place] and positive for Circumstantial Judgement: Fair Diagnostics Vital Signs (24Hr): Vital Signs - 24 hr 04/12/23 07:30 Temperature 98.0 F Pulse Rate 73 Respiratory Rate 18 Blood Pressure 162/76 H Pulse Oximetry 96 Oxygen Delivery Method Room Air BMI result Body Mass Index 23.5 Labs 03/10/23 07:58 03/10/23 07:58 Medications Medications Current Medications Acetaminophen (Acetaminophen 325 Mg Tablet) 650 mg PO Q6H PRN PRN Reason: Headache/Pain Mild Scale (1-3) Last Admin: 04/07/23 12:24 Dose: 650 mg Al Hydroxide/Mg Hydroxide (Magnesium Hydrox/Alum Hydrox 30 Ml Oral.Susp) 30 ml PO Q6H PRN PRN Reason: Heartburn/Nausea Last Admin: 03/15/23 17:37 Dose: 30 ml Atorvastatin Calcium (Atorvastatin Calcium 10 Mg Tablet) 10 mg PO DAILY [facility] Last Admin: 04/12/23 08:44 Dose: 10 mg Carbidopa/Levodopa (Carbidopa/Levodopa 10/100 Tablet) 2 tab PO QID [facility] Last Admin: 04/12/23 08:44 Dose: 2 tab Fluticasone Propionate (Fluticasone Propionate Nasal 16 Gm [place]) 1 spray NOSTRIL-B BID [facility] Last Admin: 04/12/23 08:47 Dose: Not Given Hydrocortisone (Hydrocortisone 1 % Ointment 28.35 Gm Tube) 1 appl TOPICAL BID PRN; Protocol PRN Reason: hemorroids Last Admin: 03/30/23 17:29 Dose: 1 appl Hydroxyzine HCl (Hydroxyzine Hcl 10 Mg Tablet) 10 mg PO Q6H PRN PRN Reason: Anxiety Last Admin: 04/10/23 01:54 Dose: 10 mg Lidocaine (Lidocaine 5 % Ointment 35 Gm) 1 appl TOPICAL Q6H PRN; Protocol PRN Reason: hemorroid pain Last Admin: 03/30/23 17:29 Dose: 1 appl Lorazepam (Lorazepam 1 Mg Tablet) 2 mg PO BEDTIME [facility] Last Admin: 04/11/23 20:59 Dose: 2 mg Lorazepam (Lorazepam 1 Mg Tablet) 1 mg PO TID@0900,1300,1600 [facility] Last Admin: 04/12/23 08:44 Dose: 1 mg Magnesium Hydroxide (Milk Of Magnesia 30 Ml Oral.Susp) 30 ml PO DAILY PRN PRN Reason: Constipation Last Admin: 03/05/23 08:41 Dose: 30 ml Melatonin (Melatonin 3 Mg Tablet) 6 mg PO BEDTIME [facility] Last Admin: 04/11/23 20:59 Dose: 6 mg Multivitamins/Vitamin C (Multivitamin Tablet) 1 tab PO BEDTIME [facility] Last Admin: 04/11/23 21:03 Dose: Not Given Olanzapine (Olanzapine 5 Mg Tablet) 5 mg PO DAILY@1900 [facility] Last Admin: 04/11/23 20:59 Dose: 5 mg Polyethylene Glycol (Polyethylene Glycol 3350 17 Gm Powd.Pack) 17 gm PO DAILY PRN PRN Reason: Constipation Last Admin: 03/19/23 10:04 Dose: 17 gm Trazodone HCl (Trazodone Hcl 50 Mg Tablet) 50 mg PO BEDTIME MRX1 PRN PRN Reason: Insomnia Last Admin: 04/10/23 01:55 Dose: 50 mg Trazodone HCl (Trazodone Hcl 25 Mg Halftab) 25 mg PO BID PRN PRN Reason: Agitation Last Admin: 04/10/23 06:42 Dose: 25 mg Trazodone HCl (Trazodone Hcl 50 Mg Tablet) 50 mg PO BEDTIME [facility] Last Admin: 04/11/23 20:59 Dose: 50 mg Trolamine Salicylate (Trolamine Salicylate 10 % Cream 141 Gm Tube) 1 appl TOPICAL QID PRN; Protocol PRN Reason: Pain, Moderate (Pain Scale 4-6 Last Admin: 03/17/23 00:35 Dose: 1 appl Venlafaxine HCl (Venlafaxine Hcl Er 75 Mg Cap.Er.24h) 225 mg PO DAILY [facility] Last Admin: 04/12/23 08:44 Dose: 225 mg Allergies Allergies Allergy/AdvReac Type Severity Reaction Status Date / Time oxycodone Allergy Unknown Verified 10/14/22 13:51 pollen extracts Allergy skin rash Verified 10/14/22 13:51 Assessment & Plan Assessment & Plan (1) Neurodegenerative cognitive impairment: Status: Acute Code(s): G31.9 - Degenerative disease of nervous system, unspecified Assessment and Plan: definite on/off phenemon mixed with confusion and restricted affect, movement limitations (2) Parkinsons disease: Status: Acute Code(s): G20 - Parkinson's disease Assessment and Plan: [age] years old man with moderate to severe Parkinson's features with EDSS score of 6-7. After years of Parkinson's, he also has developed depression and psychotic features. I do not have access to his previous workup including brain imaging, but this evolution of his condition suggested that he might be going into or his underlying condition could very well be dementia with Lewy body disease. Review of brain scan done, maybe at [facility], can help. In any case, dopaminergic drugs are known to have possible psychiatric side effects but at the same time without dopamine supplementation, patient has significant physical disability. A balance has to be reached. In that regard, I would suggest discontinuing Stalevo, which is a combination of drugs. Instead of that, try plain carbidopa levodopa 25/100 2 tablets 4 to 5 times a day. Starting tomorrow, prescribed 1st does at 06:00 and then repeat that does at 10:00, 14:00, 18:00. make an observation tomorrow if that works out better and further adjustment can be made based upon how he reacts to this dose. If psychiatrically not better, may consider Nuplazid. Plan 1. Continue with same treatment. 2. Keep Effexor as prescribed 225 mg only the morning. 3. Keep on Sinemet as a prescribing doses. 4. Ativan will be changed to 4 times a day we Sinemet on March 19 Ativan is increased up to 1 mg on 03/30. 5. Minute and increased up to 6 mg on March 18. 6. Trazodone started at 50 mg p.o. q.h.s. standing every night on March 18 7. Increased Ativan up to 2 mg at night to target anxiety on March 19 8. D/C Haldol on 03/28 and start Zyprexa 5 mg po qhs at 19:00. 9. Waiting for proper placement. (3) Major depressive disorder: Status: Acute Code(s): F32.9 - Major depressive disorder, single episode, unspecified Assessment and Plan: 04/09 denies si (4) Psychosis: Status: Acute Code(s): F29 - Unspecified psychosis not due to a substance or known physiological condition Assessment and Plan: meds for this must be working was not in evidence with provider today 04/09 Plan Elderly male with past history of Parkinson's disease that is advanced admitted for psychotic symptoms in the context of Sinemet. Plan 1. Gather collateral information. 2. Continue Haldol 0.5 p.o. t.i.d. to target psychosis. Stop on 03/28 and start Zyprexa at hs 3. Continue with medical workout. 4. Assessment with results. 5. reported that he had a 2nd dose of effexor in the evenging, we will start 37,5 mg po at 5 pm On March 09. Increase Effexor XR 2nd dose up to 75 on March 11. Later on, Effexor has been changed to 1 single dose of 225 mg in the morning 6. Change his antiparkinsonian to Sinemet 4 times a day. 7. Waiting for placement Reason for continued inpatient stay Substantial Risk for: inability to function, rapid decompensation and med/psych decompensation Time Spent With Patient Time: Total time managing care of this patient today __20__ minutes.
[2023-04-12 18:00] VITALS: BP 121/59; PULSE 87; RESP 16; TEMP 36.8; O2SAT 96
[2023-04-12] MEDS: OLANZapine 5 MG TABLET PO (18:02)
[2023-04-12] MEDS: LORazepam 1 MG TABLET 2 MG PO (19:39)
[2023-04-12] MEDS: traZODone HCL 50 MG TABLET PO (19:41)
[2023-04-12] MEDS: Melatonin 3 MG TABLET 6 MG PO (19:41)
[2023-04-13 08:00] VITALS: BP 159/74; PULSE 96; RESP 20; TEMP 36.7; O2SAT 95
[2023-04-13] MEDS: Venlafaxine HCl ER 75 MG CAP.ER.24H 225 MG PO (08:51)
[2023-04-13] MEDS: Atorvastatin Calcium 10 MG TABLET PO (08:51)
[2023-04-13] MEDS: LORazepam 1 MG TABLET PO ×3 (08:52→16:56)
[2023-04-13] MEDS: hydrOXYzine HCL 10 MG TABLET PO (10:57)
--- NOTE | 2023-04-13 13:50 | HO.PSYCHPN ---
Subjective Subjective Date of Service: 04/13/23 Reason For Visit: SI Subjective Notes: Conditional Voluntary Interim History: The nursing staff reported the patient had been polite, cooperative no new changes in his mental status. The social media specialist reported that we will have a family meeting at 11:00 with his since she does not want to go to [facility]. At this moment the patient does not have inpatient level of care criteria for Psychiatry since he is not suicidal anymore and psychotic symptoms are under control. We will consult with administration how to proceed since the does not want him to be discharged On interview the patient denies new symptoms, waiting for placement Mental Status Exam Mental Status Exam Patient Appearance: Appropriate Patient Orientation: Person and Situation Level of Consciousness: Awake and Appropriate Patient Behavior: Guarded and Passive Mood Description: Withdrawn Affect Description: Constricted Patient Cognition Impaired: Yes Ability to Follow Directions: Good Speech Pattern: Clear Hallucinations: None Delusions: Not Present Thought Process: Distracted and Linear Thought Content: positive for [place] and positive for Circumstantial Judgement: Fair Diagnostics Vital Signs (24Hr): Vital Signs - 24 hr 04/12/23 18:00 04/13/23 08:00 Temperature 98.2 F 98.0 F Pulse Rate 87 96 Respiratory Rate 16 20 Blood Pressure 121/59 L 159/74 H Pulse Oximetry 96 95 Oxygen Delivery Method Room Air Room Air BMI result Body Mass Index 23.5 Labs 03/10/23 07:58 03/10/23 07:58 Medications Medications Current Medications Acetaminophen (Acetaminophen 325 Mg Tablet) 650 mg PO Q6H PRN PRN Reason: Headache/Pain Mild Scale (1-3) Last Admin: 04/07/23 12:24 Dose: 650 mg Al Hydroxide/Mg Hydroxide (Magnesium Hydrox/Alum Hydrox 30 Ml Oral.Susp) 30 ml PO Q6H PRN PRN Reason: Heartburn/Nausea Last Admin: 03/15/23 17:37 Dose: 30 ml Atorvastatin Calcium (Atorvastatin Calcium 10 Mg Tablet) 10 mg PO DAILY [facility] Last Admin: 04/13/23 08:51 Dose: 10 mg Carbidopa/Levodopa (Carbidopa/Levodopa 10/100 Tablet) 2 tab PO QID [facility] Last Admin: 04/13/23 12:01 Dose: 2 tab Fluticasone Propionate (Fluticasone Propionate Nasal 16 Gm [place]) 1 spray NOSTRIL-B BID [facility] Last Admin: 04/13/23 08:53 Dose: Not Given Hydrocortisone (Hydrocortisone 1 % Ointment 28.35 Gm Tube) 1 appl TOPICAL BID PRN; Protocol PRN Reason: hemorroids Last Admin: 03/30/23 17:29 Dose: 1 appl Hydroxyzine HCl (Hydroxyzine Hcl 10 Mg Tablet) 10 mg PO Q6H PRN PRN Reason: Anxiety Last Admin: 04/13/23 10:57 Dose: 10 mg Lidocaine (Lidocaine 5 % Ointment 35 Gm) 1 appl TOPICAL Q6H PRN; Protocol PRN Reason: hemorroid pain Last Admin: 03/30/23 17:29 Dose: 1 appl Lorazepam (Lorazepam 1 Mg Tablet) 2 mg PO BEDTIME [facility] Last Admin: 04/12/23 19:39 Dose: 2 mg Lorazepam (Lorazepam 1 Mg Tablet) 1 mg PO TID@0900,1300,1600 [facility] Last Admin: 04/13/23 12:01 Dose: 1 mg Magnesium Hydroxide (Milk Of Magnesia 30 Ml Oral.Susp) 30 ml PO DAILY PRN PRN Reason: Constipation Last Admin: 03/05/23 08:41 Dose: 30 ml Melatonin (Melatonin 3 Mg Tablet) 6 mg PO BEDTIME [facility] Last Admin: 04/12/23 19:41 Dose: 6 mg Multivitamins/Vitamin C (Multivitamin Tablet) 1 tab PO BEDTIME [facility] Last Admin: 04/12/23 19:42 Dose: Not Given Olanzapine (Olanzapine 5 Mg Tablet) 5 mg PO DAILY@1900 [facility] Last Admin: 04/12/23 18:02 Dose: 5 mg Polyethylene Glycol (Polyethylene Glycol 3350 17 Gm Powd.Pack) 17 gm PO DAILY PRN PRN Reason: Constipation Last Admin: 03/19/23 10:04 Dose: 17 gm Trazodone HCl (Trazodone Hcl 50 Mg Tablet) 50 mg PO BEDTIME MRX1 PRN PRN Reason: Insomnia Last Admin: 04/10/23 01:55 Dose: 50 mg Trazodone HCl (Trazodone Hcl 25 Mg Halftab) 25 mg PO BID PRN PRN Reason: Agitation Last Admin: 04/10/23 06:42 Dose: 25 mg Trazodone HCl (Trazodone Hcl 50 Mg Tablet) 50 mg PO BEDTIME [facility] Last Admin: 04/12/23 19:41 Dose: 50 mg Trolamine Salicylate (Trolamine Salicylate 10 % Cream 141 Gm Tube) 1 appl TOPICAL QID PRN; Protocol PRN Reason: Pain, Moderate (Pain Scale 4-6 Last Admin: 03/17/23 00:35 Dose: 1 appl Venlafaxine HCl (Venlafaxine Hcl Er 75 Mg Cap.Er.24h) 225 mg PO DAILY [facility] Last Admin: 04/13/23 08:51 Dose: 225 mg Allergies Allergies Allergy/AdvReac Type Severity Reaction Status Date / Time oxycodone Allergy Unknown Verified 10/14/22 13:51 pollen extracts Allergy skin rash Verified 10/14/22 13:51 Assessment & Plan Assessment & Plan (1) Neurodegenerative cognitive impairment: Status: Acute Code(s): G31.9 - Degenerative disease of nervous system, unspecified Assessment and Plan: definite on/off phenemon mixed with confusion and restricted affect, movement limitations (2) Parkinsons disease: Status: Acute Code(s): G20 - Parkinson's disease Assessment and Plan: [age] years old man with moderate to severe Parkinson's features with EDSS score of 6-7. After years of Parkinson's, he also has developed depression and psychotic features. I do not have access to his previous workup including brain imaging, but this evolution of his condition suggested that he might be going into or his underlying condition could very well be dementia with Lewy body disease. Review of brain scan done, maybe at [facility], can help. In any case, dopaminergic drugs are known to have possible psychiatric side effects but at the same time without dopamine supplementation, patient has significant physical disability. A balance has to be reached. In that regard, I would suggest discontinuing Stalevo, which is a combination of drugs. Instead of that, try plain carbidopa levodopa 25/100 2 tablets 4 to 5 times a day. Starting tomorrow, prescribed 1st does at 06:00 and then repeat that does at 10:00, 14:00, 18:00. make an observation tomorrow if that works out better and further adjustment can be made based upon how he reacts to this dose. If psychiatrically not better, may consider Nuplazid. Plan 1. Continue with same treatment. 2. Keep Effexor as prescribed 225 mg only the morning. 3. Keep on Sinemet as a prescribing doses. 4. Ativan will be changed to 4 times a day we Sinemet on March 19 Ativan is increased up to 1 mg on 03/30. 5. Minute and increased up to 6 mg on March 18. 6. Trazodone started at 50 mg p.o. q.h.s. standing every night on March 18 7. Increased Ativan up to 2 mg at night to target anxiety on March 19 8. D/C Haldol on 03/28 and start Zyprexa 5 mg po qhs at 19:00. 9. Waiting for proper placement. (3) Major depressive disorder: Status: Acute Code(s): F32.9 - Major depressive disorder, single episode, unspecified Assessment and Plan: 04/09 denies si (4) Psychosis: Status: Acute Code(s): F29 - Unspecified psychosis not due to a substance or known physiological condition Assessment and Plan: meds for this must be working was not in evidence with provider today 04/09 Plan Elderly male with past history of Parkinson's disease that is advanced admitted for psychotic symptoms in the context of Sinemet. Plan 1. Gather collateral information. 2. Continue Haldol 0.5 p.o. t.i.d. to target psychosis. Stop on 03/28 and start Zyprexa at hs 3. Continue with medical workout. 4. Assessment with results. 5. reported that he had a 2nd dose of effexor in the evenging, we will start 37,5 mg po at 5 pm On March 09. Increase Effexor XR 2nd dose up to 75 on March 11. Later on, Effexor has been changed to 1 single dose of 225 mg in the morning 6. Change his antiparkinsonian to Sinemet 4 times a day. 7. Waiting for placement Reason for continued inpatient stay Substantial Risk for: inability to function, rapid decompensation and med/psych decompensation Time Spent With Patient Time: Total time managing care of this patient today __20__ minutes.
[2023-04-13 18:00] VITALS: BP 174/84; PULSE 78; RESP 18; TEMP 36.9; O2SAT 98
[2023-04-13] MEDS: OLANZapine 5 MG TABLET PO (18:34)
[2023-04-13] MEDS: Melatonin 3 MG TABLET 6 MG PO (19:42)
[2023-04-13] MEDS: LORazepam 1 MG TABLET 2 MG PO (19:43)
[2023-04-13] MEDS: traZODone HCL 50 MG TABLET PO (19:44)
[2023-04-14] MEDS: Acetaminophen 325 MG TABLET 650 MG PO (05:43)
[2023-04-14 08:30] VITALS: BP 168/71; PULSE 89; RESP 18; TEMP 36.5; O2SAT 92
[2023-04-14] MEDS: Venlafaxine HCl ER 75 MG CAP.ER.24H 225 MG PO (08:47)
[2023-04-14] MEDS: Atorvastatin Calcium 10 MG TABLET PO (08:47)
[2023-04-14] MEDS: LORazepam 1 MG TABLET PO ×3 (08:47→16:52)
[2023-04-14 09:50] VITALS: BMI 23.4
--- NOTE | 2023-04-14 15:35 | HO.PSYCHPN ---
Subjective Subjective Date of Service: 04/14/23 Reason For Visit: SI Subjective Notes: Conditional Voluntary Interim History: The nursing staff reported the patient had been compliant with treatment no new symptoms. The hospice social worker reported that the refused to send him to her house number working on alternate discharge planning. On interview the patient denies new symptoms stable at this moment Mental Status Exam Mental Status Exam Patient Appearance: Well Grooomed and Appropriate Patient Orientation: Person and Situation Level of Consciousness: Awake and Appropriate Patient Behavior: Guarded and Passive Mood Description: Withdrawn Affect Description: Constricted Patient Cognition Impaired: Yes Ability to Follow Directions: Good Speech Pattern: Clear Hallucinations: None Delusions: Not Present Thought Process: Distracted Thought Content: positive for [place] Judgement: Fair Diagnostics Vital Signs (24Hr): Vital Signs - 24 hr 04/13/23 18:00 04/14/23 08:30 Temperature 98.4 F 97.7 F Pulse Rate 78 89 Respiratory Rate 18 18 Blood Pressure 174/84 H 168/71 H Pulse Oximetry 98 92 Oxygen Delivery Method Room Air Room Air BMI result Body Mass Index 23.4 Labs 03/10/23 07:58 03/10/23 07:58 Medications Medications Current Medications Acetaminophen (Acetaminophen 325 Mg Tablet) 650 mg PO Q6H PRN PRN Reason: Headache/Pain Mild Scale (1-3) Last Admin: 04/14/23 05:43 Dose: 650 mg Al Hydroxide/Mg Hydroxide (Magnesium Hydrox/Alum Hydrox 30 Ml Oral.Susp) 30 ml PO Q6H PRN PRN Reason: Heartburn/Nausea Last Admin: 03/15/23 17:37 Dose: 30 ml Atorvastatin Calcium (Atorvastatin Calcium 10 Mg Tablet) 10 mg PO DAILY [facility] Last Admin: 04/14/23 08:47 Dose: 10 mg Carbidopa/Levodopa (Carbidopa/Levodopa 10/100 Tablet) 2 tab PO QID [facility] Last Admin: 04/14/23 12:22 Dose: 2 tab Fluticasone Propionate (Fluticasone Propionate Nasal 16 Gm [place]) 1 spray NOSTRIL-B BID [facility] Last Admin: 04/14/23 10:11 Dose: Not Given Hydrocortisone (Hydrocortisone 1 % Ointment 28.35 Gm Tube) 1 appl TOPICAL BID PRN; Protocol PRN Reason: hemorroids Last Admin: 03/30/23 17:29 Dose: 1 appl Hydroxyzine HCl (Hydroxyzine Hcl 10 Mg Tablet) 10 mg PO Q6H PRN PRN Reason: Anxiety Last Admin: 04/13/23 10:57 Dose: 10 mg Lidocaine (Lidocaine 5 % Ointment 35 Gm) 1 appl TOPICAL Q6H PRN; Protocol PRN Reason: hemorroid pain Last Admin: 03/30/23 17:29 Dose: 1 appl Lorazepam (Lorazepam 1 Mg Tablet) 2 mg PO BEDTIME [facility] Last Admin: 04/13/23 19:43 Dose: 2 mg Lorazepam (Lorazepam 1 Mg Tablet) 1 mg PO TID@0900,1300,1700 [facility] Last Admin: 04/14/23 12:22 Dose: 1 mg Magnesium Hydroxide (Milk Of Magnesia 30 Ml Oral.Susp) 30 ml PO DAILY PRN PRN Reason: Constipation Last Admin: 03/05/23 08:41 Dose: 30 ml Melatonin (Melatonin 3 Mg Tablet) 6 mg PO BEDTIME [facility] Last Admin: 04/13/23 19:42 Dose: 6 mg Multivitamins/Vitamin C (Multivitamin Tablet) 1 tab PO BEDTIME [facility] Last Admin: 04/13/23 23:10 Dose: Not Given Olanzapine (Olanzapine 5 Mg Tablet) 5 mg PO DAILY@1900 [facility] Last Admin: 04/13/23 18:34 Dose: 5 mg Polyethylene Glycol (Polyethylene Glycol 3350 17 Gm Powd.Pack) 17 gm PO DAILY PRN PRN Reason: Constipation Last Admin: 03/19/23 10:04 Dose: 17 gm Trazodone HCl (Trazodone Hcl 50 Mg Tablet) 50 mg PO BEDTIME MRX1 PRN PRN Reason: Insomnia Last Admin: 04/10/23 01:55 Dose: 50 mg Trazodone HCl (Trazodone Hcl 25 Mg Halftab) 25 mg PO BID PRN PRN Reason: Agitation Last Admin: 04/10/23 06:42 Dose: 25 mg Trazodone HCl (Trazodone Hcl 50 Mg Tablet) 50 mg PO BEDTIME [facility] Last Admin: 04/13/23 19:44 Dose: 50 mg Trolamine Salicylate (Trolamine Salicylate 10 % Cream 141 Gm Tube) 1 appl TOPICAL QID PRN; Protocol PRN Reason: Pain, Moderate (Pain Scale 4-6 Last Admin: 03/17/23 00:35 Dose: 1 appl Venlafaxine HCl (Venlafaxine Hcl Er 75 Mg Cap.Er.24h) 225 mg PO DAILY [facility] Last Admin: 04/14/23 08:47 Dose: 225 mg Allergies Allergies Allergy/AdvReac Type Severity Reaction Status Date / Time oxycodone Allergy Unknown Verified 10/14/22 13:51 pollen extracts Allergy skin rash Verified 10/14/22 13:51 Assessment & Plan Assessment & Plan (1) Neurodegenerative cognitive impairment: Status: Acute Code(s): G31.9 - Degenerative disease of nervous system, unspecified Assessment and Plan: definite on/off phenemon mixed with confusion and restricted affect, movement limitations (2) Parkinsons disease: Status: Acute Code(s): G20 - Parkinson's disease Assessment and Plan: [age] years old man with moderate to severe Parkinson's features with EDSS score of 6-7. After years of Parkinson's, he also has developed depression and psychotic features. I do not have access to his previous workup including brain imaging, but this evolution of his condition suggested that he might be going into or his underlying condition could very well be dementia with Lewy body disease. Review of brain scan done, maybe at [facility], can help. In any case, dopaminergic drugs are known to have possible psychiatric side effects but at the same time without dopamine supplementation, patient has significant physical disability. A balance has to be reached. In that regard, I would suggest discontinuing Stalevo, which is a combination of drugs. Instead of that, try plain carbidopa levodopa 25/100 2 tablets 4 to 5 times a day. Starting tomorrow, prescribed 1st does at 06:00 and then repeat that does at 10:00, 14:00, 18:00. make an observation tomorrow if that works out better and further adjustment can be made based upon how he reacts to this dose. If psychiatrically not better, may consider Nuplazid. Plan 1. Continue with same treatment. 2. Keep Effexor as prescribed 225 mg only the morning. 3. Keep on Sinemet as a prescribing doses. 4. Ativan will be changed to 4 times a day we Sinemet on March 19 Ativan is increased up to 1 mg on 03/30. 5. Minute and increased up to 6 mg on March 18. 6. Trazodone started at 50 mg p.o. q.h.s. standing every night on March 18 7. Increased Ativan up to 2 mg at night to target anxiety on March 19 8. D/C Haldol on 03/28 and start Zyprexa 5 mg po qhs at 19:00. 9. Waiting for proper placement. (3) Major depressive disorder: Status: Acute Code(s): F32.9 - Major depressive disorder, single episode, unspecified Assessment and Plan: 04/09 denies si (4) Psychosis: Status: Acute Code(s): F29 - Unspecified psychosis not due to a substance or known physiological condition Assessment and Plan: meds for this must be working was not in evidence with provider today 04/09 Plan Elderly male with past history of Parkinson's disease that is advanced admitted for psychotic symptoms in the context of Sinemet. Plan 1. Gather collateral information. 2. Continue Haldol 0.5 p.o. t.i.d. to target psychosis. Stop on 03/28 and start Zyprexa at hs 3. Continue with medical workout. 4. Assessment with results. 5. reported that he had a 2nd dose of effexor in the evenging, we will start 37,5 mg po at 5 pm On March 09. Increase Effexor XR 2nd dose up to 75 on March 11. Later on, Effexor has been changed to 1 single dose of 225 mg in the morning 6. Change his antiparkinsonian to Sinemet 4 times a day. 7. Waiting for placement Reason for continued inpatient stay Substantial Risk for: inability to function, rapid decompensation and med/psych decompensation Time Spent With Patient Time: Total time managing care of this patient today __20__ minutes.
[2023-04-14 18:00] VITALS: BP 150/62; PULSE 84; RESP 18; TEMP 36.6; O2SAT 97
[2023-04-14] MEDS: OLANZapine 5 MG TABLET PO (19:10)
[2023-04-14] MEDS: Melatonin 3 MG TABLET 6 MG PO (20:06)
[2023-04-14] MEDS: Multivitamin TABLET 1 TAB PO (20:06)
[2023-04-14] MEDS: LORazepam 1 MG TABLET 2 MG PO (20:07)
[2023-04-14] MEDS: traZODone HCL 50 MG TABLET PO (20:08)
[2023-04-15 07:45] VITALS: BP 170/76; PULSE 86; RESP 15; TEMP 36.6; O2SAT 94
[2023-04-15] MEDS: Venlafaxine HCl ER 75 MG CAP.ER.24H 225 MG PO (08:06)
[2023-04-15] MEDS: Atorvastatin Calcium 10 MG TABLET PO (08:06)
[2023-04-15] MEDS: LORazepam 1 MG TABLET PO ×3 (08:06→16:45)
--- NOTE | 2023-04-15 15:10 | P.PNPSI_ITS ---
Subjective Subjective Date of Service: 04/15/23 Reason For Visit: SI Subjective Notes: Conditional Voluntary Interim History: The nursing staff reported the patient had been fully compliant with treatment, no changes in his mental status. The social media analyst reported that he is going to be referred to another longterm facility. Administration had been involved since his refused to transfer him to [facility]. On interview the patient denies new symptoms waiting for placement Mental Status Exam Mental Status Exam Patient Appearance: Appropriate Patient Orientation: Person and Situation Level of Consciousness: Awake Patient Behavior: Cooperative and Passive Mood Description: Withdrawn Affect Description: Constricted Patient Cognition Impaired: Yes Ability to Follow Directions: Good Speech Pattern: Clear Hallucinations: None Delusions: Not Present Thought Process: Linear Thought Content: positive for [place] Judgement: Fair Diagnostics Vital Signs (24Hr): Vital Signs - 24 hr 04/14/23 18:00 04/15/23 07:45 Temperature 97.9 F 97.8 F Pulse Rate 84 86 Respiratory Rate 18 15 Blood Pressure 150/62 H 170/76 H Pulse Oximetry 97 94 Oxygen Delivery Method Room Air Room Air BMI result Body Mass Index 23.4 Labs 03/10/23 07:58 03/10/23 07:58 Medications Medications Current Medications Acetaminophen (Acetaminophen 325 Mg Tablet) 650 mg PO Q6H PRN PRN Reason: Headache/Pain Mild Scale (1-3) Last Admin: 04/14/23 05:43 Dose: 650 mg Al Hydroxide/Mg Hydroxide (Magnesium Hydrox/Alum Hydrox 30 Ml Oral.Susp) 30 ml PO Q6H PRN PRN Reason: Heartburn/Nausea Last Admin: 03/15/23 17:37 Dose: 30 ml Atorvastatin Calcium (Atorvastatin Calcium 10 Mg Tablet) 10 mg PO DAILY [facility] Last Admin: 04/15/23 08:06 Dose: 10 mg Carbidopa/Levodopa (Carbidopa/Levodopa 10/100 Tablet) 2 tab PO QID [facility] Last Admin: 04/15/23 12:00 Dose: 2 tab Fluticasone Propionate (Fluticasone Propionate Nasal 16 Gm [place]) 1 spray NOSTRIL-B BID [facility] Last Admin: 04/15/23 08:07 Dose: Not Given Hydrocortisone (Hydrocortisone 1 % Ointment 28.35 Gm Tube) 1 appl TOPICAL BID PRN; Protocol PRN Reason: hemorroids Last Admin: 03/30/23 17:29 Dose: 1 appl Hydroxyzine HCl (Hydroxyzine Hcl 10 Mg Tablet) 10 mg PO Q6H PRN PRN Reason: Anxiety Last Admin: 04/13/23 10:57 Dose: 10 mg Lidocaine (Lidocaine 5 % Ointment 35 Gm) 1 appl TOPICAL Q6H PRN; Protocol PRN Reason: hemorroid pain Last Admin: 03/30/23 17:29 Dose: 1 appl Lorazepam (Lorazepam 1 Mg Tablet) 2 mg PO BEDTIME [facility] Last Admin: 04/14/23 20:07 Dose: 2 mg Lorazepam (Lorazepam 1 Mg Tablet) 1 mg PO TID@0900,1300,1700 [facility] Last Admin: 04/15/23 12:00 Dose: 1 mg Magnesium Hydroxide (Milk Of Magnesia 30 Ml Oral.Susp) 30 ml PO DAILY PRN PRN Reason: Constipation Last Admin: 03/05/23 08:41 Dose: 30 ml Melatonin (Melatonin 3 Mg Tablet) 6 mg PO BEDTIME [facility] Last Admin: 04/14/23 20:06 Dose: 6 mg Multivitamins/Vitamin C (Multivitamin Tablet) 1 tab PO BEDTIME [facility] Last Admin: 04/14/23 20:06 Dose: 1 tab Olanzapine (Olanzapine 5 Mg Tablet) 5 mg PO DAILY@1900 [facility] Last Admin: 04/14/23 19:10 Dose: 5 mg Polyethylene Glycol (Polyethylene Glycol 3350 17 Gm Powd.Pack) 17 gm PO DAILY PRN PRN Reason: Constipation Last Admin: 03/19/23 10:04 Dose: 17 gm Trazodone HCl (Trazodone Hcl 50 Mg Tablet) 50 mg PO BEDTIME MRX1 PRN PRN Reason: Insomnia Last Admin: 04/10/23 01:55 Dose: 50 mg Trazodone HCl (Trazodone Hcl 25 Mg Halftab) 25 mg PO BID PRN PRN Reason: Agitation Last Admin: 04/10/23 06:42 Dose: 25 mg Trazodone HCl (Trazodone Hcl 50 Mg Tablet) 50 mg PO BEDTIME [facility] Last Admin: 04/14/23 20:08 Dose: 50 mg Trolamine Salicylate (Trolamine Salicylate 10 % Cream 141 Gm Tube) 1 appl TOPICAL QID PRN; Protocol PRN Reason: Pain, Moderate (Pain Scale 4-6 Last Admin: 03/17/23 00:35 Dose: 1 appl Venlafaxine HCl (Venlafaxine Hcl Er 75 Mg Cap.Er.24h) 225 mg PO DAILY [facility] Last Admin: 04/15/23 08:06 Dose: 225 mg Allergies Allergies Allergy/AdvReac Type Severity Reaction Status Date / Time oxycodone Allergy Unknown Verified 10/14/22 13:51 pollen extracts Allergy skin rash Verified 10/14/22 13:51 Assessment & Plan Assessment & Plan (1) Neurodegenerative cognitive impairment: Status: Acute Code(s): G31.9 - Degenerative disease of nervous system, unspecified Assessment and Plan: definite on/off phenemon mixed with confusion and restricted affect, movement limitations (2) Parkinsons disease: Status: Acute Code(s): G20 - Parkinson's disease Assessment and Plan: [age] years old man with moderate to severe Parkinson's features with EDSS score of 6-7. After years of Parkinson's, he also has developed depression and psychotic features. I do not have access to his previous workup including brain imaging, but this evolution of his condition suggested that he might be going into or his underlying condition could very well be dementia with Lewy body disease. Review of brain scan done, maybe at [facility], can help. In any case, dopaminergic drugs are known to have possible psychiatric side effects but at the same time without dopamine supplementation, patient has significant physical disability. A balance has to be reached. In that regard, I would suggest discontinuing Stalevo, which is a combination of drugs. Instead of that, try plain carbidopa levodopa 25/100 2 tablets 4 to 5 times a day. Starting tomorrow, prescribed 1st does at 06:00 and then repeat that does at 10:00, 14:00, 18:00. make an observation tomorrow if that works out better and further adjustment can be made based upon how he reacts to this dose. If psychiatrically not better, may consider Nuplazid. Plan 1. Continue with same treatment. 2. Keep Effexor as prescribed 225 mg only the morning. 3. Keep on Sinemet as a prescribing doses. 4. Ativan will be changed to 4 times a day we Sinemet on March 19 Ativan is increased up to 1 mg on 03/30. 5. Minute and increased up to 6 mg on March 18. 6. Trazodone started at 50 mg p.o. q.h.s. standing every night on March 18 7. Increased Ativan up to 2 mg at night to target anxiety on March 19 8. D/C Haldol on 03/28 and start Zyprexa 5 mg po qhs at 19:00. 9. Waiting for proper placement. (3) Major depressive disorder: Status: Acute Code(s): F32.9 - Major depressive disorder, single episode, unspecified Assessment and Plan: 04/09 denies si (4) Psychosis: Status: Acute Code(s): F29 - Unspecified psychosis not due to a substance or known physiological condition Assessment and Plan: meds for this must be working was not in evidence with provider today 04/09 Plan Elderly male with past history of Parkinson's disease that is advanced admitted for psychotic symptoms in the context of Sinemet. Plan 1. Gather collateral information. 2. Continue Haldol 0.5 p.o. t.i.d. to target psychosis. Stop on 03/28 and start Zyprexa at hs 3. Continue with medical workout. 4. Assessment with results. 5. reported that he had a 2nd dose of effexor in the evenging, we will start 37,5 mg po at 5 pm On March 09. Increase Effexor XR 2nd dose up to 75 on March 11. Later on, Effexor has been changed to 1 single dose of 225 mg in the morning 6. Change his antiparkinsonian to Sinemet 4 times a day. 7. Waiting for placement Reason for continued inpatient stay Substantial Risk for: inability to function, rapid decompensation and med/psych decompensation Time Spent With Patient Time: Total time managing care of this patient today __20__ minutes.
[2023-04-15 18:00] VITALS: BP 130/60; PULSE 74; RESP 18; TEMP 36.4; O2SAT 96
[2023-04-15] MEDS: OLANZapine 5 MG TABLET PO (20:25)
[2023-04-15] MEDS: Melatonin 3 MG TABLET 6 MG PO (20:25)
[2023-04-15] MEDS: traZODone HCL 50 MG TABLET PO (20:25)
[2023-04-15] MEDS: LORazepam 1 MG TABLET 2 MG PO (20:26)
[2023-04-16 08:52] VITALS: BP 165/97; PULSE 89; RESP 18; TEMP 36.8; O2SAT 95
[2023-04-16] MEDS: LORazepam 1 MG TABLET PO ×3 (08:54→16:30)
[2023-04-16] MEDS: Venlafaxine HCl ER 75 MG CAP.ER.24H 225 MG PO (08:54)
[2023-04-16] MEDS: Atorvastatin Calcium 10 MG TABLET PO (08:54)
--- NOTE | 2023-04-16 12:14 | P.PNPSI_ITS ---
Subjective Subjective Date of Service: 04/16/23 Reason For Visit: SI Subjective Notes: Conditional Voluntary Healthcare Proxy: No Guardianship: No Interim History: Patient was seen and discussed in rounds today. Records and plans were reviewed. He has been stable and is doing well on his current medications. Nights have been a little more difficult. No complaints or side effects. Eating and sleeping adequately. No changes were made today. Plan is to continue to look for a long term facility Review of Systems Review of Systems Yes all other systems are reviewed and are negative Diagnostics Vital Signs (24Hr): Vital Signs - 24 hr 04/15/23 18:00 04/16/23 08:52 Temperature 97.6 F 98.2 F Pulse Rate 74 89 Respiratory Rate 18 18 Blood Pressure 130/60 165/97 H Pulse Oximetry 96 95 Oxygen Delivery Method Room Air Room Air BMI result Body Mass Index 23.4 Labs 03/10/23 07:58 03/10/23 07:58 Medications Medications Current Medications Acetaminophen (Acetaminophen 325 Mg Tablet) 650 mg PO Q6H PRN PRN Reason: Headache/Pain Mild Scale (1-3) Last Admin: 04/14/23 05:43 Dose: 650 mg Al Hydroxide/Mg Hydroxide (Magnesium Hydrox/Alum Hydrox 30 Ml Oral.Susp) 30 ml PO Q6H PRN PRN Reason: Heartburn/Nausea Last Admin: 03/15/23 17:37 Dose: 30 ml Atorvastatin Calcium (Atorvastatin Calcium 10 Mg Tablet) 10 mg PO DAILY [facility] Last Admin: 04/16/23 08:54 Dose: 10 mg Carbidopa/Levodopa (Carbidopa/Levodopa 10/100 Tablet) 2 tab PO QID [facility] Last Admin: 04/16/23 08:54 Dose: 2 tab Fluticasone Propionate (Fluticasone Propionate Nasal 16 Gm [place]) 1 spray NOSTRIL-B BID [facility] Last Admin: 04/16/23 08:54 Dose: Not Given Hydrocortisone (Hydrocortisone 1 % Ointment 28.35 Gm Tube) 1 appl TOPICAL BID PRN; Protocol PRN Reason: hemorroids Last Admin: 03/30/23 17:29 Dose: 1 appl Hydroxyzine HCl (Hydroxyzine Hcl 10 Mg Tablet) 10 mg PO Q6H PRN PRN Reason: Anxiety Last Admin: 04/13/23 10:57 Dose: 10 mg Lidocaine (Lidocaine 5 % Ointment 35 Gm) 1 appl TOPICAL Q6H PRN; Protocol PRN Reason: hemorroid pain Last Admin: 03/30/23 17:29 Dose: 1 appl Lorazepam (Lorazepam 1 Mg Tablet) 1 mg PO TID@0900,1300,1700 [facility] Last Admin: 04/16/23 08:54 Dose: 1 mg Magnesium Hydroxide (Milk Of Magnesia 30 Ml Oral.Susp) 30 ml PO DAILY PRN PRN Reason: Constipation Last Admin: 03/05/23 08:41 Dose: 30 ml Melatonin (Melatonin 3 Mg Tablet) 6 mg PO BEDTIME [facility] Last Admin: 04/15/23 20:25 Dose: 6 mg Multivitamins/Vitamin C (Multivitamin Tablet) 1 tab PO BEDTIME [facility] Last Admin: 04/15/23 20:28 Dose: Not Given Olanzapine (Olanzapine 5 Mg Tablet) 5 mg PO DAILY@1900 [facility] Last Admin: 04/15/23 20:25 Dose: 5 mg Polyethylene Glycol (Polyethylene Glycol 3350 17 Gm Powd.Pack) 17 gm PO DAILY PRN PRN Reason: Constipation Last Admin: 03/19/23 10:04 Dose: 17 gm Trazodone HCl (Trazodone Hcl 50 Mg Tablet) 50 mg PO BEDTIME MRX1 PRN PRN Reason: Insomnia Last Admin: 04/10/23 01:55 Dose: 50 mg Trazodone HCl (Trazodone Hcl 25 Mg Halftab) 25 mg PO BID PRN PRN Reason: Agitation Last Admin: 04/10/23 06:42 Dose: 25 mg Trazodone HCl (Trazodone Hcl 50 Mg Tablet) 50 mg PO BEDTIME [facility] Last Admin: 04/15/23 20:25 Dose: 50 mg Trolamine Salicylate (Trolamine Salicylate 10 % Cream 141 Gm Tube) 1 appl TOPICAL QID PRN; Protocol PRN Reason: Pain, Moderate (Pain Scale 4-6 Last Admin: 03/17/23 00:35 Dose: 1 appl Venlafaxine HCl (Venlafaxine Hcl Er 75 Mg Cap.Er.24h) 225 mg PO DAILY [facility] Last Admin: 04/16/23 08:54 Dose: 225 mg Allergies Allergies Allergy/AdvReac Type Severity Reaction Status Date / Time oxycodone Allergy Unknown Verified 10/14/22 13:51 pollen extracts Allergy skin rash Verified 10/14/22 13:51 Assessment & Plan Assessment & Plan (1) Neurodegenerative cognitive impairment: Status: Acute Code(s): G31.9 - Degenerative disease of nervous system, unspecified Assessment and Plan: definite on/off phenemon mixed with confusion and restricted affect, movement limitations (2) Parkinsons disease: Status: Acute Code(s): G20 - Parkinson's disease Assessment and Plan: [age] years old man with moderate to severe Parkinson's features with EDSS score of 6-7. After years of Parkinson's, he also has developed depression and psychotic features. I do not have access to his previous workup including brain imaging, but this evolution of his condition suggested that he might be going into or his underlying condition could very well be dementia with Lewy body disease. Review of brain scan done, maybe at [facility], can help. In any case, dopaminergic drugs are known to have possible psychiatric side effects but at the same time without dopamine supplementation, patient has significant physical disability. A balance has to be reached. In that regard, I would suggest discontinuing Stalevo, which is a combination of drugs. Instead of that, try plain carbidopa levodopa 25/100 2 tablets 4 to 5 times a day. Starting tomorrow, prescribed 1st does at 06:00 and then repeat that does at 10:00, 14:00, 18:00. make an observation tomorrow if that works out better and further adjustment can be made based upon how he reacts to this dose. If psychiatrically not better, may consider Nuplazid. Plan 1. Continue with same treatment. 2. Keep Effexor as prescribed 225 mg only the morning. 3. Keep on Sinemet as a prescribing doses. 4. Ativan will be changed to 4 times a day we Sinemet on March 19 Ativan is increased up to 1 mg on 03/30. 5. Minute and increased up to 6 mg on March 18. 6. Trazodone started at 50 mg p.o. q.h.s. standing every night on March 18 7. Increased Ativan up to 2 mg at night to target anxiety on March 19 8. D/C Haldol on 03/28 and start Zyprexa 5 mg po qhs at 19:00. 9. Waiting for proper placement. 04/16: Continue current regimen and plans (3) Major depressive disorder: Status: Acute Code(s): F32.9 - Major depressive disorder, single episode, unspecified Assessment and Plan: 04/09 denies si (4) Psychosis: Status: Acute Code(s): F29 - Unspecified psychosis not due to a substance or known physiological condition Assessment and Plan: meds for this must be working was not in evidence with provider today 04/09 Plan Elderly male with past history of Parkinson's disease that is advanced admitted for psychotic symptoms in the context of Sinemet. Plan 1. Gather collateral information. 2. Continue Haldol 0.5 p.o. t.i.d. to target psychosis. Stop on 03/28 and start Zyprexa at hs 3. Continue with medical workout. 4. Assessment with results. 5. reported that he had a 2nd dose of effexor in the evenging, we will start 37,5 mg po at 5 pm On March 09. Increase Effexor XR 2nd dose up to 75 on March 11. Later on, Effexor has been changed to 1 single dose of 225 mg in the morning 6. Change his antiparkinsonian to Sinemet 4 times a day. 7. Waiting for placement Reason for continued inpatient stay Substantial Risk for: med/psych decompensation Time Spent With Patient Time: Total time managing care of this patient today ____ minutes.
[2023-04-16 18:00] VITALS: BP 140/97; PULSE 79; RESP 18; TEMP 36.6; O2SAT 97
[2023-04-16] MEDS: OLANZapine 5 MG TABLET PO (18:25)
[2023-04-16] MEDS: Melatonin 3 MG TABLET 6 MG PO (20:24)
[2023-04-16] MEDS: traZODone HCL 50 MG TABLET PO (20:25)
[2023-04-17] MEDS: traZODone HCL 50 MG TABLET PO ×3 (00:38→23:46)
[2023-04-17] MEDS: hydrOXYzine HCL 10 MG TABLET PO (00:38)
[2023-04-17 08:00] VITALS: BP 169/83; PULSE 83; RESP 18; TEMP 36.9; O2SAT 95
[2023-04-17] MEDS: Atorvastatin Calcium 10 MG TABLET PO (08:21)
[2023-04-17] MEDS: LORazepam 1 MG TABLET PO ×3 (08:21→16:58)
[2023-04-17] MEDS: Venlafaxine HCl ER 75 MG CAP.ER.24H 225 MG PO (08:21)
--- NOTE | 2023-04-17 11:21 | P.PNPSI_ITS ---
Subjective Subjective Date of Service: 04/17/23 Reason For Visit: SI Subjective Notes: Conditional Voluntary Healthcare Proxy: No Guardianship: No Interim History: Patient was seen and discussed in rounds today. Records and plans were reviewed. He continues to be at his achievable baseline given his Parkinson's disease and Parkinson's dementia. He is awaiting placement. He was a little more discouraged today about his placement. He is having some shortness of breath and a little bit of dizziness. No other complaints. No changes were made today Medication Compliance: Yes Side effects from medications: No Mental Status Exam Mental Status Exam Narrative: In today's visit he is alert, oriented X2. Speech is normal. No eye contact. Affect is constricted and subdued. No signs of psychosis. No SI. No acute signs of psychosis. Cognitively is somewhat impaired. Judgment is intact Diagnostics Vital Signs (24Hr): Vital Signs - 24 hr 04/16/23 18:00 04/17/23 08:00 Temperature 97.8 F 98.4 F Pulse Rate 79 83 Respiratory Rate 18 18 Blood Pressure 140/97 H 169/83 H Pulse Oximetry 97 95 Oxygen Delivery Method Room Air Room Air BMI result Body Mass Index 23.4 Labs 03/10/23 07:58 03/10/23 07:58 Medications Medications Current Medications Acetaminophen (Acetaminophen 325 Mg Tablet) 650 mg PO Q6H PRN PRN Reason: Headache/Pain Mild Scale (1-3) Last Admin: 04/14/23 05:43 Dose: 650 mg Al Hydroxide/Mg Hydroxide (Magnesium Hydrox/Alum Hydrox 30 Ml Oral.Susp) 30 ml PO Q6H PRN PRN Reason: Heartburn/Nausea Last Admin: 03/15/23 17:37 Dose: 30 ml Atorvastatin Calcium (Atorvastatin Calcium 10 Mg Tablet) 10 mg PO DAILY [facility] Last Admin: 04/17/23 08:21 Dose: 10 mg Carbidopa/Levodopa (Carbidopa/Levodopa 10/100 Tablet) 2 tab PO QID [facility] Last Admin: 04/17/23 08:21 Dose: 2 tab Fluticasone Propionate (Fluticasone Propionate Nasal 16 Gm [place]) 1 spray NOSTR IL-B BID [facility] Last Admin: 04/17/23 08:23 Dose: Not Given Hydrocortisone (Hydrocortisone 1 % Ointment 28.35 Gm Tube) 1 appl TOPICAL BID PRN; Protocol PRN Reason: hemorroids Last Admin: 03/30/23 17:29 Dose: 1 appl Hydroxyzine HCl (Hydroxyzine Hcl 10 Mg Tablet) 10 mg PO Q6H PRN PRN Reason: Anxiety Last Admin: 04/17/23 00:38 Dose: 10 mg Lidocaine (Lidocaine 5 % Ointment 35 Gm) 1 appl TOPICAL Q6H PRN; Protocol PRN Reason: hemorroid pain Last Admin: 03/30/23 17:29 Dose: 1 appl Lorazepam (Lorazepam 1 Mg Tablet) 1 mg PO TID@0900,1300,1700 [facility] Last Admin: 04/17/23 08:21 Dose: 1 mg Magnesium Hydroxide (Milk Of Magnesia 30 Ml Oral.Susp) 30 ml PO DAILY PRN PRN Reason: Constipation Last Admin: 03/05/23 08:41 Dose: 30 ml Melatonin (Melatonin 3 Mg Tablet) 6 mg PO BEDTIME [facility] Last Admin: 04/16/23 20:24 Dose: 6 mg Multivitamins/Vitamin C (Multivitamin Tablet) 1 tab PO BEDTIME [facility] Last Admin: 04/16/23 22:02 Dose: Not Given Olanzapine (Olanzapine 5 Mg Tablet) 5 mg PO DAILY@1900 [facility] Last Admin: 04/16/23 18:25 Dose: 5 mg Polyethylene Glycol (Polyethylene Glycol 3350 17 Gm Powd.Pack) 17 gm PO DAILY PRN PRN Reason: Constipation Last Admin: 03/19/23 10:04 Dose: 17 gm Trazodone HCl (Trazodone Hcl 50 Mg Tablet) 50 mg PO BEDTIME MRX1 PRN PRN Reason: Insomnia Last Admin: 04/17/23 00:38 Dose: 50 mg Trazodone HCl (Trazodone Hcl 25 Mg Halftab) 25 mg PO BID PRN PRN Reason: Agitation Last Admin: 04/10/23 06:42 Dose: 25 mg Trazodone HCl (Trazodone Hcl 50 Mg Tablet) 50 mg PO BEDTIME [facility] Last Admin: 04/16/23 20:25 Dose: 50 mg Trolamine Salicylate (Trolamine Salicylate 10 % Cream 141 Gm Tube) 1 appl TOPICAL QID PRN; Protocol PRN Reason: Pain, Moderate (Pain Scale 4-6 Last Admin: 03/17/23 00:35 Dose: 1 appl Venlafaxine HCl (Venlafaxine Hcl Er 75 Mg Cap.Er.24h) 225 mg PO DAILY [facility] Last Admin: 04/17/23 08:21 Dose: 225 mg Allergies Allergies Allergy/AdvReac Type Severity Reaction Status Date / Time oxycodone Allergy Unknown Verified 10/14/22 13:51 pollen extracts Allergy skin rash Verified 10/14/22 13:51 Assessment & Plan Assessment & Plan (1) Neurodegenerative cognitive impairment: Status: Acute Code(s): G31.9 - Degenerative disease of nervous system, unspecified Assessment and Plan: definite on/off phenemon mixed with confusion and restricted affect, movement limitations (2) Parkinsons disease: Status: Acute Code(s): G20 - Parkinson's disease Assessment and Plan: [age] years old man with moderate to severe Parkinson's features with EDSS score of 6-7. After years of Parkinson's, he also has developed depression and psychotic features. I do not have access to his previous workup including brain imaging, but this evolution of his condition suggested that he might be going into or his underlying condition could very well be dementia with Lewy body disease. Review of brain scan done, maybe at [facility], can help. In any case, dopaminergic drugs are known to have possible psychiatric side effects but at the same time without dopamine supplementation, patient has significant physical disability. A balance has to be reached. In that regard, I would suggest discontinuing Stalevo, which is a combination of drugs. Instead of that, try plain carbidopa levodopa 25/100 2 tablets 4 to 5 times a day. Startin g tomorrow, prescribed 1st does at 06:00 and then repeat that does at 10:00, 14:00, 18:00. make an observation tomorrow if that works out better and further adjustment can be made based upon how he reacts to this dose. If psychiatrically not better, may consider Nuplazid. Plan 1. Continue with same treatment. 2. Keep Effexor as prescribed 225 mg only the morning. 3. Keep on Sinemet as a prescribing doses. 4. Ativan will be changed to 4 times a day we Sinemet on March 19 Ativan is increased up to 1 mg on 03/30. 5. Minute and increased up to 6 mg on March 18. 6. Trazodone started at 50 mg p.o. q.h.s. standing every night on March 18 7. Increased Ativan up to 2 mg at night to target anxiety on March 19 8. D/C Haldol on 03/28 and start Zyprexa 5 mg po qhs at 19:00. 9. Waiting for proper placement. 04/16: Continue current regimen and plans 04/17: Continue current regimen and plans (3) Major depressive disorder: Status: Acute Code(s): F32.9 - Major depressive disorder, single episode, unspecified Assessment and Plan: 04/09 denies si (4) Psychosis: Status: Acute Code(s): F29 - Unspecified psychosis not due to a substance or known physiological condition Assessment and Plan: meds for this must be working was not in evidence with provider today 04/09 Plan Elderly male with past history of Parkinson's disease that is advanced admitted for psychotic symptoms in the context of Sinemet. Plan 1. Gather collateral information. 2. Continue Haldol 0.5 p.o. t.i.d. to target psychosis. Stop on 03/28 and start Zyprexa at hs 3. Continue with medical workout. 4. Assessment with results. 5. reported that he had a 2nd dose of effexor in the evenging, we will start 37,5 mg po at 5 pm On March 09. Increase Effexor XR 2nd dose up to 75 on March 11. Later on, Effexor has been changed to 1 single dose of 225 mg in the morning 6. Change his antiparkinsonian to Sinemet 4 times a day. 7. Waiting for placement Reason for continued inpatient stay Substantial Risk for: med/psych decompensation Time Spent With Patient Time: Total time managing care of this patient today ____ minutes.
[2023-04-17 18:00] VITALS: BP 178/87; PULSE 87; RESP 16; TEMP 36.2; O2SAT 97
[2023-04-17] MEDS: OLANZapine 5 MG TABLET PO (20:17)
[2023-04-17] MEDS: Melatonin 3 MG TABLET 6 MG PO (20:17)
[2023-04-18] MEDS: hydrOXYzine HCL 10 MG TABLET PO ×2 (06:27→20:32)
[2023-04-18 07:30] VITALS: BP 186/97; PULSE 95; RESP 16; TEMP 36.3; O2SAT 94
[2023-04-18] MEDS: Venlafaxine HCl ER 75 MG CAP.ER.24H 225 MG PO (08:09)
[2023-04-18] MEDS: Atorvastatin Calcium 10 MG TABLET PO (08:10)
[2023-04-18] MEDS: LORazepam 1 MG TABLET PO ×3 (08:10→16:49)
--- NOTE | 2023-04-18 08:14 | PC.NURSE ---
THIS RN TOOK PT.'S BP AND GOT THE FOLLOWING READINGS: R ARM SITTING, 186/97, L SITTING [id number] WITH AUTOMATIC MACHINE. THEN SHE TOOK MANUAL READIN/88-L ARM SITTING. THIS RN REPORTED FINDINGS ALONG WITHT HE FOLLOWING SYMPTOMS, TO DR. GRIMES VIA TIGER TEXT: [place] AND BLURRY VISION. NO ADDITIONAL MEDICATION/DIAGNOSTICS ORDERED AT THIS TIME.
[2023-04-18 09:28] VITALS: BP 108/58
[2023-04-18] MEDS: cloNIDine HCL 0.1 MG TABLET PO (09:30)
--- NOTE | 2023-04-18 09:55 | P.PNPSI_ITS ---
Subjective Subjective Date of Service: 04/18/23 Reason For Visit: SI Subjective Notes: Conditional Voluntary Interim History: The nursing staff reported the patient had been fully compliant with treatment, severe symptoms of Parkinson at the end of the shift. Today the nursing staff reported that his blood pressure was high with eye pain. We gave 1 dose of clonidine 0.1 mg with for improvement. On interview the patient denies new symptoms, waiting for placement. Mental Status Exam Mental Status Exam Patient Appearance: Well Grooomed and Appropriate Patient Orientation: Person and Situation Level of Consciousness: Awake and Appropriate Patient Behavior: Guarded and Passive Mood Description: Withdrawn Affect Description: Constricted Patient Cognition Impaired: Yes Ability to Follow Directions: Good Speech Pattern: Clear Hallucinations: None Delusions: Not Present Thought Process: Distracted and Linear Thought Content: positive for [place] and positive for Circumstantial Judgement: Fair Diagnostics Vital Signs (24Hr): Vital Signs - 24 hr 04/17/23 18:00 Temperature 97.1 F Pulse Rate 87 Respiratory Rate 16 Blood Pressure 178/87 H Pulse Oximetry 97 Oxygen Delivery Method Room Air BMI result Body Mass Index 23.4 Labs 03/10/23 07:58 03/10/23 07:58 Medications Medications Current Medications Acetaminophen (Acetaminophen 325 Mg Tablet) 650 mg PO Q6H PRN PRN Reason: Headache/Pain Mild Scale (1-3) Last Admin: 04/14/23 05:43 Dose: 650 mg Al Hydroxide/Mg Hydroxide (Magnesium Hydrox/Alum Hydrox 30 Ml Oral.Susp) 30 ml PO Q6H PRN PRN Reason: Heartburn/Nausea Last Admin: 03/15/23 17:37 Dose: 30 ml Atorvastatin Calcium (Atorvastatin Calcium 10 Mg Tablet) 10 mg PO DAILY [facility] Last Admin: 04/18/23 08:10 Dose: 10 mg Carbidopa/Levodopa (Carbidopa/Levodopa 10/100 Tablet) 2 tab PO QID [facility] Last Admin: 04/18/23 08:09 Dose: 2 tab Fluticasone Propionate (Fluticasone Propionate Nasal 16 Gm [place]) 1 spray NOSTRIL-B BID [facility] Last Admin: 04/17/23 20:18 Dose: Not Given Hydrocortisone (Hydrocortisone 1 % Ointment 28.35 Gm Tube) 1 appl TOPICAL BID PRN; Protocol PRN Reason: hemorroids Last Admin: 03/30/23 17:29 Dose: 1 appl Hydroxyzine HCl (Hydroxyzine Hcl 10 Mg Tablet) 10 mg PO Q6H PRN PRN Reason: Anxiety Last Admin: 04/18/23 06:27 Dose: 10 mg Lidocaine (Lidocaine 5 % Ointment 35 Gm) 1 appl TOPICAL Q6H PRN; Protocol PRN Reason: hemorroid pain Last Admin: 03/30/23 17:29 Dose: 1 appl Lorazepam (Lorazepam 1 Mg Tablet) 1 mg PO TID@0900,1300,1700 [facility] Last Admin: 04/18/23 08:10 Dose: 1 mg Magnesium Hydroxide (Milk Of Magnesia 30 Ml Oral.Susp) 30 ml PO DAILY PRN PRN Reason: Constipation Last Admin: 03/05/23 08:41 Dose: 30 ml Melatonin (Melatonin 3 Mg Tablet) 6 mg PO BEDTIME [facility] Last Admin: 04/17/23 20:17 Dose: 6 mg Multivitamins/Vitamin C (Multivitamin Tablet) 1 tab PO BEDTIME [facility] Last Admin: 04/17/23 20:18 Dose: Not Given Olanzapine (Olanzapine 5 Mg Tablet) 5 mg PO DAILY@1900 [facility] Last Admin: 04/17/23 20:17 Dose: 5 mg Polyethylene Glycol (Polyethylene Glycol 3350 17 Gm Powd.Pack) 17 gm PO DAILY PRN PRN Reason: Constipation Last Admin: 03/19/23 10:04 Dose: 17 gm Trazodone HCl (Trazodone Hcl 50 Mg Tablet) 50 mg PO BEDTIME MRX1 PRN PRN Reason: Insomnia Last Admin: 04/17/23 00:38 Dose: 50 mg Trazodone HCl (Trazodone Hcl 25 Mg Halftab) 25 mg PO BID PRN PRN Reason: Agitation Last Admin: 04/10/23 06:42 Dose: 25 mg Trazodone HCl (Trazodone Hcl 50 Mg Tablet) 50 mg PO BEDTIME [facility] Last Admin: 04/17/23 23:46 Dose: 50 mg Trolamine Salicylate (Trolamine Salicylate 10 % Cream 141 Gm Tube) 1 appl TOPICAL QID PRN; Protocol PRN Reason: Pain, Moderate (Pain Scale 4-6 Last Admin: 03/17/23 00:35 Dose: 1 appl Venlafaxine HCl (Venlafaxine Hcl Er 75 Mg Cap.Er.24h) 225 mg PO DAILY [facility] Last Admin: 05/22/23 08:09 Dose: 225 mg Allergies Allergies Allergy/AdvReac Type Severity Reaction Status Date / Time oxycodone Allergy Unknown Verified 10/14/22 13:51 pollen extracts Allergy skin rash Verified 10/14/22 13:51 Assessment & Plan Assessment & Plan (1) Neurodegenerative cognitive impairment: Status: Acute Code(s): G31.9 - Degenerative disease of nervous system, unspecified Assessment and Plan: definite on/off phenemon mixed with confusion and restricted affect, movement limitations (2) Parkinsons disease: Status: Acute Code(s): G20 - Parkinson's disease Assessment and Plan: [age] years old man with moderate to severe Parkinson's features with EDSS score of 6-7. After years of Parkinson's, he also has developed depression and psychotic features. I do not have access to his previous workup including brain imaging, but this evolution of his condition suggested that he might be going into or his underlying condition could very well be dementia with Lewy body disease. Review of brain scan done, maybe at [facility], can help. In any case, dopaminergic drugs are known to have possible psychiatric side effects but at the same time without dopamine supplementation, patient has significant physical disability. A balance has to be reached. In that regard, I would suggest discontinuing Stalevo, which is a combination of drugs. Instead of that, try plain carbidopa levodopa 25/100 2 tablets 4 to 5 times a day. Starting tomorrow, prescribed 1st does at 06:00 and then repeat that does at 10:00, 14:00, 18:00. make an observation tomorrow if that works out better and further adjustment can be made based upon how he reacts to this dose. If psychiatrically not better, may consider Nuplazid. Plan 1. Continue with same treatment. 2. Keep Effexor as prescribed 225 mg only the morning. 3. Keep on Sinemet as a prescribing doses. 4. Ativan will be changed to 4 times a day we Sinemet on March 19 Ativan is increased up to 1 mg on 03/30. 5. Minute and increased up to 6 mg on March 18. 6. Trazodone started at 50 mg p.o. q.h.s. standing every night on March 18 7. Increased Ativan up to 2 mg at night to target anxiety on March 19 8. D/C Haldol on 03/28 and start Zyprexa 5 mg po qhs at 19:00. 9. Waiting for proper placement. (3) Major depressive disorder: Status: Acute Code(s): F32.9 - Major depressive disorder, single episode, unspecified Assessment and Plan: 04/09 denies si (4) Psychosis: Status: Acute Code(s): F29 - Unspecified psychosis not due to a substance or known physiological condition Assessment and Plan: meds for this must be working was not in evidence with provider today 04/09 Plan Elderly male with past history of Parkinson's disease that is advanced admitted for psychotic symptoms in the context of Sinemet. Plan 1. Gather collateral information. 2. Continue Haldol 0.5 p.o. t.i.d. to target psychosis. Stop on 03/28 and start Zyprexa at hs 3. Continue with medical workout. 4. Assessment with results. 5. reported that he had a 2nd dose of effexor in the evenging, we will start 37,5 mg po at 5 pm On March 09. Increase Effexor XR 2nd dose up to 75 on March 11. Later on, Effexor has been changed to 1 single dose of 225 mg in the morning 6. Change his antiparkinsonian to Sinemet 4 times a day. 7. Waiting for placement Reason for continued inpatient stay Substantial Risk for: inability to function, rapid decompensation and med/psych decompensation Time Spent With Patient Time: Total time managing care of this patient today __20__ minutes.
[2023-04-18 18:00] VITALS: BP 144/70; PULSE 73; RESP 18; TEMP 36.3; O2SAT 97
[2023-04-18] MEDS: OLANZapine 5 MG TABLET PO (18:35)
[2023-04-18] MEDS: Multivitamin TABLET 1 TAB PO (20:31)
[2023-04-18] MEDS: Melatonin 3 MG TABLET 6 MG PO (20:31)
[2023-04-18] MEDS: traZODone HCL 50 MG TABLET PO (20:32)
[2023-04-19 06:00] VITALS: BP 174/82; PULSE 89; RESP 18; TEMP 36.4; O2SAT 99
[2023-04-19] MEDS: Atorvastatin Calcium 10 MG TABLET PO (10:02)
[2023-04-19] MEDS: Venlafaxine HCl ER 75 MG CAP.ER.24H 225 MG PO (10:02)
[2023-04-19] MEDS: LORazepam 1 MG TABLET PO ×3 (10:03→16:05)
--- NOTE | 2023-04-19 15:11 | HO.PSYCHPN ---
Subjective Subjective Date of Service: 04/19/23 Reason For Visit: SI Subjective Notes: Conditional Voluntary Interim History: The nursing staff reported the patient had been less anxious cooperative and pleasant, safe in the unit. On interview the patient denies new symptoms, waiting for placement Mental Status Exam Mental Status Exam Patient Appearance: Well Grooomed and Appropriate Patient Orientation: Person and Situation Level of Consciousness: Awake and Appropriate Patient Behavior: Guarded and Passive Mood Description: Withdrawn Affect Description: Constricted Patient Cognition Impaired: Yes Ability to Follow Directions: Good Speech Pattern: Clear Hallucinations: None Delusions: Not Present Thought Process: Linear Thought Content: positive for [place] Judgement: Fair Diagnostics Vital Signs (24Hr): Vital Signs - 24 hr 04/18/23 18:00 04/19/23 06:00 Temperature 97.3 F 97.6 F Pulse Rate 73 89 Respiratory Rate 18 18 Blood Pressure 144/70 H 174/82 H Pulse Oximetry 97 99 Oxygen Delivery Method Room Air Room Air BMI result Body Mass Index 23.4 Labs 03/10/23 07:58 03/10/23 07:58 Medications Medications Current Medications Acetaminophen (Acetaminophen 325 Mg Tablet) 650 mg PO Q6H PRN PRN Reason: Headache/Pain Mild Scale (1-3) Last Admin: 04/14/23 05:43 Dose: 650 mg Al Hydroxide/Mg Hydroxide (Magnesium Hydrox/Alum Hydrox 30 Ml Oral.Susp) 30 ml PO Q6H PRN PRN Reason: Heartburn/Nausea Last Admin: 03/15/23 17:37 Dose: 30 ml Atorvastatin Calcium (Atorvastatin Calcium 10 Mg Tablet) 10 mg PO DAILY [facility] Last Admin: 04/19/23 10:02 Dose: 10 mg Carbidopa/Levodopa (Carbidopa/Levodopa 10/100 Tablet) 2 tab PO QID [facility] Last Admin: 04/19/23 12:08 Dose: 2 tab Fluticasone Propionate (Fluticasone Propionate Nasal 16 Gm [place]) 1 spray NOSTRIL-B BID [facility] Last Admin: 04/19/23 10:03 Dose: Not Given Hydrocortisone (Hydrocortisone 1 % Ointment 28.35 Gm Tube) 1 appl TOPICAL BID PRN; Protocol PRN Reason: hemorroids Last Admin: 03/30/23 17:29 Dose: 1 appl Hydroxyzine HCl (Hydroxyzine Hcl 10 Mg Tablet) 10 mg PO Q6H PRN PRN Reason: Anxiety Last Admin: 04/18/23 20:32 Dose: 10 mg Lidocaine (Lidocaine 5 % Ointment 35 Gm) 1 appl TOPICAL Q6H PRN; Protocol PRN Reason: hemorroid pain Last Admin: 03/30/23 17:29 Dose: 1 appl Lorazepam (Lorazepam 1 Mg Tablet) 1 mg PO TID@0900,1300,1700 [facility] Last Admin: 04/19/23 12:08 Dose: 1 mg Magnesium Hydroxide (Milk Of Magnesia 30 Ml Oral.Susp) 30 ml PO DAILY PRN PRN Reason: Constipation Last Admin: 03/05/23 08:41 Dose: 30 ml Melatonin (Melatonin 3 Mg Tablet) 6 mg PO BEDTIME [facility] Last Admin: 04/18/23 20:31 Dose: 6 mg Multivitamins/Vitamin C (Multivitamin Tablet) 1 tab PO BEDTIME [facility] Last Admin: 04/18/23 20:31 Dose: 1 tab Olanzapine (Olanzapine 5 Mg Tablet) 5 mg PO DAILY@1900 [facility] Last Admin: 04/18/23 18:35 Dose: 5 mg Polyethylene Glycol (Polyethylene Glycol 3350 17 Gm Powd.Pack) 17 gm PO DAILY PRN PRN Reason: Constipation Last Admin: 03/19/23 10:04 Dose: 17 gm Trazodone HCl (Trazodone Hcl 50 Mg Tablet) 50 mg PO BEDTIME MRX1 PRN PRN Reason: Insomnia Last Admin: 04/17/23 00:38 Dose: 50 mg Trazodone HCl (Trazodone Hcl 25 Mg Halftab) 25 mg PO BID PRN PRN Reason: Agitation Last Admin: 04/10/23 06:42 Dose: 25 mg Trazodone HCl (Trazodone Hcl 50 Mg Tablet) 50 mg PO BEDTIME [facility] Last Admin: 04/18/23 20:32 Dose: 50 mg Trolamine Salicylate (Trolamine Salicylate 10 % Cream 141 Gm Tube) 1 appl TOPICAL QID PRN; Protocol PRN Reason: Pain, Moderate (Pain Scale 4-6 Last Admin: 03/17/23 00:35 Dose: 1 appl Venlafaxine HCl (Venlafaxine Hcl Er 75 Mg Cap.Er.24h) 225 mg PO DAILY [facility] Last Admin: 04/19/23 10:02 Dose: 225 mg Allergies Allergies Allergy/AdvReac Type Severity Reaction Status Date / Time oxycodone Allergy Unknown Verified 10/14/22 13:51 pollen extracts Allergy skin rash Verified 10/14/22 13:51 Assessment & Plan Assessment & Plan (1) Neurodegenerative cognitive impairment: Status: Acute Code(s): G31.9 - Degenerative disease of nervous system, unspecified Assessment and Plan: definite on/off phenemon mixed with confusion and restricted affect, movement limitations (2) Parkinsons disease: Status: Acute Code(s): G20 - Parkinson's disease Assessment and Plan: [age] years old man with moderate to severe Parkinson's features with EDSS score of 6-7. After years of Parkinson's, he also has developed depression and psychotic features. I do not have access to his previous workup including brain imaging, but this evolution of his condition suggested that he might be going into or his underlying condition could very well be dementia with Lewy body disease. Review of brain scan done, maybe at [facility], can help. In any case, dopaminergic drugs are known to have possible psychiatric side effects but at the same time without dopamine supplementation, patient has significant physical disability. A balance has to be reached. In that regard, I would suggest discontinuing Stalevo, which is a combination of drugs. Instead of that, try plain carbidopa levodopa 25/100 2 tablets 4 to 5 times a day. Starting tomorrow, prescribed 1st does at 06:00 and then repeat that does at 10:00, 14:00, 18:00. make an observation tomorrow if that works out better and further adjustment can be made based upon how he reacts to this dose. If psychiatrically not better, may consider Nuplazid. Plan 1. Continue with same treatment. 2. Keep Effexor as prescribed 225 mg only the morning. 3. Keep on Sinemet as a prescribing doses. 4. Ativan will be changed to 4 times a day we Sinemet on March 19 Ativan is increased up to 1 mg on 03/30. 5. Minute and increased up to 6 mg on March 18. 6. Trazodone started at 50 mg p.o. q.h.s. standing every night on March 18 7. Increased Ativan up to 2 mg at night to target anxiety on March 19 8. D/C Haldol on 03/28 and start Zyprexa 5 mg po qhs at 19:00. 9. Waiting for proper placement. (3) Major depressive disorder: Status: Acute Code(s): F32.9 - Major depressive disorder, single episode, unspecified Assessment and Plan: 04/09 denies si (4) Psychosis: Status: Acute Code(s): F29 - Unspecified psychosis not due to a substance or known physiological condition Assessment and Plan: meds for this must be working was not in evidence with provider today 04/09 Plan Elderly male with past history of Parkinson's disease that is advanced admitted for psychotic symptoms in the context of Sinemet. Plan 1. Gather collateral information. 2. Continue Haldol 0.5 p.o. t.i.d. to target psychosis. Stop on 03/28 and start Zyprexa at hs 3. Continue with medical workout. 4. Assessment with results. 5. reported that he had a 2nd dose of effexor in the evenging, we will start 37,5 mg po at 5 pm On March 09. Increase Effexor XR 2nd dose up to 75 on March 11. Later on, Effexor has been changed to 1 single dose of 225 mg in the morning 6. Change his antiparkinsonian to Sinemet 4 times a day. 7. Waiting for placement Reason for continued inpatient stay Substantial Risk for: inability to function, rapid decompensation and med/psych decompensation Time Spent With Patient Time: Total time managing care of this patient today __20__ minutes.
[2023-04-19 18:00] VITALS: BP 134/66; PULSE 67; RESP 18; TEMP 36.4; O2SAT 98
[2023-04-19] MEDS: Multivitamin TABLET 1 TAB PO (20:31)
[2023-04-19] MEDS: Melatonin 3 MG TABLET 6 MG PO (20:31)
[2023-04-19] MEDS: traZODone HCL 50 MG TABLET PO (20:32)
[2023-04-19] MEDS: OLANZapine 5 MG TABLET PO (20:54)
[2023-04-19] MEDS: traZODone HCL 25 MG HALFTAB PO (22:53)
[2023-04-19] MEDS: hydrOXYzine HCL 10 MG TABLET PO (22:53)
[2023-04-20 07:45] VITALS: BP 187/91; PULSE 89; RESP 16; TEMP 36.9; O2SAT 93
[2023-04-20] MEDS: LORazepam 1 MG TABLET PO ×3 (07:57→17:04)
[2023-04-20] MEDS: Atorvastatin Calcium 10 MG TABLET PO (07:57)
[2023-04-20] MEDS: Venlafaxine HCl ER 75 MG CAP.ER.24H 225 MG PO (07:57)
[2023-04-20] MEDS: amLODIPine Besylate 5 MG TABLET PO (12:09)
--- NOTE | 2023-04-20 14:52 | HO.PSYCHPN ---
Subjective Subjective Date of Service: 04/20/23 Reason For Visit: SI Subjective Notes: Conditional Voluntary Interim History: The nursing staff reported the patient slept 7 hours, he has been compliant with treatment. We have noticed that his blood pressure was slightly high so we called the hospitalist. He has been started on amlodipine for blood pressure. The social welfare administrator reported that he had been referred to another group home facility and his will follow. On interview denies new symptoms waiting for placement Mental Status Exam Mental Status Exam Patient Appearance: Well Grooomed and Appropriate Patient Orientation: Person and Situation Level of Consciousness: Awake and Appropriate Patient Behavior: Guarded and Passive Mood Description: Withdrawn Affect Description: Constricted Patient Cognition Impaired: Yes Ability to Follow Directions: Good Speech Pattern: Clear Hallucinations: None Delusions: Not Present Thought Process: Linear Thought Content: positive for [place], positive for [place] and positive for [place] of Content Judgement: Fair Diagnostics Vital Signs (24Hr): Vital Signs - 24 hr 04/19/23 18:00 04/20/23 07:45 Temperature 97.5 F 98.4 F Pulse Rate 67 89 Respiratory Rate 18 16 Blood Pressure 134/66 187/91 H Pulse Oximetry 98 93 Oxygen Delivery Method Room Air Room Air BMI result Body Mass Index 23.4 Labs 03/10/23 07:58 03/10/23 07:58 Medications Medications Current Medications Acetaminophen (Acetaminophen 325 Mg Tablet) 650 mg PO Q6H PRN PRN Reason: Headache/Pain Mild Scale (1-3) Last Admin: 04/14/23 05:43 Dose: 650 mg Al Hydroxide/Mg Hydroxide (Magnesium Hydrox/Alum Hydrox 30 Ml Oral.Susp) 30 ml PO Q6H PRN PRN Reason: Heartburn/Nausea Last Admin: 03/15/23 17:37 Dose: 30 ml Amlodipine Besylate (Amlodipine Besylate 5 Mg Tablet) 5 mg PO DAILY [facility]; Protocol Last Admin: 04/20/23 12:09 Dose: 5 mg Atorvastatin Calcium (Atorvastatin Calcium 10 Mg Tablet) 10 mg PO DAILY [facility] Last Admin: 04/20/23 07:57 Dose: 10 mg Carbidopa/Levodopa (Carbidopa/Levodopa 10/100 Tablet) 2 tab PO QID [facility] Last Admin: 04/20/23 12:09 Dose: 2 tab Fluticasone Propionate (Fluticasone Propionate Nasal 16 Gm [place]) 1 spray NOSTRIL-B BID [facility] Last Admin: 04/20/23 08:09 Dose: Not Given Hydrocortisone (Hydrocortisone 1 % Ointment 28.35 Gm Tube) 1 appl TOPICAL BID PRN; Protocol PRN Reason: hemorroids Last Admin: 03/30/23 17:29 Dose: 1 appl Hydroxyzine HCl (Hydroxyzine Hcl 10 Mg Tablet) 10 mg PO Q6H PRN PRN Reason: Anxiety Last Admin: 04/19/23 22:53 Dose: 10 mg Lidocaine (Lidocaine 5 % Ointment 35 Gm) 1 appl TOPICAL Q6H PRN; Protocol PRN Reason: hemorroid pain Last Admin: 03/30/23 17:29 Dose: 1 appl Lorazepam (Lorazepam 1 Mg Tablet) 1 mg PO TID@0900,1300,1700 [facility] Last Admin: 04/20/23 12:09 Dose: 1 mg Magnesium Hydroxide (Milk Of Magnesia 30 Ml Oral.Susp) 30 ml PO DAILY PRN PRN Reason: Constipation Last Admin: 03/05/23 08:41 Dose: 30 ml Melatonin (Melatonin 3 Mg Tablet) 6 mg PO BEDTIME [facility] Last Admin: 04/19/23 20:31 Dose: 6 mg Multivitamins/Vitamin C (Multivitamin Tablet) 1 tab PO BEDTIME [facility] Last Admin: 04/19/23 20:31 Dose: 1 tab Olanzapine (Olanzapine 5 Mg Tablet) 5 mg PO DAILY@1900 [facility] Last Admin: 04/19/23 20:54 Dose: 5 mg Polyethylene Glycol (Polyethylene Glycol 3350 17 Gm Powd.Pack) 17 gm PO DAILY PRN PRN Reason: Constipation Last Admin: 03/19/23 10:04 Dose: 17 gm Trazodone HCl (Trazodone Hcl 50 Mg Tablet) 50 mg PO BEDTIME MRX1 PRN PRN Reason: Insomnia Last Admin: 04/17/23 00:38 Dose: 50 mg Trazodone HCl (Trazodone Hcl 25 Mg Halftab) 25 mg PO BID PRN PRN Reason: Agitation Last Admin: 04/19/23 22:53 Dose: 25 mg Trazodone HCl (Trazodone Hcl 50 Mg Tablet) 50 mg PO BEDTIME [facility] Last Admin: 04/19/23 20:32 Dose: 50 mg Trolamine Salicylate (Trolamine Salicylate 10 % Cream 141 Gm Tube) 1 appl TOPICAL QID PRN; Protocol PRN Reason: Pain, Moderate (Pain Scale 4-6 Last Admin: 03/17/23 00:35 Dose: 1 appl Venlafaxine HCl (Venlafaxine Hcl Er 75 Mg Cap.Er.24h) 225 mg PO DAILY [facility] Last Admin: 04/20/23 07:57 Dose: 225 mg Allergies Allergies Allergy/AdvReac Type Severity Reaction Status Date / Time oxycodone Allergy Unknown Verified 10/14/22 13:51 pollen extracts Allergy skin rash Verified 10/14/22 13:51 Assessment & Plan Assessment & Plan (1) Neurodegenerative cognitive impairment: Status: Acute Code(s): G31.9 - Degenerative disease of nervous system, unspecified Assessment and Plan: definite on/off phenemon mixed with confusion and restricted affect, movement limitations (2) Parkinsons disease: Status: Acute Code(s): G20 - Parkinson's disease Assessment and Plan: [age] years old man with moderate to severe Parkinson's features with EDSS score of 6-7. After years of Parkinson's, he also has developed depression and psychotic features. I do not have access to his previous workup including brain imaging, but this evolution of his condition suggested that he might be going into or his underlying condition could very well be dementia with Lewy body disease. Review of brain scan done, maybe at [facility], can help. In any case, dopaminergic drugs are known to have possible psychiatric side effects but at the same time without dopamine supplementation, patient has significant physical disability. A balance has to be reached. In that regard, I would suggest discontinuing Stalevo, which is a combination of drugs. Instead of that, try plain carbidopa levodopa 25/100 2 tablets 4 to 5 times a day. Starting tomorrow, prescribed 1st does at 06:00 and then repeat that does at 10:00, 14:00, 18:00. make an observation tomorrow if that works out better and further adjustment can be made based upon how he reacts to this dose. If psychiatrically not better, may consider Nuplazid. Plan 1. Continue with same treatment. 2. Keep Effexor as prescribed 225 mg only the morning. 3. Keep on Sinemet as a prescribing doses. 4. Ativan will be changed to 4 times a day we Sinemet on March 19 Ativan is increased up to 1 mg on 03/30. 5. Minute and increased up to 6 mg on March 18. 6. Trazodone started at 50 mg p.o. q.h.s. standing every night on March 18 7. Increased Ativan up to 2 mg at night to target anxiety on March 19 8. D/C Haldol on 03/28 and start Zyprexa 5 mg po qhs at 19:00. 9. Waiting for proper placement. (3) Major depressive disorder: Status: Acute Code(s): F32.9 - Major depressive disorder, single episode, unspecified Assessment and Plan: 04/09 denies si (4) Psychosis: Status: Acute Code(s): F29 - Unspecified psychosis not due to a substance or known physiological condition Assessment and Plan: meds for this must be working was not in evidence with provider today 04/09 Plan Elderly male with past history of Parkinson's disease that is advanced admitted for psychotic symptoms in the context of Sinemet. Plan 1. Gather collateral information. 2. Continue Haldol 0.5 p.o. t.i.d. to target psychosis. Stop on 03/28 and start Zyprexa at hs 3. Continue with medical workout. 4. Assessment with results. 5. reported that he had a 2nd dose of effexor in the evenging, we will start 37,5 mg po at 5 pm On March 09. Increase Effexor XR 2nd dose up to 75 on March 11. Later on, Effexor has been changed to 1 single dose of 225 mg in the morning 6. Change his antiparkinsonian to Sinemet 4 times a day. 7. Waiting for placement Reason for continued inpatient stay Substantial Risk for: inability to function, rapid decompensation and med/psych decompensation Time Spent With Patient Time: Total time managing care of this patient today __20__ minutes.
[2023-04-20 18:00] VITALS: BP 138/71; PULSE 66; RESP 18; TEMP 36.3; O2SAT 96
[2023-04-20] MEDS: OLANZapine 5 MG TABLET PO (18:29)
[2023-04-20] MEDS: Multivitamin TABLET 1 TAB PO (20:15)
[2023-04-20] MEDS: Melatonin 3 MG TABLET 6 MG PO (20:15)
[2023-04-20] MEDS: traZODone HCL 50 MG TABLET PO (20:15)
[2023-04-21] MEDS: Acetaminophen 325 MG TABLET 650 MG PO ×2 (04:13→20:21)
[2023-04-21 06:00] VITALS: BP 160/84; PULSE 95; RESP 18; TEMP 36.2; O2SAT 95
[2023-04-21 07:00] VITALS: BMI 23.3
[2023-04-21] MEDS: amLODIPine Besylate 5 MG TABLET PO (09:20)
[2023-04-21] MEDS: LORazepam 1 MG TABLET PO ×3 (09:21→16:33)
[2023-04-21] MEDS: Atorvastatin Calcium 10 MG TABLET PO (09:21)
[2023-04-21] MEDS: Venlafaxine HCl ER 75 MG CAP.ER.24H 225 MG PO (09:21)
[2023-04-21] MEDS: hydrOXYzine HCL 10 MG TABLET PO ×2 (11:54→20:21)
--- NOTE | 2023-04-21 16:58 | HO.PSYCHPN ---
Subjective Subjective Date of Service: 04/21/23 Reason For Visit: SI Subjective Notes: Conditional Voluntary Interim History: The nursing staff reported no changes in his mental status. On interview the patient denies new symptoms waiting for placement. Mental Status Exam Mental Status Exam Patient Appearance: Well Grooomed Patient Orientation: Person and Situation Level of Consciousness: Awake and Appropriate Patient Behavior: Appropriate Mood Description: Constricted Affect Description: Calm Patient Cognition Impaired: Yes Ability to Follow Directions: Good Speech Pattern: Appropriate Hallucinations: None Delusions: Not Present Thought Process: Linear Thought Content: positive for [place] and positive for Circumstantial Judgement: Fair Diagnostics Vital Signs (24Hr): Vital Signs - 24 hr 04/20/23 18:00 04/21/23 06:00 Temperature 97.4 F 97.1 F Pulse Rate 66 95 Respiratory Rate 18 18 Blood Pressure 138/71 160/84 H Pulse Oximetry 96 95 Oxygen Delivery Method Room Air Room Air BMI result Body Mass Index 23.3 Labs 03/10/23 07:58 03/10/23 07:58 Medications Medications Current Medications Acetaminophen (Acetaminophen 325 Mg Tablet) 650 mg PO Q6H PRN PRN Reason: Headache/Pain Mild Scale (1-3) Last Admin: 04/21/23 04:13 Dose: 650 mg Al Hydroxide/Mg Hydroxide (Magnesium Hydrox/Alum Hydrox 30 Ml Oral.Susp) 30 ml PO Q6H PRN PRN Reason: Heartburn/Nausea Last Admin: 03/15/23 17:37 Dose: 30 ml Amlodipine Besylate (Amlodipine Besylate 5 Mg Tablet) 5 mg PO DAILY [facility]; Protocol Last Admin: 04/21/23 09:20 Dose: 5 mg Atorvastatin Calcium (Atorvastatin Calcium 10 Mg Tablet) 10 mg PO DAILY [facility] Last Admin: 04/21/23 09:21 Dose: 10 mg Carbidopa/Levodopa (Carbidopa/Levodopa 10/100 Tablet) 2 tab PO QID [facility] Last Admin: 04/21/23 16:33 Dose: 2 tab Fluticasone Propionate (Fluticasone Propionate Nasal 16 Gm [place]) 1 spray NOSTRIL-B BID [facility] Last Admin: 04/21/23 09:25 Dose: Not Given Hydrocortisone (Hydrocortisone 1 % Ointment 28.35 Gm Tube) 1 appl TOPICAL BID PRN; Protocol PRN Reason: hemorroids Last Admin: 03/30/23 17:29 Dose: 1 appl Hydroxyzine HCl (Hydroxyzine Hcl 10 Mg Tablet) 10 mg PO Q6H PRN PRN Reason: Anxiety Last Admin: 04/21/23 11:54 Dose: 10 mg Lidocaine (Lidocaine 5 % Ointment 35 Gm) 1 appl TOPICAL Q6H PRN; Protocol PRN Reason: hemorroid pain Last Admin: 03/30/23 17:29 Dose: 1 appl Lorazepam (Lorazepam 1 Mg Tablet) 1 mg PO TID@0900,1300,1700 [facility] Last Admin: 04/21/23 16:33 Dose: 1 mg Magnesium Hydroxide (Milk Of Magnesia 30 Ml Oral.Susp) 30 ml PO DAILY PRN PRN Reason: Constipation Last Admin: 03/05/23 08:41 Dose: 30 ml Melatonin (Melatonin 3 Mg Tablet) 6 mg PO BEDTIME [facility] Last Admin: 04/20/23 20:15 Dose: 6 mg Multivitamins/Vitamin C (Multivitamin Tablet) 1 tab PO BEDTIME [facility] Last Admin: 04/20/23 20:15 Dose: 1 tab Olanzapine (Olanzapine 5 Mg Tablet) 5 mg PO DAILY@1900 [facility] Last Admin: 04/20/23 18:29 Dose: 5 mg Polyethylene Glycol (Polyethylene Glycol 3350 17 Gm Powd.Pack) 17 gm PO DAILY PRN PRN Reason: Constipation Last Admin: 03/19/23 10:04 Dose: 17 gm Trazodone HCl (Trazodone Hcl 50 Mg Tablet) 50 mg PO BEDTIME MRX1 PRN PRN Reason: Insomnia Last Admin: 04/17/23 00:38 Dose: 50 mg Trazodone HCl (Trazodone Hcl 25 Mg Halftab) 25 mg PO BID PRN PRN Reason: Agitation Last Admin: 04/19/23 22:53 Dose: 25 mg Trazodone HCl (Trazodone Hcl 50 Mg Tablet) 50 mg PO BEDTIME [facility] Last Admin: 04/20/23 20:15 Dose: 50 mg Trolamine Salicylate (Trolamine Salicylate 10 % Cream 141 Gm Tube) 1 appl TOPICAL QID PRN; Protocol PRN Reason: Pain, Moderate (Pain Scale 4-6 Last Admin: 03/17/23 00:35 Dose: 1 appl Venlafaxine HCl (Venlafaxine Hcl Er 75 Mg Cap.Er.24h) 225 mg PO DAILY [facility] Last Admin: 04/21/23 09:21 Dose: 225 mg Allergies Allergies Allergy/AdvReac Type Severity Reaction Status Date / Time oxycodone Allergy Unknown Verified 10/14/22 13:51 pollen extracts Allergy skin rash Verified 10/14/22 13:51 Assessment & Plan Assessment & Plan (1) Neurodegenerative cognitive impairment: Status: Acute Code(s): G31.9 - Degenerative disease of nervous system, unspecified Assessment and Plan: definite on/off phenemon mixed with confusion and restricted affect, movement limitations (2) Parkinsons disease: Status: Acute Code(s): G20 - Parkinson's disease Assessment and Plan: [age] years old man with moderate to severe Parkinson's features with EDSS score of 6-7. After years of Parkinson's, he also has developed depression and psychotic features. I do not have access to his previous workup including brain imaging, but this evolution of his condition suggested that he might be going into or his underlying condition could very well be dementia with Lewy body disease. Review of brain scan done, maybe at [facility], can help. In any case, dopaminergic drugs are known to have possible psychiatric side effects but at the same time without dopamine supplementation, patient has significant physical disability. A balance has to be reached. In that regard, I would suggest discontinuing Stalevo, which is a combination of drugs. Instead of that, try plain carbidopa levodopa 25/100 2 tablets 4 to 5 times a day. Starting tomorrow, prescribed 1st does at 06:00 and then repeat that does at 10:00, 14:00, 18:00. make an observation tomorrow if that works out better and further adjustment can be made based upon how he reacts to this dose. If psychiatrically not better, may consider Nuplazid. Plan 1. Continue with same treatment. 2. Keep Effexor as prescribed 225 mg only the morning. 3. Keep on Sinemet as a prescribing doses. 4. Ativan will be changed to 4 times a day we Sinemet on March 19 Ativan is increased up to 1 mg on 03/30. 5. Minute and increased up to 6 mg on March 18. 6. Trazodone started at 50 mg p.o. q.h.s. standing every night on March 18 7. Increased Ativan up to 2 mg at night to target anxiety on March 19 8. D/C Haldol on 03/28 and start Zyprexa 5 mg po qhs at 19:00. 9. Waiting for proper placement. (3) Major depressive disorder: Status: Acute Code(s): F32.9 - Major depressive disorder, single episode, unspecified Assessment and Plan: 04/09 denies si (4) Psychosis: Status: Acute Code(s): F29 - Unspecified psychosis not due to a substance or known physiological condition Assessment and Plan: meds for this must be working was not in evidence with provider today 04/09 Plan Elderly male with past history of Parkinson's disease that is advanced admitted for psychotic symptoms in the context of Sinemet. Plan 1. Gather collateral information. 2. Continue Haldol 0.5 p.o. t.i.d. to target psychosis. Stop on 03/28 and start Zyprexa at hs 3. Continue with medical workout. 4. Assessment with results. 5. reported that he had a 2nd dose of effexor in the evenging, we will start 37,5 mg po at 5 pm On March 09. Increase Effexor XR 2nd dose up to 75 on March 11. Later on, Effexor has been changed to 1 single dose of 225 mg in the morning 6. Change his antiparkinsonian to Sinemet 4 times a day. 7. Waiting for placement Reason for continued inpatient stay Substantial Risk for: inability to function, rapid decompensation and med/psych decompensation Time Spent With Patient Time: Total time managing care of this patient today __20__ minutes.
[2023-04-21 18:00] VITALS: BP 112/54; PULSE 75; RESP 18; TEMP 37.1; O2SAT 98
[2023-04-21] MEDS: OLANZapine 5 MG TABLET PO (19:01)
[2023-04-21] MEDS: Melatonin 3 MG TABLET 6 MG PO (20:01)
[2023-04-21] MEDS: traZODone HCL 50 MG TABLET PO (20:01)
[2023-04-21] MEDS: Multivitamin TABLET 1 TAB PO (20:01)
[2023-04-22] MEDS: traZODone HCL 25 MG HALFTAB PO (00:53)
[2023-04-22] MEDS: Acetaminophen 325 MG TABLET 650 MG PO ×2 (05:55→20:41)
[2023-04-22 07:45] VITALS: BP 168/80; PULSE 96; RESP 18; TEMP 36.7; O2SAT 95
[2023-04-22] MEDS: amLODIPine Besylate 5 MG TABLET PO (08:03)
[2023-04-22] MEDS: Atorvastatin Calcium 10 MG TABLET PO (08:03)
[2023-04-22] MEDS: LORazepam 1 MG TABLET PO ×3 (08:04→20:34)
[2023-04-22] MEDS: Venlafaxine HCl ER 75 MG CAP.ER.24H 225 MG PO (08:04)
--- NOTE | 2023-04-22 14:30 | HO.PSYCHPN ---
Subjective Subjective Date of Service: 04/22/23 Reason For Visit: SI Subjective Notes: Conditional Voluntary Interim History: The nursing staff reported the patient had been compliant with treatment, no new symptoms. Today I had a meeting with his and the patient and so far I explained that we are going to change the scaling of the Sinemet and Ativan every 6 hours to assure for coverage in 24 hours. Waiting for placement Mental Status Exam Mental Status Exam Patient Appearance: Appropriate Patient Orientation: Person and Situation Level of Consciousness: Awake and Appropriate Patient Behavior: Guarded and Passive Mood Description: Withdrawn Affect Description: Constricted Patient Cognition Impaired: Yes Ability to Follow Directions: Good Speech Pattern: Clear Hallucinations: None Delusions: Not Present Thought Process: Linear Thought Content: positive for [place] Judgement: Fair Diagnostics Vital Signs (24Hr): Vital Signs - 24 hr 04/21/23 18:00 04/22/23 07:45 Temperature 98.8 F 98.1 F Pulse Rate 75 96 Respiratory Rate 18 18 Blood Pressure 112/54 L 168/80 H Pulse Oximetry 98 95 Oxygen Delivery Method Room Air Room Air BMI result Body Mass Index 23.3 Labs 03/10/23 07:58 03/10/23 07:58 Medications Medications Current Medications Acetaminophen (Acetaminophen 325 Mg Tablet) 650 mg PO Q6H PRN PRN Reason: Headache/Pain Mild Scale (1-3) Last Admin: 04/22/23 05:55 Dose: 650 mg Al Hydroxide/Mg Hydroxide (Magnesium Hydrox/Alum Hydrox 30 Ml Oral.Susp) 30 ml PO Q6H PRN PRN Reason: Heartburn/Nausea Last Admin: 03/15/23 17:37 Dose: 30 ml Amlodipine Besylate (Amlodipine Besylate 5 Mg Tablet) 5 mg PO DAILY [facility]; Protocol Last Admin: 04/22/23 08:03 Dose: 5 mg Atorvastatin Calcium (Atorvastatin Calcium 10 Mg Tablet) 10 mg PO DAILY [facility] Last Admin: 04/22/23 08:03 Dose: 10 mg Carbidopa/Levodopa (Carbidopa/Levodopa 10/100 Tablet) 2 tab PO QID [facility] Last Admin: 04/22/23 12:11 Dose: 2 tab Fluticasone Propionate (Fluticasone Propionate Nasal 16 Gm [place]) 1 spray NOSTRIL-B BID [facility] Last Admin: 04/22/23 08:56 Dose: Not Given Hydrocortisone (Hydrocortisone 1 % Ointment 28.35 Gm Tube) 1 appl TOPICAL BID PRN; Protocol PRN Reason: hemorroids Last Admin: 03/30/23 17:29 Dose: 1 appl Hydroxyzine HCl (Hydroxyzine Hcl 10 Mg Tablet) 10 mg PO Q6H PRN PRN Reason: Anxiety Last Admin: 04/21/23 20:21 Dose: 10 mg Lidocaine (Lidocaine 5 % Ointment 35 Gm) 1 appl TOPICAL Q6H PRN; Protocol PRN Reason: hemorroid pain Last Admin: 03/30/23 17:29 Dose: 1 appl Lorazepam (Lorazepam 1 Mg Tablet) 1 mg PO Q6H [facility] Last Admin: 04/22/23 09:45 Dose: Not Given Magnesium Hydroxide (Milk Of Magnesia 30 Ml Oral.Susp) 30 ml PO DAILY PRN PRN Reason: Constipation Last Admin: 03/05/23 08:41 Dose: 30 ml Melatonin (Melatonin 3 Mg Tablet) 6 mg PO BEDTIME [facility] Last Admin: 04/21/23 20:01 Dose: 6 mg Multivitamins/Vitamin C (Multivitamin Tablet) 1 tab PO BEDTIME [facility] Last Admin: 04/21/23 20:01 Dose: 1 tab Olanzapine (Olanzapine 5 Mg Tablet) 5 mg PO DAILY@1900 [facility] Last Admin: 04/21/23 19:01 Dose: 5 mg Polyethylene Glycol (Polyethylene Glycol 3350 17 Gm Powd.Pack) 17 gm PO DAILY PRN PRN Reason: Constipation Last Admin: 03/19/23 10:04 Dose: 17 gm Trazodone HCl (Trazodone Hcl 50 Mg Tablet) 50 mg PO BEDTIME MRX1 PRN PRN Reason: Insomnia Last Admin: 04/17/23 00:38 Dose: 50 mg Trazodone HCl (Trazodone Hcl 25 Mg Halftab) 25 mg PO BID PRN PRN Reason: Agitation Last Admin: 04/22/23 00:53 Dose: 25 mg Trazodone HCl (Trazodone Hcl 50 Mg Tablet) 50 mg PO BEDTIME [facility] Last Admin: 04/21/23 20:01 Dose: 50 mg Trolamine Salicylate (Trolamine Salicylate 10 % Cream 141 Gm Tube) 1 appl TOPICAL QID PRN; Protocol PRN Reason: Pain, Moderate (Pain Scale 4-6 Last Admin: 03/17/23 00:35 Dose: 1 appl Venlafaxine HCl (Venlafaxine Hcl Er 75 Mg Cap.Er.24h) 225 mg PO DAILY [facility] Last Admin: 04/22/23 08:04 Dose: 225 mg Allergies Allergies Allergy/AdvReac Type Severity Reaction Status Date / Time oxycodone Allergy Unknown Verified 10/14/22 13:51 pollen extracts Allergy skin rash Verified 10/14/22 13:51 Assessment & Plan Assessment & Plan (1) Neurodegenerative cognitive impairment: Status: Acute Code(s): G31.9 - Degenerative disease of nervous system, unspecified Assessment and Plan: definite on/off phenemon mixed with confusion and restricted affect, movement limitations (2) Parkinsons disease: Status: Acute Code(s): G20 - Parkinson's disease Assessment and Plan: [age] years old man with moderate to severe Parkinson's features with EDSS score of 6-7. After years of Parkinson's, he also has developed depression and psychotic features. I do not have access to his previous workup including brain imaging, but this evolution of his condition suggested that he might be going into or his underlying condition could very well be dementia with Lewy body disease. Review of brain scan done, maybe at [facility], can help. In any case, dopaminergic drugs are known to have possible psychiatric side effects but at the same time without dopamine supplementation, patient has significant physical disability. A balance has to be reached. In that regard, I would suggest discontinuing Stalevo, which is a combination of drugs. Instead of that, try plain carbidopa levodopa 25/100 2 tablets 4 to 5 times a day. Starting tomorrow, prescribed 1st does at 06:00 and then repeat that does at 10:00, 14:00, 18:00. make an observation tomorrow if that works out better and further adjustment can be made based upon how he reacts to this dose. If psychiatrically not better, may consider Nuplazid. Plan 1. Continue with same treatment. 2. Keep Effexor as prescribed 225 mg only the morning. 3. Keep on Sinemet as a prescribing doses. 4. Ativan will be changed to 4 times a day we Sinemet on March 19 Ativan is increased up to 1 mg on 03/30. 5. Minute and increased up to 6 mg on March 18. 6. Trazodone started at 50 mg p.o. q.h.s. standing every night on March 18 7. Increased Ativan up to 2 mg at night to target anxiety on March 19 8. D/C Haldol on 03/28 and start Zyprexa 5 mg po qhs at 19:00. 9. Waiting for proper placement. 10. Prazosin 1 mg p.o. q.h.s. to target nightmares (3) Major depressive disorder: Status: Acute Code(s): F32.9 - Major depressive disorder, single episode, unspecified Assessment and Plan: 04/09 denies si (4) Psychosis: Status: Acute Code(s): F29 - Unspecified psychosis not due to a substance or known physiological condition Assessment and Plan: meds for this must be working was not in evidence with provider today 04/09 Plan Elderly male with past history of Parkinson's disease that is advanced admitted for psychotic symptoms in the context of Sinemet. Plan 1. Gather collateral information. 2. Continue Haldol 0.5 p.o. t.i.d. to target psychosis. Stop on 03/28 and start Zyprexa at hs 3. Continue with medical workout. 4. Assessment with results. 5. reported that he had a 2nd dose of effexor in the evenging, we will start 37,5 mg po at 5 pm On March 09. Increase Effexor XR 2nd dose up to 75 on March 11. Later on, Effexor has been changed to 1 single dose of 225 mg in the morning 6. Change his antiparkinsonian to Sinemet 4 times a day. 7. Waiting for placement Reason for continued inpatient stay Substantial Risk for: inability to function, rapid decompensation and med/psych decompensation Time Spent With Patient Time: Total time managing care of this patient today __20__ minutes.
[2023-04-22 18:00] VITALS: BP 137/62; PULSE 83; RESP 16; TEMP 36.8; O2SAT 97
[2023-04-22] MEDS: OLANZapine 5 MG TABLET PO (18:22)
[2023-04-22] MEDS: Prazosin HCL 1 MG CAPSULE PO (20:33)
[2023-04-22] MEDS: Melatonin 3 MG TABLET 6 MG PO (20:34)
[2023-04-22] MEDS: traZODone HCL 50 MG TABLET PO (20:34)
[2023-04-23] MEDS: LORazepam 1 MG TABLET PO ×4 (03:36→21:06)
[2023-04-23 07:30] VITALS: BP 134/63; PULSE 105; RESP 15; TEMP 36.6; O2SAT 96
[2023-04-23] MEDS: Venlafaxine HCl ER 75 MG CAP.ER.24H 225 MG PO (08:36)
[2023-04-23] MEDS: amLODIPine Besylate 5 MG TABLET PO (08:36)
[2023-04-23] MEDS: Atorvastatin Calcium 10 MG TABLET PO (08:36)
--- NOTE | 2023-04-23 10:00 | P.PNPSI_ITS ---
Subjective Subjective Date of Service: 04/23/23 Reason For Visit: SI Interim History: calm, cooperative, watching TV. depressed, states nothing MD can do for the time being. c/o constant dizziness, walker in front of him. per staff, PD, SI at admission. flat affect. Mental Status Exam Mental Status Exam Narrative: adequately dressed and groomed. cooperative. PMR. speech nml rate, amount, loudness, latency. decr prosody. thoughts linear and logical. affect flat. mood pretty normal right now. no SI/HI/AVH expressed. Diagnostics Vital Signs (24Hr): Vital Signs - 24 hr 04/22/23 18:00 Temperature 98.3 F Pulse Rate 83 Respiratory Rate 16 Blood Pressure 137/62 Pulse Oximetry 97 Oxygen Delivery Method Room Air BMI result Body Mass Index 23.3 Labs 03/10/23 07:58 03/10/23 07:58 Medications Medications Current Medications Acetaminophen (Acetaminophen 325 Mg Tablet) 650 mg PO Q6H PRN PRN Reason: Headache/Pain Mild Scale (1-3) Last Admin: 04/22/23 20:41 Dose: 650 mg Al Hydroxide/Mg Hydroxide (Magnesium Hydrox/Alum Hydrox 30 Ml Oral.Susp) 30 ml PO Q6H PRN PRN Reason: Heartburn/Nausea Last Admin: 03/15/23 17:37 Dose: 30 ml Amlodipine Besylate (Amlodipine Besylate 5 Mg Tablet) 5 mg PO DAILY [facility]; Protocol Last Admin: 04/23/23 08:36 Dose: 5 mg Atorvastatin Calcium (Atorvastatin Calcium 10 Mg Tablet) 10 mg PO DAILY [facility] Last Admin: 04/23/23 08:36 Dose: 10 mg Carbidopa/Levodopa (Carbidopa/Levodopa 10/100 Tablet) 2 tab PO QID [facility] Last Admin: 04/23/23 08:36 Dose: 2 tab Fluticasone Propionate (Fluticasone Propionate Nasal 16 Gm [place]) 1 spray NOSTR IL-B BID [facility] Last Admin: 04/23/23 08:37 Dose: Not Given Hydrocortisone (Hydrocortisone 1 % Ointment 28.35 Gm Tube) 1 appl TOPICAL BID PRN; Protocol PRN Reason: hemorroids Last Admin: 03/30/23 17:29 Dose: 1 appl Hydroxyzine HCl (Hydroxyzine Hcl 10 Mg Tablet) 10 mg PO Q6H PRN PRN Reason: Anxiety Last Admin: 04/21/23 20:21 Dose: 10 mg Lidocaine (Lidocaine 5 % Ointment 35 Gm) 1 appl TOPICAL Q6H PRN; Protocol PRN Reason: hemorroid pain Last Admin: 03/30/23 17:29 Dose: 1 appl Lorazepam (Lorazepam 1 Mg Tablet) 1 mg PO Q6H [facility] Last Admin: 04/23/23 08:36 Dose: 1 mg Magnesium Hydroxide (Milk Of Magnesia 30 Ml Oral.Susp) 30 ml PO DAILY PRN PRN Reason: Constipation Last Admin: 03/05/23 08:41 Dose: 30 ml Melatonin (Melatonin 3 Mg Tablet) 6 mg PO BEDTIME [facility] Last Admin: 04/22/23 20:34 Dose: 6 mg Multivitamins/Vitamin C (Multivitamin Tablet) 1 tab PO BEDTIME [facility] Last Admin: 04/22/23 20:34 Dose: Not Given Olanzapine (Olanzapine 5 Mg Tablet) 5 mg PO DAILY@1900 [facility] Last Admin: 04/22/23 18:22 Dose: 5 mg Polyethylene Glycol (Polyethylene Glycol 3350 17 Gm Powd.Pack) 17 gm PO DAILY PRN PRN Reason: Constipation Last Admin: 03/19/23 10:04 Dose: 17 gm Prazosin HCl (Prazosin Hcl 1 Mg Capsule) 1 mg PO BEDTIME [facility]; Protocol Last Admin: 04/22/23 20:33 Dose: 1 mg Trazodone HCl (Trazodone Hcl 50 Mg Tablet) 50 mg PO BEDTIME MRX1 PRN PRN Reason: Insomnia Last Admin: 04/17/23 00:38 Dose: 50 mg Trazodone HCl (Trazodone Hcl 25 Mg Halftab) 25 mg PO BID PRN PRN Reason: Agitation Last Admin: 04/22/23 00:53 Dose: 25 mg Trazodone HCl (Trazodone Hcl 50 Mg Tablet) 50 mg PO BEDTIME [facility] Last Admin: 04/22/23 20:34 Dose: 50 mg Trolamine Salicylate (Trolamine Salicylate 10 % Cream 141 Gm Tube) 1 appl TOPICAL QID PRN; Protocol PRN Reason: Pain, Moderate (Pain Scale 4-6 Last Admin: 03/17/23 00:35 Dose: 1 appl Venlafaxine HCl (Venlafaxine Hcl Er 75 Mg Cap.Er.24h) 225 mg PO DAILY [facility] Last Admin: 04/23/23 08:36 Dose: 225 mg Allergies Allergies Allergy/AdvReac Type Severity Reaction Status Date / Time oxycodone Allergy Unknown Verified 10/14/22 13:51 pollen extracts Allergy skin rash Verified 10/14/22 13:51 Assessment & Plan Assessment & Plan (1) Neurodegenerative cognitive impairment: Status: Acute Code(s): G31.9 - Degenerative disease of nervous system, unspecified Assessment and Plan: definite on/off phenemon mixed with confusion and restricted affect, movement limitations (2) Parkinsons disease: Status: Acute Code(s): G20 - Parkinson's disease Assessment and Plan: [age] years old man with moderate to severe Parkinson's features with EDSS score of 6-7. After years of Parkinson's, he also has developed depr ession and psychotic features. I do not have access to his previous workup including brain imaging, but this evolution of his condition suggested that he might be going into or his underlying condition could very well be dementia with Lewy body disease. Review of brain scan done, maybe at [facility], can help. In any case, dopaminergic drugs are known to have possible psychiatric side effects but at the same time without dopamine supplementation, patient has significant physical disability. A balance has to be reached. In that regard, I would suggest discontinuing Stalevo, which is a combination of drugs. Instead of that, try plain carbidopa levodopa 25/100 2 tablets 4 to 5 times a day. Starting tomorrow, prescribed 1st does at 06:00 and then repeat that does at 10:00, 14:00, 18:00. make an observation tomorrow if that works out better and further adjustment can be made based upon how he reacts to this dose. If psychiatrically not better, may consider Nuplazid. Plan 1. Continue with same treatment. 2. Keep Effexor as prescribed 225 mg only the morning. 3. Keep on Sinemet as a prescribing doses. 4. Ativan will be changed to 4 times a day we Sinemet on March 19 Ativan is increased up to 1 mg on 03/30. 5. Minute and increased up to 6 mg on March 18. 6. Trazodone started at 50 mg p.o. q.h.s. standing every night on March 18 7. Increased Ativan up to 2 mg at night to target anxiety on March 19 8. D/C Haldol on 03/28 and start Zyprexa 5 mg po qhs at 19:00. 9. Waiting for proper placement. 10. Prazosin 1 mg p.o. q.h.s. to target nightmares 04/23: c/o chronic dizziness. appears depressed. no change in mgmt. (3) Major depressive disorder: Status: Acute Code(s): F32.9 - Major depressive disorder, single episode, unspecified Assessment and Plan: 04/09 denies si (4) Psychosis: Status: Acute Code(s): F29 - Unspecified psychosis not due to a substance or known physiological condition Assessment and Plan: meds for this must be working was not in evidence with provider today 04/09 Plan Elderly male with past history of Parkinson's disease that is advanced admitted for psychotic symptoms in the context of Sinemet. Plan 1. Gather collateral information. 2. Continue Haldol 0.5 p.o. t.i.d. to target psychosis. Stop on 03/28 and start Zyprexa at hs 3. Continue with medical workout. 4. Assessment with results. 5. reported that he had a 2nd dose of effexor in the evenging, we will start 37,5 mg po at 5 pm On March 09. Increase Effexor XR 2nd dose up to 75 on March 11. Later on, Effexor has been changed to 1 single dose of 225 mg in the morning 6. Change his antiparkinsonian to Sinemet 4 times a day. 7. Waiting for placement 04/23: appears flat, depressed. c/o dizziness. continue current mgmt. Reason for continued inpatient stay Substantial Risk for: inability to function and rapid decompensation Time Spent With Patient Time: Total time managing care of this patient today ____ minutes.
[2023-04-23] MEDS: OLANZapine 5 MG TABLET PO (20:11)
[2023-04-23 21:00] VITALS: BP 151/77; PULSE 83; RESP 16; TEMP 36.3; O2SAT 97
[2023-04-23] MEDS: Prazosin HCL 1 MG CAPSULE PO (21:06)
[2023-04-23] MEDS: traZODone HCL 50 MG TABLET PO (21:06)
[2023-04-23] MEDS: Multivitamin TABLET 1 TAB PO (21:06)
[2023-04-23] MEDS: Melatonin 3 MG TABLET 6 MG PO (21:07)
[2023-04-24] MEDS: LORazepam 1 MG TABLET PO ×4 (02:49→20:10)
[2023-04-24 07:30] VITALS: BP 161/73; PULSE 98; RESP 15; TEMP 36.3; O2SAT 94
[2023-04-24] MEDS: amLODIPine Besylate 5 MG TABLET PO (08:14)
[2023-04-24] MEDS: Atorvastatin Calcium 10 MG TABLET PO (08:15)
[2023-04-24] MEDS: Venlafaxine HCl ER 75 MG CAP.ER.24H 225 MG PO (08:15)
--- NOTE | 2023-04-24 10:00 | P.PNPSI_ITS ---
Subjective Subjective Date of Service: 04/24/23 Reason For Visit: SI Interim History: seated in front of TV, eyes closed. rousable. states he is in a better frame of mind than yesterday, but does appear quite somber nevertheless. no complaints or requests. per staff, improved mood from yesterday. was even smiling, joking, acting silly this morning. more confused NOC shift. yesterday very depressed. Mental Status Exam Mental Status Exam Narrative: adequately dressed and groomed. cooperative. less PMR. speech nml rate, amount, loudness, latency. decr prosody. thoughts linear and logical. affect constricted. mood a little bit better. no SI/HI/AVH expressed. Diagnostics Vital Signs (24Hr): Vital Signs - 24 hr 04/23/23 21:00 Temperature 97.4 F Pulse Rate 83 Respiratory Rate 16 Blood Pressure 151/77 H Pulse Oximetry 97 Oxygen Delivery Method Room Air BMI result Body Mass Index 23.3 Labs 03/10/23 07:58 03/10/23 07:58 Medications Medications Current Medications Acetaminophen (Acetaminophen 325 Mg Tablet) 650 mg PO Q6H PRN PRN Reason: Headache/Pain Mild Scale (1-3) Last Admin: 04/22/23 20:41 Dose: 650 mg Al Hydroxide/Mg Hydroxide (Magnesium Hydrox/Alum Hydrox 30 Ml Oral.Susp) 30 ml PO Q6H PRN PRN Reason: Heartburn/Nausea Last Admin: 03/15/23 17:37 Dose: 30 ml Amlodipine Besylate (Amlodipine Besylate 5 Mg Tablet) 5 mg PO DAILY [facility]; Protocol Last Admin: 04/24/23 08:14 Dose: 5 mg Atorvastatin Calcium (Atorvastatin Calcium 10 Mg Tablet) 10 mg PO DAILY [facility] Last Admin: 04/24/23 08:15 Dose: 10 mg Carbidopa/Levodopa (Carbidopa/Levodopa 10/100 Tablet) 2 tab PO QID [facility] Last Admin: 04/24/23 08:15 Dose: 2 tab Fluticasone Propionate (Fluticasone Propionate Nasal 16 Gm [place]) 1 spray NOSTRIL-B BID [facility] Last Admin: 04/24/23 08:17 Dose: Not Given Hydrocortisone (Hydrocortisone 1 % Ointment 28.35 Gm Tube) 1 appl TOPICAL BID PRN; Protocol PRN Reason: hemorroids Last Admin: 03/30/23 17:29 Dose: 1 appl Hydroxyzine HCl (Hydroxyzine Hcl 10 Mg Tablet) 10 mg PO Q6H PRN PRN Reason: Anxiety Last Admin: 04/21/23 20:21 Dose: 10 mg Lidocaine (Lidocaine 5 % Ointment 35 Gm) 1 appl TOPICAL Q6H PRN; Protocol PRN Reason: hemorroid pain Last Admin: 03/30/23 17:29 Dose: 1 appl Lorazepam (Lorazepam 1 Mg Tablet) 1 mg PO Q6H [facility] Last Admin: 04/24/23 08:38 Dose: 1 mg Magnesium Hydroxide (Milk Of Magnesia 30 Ml Oral.Susp) 30 ml PO DAILY PRN PRN Reason: Constipation Last Admin: 03/05/23 08:41 Dose: 30 ml Melatonin (Melatonin 3 Mg Tablet) 6 mg PO BEDTIME [facility] Last Admin: 04/23/23 21:07 Dose: 6 mg Multivitamins/Vitamin C (Multivitamin Tablet) 1 tab PO BEDTIME [facility] Last Admin: 04/23/23 21:06 Dose: 1 tab Olanzapine (Olanzapine 5 Mg Tablet) 5 mg PO DAILY@1900 [facility] Last Admin: 04/23/23 20:11 Dose: 5 mg Polyethylene Glycol (Polyethylene Glycol 3350 17 Gm Powd.Pack) 17 gm PO DAILY PRN PRN Reason: Constipation Last Admin: 03/19/23 10:04 Dose: 17 gm Prazosin HCl (Prazosin Hcl 1 Mg Capsule) 1 mg PO BEDTIME [facility]; Protocol Last Admin: 04/23/23 21:06 Dose: 1 mg Trazodone HCl (Trazodone Hcl 50 Mg Tablet) 50 mg PO BEDTIME MRX1 PRN PRN Reason: Insomnia Last Admin: 04/17/23 00:38 Dose: 50 mg Trazodone HCl (Trazodone Hcl 25 Mg Halftab) 25 mg PO BID PRN PRN Reason: Agitation Last Admin: 04/22/23 00:53 Dose: 25 mg Trazodone HCl (Trazodone Hcl 50 Mg Tablet) 50 mg PO BEDTIME [facility] Last Admin: 04/23/23 21:06 Dose: 50 mg Trolamine Salicylate (Trolamine Salicylate 10 % Cream 141 Gm Tube) 1 appl TOPICAL QID PRN; Protocol PRN Reason: Pain, Moderate (Pain Scale 4-6 Last Admin: 03/17/23 00:35 Dose: 1 appl Venlafaxine HCl (Venlafaxine Hcl Er 75 Mg Cap.Er.24h) 225 mg PO DAILY [facility] Last Admin: 04/24/23 08:15 Dose: 225 mg Allergies Allergies Allergy/AdvReac Type Severity Reaction Status Date / Time oxycodone Allergy Unknown Verified 10/14/22 13:51 pollen extracts Allergy skin rash Verified 10/14/22 13:51 Assessment & Plan Assessment & Plan (1) Neurodegenerative cognitive impairment: Status: Acute Code(s): G31.9 - Degenerative disease of nervous system, unspecified Assessment and Plan: definite on/off phenemon mixed with confusion and restricted affect, movement limitations (2) Parkinsons disease: Status: Acute Code(s): G20 - Parkinson's disease Assessment and Plan: [age] years old man with moderate to severe Parkinson's features with EDSS score of 6-7. After years of Parkinson's, he also has developed depression and psychotic features. I do not have access to his previous workup including brain imaging, but this evolution of his condition suggested that he m ight be going into or his underlying condition could very well be dementia with Lewy body disease. Review of brain scan done, maybe at [facility], can help. In any case, dopaminergic drugs are known to have possible psychiatric side effects but at the same time without dopamine supplementation, patient has significant physical disability. A balance has to be reached. In that regard, I would sugg est discontinuing Stalevo, which is a combination of drugs. Instead of that, try plain carbidopa levodopa 25/100 2 tablets 4 to 5 times a day. Starting tomorrow, prescribed 1st does at 06:00 and then repeat that does at 10:00, 14:00, 18:00. make an observation tomorrow if that works out better and further adjustment can be made based upon how he reacts to this dose. If psychiatrically not better, may consider Nuplazid. Plan 1. Continue with same treatment. 2. Keep Effexor as prescribed 225 mg only the morning. 3. Keep on Sinemet as a prescribing doses. 4. Ativan will be changed to 4 times a day we Sinemet on March 19 Ativan is increased up to 1 mg on 03/30. 5. Minute and increased up to 6 mg on March 18. 6. Trazodone started at 50 mg p.o. q.h.s. standing every night on March 18 7. Increased Ativan up to 2 mg at night to target anxiety on March 19 8. D/C Haldol on 03/28 and start Zyprexa 5 mg po qhs at 19:00. 9. Waiting for proper placement. 10. Prazosin 1 mg p.o. q.h.s. to target nightmares 04/23: c/o chronic dizziness. appears depressed. no change in mgmt. 04/24: mood improved today from yesterday. slightly less wooden affect, less PMR. continue current mgmt. (3) Major depressive disorder: Status: Acute Code(s): F32.9 - Major depressive disorder, single episode, unspecified Assessment and Plan: 04/09 denies si (4) Psychosis: Status: Acute Code(s): F29 - Unspecified psychosis not due to a substance or known physiological condition Assessment and Plan: meds for this must be working was not in evidence with provider today 04/09 Plan Elderly male with past history of Parkinson's disease that is advanced admitted for psychotic symptoms in the context of Sinemet. Plan 1. Gather collateral information. 2. Continue Haldol 0.5 p.o. t.i.d. to target psychosis. Stop on 03/28 and start Zyprexa at hs 3. Continue with medical workout. 4. Assessment with results. 5. reported that he had a 2nd dose of effexor in the evenging, we will start 37,5 mg po at 5 pm On March 09. Increase Effexor XR 2nd dose up to 75 on March 11. Later on, Effexor has been changed to 1 single dose of 225 mg in the morning 6. Change his antiparkinsonian to Sinemet 4 times a day. 7. Waiting for placement 04/23: appears flat, depressed. c/o dizziness. continue current mgmt. 04/24: more flexible affect, less PMR today. reports mood slightly improved today. continue current mgmt. Reason for continued inpatient stay Substantial Risk for: harm to self, inability to function and rapid decompensation Time Spent With Patient Time: Total time managing care of this patient today ____ minutes.
[2023-04-24 18:00] VITALS: BP 143/65; PULSE 93; RESP 18; TEMP 36.8; O2SAT 97
[2023-04-24] MEDS: OLANZapine 5 MG TABLET PO (20:09)
[2023-04-24] MEDS: traZODone HCL 50 MG TABLET PO (20:09)
[2023-04-24] MEDS: Melatonin 3 MG TABLET 6 MG PO (20:09)
[2023-04-24] MEDS: Prazosin HCL 1 MG CAPSULE PO (20:09)
--- NOTE | 2023-04-25 00:31 | PC.NURSE ---
Patient's right lower leg/foot +2-3 edema noted. Unable to palpate pedal pulse, positive pulse verified via doppler. Patient denies pain, able to move foot/ leg without difficulty.Doppler ultrasound ordered. Will continue to monitor.
[2023-04-25] MEDS: LORazepam 1 MG TABLET PO ×4 (03:15→20:41)
[2023-04-25 08:26] VITALS: BP 167/73; PULSE 104; RESP 18; TEMP 36.6; O2SAT 96
[2023-04-25] MEDS: Acetaminophen 325 MG TABLET 650 MG PO (08:30)
[2023-04-25] MEDS: Venlafaxine HCl ER 75 MG CAP.ER.24H 225 MG PO (08:30)
[2023-04-25] MEDS: amLODIPine Besylate 5 MG TABLET PO (08:31)
[2023-04-25] MEDS: Atorvastatin Calcium 10 MG TABLET PO (08:31)
--- NOTE | 2023-04-25 10:35 | HO.PSYCHPN ---
Subjective Subjective Date of Service: 04/25/23 Reason For Visit: SI Interim History: states he is tired. appears so, with constricted affect. no complaints or requests. discussed his LE edema and plan for US today. per staff, slept well other than up for ativan x 1. Mental Status Exam Mental Status Exam Narrative: adequately dressed and groomed. cooperative. PMR. speech nml rate; decr amount, loudness; nml latency. decr prosody. thoughts linear and logical. affect constricted. no SI/HI/AVH expressed. Diagnostics Vital Signs (24Hr): Vital Signs - 24 hr 04/24/23 18:00 04/25/23 08:26 Temperature 98.2 F 97.9 F Pulse Rate 93 104 H Respiratory Rate 18 18 Blood Pressure 143/65 H 167/73 H Pulse Oximetry 97 96 Oxygen Delivery Method Room Air Room Air BMI result Body Mass Index 23.3 Labs 03/10/23 07:58 03/10/23 07:58 Medications Medications Current Medications Acetaminophen (Acetaminophen 325 Mg Tablet) 650 mg PO Q6H PRN PRN Reason: Headache/Pain Mild Scale (1-3) Last Admin: 04/25/23 08:30 Dose: 650 mg Al Hydroxide/Mg Hydroxide (Magnesium Hydrox/Alum Hydrox 30 Ml Oral.Susp) 30 ml PO Q6H PRN PRN Reason: Heartburn/Nausea Last Admin: 03/15/23 17:37 Dose: 30 ml Amlodipine Besylate (Amlodipine Besylate 5 Mg Tablet) 5 mg PO DAILY [facility]; Protocol Last Admin: 04/25/23 08:31 Dose: 5 mg Atorvastatin Calcium (Atorvastatin Calcium 10 Mg Tablet) 10 mg PO DAILY [facility] Last Admin: 04/25/23 08:31 Dose: 10 mg Carbidopa/Levodopa (Carbidopa/Levodopa 10/100 Tablet) 2 tab PO QID [facility] Last Admin: 04/25/23 08:31 Dose: 2 tab Fluticasone Propionate (Fluticasone Propionate Nasal 16 Gm [place]) 1 spray NOSTRIL-B BID [facility] Last Admin: 04/25/23 08:38 Dose: Not Given Hydrocortisone (Hydrocortisone 1 % Ointment 28.35 Gm Tube) 1 appl TOPICAL BID PRN; Protocol PRN Reason: hemorroids Last Admin: 03/30/23 17:29 Dose: 1 appl Hydroxyzine HCl (Hydroxyzine Hcl 10 Mg Tablet) 10 mg PO Q6H PRN PRN Reason: Anxiety Last Admin: 04/21/23 20:21 Dose: 10 mg Lidocaine (Lidocaine 5 % Ointment 35 Gm) 1 appl TOPICAL Q6H PRN; Protocol PRN Reason: hemorroid pain Last Admin: 03/30/23 17:29 Dose: 1 appl Lorazepam (Lorazepam 1 Mg Tablet) 1 mg PO Q6H [facility] Last Admin: 04/25/23 08:31 Dose: 1 mg Magnesium Hydroxide (Milk Of Magnesia 30 Ml Oral.Susp) 30 ml PO DAILY PRN PRN Reason: Constipation Last Admin: 03/05/23 08:41 Dose: 30 ml Melatonin (Melatonin 3 Mg Tablet) 6 mg PO BEDTIME [facility] Last Admin: 04/24/23 20:09 Dose: 6 mg Multivitamins/Vitamin C (Multivitamin Tablet) 1 tab PO BEDTIME [facility] Last Admin: 04/24/23 20:18 Dose: Not Given Olanzapine (Olanzapine 5 Mg Tablet) 5 mg PO DAILY@1900 [facility] Last Admin: 04/24/23 20:09 Dose: 5 mg Polyethylene Glycol (Polyethylene Glycol 3350 17 Gm Powd.Pack) 17 gm PO DAILY PRN PRN Reason: Constipation Last Admin: 03/19/23 10:04 Dose: 17 gm Prazosin HCl (Prazosin Hcl 1 Mg Capsule) 1 mg PO BEDTIME [facility]; Protocol Last Admin: 04/24/23 20:09 Dose: 1 mg Trazodone HCl (Trazodone Hcl 50 Mg Tablet) 50 mg PO BEDTIME MRX1 PRN PRN Reason: Insomnia Last Admin: 04/17/23 00:38 Dose: 50 mg Trazodone HCl (Trazodone Hcl 25 Mg Halftab) 25 mg PO BID PRN PRN Reason: Agitation Last Admin: 04/22/23 00:53 Dose: 25 mg Trazodone HCl (Trazodone Hcl 50 Mg Tablet) 50 mg PO BEDTIME [facility] Last Admin: 04/24/23 20:09 Dose: 50 mg Trolamine Salicylate (Trolamine Salicylate 10 % Cream 141 Gm Tube) 1 appl TOPICAL QID PRN; Protocol PRN Reason: Pain, Moderate (Pain Scale 4-6 Last Admin: 03/17/23 00:35 Dose: 1 appl Venlafaxine HCl (Venlafaxine Hcl Er 75 Mg Cap.Er.24h) 225 mg PO DAILY [facility] Last Admin: 04/25/23 08:30 Dose: 225 mg Allergies Allergies Allergy/AdvReac Type Severity Reaction Status Date / Time oxycodone Allergy Unknown Verified 10/14/22 13:51 pollen extracts Allergy skin rash Verified 10/14/22 13:51 Assessment & Plan Assessment & Plan (1) Neurodegenerative cognitive impairment: Status: Acute Code(s): G31.9 - Degenerative disease of nervous system, unspecified Assessment and Plan: definite on/off phenemon mixed with confusion and restricted affect, movement limitations (2) Parkinsons disease: Status: Acute Code(s): G20 - Parkinson's disease Assessment and Plan: [age] years old man with moderate to severe Parkinson's features with EDSS score of 6-7. After years of Parkinson's, he also has developed depression and psychotic features. I do not have access to his previous workup including brain imaging, but this evolution of his condition suggested that he might be going into or his underlying condition could very well be dementia with Lewy body disease. Review of brain scan done, maybe at [facility], can help. In any case, dopaminergic drugs are known to have possible psychiatric side effects but at the same time without dopamine supplementation, patient has significant physical disability. A balance has to be reached. In that regard, I would suggest discontinuing Stalevo, which is a combination of drugs. Instead of that, try plain carbidopa levodopa 25/100 2 tablets 4 to 5 times a day. Starting tomorrow, prescribed 1st does at 06:00 and then repeat that does at 10:00, 14:00, 18:00. make an observation tomorrow if that works out better and further adjustment can be made based upon how he reacts to this dose. If psychiatrically not better, may consider Nuplazid. Plan 1. Continue with same treatment. 2. Keep Effexor as prescribed 225 mg only the morning. 3. Keep on Sinemet as a prescribing doses. 4. Ativan will be changed to 4 times a day we Sinemet on March 19 Ativan is increased up to 1 mg on 03/30. 5. Minute and increased up to 6 mg on March 18. 6. Trazodone started at 50 mg p.o. q.h.s. standing every night on March 18 7. Increased Ativan up to 2 mg at night to target anxiety on March 19 8. D/C Haldol on 03/28 and start Zyprexa 5 mg po qhs at 19:00. 9. Waiting for proper placement. 10. Prazosin 1 mg p.o. q.h.s. to target nightmares 04/23: c/o chronic dizziness. appears depressed. no change in mgmt. 04/24: mood improved today from yesterday. slightly less wooden affect, less PMR. continue current mgmt. 04/25: appears more somber again today. states he is tired. awaiting US to R/O DVT. (3) Major depressive disorder: Status: Acute Code(s): F32.9 - Major depressive disorder, single episode, unspecified Assessment and Plan: 04/09 denies si (4) Psychosis: Status: Acute Code(s): F29 - Unspecified psychosis not due to a substance or known physiological condition Assessment and Plan: meds for this must be working was not in evidence with provider today 04/09 Plan Elderly male with past history of Parkinson's disease that is advanced admitted for psychotic symptoms in the context of Sinemet. Plan 1. Gather collateral information. 2. Continue Haldol 0.5 p.o. t.i.d. to target psychosis. Stop on 03/28 and start Zyprexa at hs 3. Continue with medical workout. 4. Assessment with results. 5. reported that he had a 2nd dose of effexor in the evenging, we will start 37,5 mg po at 5 pm On March 09. Increase Effexor XR 2nd dose up to 75 on March 11. Later on, Effexor has been changed to 1 single dose of 225 mg in the morning 6. Change his antiparkinsonian to Sinemet 4 times a day. 7. Waiting for placement 04/23: appears flat, depressed. c/o dizziness. continue current mgmt. 04/24: more flexible affect, less PMR today. reports mood slightly improved today. continue current mgmt. 04/25: RLE edema reported yesterday, U/S pending. appears more somber again today. no notable events or behaviors otherwise, continue current mgmt. Reason for continued inpatient stay Substantial Risk for: harm to self, inability to function and rapid decompensation Time Spent With Patient Time: Total time managing care of this patient today ____ minutes.
[2023-04-25] MEDS: hydrOXYzine HCL 10 MG TABLET PO (11:05)
[2023-04-25 18:00] VITALS: BP 135/65; BP 146/66; PULSE 88; PULSE 95; RESP 16; RESP 18; TEMP 36.3; TEMP 36.4; O2SAT 95; O2SAT 98
[2023-04-25] MEDS: OLANZapine 5 MG TABLET PO (20:40)
[2023-04-25] MEDS: Melatonin 3 MG TABLET 6 MG PO (20:40)
[2023-04-25] MEDS: traZODone HCL 50 MG TABLET PO (20:40)
[2023-04-25] MEDS: Prazosin HCL 1 MG CAPSULE PO (20:40)
[2023-04-25] MEDS: Multivitamin TABLET 1 TAB PO (20:40)
[2023-04-26] MEDS: LORazepam 1 MG TABLET PO ×4 (03:23→20:54)
[2023-04-26 08:20] VITALS: BP 131/72; PULSE 100; RESP 18; TEMP 36.8; O2SAT 98
[2023-04-26] MEDS: amLODIPine Besylate 5 MG TABLET PO (08:24)
[2023-04-26] MEDS: Venlafaxine HCl ER 75 MG CAP.ER.24H 225 MG PO (08:24)
[2023-04-26] MEDS: Atorvastatin Calcium 10 MG TABLET PO (08:25)
--- NOTE | 2023-04-26 10:16 | HO.PSYCHPN ---
Subjective Subjective Date of Service: 04/26/23 Reason For Visit: SI Subjective Notes: Conditional Voluntary Interim History: The nursing staff reported the patient had been calm, cooperative and pleasant, he complained of shoulder pain and took Tylenol with good improvement. He slept 6 hours no evidence of psychotic symptoms or exacerbation of depression. The child welfare social worker reported that they found an [facility] facility most likely he will be discharged pretty soon. On interview the patient denies new symptoms or waiting for placement. Mental Status Exam Mental Status Exam Patient Appearance: Appropriate Patient Orientation: Person and Situation Level of Consciousness: Awake and Appropriate Patient Behavior: Guarded and Passive Mood Description: Withdrawn Affect Description: Constricted Patient Cognition Impaired: Yes Ability to Follow Directions: Good Speech Pattern: Clear Hallucinations: None Delusions: Not Present Thought Content: positive for [place] and positive for [place]overty of Content Judgement: Fair Diagnostics Vital Signs (24Hr): Vital Signs - 24 hr 04/25/23 18:00 04/25/23 18:00 04/26/23 08:20 Temperature 97.3 F 97.6 F 98.3 F Pulse Rate 95 88 100 Respiratory Rate 16 18 18 Blood Pressure 135/65 146/66 H 131/72 Pulse Oximetry 95 98 98 Oxygen Delivery Method Room Air Room Air Room Air BMI result Body Mass Index 23.3 Labs 03/10/23 07:58 03/10/23 07:58 Medications Medications Current Medications Acetaminophen (Acetaminophen 325 Mg Tablet) 650 mg PO Q6H PRN PRN Reason: Headache/Pain Mild Scale (1-3) Last Admin: 04/25/23 08:30 Dose: 650 mg Al Hydroxide/Mg Hydroxide (Magnesium Hydrox/Alum Hydrox 30 Ml Oral.Susp) 30 ml PO Q6H PRN PRN Reason: Heartburn/Nausea Last Admin: 03/15/23 17:37 Dose: 30 ml Amlodipine Besylate (Amlodipine Besylate 5 Mg Tablet) 5 mg PO DAILY [facility]; Protocol Last Admin: 04/26/23 08:24 Dose: 5 mg Atorvastatin Calcium (Atorvastatin Calcium 10 Mg Tablet) 10 mg PO DAILY [facility] Last Admin: 04/26/23 08:25 Dose: 10 mg Carbidopa/Levodopa (Carbidopa/Levodopa 10/100 Tablet) 2 tab PO QID [facility] Last Admin: 04/26/23 08:24 Dose: 2 tab Fluticasone Propionate (Fluticasone Propionate Nasal 16 Gm [place]) 1 spray NOSTRIL-B BID [facility] Last Admin: 04/26/23 08:26 Dose: Not Given Hydrocortisone (Hydrocortisone 1 % Ointment 28.35 Gm Tube) 1 appl TOPICAL BID PRN; Protocol PRN Reason: hemorroids Last Admin: 03/30/23 17:29 Dose: 1 appl Hydroxyzine HCl (Hydroxyzine Hcl 10 Mg Tablet) 10 mg PO Q6H PRN PRN Reason: Anxiety Last Admin: 04/25/23 11:05 Dose: 10 mg Lidocaine (Lidocaine 5 % Ointment 35 Gm) 1 appl TOPICAL Q6H PRN; Protocol PRN Reason: hemorroid pain Last Admin: 03/30/23 17:29 Dose: 1 appl Lorazepam (Lorazepam 1 Mg Tablet) 1 mg PO Q6H [facility] Last Admin: 04/26/23 08:56 Dose: 1 mg Magnesium Hydroxide (Milk Of Magnesia 30 Ml Oral.Susp) 30 ml PO DAILY PRN PRN Reason: Constipation Last Admin: 03/05/23 08:41 Dose: 30 ml Melatonin (Melatonin 3 Mg Tablet) 6 mg PO BEDTIME [facility] Last Admin: 04/25/23 20:40 Dose: 6 mg Multivitamins/Vitamin C (Multivitamin Tablet) 1 tab PO BEDTIME [facility] Last Admin: 04/25/23 20:40 Dose: 1 tab Olanzapine (Olanzapine 5 Mg Tablet) 5 mg PO DAILY@1900 [facility] Last Admin: 04/25/23 20:40 Dose: 5 mg Polyethylene Glycol (Polyethylene Glycol 3350 17 Gm Powd.Pack) 17 gm PO DAILY PRN PRN Reason: Constipation Last Admin: 03/19/23 10:04 Dose: 17 gm Prazosin HCl (Prazosin Hcl 1 Mg Capsule) 1 mg PO BEDTIME [facility]; Protocol Last Admin: 04/25/23 20:40 Dose: 1 mg Trazodone HCl (Trazodone Hcl 50 Mg Tablet) 50 mg PO BEDTIME MRX1 PRN PRN Reason: Insomnia Last Admin: 04/17/23 00:38 Dose: 50 mg Trazodone HCl (Trazodone Hcl 25 Mg Halftab) 25 mg PO BID PRN PRN Reason: Agitation Last Admin: 04/22/23 00:53 Dose: 25 mg Trazodone HCl (Trazodone Hcl 50 Mg Tablet) 50 mg PO BEDTIME [facility] Last Admin: 04/25/23 20:40 Dose: 50 mg Trolamine Salicylate (Trolamine Salicylate 10 % Cream 141 Gm Tube) 1 appl TOPICAL QID PRN; Protocol PRN Reason: Pain, Moderate (Pain Scale 4-6 Last Admin: 03/17/23 00:35 Dose: 1 appl Venlafaxine HCl (Venlafaxine Hcl Er 75 Mg Cap.Er.24h) 225 mg PO DAILY [facility] Last Admin: 04/26/23 08:24 Dose: 225 mg Allergies Allergies Allergy/AdvReac Type Severity Reaction Status Date / Time oxycodone Allergy Unknown Verified 10/14/22 13:51 pollen extracts Allergy skin rash Verified 10/14/22 13:51 Assessment & Plan Assessment & Plan (1) Neurodegenerative cognitive impairment: Status: Acute Code(s): G31.9 - Degenerative disease of nervous system, unspecified Assessment and Plan: definite on/off phenemon mixed with confusion and restricted affect, movement limitations (2) Parkinsons disease: Status: Acute Code(s): G20 - Parkinson's disease Assessment and Plan: [age] years old man with moderate to severe Parkinson's features with EDSS score of 6-7. After years of Parkinson's, he also has developed depression and psychotic features. I do not have access to his previous workup including brain imaging, but this evolution of his condition suggested that he might be going into or his underlying condition could very well be dementia with Lewy body disease. Review of brain scan done, maybe at [facility], can help. In any case, dopaminergic drugs are known to have possible psychiatric side effects but at the same time without dopamine supplementation, patient has significant physical disability. A balance has to be reached. In that regard, I would suggest discontinuing Stalevo, which is a combination of drugs. Instead of that, try plain carbidopa levodopa 25/100 2 tablets 4 to 5 times a day. Starting tomorrow, prescribed 1st does at 06:00 and then repeat that does at 10:00, 14:00, 18:00. make an observation tomorrow if that works out better and further adjustment can be made based upon how he reacts to this dose. If psychiatrically not better, may consider Nuplazid. Plan 1. Continue with same treatment. 2. Keep Effexor as prescribed 225 mg only the morning. 3. Keep on Sinemet as a prescribing doses. 4. Ativan will be changed to 4 times a day we Sinemet on March 19 Ativan is increased up to 1 mg on 03/30. 5. Minute and increased up to 6 mg on March 18. 6. Trazodone started at 50 mg p.o. q.h.s. standing every night on March 18 7. Increased Ativan up to 2 mg at night to target anxiety on March 19 8. D/C Haldol on 03/28 and start Zyprexa 5 mg po qhs at 19:00. 9. Waiting for proper placement. 10. Prazosin 1 mg p.o. q.h.s. to target nightmares (3) Major depressive disorder: Status: Acute Code(s): F32.9 - Major depressive disorder, single episode, unspecified Assessment and Plan: 04/09 denies si (4) Psychosis: Status: Acute Code(s): F29 - Unspecified psychosis not due to a substance or known physiological condition Assessment and Plan: meds for this must be working was not in evidence with provider today 04/09 Plan Elderly male with past history of Parkinson's disease that is advanced admitted for psychotic symptoms in the context of Sinemet. Plan 1. Gather collateral information. 2. Continue Haldol 0.5 p.o. t.i.d. to target psychosis. Stop on 03/28 and start Zyprexa at hs 3. Continue with medical workout. 4. Assessment with results. 5. reported that he had a 2nd dose of effexor in the evenging, we will start 37,5 mg po at 5 pm On March 09. Increase Effexor XR 2nd dose up to 75 on March 11. Later on, Effexor has been changed to 1 single dose of 225 mg in the morning 6. Change his antiparkinsonian to Sinemet 4 times a day. 7. Waiting for placement Reason for continued inpatient stay Substantial Risk for: inability to function, rapid decompensation and med/psych decompensation Time Spent With Patient Time: Total time managing care of this patient today _20___ minutes.
[2023-04-26] MEDS: hydrOXYzine HCL 10 MG TABLET PO (11:08)
[2023-04-26 18:00] VITALS: BP 121/60; PULSE 86; RESP 18; TEMP 36.9; O2SAT 97
[2023-04-26] MEDS: OLANZapine 5 MG TABLET PO (18:28)
[2023-04-26] MEDS: Prazosin HCL 1 MG CAPSULE PO (20:52)
[2023-04-26] MEDS: traZODone HCL 50 MG TABLET PO (20:52)
[2023-04-26] MEDS: Multivitamin TABLET 1 TAB PO (20:54)
[2023-04-26] MEDS: Melatonin 3 MG TABLET 6 MG PO (20:54)
[2023-04-27] MEDS: LORazepam 1 MG TABLET PO ×4 (03:51→20:30)
[2023-04-27 07:58] VITALS: BP 172/80; PULSE 88; RESP 18; TEMP 36.4; O2SAT 97
[2023-04-27] MEDS: Venlafaxine HCl ER 75 MG CAP.ER.24H 225 MG PO (08:00)
[2023-04-27] MEDS: Atorvastatin Calcium 10 MG TABLET PO (08:01)
[2023-04-27] MEDS: amLODIPine Besylate 5 MG TABLET PO (08:02)
[2023-04-27] MEDS: Carbidopa/Levodopa 25/100 TABLET 1 TAB PO (09:40)
[2023-04-27] MEDS: hydrOXYzine HCL 10 MG TABLET PO (11:51)
--- NOTE | 2023-04-27 12:13 | P.PNPSI_ITS ---
Subjective Subjective Date of Service: 04/27/23 Reason For Visit: SI Subjective Notes: Conditional Voluntary Interim History: The nursing staff reported the patient has been alert and orientated, cooperative pleasant no evidence of suicidal ideation or visual hallucinations. The social media analyst reported that [facility] staff [facility] come to visit today. On interview the patient denies new symptoms. Waiting for placement. Mental Status Exam Mental Status Exam Patient Appearance: Well Grooomed and Appropriate Patient Orientation: Person and Situation Level of Consciousness: Awake and Appropriate Patient Behavior: Passive Mood Description: Withdrawn Affect Description: Calm Patient Cognition Impaired: Yes Ability to Follow Directions: Good Speech Pattern: Clear Hallucinations: None Delusions: Not Present Thought Process: Linear Thought Content: positive for [place] and positive for [place] Judgement: Fair Diagnostics Vital Signs (24Hr): Vital Signs - 24 hr 04/26/23 18:00 04/27/23 07:58 Temperature 98.5 F 97.6 F Pulse Rate 86 88 Respiratory Rate 18 18 Blood Pressure 121/60 172/80 H Pulse Oximetry 97 97 Oxygen Delivery Method Room Air Room Air BMI result Body Mass Index 23.3 Labs 03/10/23 07:58 03/10/23 07:58 Medications Medications Current Medications Acetaminophen (Acetaminophen 325 Mg Tablet) 650 mg PO Q6H PRN PRN Reason: Headache/Pain Mild Scale (1-3) Last Admin: 04/25/23 08:30 Dose: 650 mg Al Hydroxide/Mg Hydroxide (Magnesium Hydrox/Alum Hydrox 30 Ml Oral.Susp) 30 ml PO Q6H PRN PRN Reason: Heartburn/Nausea Last Admin: 03/15/23 17:37 Dose: 30 ml Amlodipine Besylate (Amlodipine Besylate 5 Mg Tablet) 5 mg PO DAILY [facility]; Protocol Last Admin: 04/27/23 08:02 Dose: 5 mg Atorvastatin Calcium (Atorvastatin Calcium 10 Mg Tablet) 10 mg PO DAILY [facility] Last Admin: 04/27/23 08:01 Dose: 10 mg Carbidopa/Levodopa (Carbidopa/Levodopa 10/100 Tablet) 2 tab PO QID [facility] Last Admin: 04/27/23 08:02 Dose: 2 tab Fluticasone Propionate (Fluticasone Propionate Nasal 16 Gm [place]) 1 spray NOSTRIL-B BID [facility] Last Admin: 04/27/23 08:03 Dose: Not Given Hydrocortisone (Hydrocortisone 1 % Ointment 28.35 Gm Tube) 1 appl TOPICAL BID PRN; Protocol PRN Reason: hemorroids Last Admin: 03/30/23 17:29 Dose: 1 appl Hydroxyzine HCl (Hydroxyzine Hcl 10 Mg Tablet) 10 mg PO Q6H PRN PRN Reason: Anxiety Last Admin: 04/27/23 11:51 Dose: 10 mg Lidocaine (Lidocaine 5 % Ointment 35 Gm) 1 appl TOPICAL Q6H PRN; Protocol PRN Reason: hemorroid pain Last Admin: 03/30/23 17:29 Dose: 1 appl Lorazepam (Lorazepam 1 Mg Tablet) 1 mg PO Q6H [facility] Last Admin: 04/27/23 08:31 Dose: 1 mg Magnesium Hydroxide (Milk Of Magnesia 30 Ml Oral.Susp) 30 ml PO DAILY PRN PRN Reason: Constipation Last Admin: 03/05/23 08:41 Dose: 30 ml Melatonin (Melatonin 3 Mg Tablet) 6 mg PO BEDTIME [facility] Last Admin: 04/26/23 20:54 Dose: 6 mg Multivitamins/Vitamin C (Multivitamin Tablet) 1 tab PO BEDTIME [facility] Last Admin: 04/26/23 20:54 Dose: 1 tab Olanzapine (Olanzapine 5 Mg Tablet) 5 mg PO DAILY@1900 [facility] Last Admin: 04/26/23 18:28 Dose: 5 mg Polyethylene Glycol (Polyethylene Glycol 3350 17 Gm Powd.Pack) 17 gm PO DAILY PRN PRN Reason: Constipation Last Admin: 03/19/23 10:04 Dose: 17 gm Prazosin HCl (Prazosin Hcl 1 Mg Capsule) 1 mg PO BEDTIME [facility]; Protocol Last Admin: 04/26/23 20:52 Dose: 1 mg Trazodone HCl (Trazodone Hcl 50 Mg Tablet) 50 mg PO BEDTIME MRX1 PRN PRN Reason: Insomnia Last Admin: 04/17/23 00:38 Dose: 50 mg Trazodone HCl (Trazodone Hcl 25 Mg Halftab) 25 mg PO BID PRN PRN Reason: Agitation Last Admin: 04/22/23 00:53 Dose: 25 mg Trazodone HCl (Trazodone Hcl 50 Mg Tablet) 50 mg PO BEDTIME [facility] Last Admin: 04/26/23 20:52 Dose: 50 mg Trolamine Salicylate (Trolamine Salicylate 10 % Cream 141 Gm Tube) 1 appl TOPICAL QID PRN; Protocol PRN Reason: Pain, Moderate (Pain Scale 4-6 Last Admin: 03/17/23 00:35 Dose: 1 appl Venlafaxine HCl (Venlafaxine Hcl Er 75 Mg Cap.Er.24h) 225 mg PO DAILY [facility] Last Admin: 04/27/23 08:00 Dose: 225 mg Allergies Allergies Allergy/AdvReac Type Severity Reaction Status Date / Time oxycodone Allergy Unknown Verified 10/14/22 13:51 pollen extracts Allergy skin rash Verified 10/14/22 13:51 Assessment & Plan Assessment & Plan (1) Neurodegenerative cognitive impairment: Status: Acute Code(s): G31.9 - Degenerative disease of nervous system, unspecified Assessment and Plan: definite on/off phenemon mixed with confusion and restricted affect, movement limitations (2) Parkinsons disease: Status: Acute Code(s): G20 - Parkinson's disease Assessment and Plan: [age] years old man with moderate to severe Parkinson's features with EDSS score of 6-7. After years of Parkinson's, he also has developed depression and psychotic features. I do not have access to his previous workup including brain imaging, but this evolution of his condition suggested that he might be going into or his underlying condition could very well be dementia with Lewy body disease. Review of brain scan done, maybe at [facility], can help. In any case, dopaminergic drugs are known to have possible psychiatric side effects but at the same time without dopamine supplementation, patient has significant physical disability. A balance has to be reached. In that regard, I would suggest discontinuing Stalevo, which is a combination of drugs. Instead of that, try plain carbidopa levodopa 25/100 2 tablets 4 to 5 times a day. Starting tomorrow, prescribed 1st does at 06:00 and then repeat that does at 10:00, 14:00, 18:00. make an observation tomorrow if that works out better and further adjustment can be made based upon how he reacts to this dose. If psychiatrically not better, may consider Nuplazid. Plan 1. Continue with same treatment. 2. Keep Effexor as prescribed 225 mg only the morning. 3. Keep on Sinemet as a prescribing doses. 4. Ativan will be changed to 4 times a day we Sinemet on March 19 Ativan is increased up to 1 mg on 03/30. 5. Minute and increased up to 6 mg on March 18. 6. Trazodone started at 50 mg p.o. q.h.s. standing every night on March 18 7. Increased Ativan up to 2 mg at night to target anxiety on March 19 8. D/C Haldol on 03/28 and start Zyprexa 5 mg po qhs at 19:00. 9. Waiting for proper placement. 10. Prazosin 1 mg p.o. q.h.s. to target nightmares (3) Major depressive disorder: Status: Acute Code(s): F32.9 - Major depressive disorder, single episode, unspecified Assessment and Plan: 04/09 denies si (4) Psychosis: Status: Acute Code(s): F29 - Unspecified psychosis not due to a substance or known physiological condition Assessment and Plan: meds for this must be working was not in evidence with provider today 04/09 Plan Elderly male with past history of Parkinson's disease that is advanced admitted for psychotic symptoms in the context of Sinemet. Plan 1. Gather collateral information. 2. Continue Haldol 0.5 p.o. t.i.d. to target psychosis. Stop on 03/28 and start Zyprexa at hs 3. Continue with medical workout. 4. Assessment with results. 5. reported that he had a 2nd dose of effexor in the evenging, we will start 37,5 mg po at 5 pm On March 09. Increase Effexor XR 2nd dose up to 75 on March 11. Later on, Effexor has been changed to 1 single dose of 225 mg in the morning 6. Change his antiparkinsonian to Sinemet 4 times a day. 7. Waiting for placement Reason for continued inpatient stay Substantial Risk for: inability to function, rapid decompensation and med/psych decompensation Time Spent With Patient Time: Total time managing care of this patient today __20__ minutes.
[2023-04-27] MEDS: OLANZapine 5 MG TABLET PO (18:26)
[2023-04-27 19:00] VITALS: BP 168/79; PULSE 86; RESP 18; TEMP 36.7; O2SAT 97
[2023-04-27] MEDS: traZODone HCL 50 MG TABLET PO (20:20)
[2023-04-27] MEDS: Melatonin 3 MG TABLET 6 MG PO (20:20)
[2023-04-27] MEDS: Multivitamin TABLET 1 TAB PO (20:21)
[2023-04-27] MEDS: Prazosin HCL 1 MG CAPSULE PO (20:21)
[2023-04-28] MEDS: LORazepam 1 MG TABLET PO ×4 (03:24→18:54)
[2023-04-28 07:30] VITALS: BP 138/70; PULSE 96; RESP 15; TEMP 36.4; O2SAT 96
[2023-04-28] MEDS: Venlafaxine HCl ER 75 MG CAP.ER.24H 225 MG PO (08:18)
[2023-04-28] MEDS: amLODIPine Besylate 5 MG TABLET PO (08:19)
[2023-04-28] MEDS: Atorvastatin Calcium 10 MG TABLET PO (08:19)
--- NOTE | 2023-04-28 15:08 | P.PNPSI_ITS ---
Subjective Subjective Date of Service: 04/28/23 Reason For Visit: SI Subjective Notes: Conditional Voluntary Interim History: The nursing staff reported the patient had been cooperative and pleasant, he reported some visual hallucinations yesterday he slept 6 hours. He can been incontinent of urine. Vital signs have been stable. The staff has noticed also that he has swollen on his face, historically he had similar presentation we had a tooth infection. We will do new blood work. The vp digital marketing social media and crm reported that he was been accepted initially to another long-term facility but he 's needs to the financial clearance. On interview reported mild swelling of the face, we are ordering new blood work. Mental Status Exam Mental Status Exam Patient Appearance: Well Grooomed and Appropriate Patient Orientation: Person and Situation Level of Consciousness: Awake and Appropriate Patient Behavior: Guarded and Passive Mood Description: Calm Affect Description: Constricted Patient Cognition Impaired: Yes Ability to Follow Directions: Good Speech Pattern: Clear Hallucinations: None Delusions: Not Present Thought Process: Distracted Thought Content: positive for [place] Judgement: Fair Diagnostics Vital Signs (24Hr): Vital Signs - 24 hr 04/27/23 19:00 04/28/23 07:30 Temperature 98.0 F 97.5 F Pulse Rate 86 96 Respiratory Rate 18 15 Blood Pressure 168/79 H 138/70 Pulse Oximetry 97 96 Oxygen Delivery Method Room Air Room Air BMI result Body Mass Index 23.3 Labs 03/10/23 07:58 03/10/23 07:58 Medications Medications Current Medications Acetaminophen (Acetaminophen 325 Mg Tablet) 650 mg PO Q6H PRN PRN Reason: Headache/Pain Mild Scale (1-3) Last Admin: 04/25/23 08:30 Dose: 650 mg Al Hydroxide/Mg Hydroxide (Magnesium Hydrox/Alum Hydrox 30 Ml Oral.Susp) 30 ml PO Q6H PRN PRN Reason: Heartburn/Nausea Last Admin: 03/15/23 17:37 Dose: 30 ml Amlodipine Besylate (Amlodipine Besylate 5 Mg Tablet) 5 mg PO DAILY [facility]; Protocol Last Admin: 04/28/23 08:19 Dose: 5 mg Atorvastatin Calcium (Atorvastatin Calcium 10 Mg Tablet) 10 mg PO DAILY [facility] Last Admin: 04/28/23 08:19 Dose: 10 mg Carbidopa/Levodopa (Carbidopa/Levodopa 10/100 Tablet) 2 tab PO Q6H [facility] Last Admin: 04/28/23 12:06 Dose: 2 tab Fluticasone Propionate (Fluticasone Propionate Nasal 16 Gm [place]) 1 spray NOSTRIL-B BID [facility] Last Admin: 04/28/23 08:19 Dose: Not Given Hydrocortisone (Hydrocortisone 1 % Ointment 28.35 Gm Tube) 1 appl TOPICAL BID PRN; Protocol PRN Reason: hemorroids Last Admin: 03/30/23 17:29 Dose: 1 appl Hydroxyzine HCl (Hydroxyzine Hcl 10 Mg Tablet) 10 mg PO Q6H PRN PRN Reason: Anxiety Last Admin: 04/27/23 11:51 Dose: 10 mg Lidocaine (Lidocaine 5 % Ointment 35 Gm) 1 appl TOPICAL Q6H PRN; Protocol PRN Reason: hemorroid pain Last Admin: 03/30/23 17:29 Dose: 1 appl Lorazepam (Lorazepam 1 Mg Tablet) 1 mg PO Q6H [facility] Last Admin: 04/28/23 12:06 Dose: 1 mg Magnesium Hydroxide (Milk Of Magnesia 30 Ml Oral.Susp) 30 ml PO DAILY PRN PRN Reason: Constipation Last Admin: 03/05/23 08:41 Dose: 30 ml Melatonin (Melatonin 3 Mg Tablet) 6 mg PO BEDTIME [facility] Last Admin: 04/27/23 20:20 Dose: 6 mg Multivitamins/Vitamin C (Multivitamin Tablet) 1 tab PO BEDTIME [facility] Last Admin: 04/27/23 20:21 Dose: 1 tab Olanzapine (Olanzapine 5 Mg Tablet) 5 mg PO DAILY@1900 [facility] Last Admin: 04/27/23 18:26 Dose: 5 mg Polyethylene Glycol (Polyethylene Glycol 3350 17 Gm Powd.Pack) 17 gm PO DAILY PRN PRN Reason: Constipation Last Admin: 03/19/23 10:04 Dose: 17 gm Prazosin HCl (Prazosin Hcl 1 Mg Capsule) 1 mg PO BEDTIME [facility]; Protocol Last Admin: 04/27/23 20:21 Dose: 1 mg Trazodone HCl (Trazodone Hcl 50 Mg Tablet) 50 mg PO BEDTIME MRX1 PRN PRN Reason: Insomnia Last Admin: 04/17/23 00:38 Dose: 50 mg Trazodone HCl (Trazodone Hcl 25 Mg Halftab) 25 mg PO BID PRN PRN Reason: Agitation Last Admin: 04/22/23 00:53 Dose: 25 mg Trazodone HCl (Trazodone Hcl 50 Mg Tablet) 50 mg PO BEDTIME [facility] Last Admin: 04/27/23 20:20 Dose: 50 mg Trolamine Salicylate (Trolamine Salicylate 10 % Cream 141 Gm Tube) 1 appl TOPICAL QID PRN; Protocol PRN Reason: Pain, Moderate (Pain Scale 4-6 Last Admin: 03/17/23 00:35 Dose: 1 appl Venlafaxine HCl (Venlafaxine Hcl Er 75 Mg Cap.Er.24h) 225 mg PO DAILY [facility] Last Admin: 04/28/23 08:18 Dose: 225 mg Allergies Allergies Allergy/AdvReac Type Severity Reaction Status Date / Time oxycodone Allergy Unknown Verified 10/14/22 13:51 pollen extracts Allergy skin rash Verified 10/14/22 13:51 Assessment & Plan Assessment & Plan (1) Neurodegenerative cognitive impairment: Status: Acute Code(s): G31.9 - Degenerative disease of nervous system, unspecified Assessment and Plan: definite on/off phenemon mixed with confusion and restricted affect, movement limitations (2) Parkinsons disease: Status: Acute Code(s): G20 - Parkinson's disease Assessment and Plan: [age] years old man with moderate to severe Parkinson's features with EDSS score of 6-7. After years of Parkinson's, he also has developed depression and psychotic features. I do not have access to his previous workup including brain imaging, but this evolution of his condition suggested that he might be going into or his underlying condition could very well be dementia with Lewy body disease. Review of brain scan done, maybe at [facility], can help. In any case, dopaminergic drugs are known to have possible psychiatric side effects but at the same time without dopamine supplementation, patient has significant physical disability. A balance has to be reached. In that regard, I would suggest discontinuing Stalevo, which is a combination of drugs. Instead of that, try plain carbidopa levodopa 25/100 2 tablets 4 to 5 times a day. Starting tomorrow, prescribed 1st does at 06:00 and then repeat that does at 10:00, 14:00, 18:00. make an observation tomorrow if that works out better and further adjustment can be made based upon how he reacts to this dose. If psychiatrically not better, may consider Nuplazid. Plan 1. Continue with same treatment. 2. Keep Effexor as prescribed 225 mg only the morning. 3. Keep on Sinemet as a prescribing doses. 4. Ativan will be changed to 4 times a day we Sinemet on March 19 Ativan is increased up to 1 mg on 03/30. 5. Minute and increased up to 6 mg on March 18. 6. Trazodone started at 50 mg p.o. q.h.s. standing every night on March 18 7. Increased Ativan up to 2 mg at night to target anxiety on March 19 8. D/C Haldol on 03/28 and start Zyprexa 5 mg po qhs at 19:00. 9. Waiting for proper placement. 10. Prazosin 1 mg p.o. q.h.s. to target nightmares 11. New blood work for tomorrow 04/29. (3) Major depressive disorder: Status: Acute Code(s): F32.9 - Major depressive disorder, single episode, unspecified Assessment and Plan: 04/09 denies si (4) Psychosis: Status: Acute Code(s): F29 - Unspecified psychosis not due to a substance or known physiological condition Assessment and Plan: meds for this must be working was not in evidence with provider today 04/09 Plan Elderly male with past history of Parkinson's disease that is advanced admitted for psychotic symptoms in the context of Sinemet. Plan 1. Gather collateral information. 2. Continue Haldol 0.5 p.o. t.i.d. to target psychosis. Stop on 03/28 and start Zyprexa at hs 3. Continue with medical workout. 4. Assessment with results. 5. reported that he had a 2nd dose of effexor in the evenging, we will s tart 37,5 mg po at 5 pm On March 09. Increase Effexor XR 2nd dose up to 75 on March 11. Later on, Effexor has been changed to 1 single dose of 225 mg in the morning 6. Change his antiparkinsonian to Sinemet 4 times a day. 7. Waiting for placement Reason for continued inpatient stay Substantial Risk for: inability to function, rapid decompensation and med/psych decompensation Time Spent With Patient Time: Total time managing care of this patient today ____ minutes.
[2023-04-28] MEDS: Acetaminophen 325 MG TABLET 650 MG PO (15:54)
[2023-04-28 18:00] VITALS: BP 134/62; PULSE 88; TEMP 36.6
[2023-04-28] MEDS: OLANZapine 5 MG TABLET PO (18:54)
[2023-04-28] MEDS: Prazosin HCL 1 MG CAPSULE PO (20:24)
[2023-04-28] MEDS: Melatonin 3 MG TABLET 6 MG PO (20:24)
[2023-04-28] MEDS: Multivitamin TABLET 1 TAB PO (20:25)
[2023-04-28] MEDS: traZODone HCL 50 MG TABLET PO (20:25)
[2023-04-29] MEDS: LORazepam 1 MG TABLET PO ×4 (00:51→22:05)
[2023-04-29 07:30] VITALS: BP 119/74; PULSE 82; RESP 15; TEMP 36.8; O2SAT 97
[2023-04-29 08:08] LABS: MANUAL DIFF FLAG NO
[2023-04-29 08:12] LABS: Basophils Absolute Auto 0.1 X10*3/uL (0.0-0.2); Basophils Percent Auto 1.1 % (0-2); Eosinophils Absolute Auto 0.4 X10*3/uL (0.0-0.4); Eosinophils Percent Auto 7.1 % (0-4); Hematocrit 34.4 % (42.0-52.0); Hemoglobin 11.2 g/dl (14.0-18.0); Imm Gran Abs Auto 0.01 X10*3/uL (0.00-0.03); Imm Gran Pct Auto 0.2 % (0.0-0.4); Lymphocytes Percent Auto 18.6 % (20-40); Mean Corpuscular HGB Conc 32.6 g/dl (31.0-36.0); Mean Corpuscular Hemoglobin 29.4 pg (27.0-33.0); Mean Corpuscular Volume 90.3 fL (80.0-98.0); Monocytes Absolute Auto 0.6 X10*3/uL (0.1-1.2); Monocytes Percent Auto 10.7 % (2-11); Neutrophils Absolute Auto 3.4 x10*3/uL (2.0-8.3); Neutrophils Percent Auto 62.3 % (45-73); Platelet Count 271 X10*3/uL (160-400); Red Blood Count 3.81 X10*6/uL (4.60-5.80); Red Cell Distribution Width 13.2 % (11.0-16.0); White Blood Count 5.5 X10*3/uL (4.8-10.8)
[2023-04-29] MEDS: Atorvastatin Calcium 10 MG TABLET PO (08:26)
[2023-04-29] MEDS: amLODIPine Besylate 5 MG TABLET PO (08:26)
[2023-04-29] MEDS: Venlafaxine HCl ER 75 MG CAP.ER.24H 225 MG PO (08:26)
[2023-04-29 08:38] LABS: Alanine Aminotransferase < 5 U/L (0-40); Albumin Level 3.2 g/dL (3.5-5.0); Alkaline Phosphatase 67 U/L (39-117); Anion Gap 10 (12-20); Aspartate Amino Transferase 8 U/L (5-37); Bilirubin Direct 0.2 mg/dL (0.0-0.5); Bilirubin Total 0.5 mg/dL (0.0-1.0); Blood Urea Nitrogen 16 mg/dL (9-16); Calcium 8.6 mg/dL (8.4-10.2); Carbon Dioxide 28 mmol/L (22-29); Chloride 108 mmol/L (96-108); Cholesterol 131 mg/dL; Creatinine Clr Calc Pharmacy 70.9; Estimated Glomerular Filt Rate > 60; Glucose Random 107 mg/dL (60-115); HDL Cholesterol 54 mg/dL; LDL Cholesterol Calculated 69 mg/dl; Potassium 4.1 mmol/L (3.3-5.1); Sodium 142 mmol/L (135-145); Total Protein 5.5 g/dL (6.5-8.0); Triglycerides 41 mg/dL
[2023-04-29 08:49] LABS: Thyroid Stimulating Hormone 0.62 uIU/mL (0.32-4.0)
--- NOTE | 2023-04-29 14:09 | P.PNPSI_ITS ---
Subjective Subjective Date of Service: 04/29/23 Reason For Visit: SI Subjective Notes: Conditional Voluntary Interim History: The nursing staff reported the patient reported some sporadic auditory hallucinations and confusion at night. He stated that he was at his home. The social problems specialist reported that waiting for placement most likely next week. On interview the patient denies new symptoms he agree to increase Zyprexa a little. Mental Status Exam Mental Status Exam Patient Appearance: Appropriate Patient Orientation: Person and Situation Level of Consciousness: Awake and Appropriate Patient Behavior: Guarded and Passive Mood Description: Withdrawn Affect Description: Withdrawn Patient Cognition Impaired: Yes Ability to Follow Directions: Good Speech Pattern: Clear Hallucinations: Visual Delusions: Not Present Thought Process: Distracted Thought Content: positive for [place] and positive for Circumstantial Judgement: Fair Diagnostics Vital Signs (24Hr): Vital Signs - 24 hr 04/28/23 18:00 04/29/23 07:30 Temperature 97.9 F 98.3 F Pulse Rate 88 82 Respiratory Rate 15 Blood Pressure 134/62 119/74 Pulse Oximetry 97 Oxygen Delivery Method Room Air BMI result Body Mass Index 23.3 Labs 04/29/23 07:59 04/29/23 07:59 Labs: Laboratory Results - last 48 hr 04/29/23 04/29/23 07:59 07:59 WBC 5.5 RBC 3.81 L Hgb 11.2 L D Hct 34.4 L MCV 90.3 MCH 29.4 MCHC 32.6 RDW 13.2 Plt Count 271 MPV 9.0 L Immature Gran % (Auto) 0.2 Neut % (Auto) 62.3 Lymph % (Auto) 18.6 L [place] % (Auto) 10.7 Eos % (Auto) 7.1 H Baso % (Auto) 1.1 Lymph # (Auto) 1.0 L [place] # (Auto) 0.6 Eos # (Auto) 0.4 Baso # (Auto) 0.1 Abs Immat Gran (auto) 0.01 Absolute Neuts (auto) 3.4 Absolute Nucleated RBC 0.000 Nucleated RBC % (auto) 0.0 Sodium 142 Potassium 4.1 Chloride 108 Carbon Dioxide 28 Anion Gap 10 L BUN 16 Creatinine 0.91 Estim Creat Clear Calc 70.9 Estimated GFR > 60 Random Glucose 107 Calcium 8.6 D Total Bilirubin 0.5 Direct Bilirubin 0.2 AST 8 ALT < 5 Alkaline Phosphatase 67 Total Protein 5.5 L Albumin 3.2 L Triglycerides 41 Cholesterol 131 LDL Cholesterol, Calc 69 HDL Cholesterol 54 TSH 0.62 Medications Medications Current Medications Acetaminophen (Acetaminophen 325 Mg Tablet) 650 mg PO Q6H PRN PRN Reason: Headache/Pain Mild Scale (1-3) Last Admin: 04/28/23 15:54 Dose: 650 mg Al Hydroxide/Mg Hydroxide (Magnesium Hydrox/Alum Hydrox 30 Ml Oral.Susp) 30 ml PO Q6H PRN PRN Reason: Heartburn/Nausea Last Admin: 03/15/23 17:37 Dose: 30 ml Amlodipine Besylate (Amlodipine Besylate 5 Mg Tablet) 5 mg PO DAILY [facility]; Protocol Last Admin: 04/29/23 08:26 Dose: 5 mg Atorvastatin Calcium (Atorvastatin Calcium 10 Mg Tablet) 10 mg PO DAILY [facility] Last Admin: 04/29/23 08:26 Dose: 10 mg Carbidopa/Levodopa (Carbidopa/Levodopa 10/100 Tablet) 2 tab PO Q6H [facility] Last Admin: 04/29/23 12:06 Dose: 2 tab Fluticasone Propionate (Fluticasone Propionate Nasal 16 Gm [place]) 1 spray NOSTRIL-B BID [facility] Last Admin: 04/29/23 08:27 Dose: Not Given Hydrocortisone (Hydrocortisone 1 % Ointment 28.35 Gm Tube) 1 appl TOPICAL BID PRN; Protocol PRN Reason: hemorroids Last Admin: 03/30/23 17:29 Dose: 1 appl Hydroxyzine HCl (Hydroxyzine Hcl 10 Mg Tablet) 10 mg PO Q6H PRN PRN Reason: Anxiety Last Admin: 04/27/23 11:51 Dose: 10 mg Lidocaine (Lidocaine 5 % Ointment 35 Gm) 1 appl TOPICAL Q6H PRN; Protocol PRN Reason: hemorroid pain Last Admin: 03/30/23 17:29 Dose: 1 appl Lorazepam (Lorazepam 1 Mg Tablet) 1 mg PO Q6H [facility] Last Admin: 04/29/23 12:06 Dose: 1 mg Magnesium Hydroxide (Milk Of Magnesia 30 Ml Oral.Susp) 30 ml PO DAILY PRN PRN Reason: Constipation Last Admin: 03/05/23 08:41 Dose: 30 ml Melatonin (Melatonin 3 Mg Tablet) 6 mg PO BEDTIME [facility] Last Admin: 04/28/23 20:24 Dose: 6 mg Multivitamins/Vitamin C (Multivitamin Tablet) 1 tab PO BEDTIME [facility] Last Admin: 04/28/23 20:25 Dose: 1 tab Olanzapine (Olanzapine 7.5 Mg Tablet) 7.5 mg PO DAILY@1900 [facility] Polyethylene Glycol (Polyethylene Glycol 3350 17 Gm Powd.Pack) 17 gm PO DAILY PRN PRN Reason: Constipation Last Admin: 03/19/23 10:04 Dose: 17 gm Prazosin HCl (Prazosin Hcl 1 Mg Capsule) 1 mg PO BEDTIME [facility]; Protocol Last Admin: 04/28/23 20:24 Dose: 1 mg Trazodone HCl (Trazodone Hcl 50 Mg Tablet) 50 mg PO BEDTIME MRX1 PRN PRN Reason: Insomnia Last Admin: 04/17/23 00:38 Dose: 50 mg Trazodone HCl (Trazodone Hcl 25 Mg Halftab) 25 mg PO BID PRN PRN Reason: Agitation Last Admin: 04/22/23 00:53 Dose: 25 mg Trazodone HCl (Trazodone Hcl 50 Mg Tablet) 50 mg PO BEDTIME [facility] Last Admin: 04/28/23 20:25 Dose: 50 mg Trolamine Salicylate (Trolamine Salicylate 10 % Cream 141 Gm Tube) 1 appl TOPICAL QID PRN; Protocol PRN Reason: Pain, Moderate (Pain Scale 4-6 Last Admin: 03/17/23 00:35 Dose: 1 appl Venlafaxine HCl (Venlafaxine Hcl Er 75 Mg Cap.Er.24h) 225 mg PO DAILY [facility] Last Admin: 04/29/23 08:26 Dose: 225 mg Allergies Allergies Allergy/AdvReac Type Severity Reaction Status Date / Time oxycodone Allergy Unknown Verified 10/14/22 13:51 pollen extracts Allergy skin rash Verified 10/14/22 13:51 Assessment & Plan Assessment & Plan (1) Neurodegenerative cognitive impairment: Status: Acute Code(s): G31.9 - Degenerative disease of nervous system, unspecified Assessment and Plan: definite on/off phenemon mixed with confusion and restricted affect, movement limitations (2) Parkinsons disease: Status: Acute Code(s): G20 - Parkinson's disease Assessment and Plan: [age] would years old man with moderate to severe Parkinson's features with EDSS score of 6-7. After years of Parkinson's, he also has developed depression and psychotic features. I do not have access to his previous workup including brain imaging, but this evolution of his condition suggested that he might be going into or his underlying condition could very well be dementia with Lewy body disease. Review of brain scan done, maybe at [facility], can help. In any case, dopaminergic drugs are known to have possible psychiatric side effects but at the same time without dopamine supplementation, patient has significant physical disability. A balance has to be reached. In that regard, I would suggest discontinuing Stalevo, which is a combination of drugs. Instead of that, try plain carbidopa levodopa 25/100 2 tablets 4 to 5 times a day. Starting tomorrow, prescribed 1st does at 06:00 and then repeat that does at 10:00, 14:00, 18:00. make an observation tomorrow if that works out better and further adjustment can be made based upon how he reacts to this dose. If psychiatrically not better, may consider Nuplazid. Plan 1. Continue with same treatment. 2. Keep Effexor as prescribed 225 mg only the morning. 3. Keep on Sinemet as a prescribing doses. 4. Ativan will be changed to 4 times a day we Sinemet on March 19 Ativan is increased up to 1 mg on 03/30. 5. Minute and increased up to 6 mg on March 18. 6. Trazodone started at 50 mg p.o. q.h.s. standing every night on March 18 7. Increased Ativan up to 2 mg at night to target anxiety on March 19 8. D/C Haldol on 03/28 and start Zyprexa 5 mg po qhs at 19:00. On 04/29 increased up to 7.5 9. Waiting for proper placement. 10. Prazosin 1 mg p.o. q.h.s. to target nightmares 11. Blood work for 04/29. (3) Major depressive disorder: Status: Acute Code(s): F32.9 - Major depressive disorder, single episode, unspecified Assessment and Plan: 04/09 denies si (4) Psychosis: Status: Acute Code(s): F29 - Unspecified psychosis not due to a substance or known physiological condition Assessment and Plan: meds for this must be working was not in evidence with provider today 04/09 Plan Elderly male with past history of Parkinson's disease that is advanced admitted for psychotic symptoms in the context of Sinemet. Plan 1. Gather collateral information. 2. Continue Haldol 0.5 p.o. t.i.d. to target psychosis. Stop on 03/28 and start Zyprexa at hs 3. Continue with medical workout. 4. Assessment with results. 5. reported that he had a 2nd dose of effexor in the evenging, we will start 37,5 mg po at 5 pm On March 09. Increase Effexor XR 2nd dose up to 75 on March 11. Later on, Effexor has been changed to 1 single dose of 225 mg in the morning 6. Change his antiparkinsonian to Sinemet 4 times a day. 7. Waiting for placement Reason for continued inpatient stay Substantial Risk for: inability to function, rapid decompensation and med/psych decompensation Time Spent With Patient Time: Total time managing care of this patient today __20__ minutes.
[2023-04-29] MEDS: Acetaminophen 325 MG TABLET 650 MG PO (15:30)
[2023-04-29 18:00] VITALS: BP 147/69; PULSE 94; RESP 16; TEMP 36.3; O2SAT 95
[2023-04-29] MEDS: Melatonin 3 MG TABLET 6 MG PO (22:04)
[2023-04-29] MEDS: Multivitamin TABLET 1 TAB PO (22:04)
[2023-04-29] MEDS: Prazosin HCL 1 MG CAPSULE PO (22:04)
[2023-04-29] MEDS: traZODone HCL 50 MG TABLET PO (22:04)
[2023-04-29] MEDS: OLANZapine 7.5 MG TABLET PO (22:05)
[2023-04-30] MEDS: LORazepam 1 MG TABLET PO ×4 (01:29→18:20)
[2023-04-30 08:30] VITALS: BP 162/76; PULSE 99; RESP 18; TEMP 36.7; O2SAT 97
[2023-04-30] MEDS: Venlafaxine HCl ER 75 MG CAP.ER.24H 225 MG PO (08:52)
[2023-04-30] MEDS: Atorvastatin Calcium 10 MG TABLET PO (08:52)
[2023-04-30] MEDS: amLODIPine Besylate 5 MG TABLET PO (08:52)
--- NOTE | 2023-04-30 11:52 | P.PNPSI_ITS ---
Subjective Subjective Date of Service: 04/30/23 Reason For Visit: SI Subjective Notes: Conditional Voluntary Interim History: The nursing staff reported the patient has been anxious, slept well last night, complains of mild anxiety. On interview the patient denies new symptoms, waiting for placement. Mental Status Exam Mental Status Exam Patient Appearance: Well Grooomed Patient Orientation: Person and Situation Level of Consciousness: Awake and Appropriate Patient Behavior: Guarded and Passive Mood Description: Withdrawn Affect Description: Constricted Patient Cognition Impaired: Yes Ability to Follow Directions: Good Speech Pattern: Clear Hallucinations: None Delusions: Not Present Thought Process: Distracted and Linear Thought Content: positive for [place] and positive for Circumstantial Judgement: Fair Diagnostics Vital Signs (24Hr): Vital Signs - 24 hr 04/29/23 18:00 04/30/23 08:30 Temperature 97.4 F 98.1 F Pulse Rate 94 99 Respiratory Rate 16 18 Blood Pressure 147/69 H 162/76 H Pulse Oximetry 95 97 Oxygen Delivery Method Room Air Room Air BMI result Body Mass Index 23.3 Labs 04/29/23 07:59 04/29/23 07:59 Labs: Laboratory Results - last 48 hr 04/29/23 04/29/23 07:59 07:59 WBC 5.5 RBC 3.81 L Hgb 11.2 L D Hct 34.4 L MCV 90.3 MCH 29.4 MCHC 32.6 RDW 13.2 Plt Count 271 MPV 9.0 L Immature Gran % (Auto) 0.2 Neut % (Auto) 62.3 Lymph % (Auto) 18.6 L [place] % (Auto) 10.7 Eos % (Auto) 7.1 H Baso % (Auto) 1.1 Lymph # (Auto) 1.0 L [place] # (Auto) 0.6 Eos # (Auto) 0.4 Baso # (Auto) 0.1 Abs Immat Gran (auto) 0.01 Absolute Neuts (auto) 3.4 Absolute Nucleated RBC 0.000 Nucleated RBC % (auto) 0.0 Sodium 142 Potassium 4.1 Chloride 108 Carbon Dioxide 28 Anion Gap 10 L BUN 16 Creatinine 0.91 Estim Creat Clear Calc 70.9 Estimated GFR > 60 Random Glucose 107 Calcium 8.6 D Total Bilirubin 0.5 Direct Bilirubin 0.2 AST 8 ALT < 5 Alkaline Phosphatase 67 Total Protein 5.5 L Albumin 3.2 L Triglycerides 41 Cholesterol 131 LDL Cholesterol, Calc 69 HDL Cholesterol 54 TSH 0.62 Medications Medications Current Medications Acetaminophen (Acetaminophen 325 Mg Tablet) 650 mg PO Q6H PRN PRN Reason: Headache/Pain Mild Scale (1-3) Last Admin: 04/29/23 15:30 Dose: 650 mg Al Hydroxide/Mg Hydroxide (Magnesium Hydrox/Alum Hydrox 30 Ml Oral.Susp) 30 ml PO Q6H PRN PRN Reason: Heartburn/Nausea Last Admin: 03/15/23 17:37 Dose: 30 ml Amlodipine Besylate (Amlodipine Besylate 5 Mg Tablet) 5 mg PO DAILY [facility]; Protocol Last Admin: 04/30/23 08:52 Dose: 5 mg Atorvastatin Calcium (Atorvastatin Calcium 10 Mg Tablet) 10 mg PO DAILY [facility] Last Admin: 04/30/23 08:52 Dose: 10 mg Carbidopa/Levodopa (Carbidopa/Levodopa 10/100 Tablet) 2 tab PO Q6H [facility] Last Admin: 04/30/23 08:52 Dose: 2 tab Fluticasone Propionate (Fluticasone Propionate Nasal 16 Gm [place]) 1 spray NOSTRIL-B BID [facility] Last Admin: 04/30/23 08:53 Dose: Not Given Hydrocortisone (Hydrocortisone 1 % Ointment 28.35 Gm Tube) 1 appl TOPICAL BID PRN; Protocol PRN Reason: hemorroids Last Admin: 03/30/23 17:29 Dose: 1 appl Hydroxyzine HCl (Hydroxyzine Hcl 10 Mg Tablet) 10 mg PO Q6H PRN PRN Reason: Anxiety Last Admin: 04/27/23 11:51 Dose: 10 mg Lidocaine (Lidocaine 5 % Ointment 35 Gm) 1 appl TOPICAL Q6H PRN; Protocol PRN Reason: hemorroid pain Last Admin: 03/30/23 17:29 Dose: 1 appl Lorazepam (Lorazepam 1 Mg Tablet) 1 mg PO Q6H [facility] Last Admin: 04/30/23 08:52 Dose: 1 mg Magnesium Hydroxide (Milk Of Magnesia 30 Ml Oral.Susp) 30 ml PO DAILY PRN PRN Reason: Constipation Last Admin: 03/05/23 08:41 Dose: 30 ml Melatonin (Melatonin 3 Mg Tablet) 6 mg PO BEDTIME [facility] Last Admin: 04/29/23 22:04 Dose: 6 mg Multivitamins/Vitamin C (Multivitamin Tablet) 1 tab PO BEDTIME [facility] Last Admin: 04/29/23 22:04 Dose: 1 tab Olanzapine (Olanzapine 7.5 Mg Tablet) 7.5 mg PO DAILY@1900 [facility] Last Admin: 04/29/23 22:05 Dose: 7.5 mg Polyethylene Glycol (Polyethylene Glycol 3350 17 Gm Powd.Pack) 17 gm PO DAILY PRN PRN Reason: Constipation Last Admin: 03/19/23 10:04 Dose: 17 gm Prazosin HCl (Prazosin Hcl 1 Mg Capsule) 1 mg PO BEDTIME [facility]; Protocol Last Admin: 04/29/23 22:04 Dose: 1 mg Trazodone HCl (Trazodone Hcl 50 Mg Tablet) 50 mg PO BEDTIME MRX1 PRN PRN Reason: Insomnia Last Admin: 04/17/23 00:38 Dose: 50 mg Trazodone HCl (Trazodone Hcl 25 Mg Halftab) 25 mg PO BID PRN PRN Reason: Agitation Last Admin: 04/22/23 00:53 Dose: 25 mg Trazodone HCl (Trazodone Hcl 50 Mg Tablet) 50 mg PO BEDTIME [facility] Last Admin: 04/29/23 22:04 Dose: 50 mg Trolamine Salicylate (Trolamine Salicylate 10 % Cream 141 Gm Tube) 1 appl TOPICAL QID PRN; Protocol PRN Reason: Pain, Moderate (Pain Scale 4-6 Last Admin: 03/17/23 00:35 Dose: 1 appl Venlafaxine HCl (Venlafaxine Hcl Er 75 Mg Cap.Er.24h) 225 mg PO DAILY [facility] Last Admin: 04/30/23 08:52 Dose: 225 mg Allergies Allergies Allergy/AdvReac Type Severity Reaction Status Date / Time oxycodone Allergy Unknown Verified 10/14/22 13:51 pollen extracts Allergy skin rash Verified 10/14/22 13:51 Assessment & Plan Assessment & Plan (1) Neurodegenerative cognitive impairment: Status: Acute Code(s): G31.9 - Degenerative disease of nervous system, unspecified Assessment and Plan: definite on/off phenemon mixed with confusion and restricted affect, movement limitations (2) Parkinsons disease: Status: Acute Code(s): G20 - Parkinson's disease Assessment and Plan: [age] would years old man with moderate to severe Parkinson's features with EDSS score of 6-7. After years of Parkinson's, he also has developed depression and psychotic features. I do not have access to his previous workup including brain imaging, but this evolution of his condition suggested that he might be going into or his underlying condition could very well be dementia with Lewy body disease. Review of brain scan done, maybe at [facility], can help. In any case, dopaminergic drugs are known to have possible psychiatric side effects but at the same time without dopamine supplementation, patient has significant physical disability. A balance has to be reached. In that regard, I would suggest discontinuing Stalevo, which is a combination of drugs. Instead of that, try plain carbidopa levodopa 25/100 2 tablets 4 to 5 times a day. Starting tomorrow, prescribed 1st does at 06:00 and then repeat that does at 10:00, 14:00, 18:00. make an observation tomorrow if that works out better and further adjustment can be made based upon how he reacts to this dose. If p sychiatrically not better, may consider Nuplazid. Plan 1. Continue with same treatment. 2. Keep Effexor as prescribed 225 mg only the morning. 3. Keep on Sinemet as a prescribing doses. 4. Ativan will be changed to 4 times a day we Sinemet on March 19 Ativan is increased up to 1 mg on 03/30. 5. Minute and increased up to 6 mg on March 18. 6. Trazodone started at 50 mg p.o. q.h.s. standing every night on March 18 7. Increased Ativan up to 2 mg at night to target anxiety on March 19 8. D/C Haldol on 03/28 and start Zyprexa 5 mg po qhs at 19:00. On 04/29 increased up to 7.5 9. Waiting for proper placement. 10. Prazosin 1 mg p.o. q.h.s. to target nightmares 11. Blood work for 04/29. (3) Major depressive disorder: Status: Acute Code(s): F32.9 - Major depressive disorder, single episode, unspecified Assessment and Plan: 04/09 denies si (4) Psychosis: Status: Acute Code(s): F29 - Unspecified psychosis not due to a substance or known physiological condition Assessment and Plan: meds for this must be working was not in evidence with provider today 04/09 Plan Elderly male with past history of Parkinson's disease that is advanced admitted for psychotic symptoms in the context of Sinemet. Plan 1. Gather collateral information. 2. Continue Haldol 0.5 p.o. t.i.d. to target psychosis. Stop on 03/28 and start Zyprexa at hs 3. Continue with medical workout. 4. Assessment with results. 5. reported that he had a 2nd dose of effexor in the evenging, we will start 37,5 mg po at 5 pm On March 09. Increase Effexor XR 2nd dose up to 75 on March 11. Later on, Effexor has been changed to 1 single dose of 225 mg in the morning 6. Change his antiparkinsonian to Sinemet 4 times a day. 7. Waiting for placement Reason for continued inpatient stay Substantial Risk for: inability to function, rapid decompensation and med/psych decompensation Time Spent With Patient Time: Total time managing care of this patient today __20__ minutes.
[2023-04-30 18:00] VITALS: BP 166/82; PULSE 95; RESP 18; TEMP 37.1; O2SAT 95
[2023-04-30] MEDS: OLANZapine 7.5 MG TABLET PO (18:20)
[2023-04-30] MEDS: Melatonin 3 MG TABLET 6 MG PO (21:57)
[2023-04-30] MEDS: Multivitamin TABLET 1 TAB PO (21:57)
[2023-04-30] MEDS: Prazosin HCL 1 MG CAPSULE PO (21:57)
[2023-04-30] MEDS: traZODone HCL 50 MG TABLET PO (21:57)
[2023-05-01] MEDS: LORazepam 1 MG TABLET PO ×4 (02:18→17:59)
[2023-05-01 08:05] VITALS: BP 147/73; PULSE 93; RESP 20; TEMP 36.6; O2SAT 97
[2023-05-01] MEDS: Atorvastatin Calcium 10 MG TABLET PO (08:28)
[2023-05-01] MEDS: Venlafaxine HCl ER 75 MG CAP.ER.24H 225 MG PO (08:28)
[2023-05-01] MEDS: amLODIPine Besylate 5 MG TABLET PO (08:29)
--- NOTE | 2023-05-01 09:44 | HO.PSYCHPN ---
Subjective Subjective Date of Service: 05/01/23 Reason For Visit: SI Subjective Notes: Conditional Voluntary Interim History: The nursing staff reported the patient slept well last night he is at baseline no changes in his mental status. On interview the patient denies new symptoms, waiting for placement Mental Status Exam Mental Status Exam Patient Appearance: Appropriate Patient Orientation: Person and Situation Level of Consciousness: Awake and Appropriate Patient Behavior: Guarded and Passive Mood Description: Withdrawn Affect Description: Constricted Patient Cognition Impaired: Yes Ability to Follow Directions: Good Speech Pattern: Clear Hallucinations: None Delusions: Not Present Thought Process: Linear Thought Content: positive for Circumstantial Judgement: Fair Diagnostics Vital Signs (24Hr): Vital Signs - 24 hr 04/30/23 18:00 05/01/23 08:05 Temperature 98.7 F 97.9 F Pulse Rate 95 93 Respiratory Rate 18 20 Blood Pressure 166/82 H 147/73 H Pulse Oximetry 95 97 Oxygen Delivery Method Room Air Room Air BMI result Body Mass Index 23.3 Labs 04/29/23 07:59 04/29/23 07:59 Medications Medications Current Medications Acetaminophen (Acetaminophen 325 Mg Tablet) 650 mg PO Q6H PRN PRN Reason: Headache/Pain Mild Scale (1-3) Last Admin: 04/29/23 15:30 Dose: 650 mg Al Hydroxide/Mg Hydroxide (Magnesium Hydrox/Alum Hydrox 30 Ml Oral.Susp) 30 ml PO Q6H PRN PRN Reason: Heartburn/Nausea Last Admin: 03/15/23 17:37 Dose: 30 ml Amlodipine Besylate (Amlodipine Besylate 5 Mg Tablet) 5 mg PO DAILY [facility]; Protocol Last Admin: 05/01/23 08:29 Dose: 5 mg Atorvastatin Calcium (Atorvastatin Calcium 10 Mg Tablet) 10 mg PO DAILY [facility] Last Admin: 05/01/23 08:28 Dose: 10 mg Carbidopa/Levodopa (Carbidopa/Levodopa 10/100 Tablet) 2 tab PO Q6H [facility] Last Admin: 05/01/23 08:28 Dose: 2 tab Fluticasone Propionate (Fluticasone Propionate Nasal 16 Gm [place]) 1 spray NOSTRIL-B BID [facility] Last Admin: 05/01/23 08:29 Dose: Not Given Hydrocortisone (Hydrocortisone 1 % Ointment 28.35 Gm Tube) 1 appl TOPICAL BID PRN; Protocol PRN Reason: hemorroids Last Admin: 03/30/23 17:29 Dose: 1 appl Hydroxyzine HCl (Hydroxyzine Hcl 10 Mg Tablet) 10 mg PO Q6H PRN PRN Reason: Anxiety Last Admin: 04/27/23 11:51 Dose: 10 mg Lidocaine (Lidocaine 5 % Ointment 35 Gm) 1 appl TOPICAL Q6H PRN; Protocol PRN Reason: hemorroid pain Last Admin: 03/30/23 17:29 Dose: 1 appl Lorazepam (Lorazepam 1 Mg Tablet) 1 mg PO Q6H [facility] Last Admin: 05/01/23 08:28 Dose: 1 mg Magnesium Hydroxide (Milk Of Magnesia 30 Ml Oral.Susp) 30 ml PO DAILY PRN PRN Reason: Constipation Last Admin: 03/05/23 08:41 Dose: 30 ml Melatonin (Melatonin 3 Mg Tablet) 6 mg PO BEDTIME [facility] Last Admin: 04/30/23 21:57 Dose: 6 mg Multivitamins/Vitamin C (Multivitamin Tablet) 1 tab PO BEDTIME [facility] Last Admin: 04/30/23 21:57 Dose: 1 tab Olanzapine (Olanzapine 7.5 Mg Tablet) 7.5 mg PO DAILY@1900 [facility] Last Admin: 04/30/23 18:20 Dose: 7.5 mg Polyethylene Glycol (Polyethylene Glycol 3350 17 Gm Powd.Pack) 17 gm PO DAILY PRN PRN Reason: Constipation Last Admin: 03/19/23 10:04 Dose: 17 gm Prazosin HCl (Prazosin Hcl 1 Mg Capsule) 1 mg PO BEDTIME [facility]; Protocol Last Admin: 04/30/23 21:57 Dose: 1 mg Trazodone HCl (Trazodone Hcl 50 Mg Tablet) 50 mg PO BEDTIME MRX1 PRN PRN Reason: Insomnia Last Admin: 04/17/23 00:38 Dose: 50 mg Trazodone HCl (Trazodone Hcl 25 Mg Halftab) 25 mg PO BID PRN PRN Reason: Agitation Last Admin: 04/22/23 00:53 Dose: 25 mg Trazodone HCl (Trazodone Hcl 50 Mg Tablet) 50 mg PO BEDTIME [facility] Last Admin: 04/30/23 21:57 Dose: 50 mg Trolamine Salicylate (Trolamine Salicylate 10 % Cream 141 Gm Tube) 1 appl TOPICAL QID PRN; Protocol PRN Reason: Pain, Moderate (Pain Scale 4-6 Last Admin: 03/17/23 00:35 Dose: 1 appl Venlafaxine HCl (Venlafaxine Hcl Er 75 Mg Cap.Er.24h) 225 mg PO DAILY [facility] Last Admin: 05/01/23 08:28 Dose: 225 mg Allergies Allergies Allergy/AdvReac Type Severity Reaction Status Date / Time oxycodone Allergy Unknown Verified 10/14/22 13:51 pollen extracts Allergy skin rash Verified 10/14/22 13:51 Assessment & Plan Assessment & Plan (1) Neurodegenerative cognitive impairment: Status: Acute Code(s): G31.9 - Degenerative disease of nervous system, unspecified Assessment and Plan: definite on/off phenemon mixed with confusion and restricted affect, movement limitations (2) Parkinsons disease: Status: Acute Code(s): G20 - Parkinson's disease Assessment and Plan: [age] years old man with moderate to severe Parkinson's features with EDSS score of 6-7. After years of Parkinson's, he also has developed depression and psychotic features. I do not have access to his previous workup including brain imaging, but this evolution of his condition suggested that he might be going into or his underlying condition could very well be dementia with Lewy body disease. Review of brain scan done, maybe at [facility], can help. In any case, dopaminergic drugs are known to have possible psychiatric side effects but at the same time without dopamine supplementation, patient has significant physical disability. A balance has to be reached. In that regard, I would suggest discontinuing Stalevo, which is a combination of drugs. Instead of that, try plain carbidopa levodopa 25/100 2 tablets 4 to 5 times a day. Starting tomorrow, prescribed 1st does at 06:00 and then repeat that does at 10:00, 14:00, 18:00. make an observation tomorrow if that works out better and further adjustment can be made based upon how he reacts to this dose. If psychiatrically not better, may consider Nuplazid. Plan 1. Continue with same treatment. 2. Keep Effexor as prescribed 225 mg only the morning. 3. Keep on Sinemet as a prescribing doses. 4. Ativan will be changed to 4 times a day we Sinemet on March 19 Ativan is increased up to 1 mg on 03/30. 5. Minute and increased up to 6 mg on March 18. 6. Trazodone started at 50 mg p.o. q.h.s. standing every night on March 18 7. Increased Ativan up to 2 mg at night to target anxiety on March 19 8. D/C Haldol on 03/28 and start Zyprexa 5 mg po qhs at 19:00. On 04/29 increased up to 7.5 9. Waiting for proper placement. 10. Prazosin 1 mg p.o. q.h.s. to target nightmares 11. Blood work for 04/29. (3) Major depressive disorder: Status: Acute Code(s): F32.9 - Major depressive disorder, single episode, unspecified Assessment and Plan: 04/09 denies si (4) Psychosis: Status: Acute Code(s): F29 - Unspecified psychosis not due to a substance or known physiological condition Assessment and Plan: meds for this must be working was not in evidence with provider today 04/09 Plan Elderly male with past history of Parkinson's disease that is advanced admitted for psychotic symptoms in the context of Sinemet. Plan 1. Gather collateral information. 2. Continue Haldol 0.5 p.o. t.i.d. to target psychosis. Stop on 03/28 and start Zyprexa at hs 3. Continue with medical workout. 4. Assessment with results. 5. reported that he had a 2nd dose of effexor in the evenging, we will start 37,5 mg po at 5 pm On March 09. Increase Effexor XR 2nd dose up to 75 on March 11. Later on, Effexor has been changed to 1 single dose of 225 mg in the morning 6. Change his antiparkinsonian to Sinemet 4 times a day. 7. Waiting for placement Reason for continued inpatient stay Substantial Risk for: inability to function, rapid decompensation and med/psych decompensation Time Spent With Patient Time: Total time managing care of this patient today __20__ minutes.
[2023-05-01] MEDS: hydrOXYzine HCL 10 MG TABLET PO ×2 (11:21→22:39)
[2023-05-01] MEDS: Acetaminophen 325 MG TABLET 650 MG PO (16:29)
[2023-05-01] MEDS: OLANZapine 7.5 MG TABLET PO (17:59)
[2023-05-01 18:00] VITALS: BP 147/73; PULSE 93; RESP 20; TEMP 36.6; O2SAT 97
[2023-05-01] MEDS: Melatonin 3 MG TABLET 6 MG PO (22:40)
[2023-05-01] MEDS: Prazosin HCL 1 MG CAPSULE PO (22:41)
[2023-05-01] MEDS: traZODone HCL 50 MG TABLET PO (22:41)
[2023-05-01] MEDS: Multivitamin TABLET 1 TAB PO (22:42)
[2023-05-02] MEDS: LORazepam 1 MG TABLET PO ×4 (01:13→17:55)
[2023-05-02 08:10] VITALS: BP 113/59; PULSE 82; RESP 18; TEMP 36.4; O2SAT 100
[2023-05-02] MEDS: Fluticasone Propionate Nasal 16 GM SPRAY 1 SPRAY NOSTRIL-B (08:54)
[2023-05-02] MEDS: Atorvastatin Calcium 10 MG TABLET PO (08:55)
[2023-05-02] MEDS: Venlafaxine HCl ER 75 MG CAP.ER.24H 225 MG PO (08:55)
[2023-05-02] MEDS: amLODIPine Besylate 5 MG TABLET PO (08:55)
[2023-05-02] MEDS: hydrOXYzine HCL 10 MG TABLET PO ×2 (09:11→15:22)
--- NOTE | 2023-05-02 16:26 | HO.PSYCHPN ---
Subjective Subjective Date of Service: 05/02/23 Reason For Visit: SI Subjective Notes: Conditional Voluntary Interim History: The nurses report no changes in his mental status he is fully compliant with treatment On interview the patient reported he is having some symptoms of Parkinson in between doses. Waiting for placement Mental Status Exam Mental Status Exam Patient Appearance: Appropriate Patient Orientation: Person and Situation Level of Consciousness: Awake and Appropriate Patient Behavior: Guarded and Passive Mood Description: Withdrawn Affect Description: Constricted Patient Cognition Impaired: Yes Ability to Follow Directions: Good Speech Pattern: Clear Hallucinations: None Delusions: Not Present Thought Process: Distracted and Linear Thought Content: positive for [place] and positive for Circumstantial Judgement: Fair Diagnostics Vital Signs (24Hr): Vital Signs - 24 hr 05/01/23 18:00 05/02/23 08:10 Temperature 97.9 F 97.6 F Pulse Rate 93 82 Respiratory Rate 20 18 Blood Pressure 147/73 H 113/59 L Pulse Oximetry 97 100 Oxygen Delivery Method Room Air Room Air BMI result Body Mass Index 23.3 Labs 04/29/23 07:59 04/29/23 07:59 Medications Medications Current Medications Acetaminophen (Acetaminophen 325 Mg Tablet) 650 mg PO Q6H PRN PRN Reason: Headache/Pain Mild Scale (1-3) Last Admin: 05/01/23 16:29 Dose: 650 mg Al Hydroxide/Mg Hydroxide (Magnesium Hydrox/Alum Hydrox 30 Ml Oral.Susp) 30 ml PO Q6H PRN PRN Reason: Heartburn/Nausea Last Admin: 03/15/23 17:37 Dose: 30 ml Amlodipine Besylate (Amlodipine Besylate 5 Mg Tablet) 5 mg PO DAILY [facility]; Protocol Last Admin: 05/02/23 08:55 Dose: 5 mg Atorvastatin Calcium (Atorvastatin Calcium 10 Mg Tablet) 10 mg PO DAILY [facility] Last Admin: 05/02/23 08:55 Dose: 10 mg Carbidopa/Levodopa (Carbidopa/Levodopa 10/100 Tablet) 2 tab PO Q6H [facility] Last Admin: 05/02/23 12:07 Dose: 2 tab Fluticasone Propionate (Fluticasone Propionate Nasal 16 Gm [place]) 1 spray NOSTRIL-B BID [facility] Last Admin: 05/02/23 08:54 Dose: 1 spray Hydrocortisone (Hydrocortisone 1 % Ointment 28.35 Gm Tube) 1 appl TOPICAL BID PRN; Protocol PRN Reason: hemorroids Last Admin: 03/30/23 17:29 Dose: 1 appl Hydroxyzine HCl (Hydroxyzine Hcl 10 Mg Tablet) 10 mg PO Q6H PRN PRN Reason: Anxiety Last Admin: 05/02/23 15:22 Dose: 10 mg Lidocaine (Lidocaine 5 % Ointment 35 Gm) 1 appl TOPICAL Q6H PRN; Protocol PRN Reason: hemorroid pain Last Admin: 03/30/23 17:29 Dose: 1 appl Lorazepam (Lorazepam 1 Mg Tablet) 1 mg PO Q6H [facility] Last Admin: 05/02/23 12:07 Dose: 1 mg Magnesium Hydroxide (Milk Of Magnesia 30 Ml Oral.Susp) 30 ml PO DAILY PRN PRN Reason: Constipation Last Admin: 03/05/23 08:41 Dose: 30 ml Melatonin (Melatonin 3 Mg Tablet) 6 mg PO BEDTIME [facility] Last Admin: 05/01/23 22:40 Dose: 6 mg Multivitamins/Vitamin C (Multivitamin Tablet) 1 tab PO BEDTIME [facility] Last Admin: 05/01/23 22:42 Dose: 1 tab Olanzapine (Olanzapine 7.5 Mg Tablet) 7.5 mg PO DAILY@1900 [facility] Last Admin: 05/01/23 17:59 Dose: 7.5 mg Polyethylene Glycol (Polyethylene Glycol 3350 17 Gm Powd.Pack) 17 gm PO DAILY PRN PRN Reason: Constipation Last Admin: 03/19/23 10:04 Dose: 17 gm Prazosin HCl (Prazosin Hcl 1 Mg Capsule) 1 mg PO BEDTIME [facility]; Protocol Last Admin: 05/01/23 22:41 Dose: 1 mg Trazodone HCl (Trazodone Hcl 50 Mg Tablet) 50 mg PO BEDTIME MRX1 PRN PRN Reason: Insomnia Last Admin: 04/17/23 00:38 Dose: 50 mg Trazodone HCl (Trazodone Hcl 25 Mg Halftab) 25 mg PO BID PRN PRN Reason: Agitation Last Admin: 04/22/23 00:53 Dose: 25 mg Trazodone HCl (Trazodone Hcl 50 Mg Tablet) 50 mg PO BEDTIME [facility] Last Admin: 05/01/23 22:41 Dose: 50 mg Trolamine Salicylate (Trolamine Salicylate 10 % Cream 141 Gm Tube) 1 appl TOPICAL QID PRN; Protocol PRN Reason: Pain, Moderate (Pain Scale 4-6 Last Admin: 03/17/23 00:35 Dose: 1 appl Venlafaxine HCl (Venlafaxine Hcl Er 75 Mg Cap.Er.24h) 225 mg PO DAILY [facility] Last Admin: 05/02/23 08:55 Dose: 225 mg Allergies Allergies Allergy/AdvReac Type Severity Reaction Status Date / Time oxycodone Allergy Unknown Verified 10/14/22 13:51 pollen extracts Allergy skin rash Verified 10/14/22 13:51 Assessment & Plan Assessment & Plan (1) Neurodegenerative cognitive impairment: Status: Acute Code(s): G31.9 - Degenerative disease of nervous system, unspecified Assessment and Plan: definite on/off phenemon mixed with confusion and restricted affect, movement limitations (2) Parkinsons disease: Status: Acute Code(s): G20 - Parkinson's disease Assessment and Plan: [age] years old man with moderate to severe Parkinson's features with EDSS score of 6-7. After years of Parkinson's, he also has developed depression and psychotic features. I do not have access to his previous workup including brain imaging, but this evolution of his condition suggested that he might be going into or his underlying condition could very well be dementia with Lewy body disease. Review of brain scan done, maybe at [facility], can help. In any case, dopaminergic drugs are known to have possible psychiatric side effects but at the same time without dopamine supplementation, patient has significant physical disability. A balance has to be reached. In that regard, I would suggest discontinuing Stalevo, which is a combination of drugs. Instead of that, try plain carbidopa levodopa 25/100 2 tablets 4 to 5 times a day. Starting tomorrow, prescribed 1st does at 06:00 and then repeat that does at 10:00, 14:00, 18:00. make an observation tomorrow if that works out better and further adjustment can be made based upon how he reacts to this dose. If psychiatrically not better, may consider Nuplazid. Plan 1. Continue with same treatment. 2. Keep Effexor as prescribed 225 mg only the morning. 3. Keep on Sinemet as a prescribing doses. 4. Ativan will be changed to 4 times a day we Sinemet on March 19 Ativan is increased up to 1 mg on 03/30. 5. Minute and increased up to 6 mg on March 18. 6. Trazodone started at 50 mg p.o. q.h.s. standing every night on March 18 7. Increased Ativan up to 2 mg at night to target anxiety on March 19 8. D/C Haldol on 03/28 and start Zyprexa 5 mg po qhs at 19:00. On 04/29 increased up to 7.5 9. Waiting for proper placement. 10. Prazosin 1 mg p.o. q.h.s. to target nightmares 11. Blood work for 04/29. It came within normal limits (3) Major depressive disorder: Status: Acute Code(s): F32.9 - Major depressive disorder, single episode, unspecified Assessment and Plan: 04/09 denies si (4) Psychosis: Status: Acute Code(s): F29 - Unspecified psychosis not due to a substance or known physiological condition Assessment and Plan: meds for this must be working was not in evidence with provider today 04/09 Plan Elderly male with past history of Parkinson's disease that is advanced admitted for psychotic symptoms in the context of Sinemet. Plan 1. Gather collateral information. 2. Continue Haldol 0.5 p.o. t.i.d. to target psychosis. Stop on 03/28 and start Zyprexa at hs 3. Continue with medical workout. 4. Assessment with results. 5. reported that he had a 2nd dose of effexor in the evenging, we will start 37,5 mg po at 5 pm On March 09. Increase Effexor XR 2nd dose up to 75 on March 11. Later on, Effexor has been changed to 1 single dose of 225 mg in the morning 6. Change his antiparkinsonian to Sinemet 4 times a day. 7. Waiting for placement Reason for continued inpatient stay Substantial Risk for: inability to function, rapid decompensation and med/psych decompensation Time Spent With Patient Time: Total time managing care of this patient today _20___ minutes.
[2023-05-02] MEDS: OLANZapine 7.5 MG TABLET PO (17:55)
[2023-05-02 19:45] VITALS: BP 119/60; PULSE 75; RESP 18; TEMP 36.2; O2SAT 97
[2023-05-02] MEDS: Multivitamin TABLET 1 TAB PO (20:20)
[2023-05-02] MEDS: traZODone HCL 50 MG TABLET PO (20:20)
[2023-05-02] MEDS: Prazosin HCL 1 MG CAPSULE PO (20:20)
[2023-05-02] MEDS: Melatonin 3 MG TABLET 6 MG PO (20:20)
[2023-05-03] MEDS: LORazepam 1 MG TABLET PO ×3 (00:57→12:25)
[2023-05-03 07:30] VITALS: BP 133/61; PULSE 76; RESP 19; TEMP 36.3; O2SAT 97
[2023-05-03] MEDS: Atorvastatin Calcium 10 MG TABLET PO (09:13)
[2023-05-03] MEDS: amLODIPine Besylate 5 MG TABLET PO (09:13)
[2023-05-03] MEDS: Venlafaxine HCl ER 75 MG CAP.ER.24H 225 MG PO (09:14)
[2023-05-03] MEDS: hydrOXYzine HCL 10 MG TABLET PO (15:00)
[2023-05-03] MEDS: Acetaminophen 325 MG TABLET 650 MG PO (16:16)
[2023-05-03] MEDS: Benztropine Mesylate 1 MG TABLET PO (16:17)
--- NOTE | 2023-05-03 17:22 | P.PNPSI_ITS ---
Subjective Subjective Date of Service: 05/03/23 Reason For Visit: SI Subjective Notes: Conditional Voluntary Interim History: When pt was seen, pt reports having exacerbation of perkinson's tremors. He reported it affects his breathing, muscleaches. He reports feeling lousy. He asks if parkinson's meds can be adjusted. His attending Dr. chapman aware. I did give one time dose of cogentin 1mg- but [facility] is not [facility]. Pt denies SI/HI. Medication Compliance: Yes Side effects from medications: No Review of Systems Review of Systems does not appear sob but does appear quite stiff (between dose effect) yet thinkng he is at work with boss ( would be an on dose sys or s/e) Yes all other systems are reviewed and are negative Mental Status Exam Mental Status Exam Patient Appearance: Appropriate Patient Orientation: Person and Situation Level of Consciousness: Awake and Appropriate Patient Behavior: Guarded and Passive Behavior Comments: nursing also tells me he calls psych counselor on unit [facility] who is Flavio- so maybe it was more matter of communication- Mood Description: Withdrawn Affect Description: Constricted Patient Cognition Impaired: Yes Ability to Follow Directions: Good Speech Pattern: Clear Diagnostics Vital Signs (24Hr): Vital Signs - 24 hr 05/02/23 19:45 05/03/23 07:30 Temperature 97.2 F 97.3 F Pulse Rate 75 76 Respiratory Rate 18 19 Blood Pressure 119/60 133/61 Pulse Oximetry 97 97 Oxygen Delivery Method Room Air Room Air BMI result Body Mass Index 23.3 Labs 04/29/23 07:59 04/29/23 07:59 Medications Medications Current Medications Acetaminophen (Acetaminophen 325 Mg Tablet) 650 mg PO Q6H PRN PRN Reason: Headache/Pain Mild Scale (1-3) Last Admin: 05/03/23 16:16 Dose: 650 mg Al Hydroxide/Mg Hydroxide (Magnesium Hydrox/Alum Hydrox 30 Ml Oral.Susp) 30 ml PO Q6H PRN PRN Reason: Heartburn/Nausea Last Admin: 03/15/23 17:37 Dose: 30 ml Amlodipine Besylate (Amlodipine Besylate 5 Mg Tablet) 5 mg PO DAILY [facility]; Protocol Last Admin: 05/03/23 09:13 Dose: 5 mg Atorvastatin Calcium (Atorvastatin Calcium 10 Mg Tablet) 10 mg PO DAILY [facility] Last Admin: 05/03/23 09:13 Dose: 10 mg Carbidopa/Levodopa (Carbidopa/Levodopa 10/100 Tablet) 2 tab PO Q6H [facility] Last Admin: 05/03/23 12:25 Dose: 2 tab Fluticasone Propionate (Fluticasone Propionate Nasal 16 Gm [place]) 1 spray NOSTRIL-B BID [facility] Last Admin: 05/03/23 09:17 Dose: Not Given Hydrocortisone (Hydrocortisone 1 % Ointment 28.35 Gm Tube) 1 appl TOPICAL BID PRN; Protocol PRN Reason: hemorroids Last Admin: 03/30/23 17:29 Dose: 1 appl Hydroxyzine HCl (Hydroxyzine Hcl 10 Mg Tablet) 10 mg PO Q6H PRN PRN Reason: Anxiety Last Admin: 05/03/23 15:00 Dose: 10 mg Lidocaine (Lidocaine 5 % Ointment 35 Gm) 1 appl TOPICAL Q6H PRN; Protocol PRN Reason: hemorroid pain Last Admin: 03/30/23 17:29 Dose: 1 appl Magnesium Hydroxide (Milk Of Magnesia 30 Ml Oral.Susp) 30 ml PO DAILY PRN PRN Reason: Constipation Last Admin: 03/05/23 08:41 Dose: 30 ml Melatonin (Melatonin 3 Mg Tablet) 6 mg PO BEDTIME [facility] Last Admin: 05/02/23 20:20 Dose: 6 mg Multivitamins/Vitamin C (Multivitamin Tablet) 1 tab PO BEDTIME [facility] Last Admin: 05/02/23 20:20 Dose: 1 tab Olanzapine (Olanzapine 7.5 Mg Tablet) 7.5 mg PO DAILY@1900 [facility] Last Admin: 05/02/23 17:55 Dose: 7.5 mg Polyethylene Glycol (Polyethylene Glycol 3350 17 Gm Powd.Pack) 17 gm PO DAILY PRN PRN Reason: Constipation Last Admin: 03/19/23 10:04 Dose: 17 gm Prazosin HCl (Prazosin Hcl 1 Mg Capsule) 1 mg PO BEDTIME [facility]; Protocol Last Admin: 05/02/23 20:20 Dose: 1 mg Trazodone HCl (Trazodone Hcl 50 Mg Tablet) 50 mg PO BEDTIME MRX1 PRN PRN Reason: Insomnia Last Admin: 04/17/23 00:38 Dose: 50 mg Trazodone HCl (Trazodone Hcl 25 Mg Halftab) 25 mg PO BID PRN PRN Reason: Agitation Last Admin: 04/22/23 00:53 Dose: 25 mg Trazodone HCl (Trazodone Hcl 50 Mg Tablet) 50 mg PO BEDTIME [facility] Last Admin: 05/02/23 20:20 Dose: 50 mg Trolamine Salicylate (Trolamine Salicylate 10 % Cream 141 Gm Tube) 1 appl TOPICAL QID PRN; Protocol PRN Reason: Pain, Moderate (Pain Scale 4-6 Last Admin: 03/17/23 00:35 Dose: 1 appl Venlafaxine HCl (Venlafaxine Hcl Er 75 Mg Cap.Er.24h) 225 mg PO DAILY [facility] Last Admin: 05/03/23 09:14 Dose: 225 mg Allergies Allergies Allergy/AdvReac Type Severity Reaction Status Date / Time oxycodone Allergy Unknown Verified 10/14/22 13:51 pollen extracts Allergy skin rash Verified 10/14/22 13:51 Assessment & Plan Assessment & Plan (1) Neurodegenerative cognitive impairment: Status: Acute Code(s): G31.9 - Degenerative disease of nervous system, unspecified Assessment and Plan: definite on/off phenemon mixed with confusion and restricted affect, movement limitations (2) Parkinsons disease: Status: Acute Code(s): G20 - Parkinson's disease Assessment and Plan: [age] years old man with moderate to severe Parkinson's features with EDSS score of 6-7. After years of Parkinson's, he also has developed depress ion and psychotic features. I do not have access to his previous workup including brain imaging, but this evolution of his condition suggested that he might be going into or his underlying condition could very well be dementia with Lewy body disease. Review of brain scan done, maybe at [facility], can help. In any case, dopaminergic drugs are known to have possible psychiatric side effects but at the same time without dopamine supplementation, patient has significant physical disability. A balance has to be reached. In that regard, I would suggest discontinuing Stalevo, which is a combination of drugs. Instead of that, try plain carbidopa levodopa 25/100 2 tablets 4 to 5 times a day. Starting tomorrow, prescribed 1st does at 06:00 and then repeat that does at 10:00, 14:00, 18:00. make an observation tomorrow if that works out better and further adjustment can be made based upon how he reacts to this dose. If psychiatrically not better, may consider Nuplazid. Plan 05/03 continue tx. follow up with attending re: parkinson meds and if any adjsutment (3) Major depressive disorder: Status: Acute Code(s): F32.9 - Major depressive disorder, single episode, unspecified Assessment and Plan: 04/09 denies si (4) Psychosis: Status: Acute Code(s): F29 - Unspecified psychosis not due to a substance or known physiological condition Assessment and Plan: meds for this must be working was not in evidence with provider today 04/09 Plan Elderly male with past history of Parkinson's disease that is advanced admitted for psychotic symptoms in the context of Sinemet. Plan 1. Gather collateral information. 2. Continue Haldol 0.5 p.o. t.i.d. to target psychosis. Stop on 03/28 and start Zyprexa at hs 3. Continue with medical workout. 4. Assessment with results. 5. reported that he had a 2nd dose of effexor in the evenging, we will start 37,5 mg po at 5 pm On March 09. Increase Effexor XR 2nd dose up to 75 on March 11. Later on, Effexor has been changed to 1 single dose of 225 mg in the morning 6. Change his antiparkinsonian to Sinemet 4 times a day. 7. Waiting for placement Reason for continued inpatient stay Substantial Risk for: inability to function Time Spent With Patient Time: Total time managing care of this patient today ____ minutes.
[2023-05-03 18:00] VITALS: BP 148/67; PULSE 84; RESP 18; TEMP 36.8; O2SAT 96
[2023-05-03] MEDS: OLANZapine 7.5 MG TABLET PO (18:39)
[2023-05-03] MEDS: Multivitamin TABLET 1 TAB PO (20:40)
[2023-05-03] MEDS: traZODone HCL 50 MG TABLET PO (20:40)
[2023-05-03] MEDS: Prazosin HCL 1 MG CAPSULE PO (20:40)
[2023-05-03] MEDS: Melatonin 3 MG TABLET 6 MG PO (20:40)
[2023-05-04] MEDS: Acetaminophen 325 MG TABLET 650 MG PO (05:07)
[2023-05-04 08:15] VITALS: BP 119/58; PULSE 84; RESP 18; TEMP 36.3; O2SAT 97
[2023-05-04] MEDS: Atorvastatin Calcium 10 MG TABLET PO (08:57)
[2023-05-04] MEDS: Venlafaxine HCl ER 75 MG CAP.ER.24H 225 MG PO (08:57)
[2023-05-04] MEDS: amLODIPine Besylate 5 MG TABLET PO (08:57)
--- NOTE | 2023-05-04 13:53 | P.PNPSI_ITS ---
Subjective Subjective Date of Service: 05/04/23 Reason For Visit: SI Subjective Notes: Conditional Voluntary Interim History: The nursing staff reported no changes in his mental status, compliant with treatment. The social service manager reported that they have referred to several [facility] facilities and most likely he will be discharged next Tuesday. On interview the patient denies new symptoms, waiting for placement. Mental Status Exam Mental Status Exam Patient Appearance: Appropriate Patient Orientation: Person and Situation Level of Consciousness: Awake and Appropriate Patient Behavior: Guarded and Passive Mood Description: Withdrawn Affect Description: Calm Patient Cognition Impaired: Yes Ability to Follow Directions: Good Speech Pattern: Clear Hallucinations: None Delusions: Not Present Thought Process: Distracted Thought Content: positive for [place] Judgement: Fair Diagnostics Vital Signs (24Hr): Vital Signs - 24 hr 05/03/23 18:00 05/04/23 08:15 Temperature 98.2 F 97.3 F Pulse Rate 84 84 Respiratory Rate 18 18 Blood Pressure 148/67 H 119/58 L Pulse Oximetry 96 97 Oxygen Delivery Method Room Air Room Air BMI result Body Mass Index 23.3 Labs 04/29/23 07:59 04/29/23 07:59 Medications Medications Current Medications Acetaminophen (Acetaminophen 325 Mg Tablet) 650 mg PO Q6H PRN PRN Reason: Headache/Pain Mild Scale (1-3) Last Admin: 05/04/23 05:07 Dose: 650 mg Al Hydroxide/Mg Hydroxide (Magnesium Hydrox/Alum Hydrox 30 Ml Oral.Susp) 30 ml PO Q6H PRN PRN Reason: Heartburn/Nausea Last Admin: 03/15/23 17:37 Dose: 30 ml Amlodipine Besylate (Amlodipine Besylate 5 Mg Tablet) 5 mg PO DAILY [facility]; Protocol Last Admin: 05/04/23 08:57 Dose: 5 mg Atorvastatin Calcium (Atorvastatin Calcium 10 Mg Tablet) 10 mg PO DAILY [facility] Last Admin: 05/04/23 08:57 Dose: 10 mg Carbidopa/Levodopa (Carbidopa/Levodopa 10/100 Tablet) 2 tab PO Q6H [facility] Last Admin: 05/04/23 12:10 Dose: 2 tab Fluticasone Propionate (Fluticasone Propionate Nasal 16 Gm [place]) 1 spray NOSTRIL-B BID [facility] Last Admin: 05/04/23 08:59 Dose: Not Given Hydrocortisone (Hydrocortisone 1 % Ointment 28.35 Gm Tube) 1 appl TOPICAL BID PRN; Protocol PRN Reason: hemorroids Last Admin: 03/30/23 17:29 Dose: 1 appl Hydroxyzine HCl (Hydroxyzine Hcl 10 Mg Tablet) 10 mg PO Q6H PRN PRN Reason: Anxiety Last Admin: 05/03/23 15:00 Dose: 10 mg Lidocaine (Lidocaine 5 % Ointment 35 Gm) 1 appl TOPICAL Q6H PRN; Protocol PRN Reason: hemorroid pain Last Admin: 03/30/23 17:29 Dose: 1 appl Magnesium Hydroxide (Milk Of Magnesia 30 Ml Oral.Susp) 30 ml PO DAILY PRN PRN Reason: Constipation Last Admin: 03/05/23 08:41 Dose: 30 ml Melatonin (Melatonin 3 Mg Tablet) 6 mg PO BEDTIME [facility] Last Admin: 05/03/23 20:40 Dose: 6 mg Multivitamins/Vitamin C (Multivitamin Tablet) 1 tab PO BEDTIME [facility] Last Admin: 05/03/23 20:40 Dose: 1 tab Olanzapine (Olanzapine 7.5 Mg Tablet) 7.5 mg PO DAILY@1900 [facility] Last Admin: 05/03/23 18:39 Dose: 7.5 mg Polyethylene Glycol (Polyethylene Glycol 3350 17 Gm Powd.Pack) 17 gm PO DAILY PRN PRN Reason: Constipation Last Admin: 03/19/23 10:04 Dose: 17 gm Prazosin HCl (Prazosin Hcl 1 Mg Capsule) 1 mg PO BEDTIME [facility]; Protocol Last Admin: 05/03/23 20:40 Dose: 1 mg Trazodone HCl (Trazodone Hcl 50 Mg Tablet) 50 mg PO BEDTIME MRX1 PRN PRN Reason: Insomnia Last Admin: 04/17/23 00:38 Dose: 50 mg Trazodone HCl (Trazodone Hcl 25 Mg Halftab) 25 mg PO BID PRN PRN Reason: Agitation Last Admin: 04/22/23 00:53 Dose: 25 mg Trazodone HCl (Trazodone Hcl 50 Mg Tablet) 50 mg PO BEDTIME [facility] Last Admin: 05/03/23 20:40 Dose: 50 mg Trolamine Salicylate (Trolamine Salicylate 10 % Cream 141 Gm Tube) 1 appl TOPICAL QID PRN; Protocol PRN Reason: Pain, Moderate (Pain Scale 4-6 Last Admin: 03/17/23 00:35 Dose: 1 appl Venlafaxine HCl (Venlafaxine Hcl Er 75 Mg Cap.Er.24h) 225 mg PO DAILY [facility] Last Admin: 05/04/23 08:57 Dose: 225 mg Allergies Allergies Allergy/AdvReac Type Severity Reaction Status Date / Time oxycodone Allergy Unknown Verified 10/14/22 13:51 pollen extracts Allergy skin rash Verified 10/14/22 13:51 Assessment & Plan Assessment & Plan (1) Neurodegenerative cognitive impairment: Status: Acute Code(s): G31.9 - Degenerative disease of nervous system, unspecified Assessment and Plan: definite on/off phenemon mixed with confusion and restricted affect, movement limitations (2) Parkinsons disease: Status: Acute Code(s): G20 - Parkinson's disease Assessment and Plan: [age] would years old man with moderate to severe Parkinson's features with EDSS score of 6-7. After years of Parkinson's, he also has developed depression and psychotic features. I do not have access to his previous workup including brain imaging, but this evolution of his condition suggested that he might be going into or his underlying condition could very well be dementia with Lewy body disease. Review of brain scan done, maybe at [facility], can help. In any case, dopaminergic drugs are known to have possible psychiatric side effects but at the same time without dopamine supplementation, patient has significant physical disability. A balance has to be reached. In that regard, I would suggest discontinuing Stalevo, which is a combination of drugs. Instead of that, try plain carbidopa levodopa 25/100 2 tablets 4 to 5 times a day. Starting tomorrow, prescribed 1st does at 06:00 and then repeat that does at 10: 00, 14:00, 18:00. make an observation tomorrow if that works out better and further adjustment can be made based upon how he reacts to this dose. If psychiatrically not better, may consider Nuplazid. Plan 05/03 continue tx. follow up with attending re: parkinson meds and if any adjsutment (3) Major depressive disorder: Status: Acute Code(s): F32.9 - Major depressive disorder, single episode, unspecified Assessment and Plan: 04/09 denies si (4) Psychosis: Status: Acute Code(s): F29 - Unspecified psychosis not due to a substance or known physiological condition Assessment and Plan: meds for this must be working was not in evidence with provider today 04/09 Plan Elderly male with past history of Parkinson's disease that is advanced admitted for psychotic symptoms in the context of Sinemet. Plan 1. Gather collateral information. 2. Continue Haldol 0.5 p.o. t.i.d. to target psychosis. Stop on 03/28 and start Zyprexa at hs 3. Continue with medical workout. 4. Assessment with results. 5. reported that he had a 2nd dose of effexor in the evenging, we will start 37,5 mg po at 5 pm On March 09. Increase Effexor XR 2nd dose up to 75 on March 11. Later on, Effexor has been changed to 1 single dose of 225 mg in the morning 6. Change his antiparkinsonian to Sinemet 4 times a day. 7. Waiting for placement Reason for continued inpatient stay Substantial Risk for: inability to function, rapid decompensation and med/psych decompensation Time Spent With Patient Time: Total time managing care of this patient today _20___ minutes.
[2023-05-04] MEDS: hydrOXYzine HCL 10 MG TABLET PO (14:11)
[2023-05-04] MEDS: traZODone HCL 25 MG HALFTAB PO (15:30)
[2023-05-04] MEDS: OLANZapine 7.5 MG TABLET PO (18:18)
[2023-05-04] MEDS: LORazepam 1 MG TABLET PO (18:26)
[2023-05-04 19:35] VITALS: BP 173/75; PULSE 109; RESP 20; TEMP 36.9; O2SAT 95
[2023-05-04] MEDS: traZODone HCL 50 MG TABLET PO (20:04)
[2023-05-04] MEDS: Fluticasone Propionate Nasal 16 GM SPRAY 1 SPRAY NOSTRIL-B (20:04)
[2023-05-04] MEDS: Melatonin 3 MG TABLET 6 MG PO (20:04)
[2023-05-04] MEDS: Multivitamin TABLET 1 TAB PO (20:04)
[2023-05-04] MEDS: Prazosin HCL 1 MG CAPSULE PO (20:04)
[2023-05-05] MEDS: LORazepam 1 MG TABLET PO ×5 (00:10→23:13)
[2023-05-05 08:00] VITALS: BP 129/66; PULSE 72; RESP 18; TEMP 36.4; O2SAT 98
[2023-05-05] MEDS: Atorvastatin Calcium 10 MG TABLET PO (08:00)
[2023-05-05] MEDS: Venlafaxine HCl ER 75 MG CAP.ER.24H 225 MG PO (08:00)
[2023-05-05] MEDS: amLODIPine Besylate 5 MG TABLET PO (08:26)
--- NOTE | 2023-05-05 14:54 | HO.PSYCHPN ---
Subjective Subjective Date of Service: 05/05/23 Reason For Visit: SI Subjective Notes: Conditional Voluntary Interim History: The nursing staff reported that her vital signs have been stable, he has been compliant with treatment but asking constantly for his Sinemet to avoid tremors. The oncology social worker reported that he will be discharged next [facility] facility. On interview the patient denies new symptoms, waiting for placement Mental Status Exam Mental Status Exam Patient Appearance: Well Grooomed and Appropriate Patient Orientation: Person and Situation Level of Consciousness: Awake and Appropriate Patient Behavior: Guarded and Passive Mood Description: Withdrawn Affect Description: Constricted Patient Cognition Impaired: Yes Ability to Follow Directions: Good Speech Pattern: Clear Hallucinations: None Delusions: Not Present Thought Process: Distracted and Linear Thought Content: positive for [place] and positive for [place]um[place] Judgement: Fair Diagnostics Vital Signs (24Hr): Vital Signs - 24 hr 05/04/23 19:35 05/05/23 08:00 Temperature 98.5 F 97.6 F Pulse Rate 109 H 72 Respiratory Rate 20 18 Blood Pressure 173/75 H 129/66 Pulse Oximetry 95 98 Oxygen Delivery Method Room Air Room Air BMI result Body Mass Index 23.3 Labs 04/29/23 07:59 04/29/23 07:59 Medications Medications Current Medications Acetaminophen (Acetaminophen 325 Mg Tablet) 650 mg PO Q6H PRN PRN Reason: Headache/Pain Mild Scale (1-3) Last Admin: 05/04/23 05:07 Dose: 650 mg Al Hydroxide/Mg Hydroxide (Magnesium Hydrox/Alum Hydrox 30 Ml Oral.Susp) 30 ml PO Q6H PRN PRN Reason: Heartburn/Nausea Last Admin: 03/15/23 17:37 Dose: 30 ml Amlodipine Besylate (Amlodipine Besylate 5 Mg Tablet) 5 mg PO DAILY [facility]; Protocol Last Admin: 05/05/23 08:26 Dose: 5 mg Atorvastatin Calcium (Atorvastatin Calcium 10 Mg Tablet) 10 mg PO DAILY [facility] Last Admin: 05/05/23 08:00 Dose: 10 mg Carbidopa/Levodopa (Carbidopa/Levodopa 10/100 Tablet) 2 tab PO Q6H [facility] Last Admin: 05/05/23 11:48 Dose: 2 tab Fluticasone Propionate (Fluticasone Propionate Nasal 16 Gm [place]) 1 spray NOSTRIL-B BID [facility] Last Admin: 05/05/23 09:51 Dose: Not Given Hydrocortisone (Hydrocortisone 1 % Ointment 28.35 Gm Tube) 1 appl TOPICAL BID PRN; Protocol PRN Reason: hemorroids Last Admin: 03/30/23 17:29 Dose: 1 appl Hydroxyzine HCl (Hydroxyzine Hcl 10 Mg Tablet) 10 mg PO Q6H PRN PRN Reason: Anxiety Last Admin: 05/04/23 14:11 Dose: 10 mg Lidocaine (Lidocaine 5 % Ointment 35 Gm) 1 appl TOPICAL Q6H PRN; Protocol PRN Reason: hemorroid pain Last Admin: 03/30/23 17:29 Dose: 1 appl Lorazepam (Lorazepam 1 Mg Tablet) 1 mg PO Q6H [facility] Last Admin: 05/05/23 11:51 Dose: 1 mg Magnesium Hydroxide (Milk Of Magnesia 30 Ml Oral.Susp) 30 ml PO DAILY PRN PRN Reason: Constipation Last Admin: 03/05/23 08:41 Dose: 30 ml Melatonin (Melatonin 3 Mg Tablet) 6 mg PO BEDTIME [facility] Last Admin: 05/04/23 20:04 Dose: 6 mg Multivitamins/Vitamin C (Multivitamin Tablet) 1 tab PO BEDTIME [facility] Last Admin: 05/04/23 20:04 Dose: 1 tab Olanzapine (Olanzapine 7.5 Mg Tablet) 7.5 mg PO DAILY@1900 [facility] Last Admin: 05/04/23 18:18 Dose: 7.5 mg Polyethylene Glycol (Polyethylene Glycol 3350 17 Gm Powd.Pack) 17 gm PO DAILY PRN PRN Reason: Constipation Last Admin: 03/19/23 10:04 Dose: 17 gm Prazosin HCl (Prazosin Hcl 1 Mg Capsule) 1 mg PO BEDTIME [facility]; Protocol Last Admin: 05/04/23 20:04 Dose: 1 mg Trazodone HCl (Trazodone Hcl 50 Mg Tablet) 50 mg PO BEDTIME MRX1 PRN PRN Reason: Insomnia Last Admin: 04/17/23 00:38 Dose: 50 mg Trazodone HCl (Trazodone Hcl 25 Mg Halftab) 25 mg PO BID PRN PRN Reason: Agitation Last Admin: 05/04/23 15:30 Dose: 25 mg Trazodone HCl (Trazodone Hcl 50 Mg Tablet) 50 mg PO BEDTIME [facility] Last Admin: 05/04/23 20:04 Dose: 50 mg Trolamine Salicylate (Trolamine Salicylate 10 % Cream 141 Gm Tube) 1 appl TOPICAL QID PRN; Protocol PRN Reason: Pain, Moderate (Pain Scale 4-6 Last Admin: 03/17/23 00:35 Dose: 1 appl Venlafaxine HCl (Venlafaxine Hcl Er 75 Mg Cap.Er.24h) 225 mg PO DAILY [facility] Last Admin: 05/05/23 08:00 Dose: 225 mg Allergies Allergies Allergy/AdvReac Type Severity Reaction Status Date / Time oxycodone Allergy Unknown Verified 10/14/22 13:51 pollen extracts Allergy skin rash Verified 10/14/22 13:51 Assessment & Plan Assessment & Plan (1) Neurodegenerative cognitive impairment: Status: Acute Code(s): G31.9 - Degenerative disease of nervous system, unspecified Assessment and Plan: definite on/off phenemon mixed with confusion and restricted affect, movement limitations (2) Parkinsons disease: Status: Acute Code(s): G20 - Parkinson's disease Assessment and Plan: [age] would years old man with moderate to severe Parkinson's features with EDSS score of 6-7. After years of Parkinson's, he also has developed depression and psychotic features. I do not have access to his previous workup including brain imaging, but this evolution of his condition suggested that he might be going into or his underlying condition could very well be dementia with Lewy body disease. Review of brain scan done, maybe at [facility], can help. In any case, dopaminergic drugs are known to have possible psychiatric side effects but at the same time without dopamine supplementation, patient has significant physical disability. A balance has to be reached. In that regard, I would suggest discontinuing Stalevo, which is a combination of drugs. Instead of that, try plain carbidopa levodopa 25/100 2 tablets 4 to 5 times a day. Starting tomorrow, prescribed 1st does at 06:00 and then repeat that does at 10:00, 14:00, 18:00. make an observation tomorrow if that works out better and further adjustment can be made based upon how he reacts to this dose. If psychiatrically not better, may consider Nuplazid. Plan 1. Continue with same treatment. 2. Waiting for placement. 3. Hospitalist consult for edema. (3) Major depressive disorder: Status: Acute Code(s): F32.9 - Major depressive disorder, single episode, unspecified Assessment and Plan: 5/13 denies si (4) Psychosis: Status: Acute Code(s): F29 - Unspecified psychosis not due to a substance or known physiological condition Assessment and Plan: meds for this must be working was not in evidence with provider today 04/09 Plan Elderly male with past history of Parkinson's disease that is advanced admitted for psychotic symptoms in the context of Sinemet. Plan 1. Gather collateral information. 2. Continue Haldol 0.5 p.o. t.i.d. to target psychosis. Stop on 03/28 and start Zyprexa at hs 3. Continue with medical workout. 4. Assessment with results. 5. reported that he had a 2nd dose of effexor in the evenging, we will start 37,5 mg po at 5 pm On March 09. Increase Effexor XR 2nd dose up to 75 on March 11. Later on, Effexor has been changed to 1 single dose of 225 mg in the morning 6. Change his antiparkinsonian to Sinemet 4 times a day. 7. Waiting for placement Reason for continued inpatient stay Substantial Risk for: inability to function, rapid decompensation and med/psych decompensation Time Spent With Patient Time: Total time managing care of this patient today __20__ minutes.
--- NOTE | 2023-05-05 16:00 | CA_ITS ---
Transthoracic Echocardiogram Patient (Last, First, Middle): Faheem Chisholm, Gender: Male Date of : 1950 Age: 73 Procedure Date: 05/05/2023 Procedure Type: Transthoracic Echocardiogram Location: [facility] Height: 175.26 cm Weight: 71.22 kg BSA: 1.86 m2 Heart Rate: bpm BP: 129 / 66 mmHg Interactive Graphic Designer: ISHAAN Referring MD: Leslee MURRY Symptoms: New-onset lower leg edema Study Quality: Fair Conclusions: - Normal biventricular function. - No significant valvular or pericardial pathology. - There is mild dilatation of the sinuses of Valsalva measuring 4.03 cm and mild dilatation of the ascending aorta measuring 3.90 cm. Findings Left Ventricle Normal left ventricular size, thickness, systolic function, and wall motion. The visually estimated ejection fraction is between 60-65%. Diastolic function is normal for age. Right Ventricle Normal right ventricular cavity size and systolic function. Atria Both atria are normal in size. Aortic Valve There is mild calcification of the aortic valve. There is no aortic valve stenosis. There is no aortic valve regurgitation. Mitral Valve Normal mitral valve structure and function. There is trace mitral valve regurgitation. There is no mitral valve stenosis. Pulmonic Valve The pulmonic valve is likely normal. Tricuspid Valve Normal tricuspid valve structure. There is no tricuspid valve regurgitation. Tricuspid regurgitation envelope is inadequate for calculation of right ventricular systolic pressure. Normal right atrial pressure. Great Vessels There is mild dilatation of the sinuses of Valsalva measuring 4.03 cm and mild dilatation of the ascending aorta measuring 3.90 cm. The visualized portions of the pulmonary artery and branches are normal. Venous The inferior vena cava is normal in size and collapses greater than 50% with inspiration. Pericardium/Pleural There is no evidence of pericardial effusion. Prior Study Comparison No prior study available for comparison. Measurements 2D Linear Measurements IVSd: 0.91 0.6-0.9/0.6-1.0 cm LVIDd: 4.34 3.9-5.3/4.2-5.9 cm LVIDd Index: 2.33 2.4-3.2/2.2-3.1 cm/m2 LVIDs: 2.54 2.0-3.6 cm LVPWd: 1.06 0.7-1.1 cm LA Diam: 3.40 2.7-3.8/3.0-4.0 cm LAIDs Index: 1.83 1.5-2.3 cm/m2 LV Mass: 176.52 67-162/88-224 g LV Mass Index: 94.90 43-95/49-115 g/m2 LVOT Diam: 2.30 3.0+(-)1.3 cm 2D Systolic Function EF 4C: 61.10 >55% EF 2C: 63.20 >55% EF BiP: 62.30 >55% Mitral Valve MV Pk E: 0.86 MV PK A: 0.73 MV Decel Time: 184.00 E/A: 1.20 E'Lateral: 10.40 E'Medial: 7.51 E/E' Med: 11.40 E/E' Lat: 8.20 PHT: 54.00 MVA PHT: 4.07 Decel [place]: 4.66 Aortic Valve AoV Pk Daniel: 1.46 AoV Mn Daniel: 1.09 AoV VTI: 0.33 AoV Pk Grad: 9.00 Aov Mn Grad: 5.00 ELLIOT Cont.VTI: 3.49 LVOT LVOT Pk Daniel: 1.36 LVOT Mn Dnaiel: 0.92 LVOT VTI: 0.28 LVOT Pk Grad: 7.00 LVOT Mn Grad: 4.00 LVOT Diam: 2.30 LVOT Area: 4.15 Diastolic Function MV Pk E: 0.86 MV Pk A: 0.73 E/A: 1.20 E'Medial: 7.51 E/E' Med: 11.40 E' Laterial: 10.40 E/E' Lat: 8.20 Right Ventricle TAPSE (mm): 30.90 TVS' Daniel: 18.50 Tricuspid Valve RA Press: 8.00 Great Vessels Aorta Sinus of Valsalva: 4.03 2.0-3.[address] [place]: 3.26 1.7-3.4 cm Ao Asc: 3.90 2.1-3.4 cm Updated in Other Vendor System with Status of Final Adrián Phoenix MD electronically signed on 05/06/2023 11:49:35 AM with status of Final
--- NOTE | 2023-05-05 16:01 | P.CONHOSP_ITS ---
History of Present Illness Data of Consult Service Date: 05/05/23 Primary Care Provider: Unknown Physician HPI Reason for consult: Lower leg edema Pt is a 72-year-old male with a PMH significant for?Parkinson's disorder, TURP for BPH, HLD, anxiety, with acute onset of psychosis with depression and SI who is admitted to [facility]?who is seen for new-onset lower leg edema. Pt states he began noticing swelling in right leg around a week ago. Denies swelling in left leg. Has chronic SOB with exertion and at rest that maybe is a little worse than normal. Says it feels like he is running out of air when he lies on his back. Denies calf/leg pain. No fever, chills, N/V, diarrhea. No chest pain/pressure, palpitations. Review of Systems Review of Systems: Right leg edema Denies left leg edema Chronic shortness of breath that may be worse Orthopnea No fever, chills, nausea, vomiting, diarrhea Denies chest pain/pressure, palpitations Yes all other systems are reviewed and are negative [facility] Medical History Anxiety Arthritis Parkinsons disease Family History Mother Lung cancer Surgical History H/O spinal fusion Social History Household Members: Spouse and Caregiver Housing: Condominium Do you presently have visiting nurse or other home services: Yes ([employer] 8-3 5 days/wk and 9p-4a 3 days/wk) Unable to assess alcohol history related to: Unknown Alcohol intake: never Patient Tobacco Use Status: Never used Tobacco Use of substances other than those prescribed or required for medical reasons: Unknown Currently Displaying Signs/Symptoms of Drug Intoxication Withdrawal: No Advance Directives: No Advance Directives Information Provided: Yes Do you have thoughts of harming others: None Do you have a plan to hurt others: No Plan Recently lost weight without trying: Unsure Poor oral hygiene: No (speech eval ordered not completed at [facility] swallow eval done ok to take meds) service: Yes Sexual orientation: Straight/Heterosexual Meds Allergies Allergy/AdvReac Type Severity Reaction Status Date / Time oxycodone Allergy Unknown Verified 10/14/22 13:51 pollen extracts Allergy skin rash Verified 10/14/22 13:51 Active Medications: Current Medications Acetaminophen (Acetaminophen 325 Mg Tablet) 650 mg PO Q6H PRN PRN Reason: Headache/Pain Mild Scale (1-3) Last Admin: 05/04/23 05:07 Dose: 650 mg Al Hydroxide/Mg Hydroxide (Magnesium Hydrox/Alum Hydrox 30 Ml Oral.Susp) 30 ml PO Q6H PRN PRN Reason: Heartburn/Nausea Last Admin: 03/15/23 17:37 Dose: 30 ml Amlodipine Besylate (Amlodipine Besylate 5 Mg Tablet) 5 mg PO DAILY [facility]; Protocol Last Admin: 05/05/23 08:26 Dose: 5 mg Atorvastatin Calcium (Atorvastatin Calcium 10 Mg Tablet) 10 mg PO DAILY [facility] Last Admin: 05/05/23 08:00 Dose: 10 mg Carbidopa/Levodopa (Carbidopa/Levodopa 10/100 Tablet) 2 tab PO Q6H [facility] Last Admin: 05/05/23 11:48 Dose: 2 tab Fluticasone Propionate (Fluticasone Propionate Nasal 16 Gm [place]) 1 spray NOSTRIL-B BID [facility] Last Admin: 05/05/23 09:51 Dose: Not Given Hydrocortisone (Hydrocortisone 1 % Ointment 28.35 Gm Tube) 1 appl TOPICAL BID PRN; Protocol PRN Reason: hemorroids Last Admin: 03/30/23 17:29 Dose: 1 appl Hydroxyzine HCl (Hydroxyzine Hcl 10 Mg Tablet) 10 mg PO Q6H PRN PRN Reason: Anxiety Last Admin: 05/04/23 14:11 Dose: 10 mg Lidocaine (Lidocaine 5 % Ointment 35 Gm) 1 appl TOPICAL Q6H PRN; Protocol PRN Reason: hemorroid pain Last Admin: 03/30/23 17:29 Dose: 1 appl Lorazepam (Lorazepam 1 Mg Tablet) 1 mg PO Q6H [facility] Last Admin: 05/05/23 11:51 Dose: 1 mg Magnesium Hydroxide (Milk Of Magnesia 30 Ml Oral.Susp) 30 ml PO DAILY PRN PRN Reason: Constipation Last Admin: 03/05/23 08:41 Dose: 30 ml Melatonin (Melatonin 3 Mg Tablet) 6 mg PO BEDTIME [facility] Last Admin: 05/04/23 20:04 Dose: 6 mg Multivitamins/Vitamin C (Multivitamin Tablet) 1 tab PO BEDTIME [facility] Last Admin: 05/04/23 20:04 Dose: 1 tab Olanzapine (Olanzapine 7.5 Mg Tablet) 7.5 mg PO DAILY@1900 [facility] Last Admin: 05/04/23 18:18 Dose: 7.5 mg Polyethylene Glycol (Polyethylene Glycol 3350 17 Gm Powd.Pack) 17 gm PO DAILY PRN PRN Reason: Constipation Last Admin: 03/19/23 10:04 Dose: 17 gm Prazosin HCl (Prazosin Hcl 1 Mg Capsule) 1 mg PO BEDTIME [facility]; Protocol Last Admin: 05/04/23 20:04 Dose: 1 mg Trazodone HCl (Trazodone Hcl 50 Mg Tablet) 50 mg PO BEDTIME MRX1 PRN PRN Reason: Insomnia Last Admin: 04/17/23 00:38 Dose: 50 mg Trazodone HCl (Trazodone Hcl 25 Mg Halftab) 25 mg PO BID PRN PRN Reason: Agitation Last Admin: 05/04/23 15:30 Dose: 25 mg Trazodone HCl (Trazodone Hcl 50 Mg Tablet) 50 mg PO BEDTIME [facility] Last Admin: 05/04/23 20:04 Dose: 50 mg Trolamine Salicylate (Trolamine Salicylate 10 % Cream 141 Gm Tube) 1 appl TOPICAL QID PRN; Protocol PRN Reason: Pain, Moderate (Pain Scale 4-6 Last Admin: 03/17/23 00:35 Dose: 1 appl Venlafaxine HCl (Venlafaxine Hcl Er 75 Mg Cap.Er.24h) 225 mg PO DAILY [facility] Last Admin: 05/05/23 08:00 Dose: 225 mg Home Medications Medication Instructions Recorded Confirmed Last Taken Type atorvastatin 10 mg tablet (Lipitor) 10 mg PO DAILY 12/02/21 03/03/23 Unknown History lorazepam 1 mg tablet 1 mg PO QID PRN Anxiety 05/19/22 03/03/23 Unknown History venlafaxine 150 mg 150 mg PO DAILY 10/14/22 03/03/23 Unknown History capsule,extended release 24 hr acetaminophen 500 mg PO 1XD PRN Pain 03/03/23 03/03/23 Unknown History carbidopa 25 mg-levodopa 100 1 tab PO QID 03/03/23 03/03/23 Unknown History mg-entacapone 200 mg tablet (Stalevo 100) fluticasone propionate 50 1 spray intranasal BID 03/03/23 03/03/23 Unknown History mcg/actuation nasal spray,suspension melatonin 1 mg tablet 1 mg PO BEDTIME PRN Insomnia 03/03/23 03/03/23 Unknown History trazodone 50 mg tablet 25 mg PO BID PRN Anxiety 03/03/23 03/03/23 Unknown History Physical Exam Vital Signs and Narrative: Vital Signs: Last Vital Signs Temp 97.6 F 05/05/23 08:00 Pulse 72 05/05/23 08:00 Resp 18 05/05/23 08:00 BP 129/66 05/05/23 08:00 Pulse Ox 98 05/05/23 08:00 O2 Del Method Room Air 05/05/23 08:00 BMI result Body Mass Index 23.3 General: AOx3, no acute distress Resp: CTA bilaterally CVS: S1, S2, RRR GI: +BS, NT, no distention Skin: No rash Neuro: Cranial nerves II-XII grossly intact bilaterally. Motor grossly intact bilaterally. Resting tremors of upper extrmities. Extremities: 2+ pitting edema of right lower extremity. Trace edema of left lower extremity. Psych: Appropriate affect Results Labs 04/29/23 07:59 04/29/23 07:59 Assessment and Plan (1) Edema of right lower leg: Status: Acute Plan Pt is a 72-year-old male with a PMH significant for?Parkinson's disorder, TURP for BPH, HLD, anxiety, with acute onset of psychosis with depression and SI who is admitted to [facility]?who is seen for new-onset lower leg edema. Pt states he began noticing swelling in right leg around a week ago. Lower leg edema Pt with 2+ pitting edema of right lower leg extremity, trace on right Will get U.S. Doppler of right lower extremity Will get echocardiogram Additional recommendations pending imaging results Thank you for allowing us to participate in the care of this patient. Will continue to follow for now pending echo and doppler results. Please let us know if there are any acute complaints or questions. Time Spent With Patient Time: Total time managing care of this patient today ____ minutes.
[2023-05-05 18:00] VITALS: BP 144/71; PULSE 82; RESP 18; TEMP 36.6; O2SAT 98
[2023-05-05] MEDS: Milk of Magnesia 30 ML ORAL.SUSP PO (18:01)
[2023-05-05] MEDS: OLANZapine 7.5 MG TABLET PO (19:46)
[2023-05-05] MEDS: Melatonin 3 MG TABLET 6 MG PO (20:20)
[2023-05-05] MEDS: Prazosin HCL 1 MG CAPSULE PO (20:20)
[2023-05-05] MEDS: traZODone HCL 50 MG TABLET PO (20:20)
[2023-05-05] MEDS: Multivitamin TABLET 1 TAB PO (20:21)
--- NOTE | 2023-05-05 21:24 | PC.NURSE ---
RT LE U/S positive for non occlusive DVT. call out clerk provider Dr. Eaton and Hospitalist Dr. Armenta notified.
--- NOTE | 2023-05-05 21:25 | PM.EVENT ---
Event Note Date of Service: 05/05/23 Event Note: nursing informed of +DVT doppler result, right LE; singer songwriter placed stat hospitalist consult and also lelo texted Dr. Armenta who confirmed receipt Time Spent With Patient Time: Total time managing care of this patient today ____ minutes.
--- NOTE | 2023-05-05 21:32 | PM.EVENT ---
Event Note Date of Service: 05/05/23 Event Note: Noted DVT in the right lower extremity extending from proximal femoral vein through posterior tibial vein. Initiating Eliquis 10 mg b.i.d. x7 days followed by Eliquis 5 mg b.i.d.. Will need outpatient Heme-Onc follow-up Time Spent With Patient Time: Total time managing care of this patient today ____ minutes.
[2023-05-05] MEDS: Apixaban 5 MG TABLET 10 MG PO (21:52)
[2023-05-06] MEDS: LORazepam 1 MG TABLET PO ×4 (05:31→23:56)
[2023-05-06 08:18] VITALS: BP 110/59; PULSE 72; RESP 18; TEMP 36.2; O2SAT 98
[2023-05-06] MEDS: Venlafaxine HCl ER 75 MG CAP.ER.24H 225 MG PO (09:22)
[2023-05-06] MEDS: Atorvastatin Calcium 10 MG TABLET PO (09:22)
[2023-05-06] MEDS: Apixaban 5 MG TABLET 10 MG PO ×2 (09:22→19:49)
[2023-05-06] MEDS: amLODIPine Besylate 5 MG TABLET PO (09:22)
[2023-05-06] MEDS: hydrOXYzine HCL 10 MG TABLET PO ×2 (09:38→16:43)
--- NOTE | 2023-05-06 14:53 | P.PNPSI_ITS ---
Subjective Subjective Date of Service: 05/09/23 Reason For Visit: SI Subjective Notes: Conditional Voluntary Interim History: Pt with periods of rigidity which is frustrating just dx dvt on eloquis Medication Compliance: Yes Mental Status Exam Mental Status Exam Patient Appearance: Well Grooomed and Appropriate Patient Orientation: Person and Situation Level of Consciousness: Awake and Appropriate Patient Behavior: Guarded and Passive Mood Description: Withdrawn Affect Description: Calm Patient Cognition Impaired: Yes Ability to Follow Directions: Good Speech Pattern: Clear Hallucinations: None Delusions: Not Present Thought Process: Distracted Thought Content: positive for [place] Judgement: Fair Diagnostics Vital Signs (24Hr): Vital Signs - 24 hr 05/05/23 18:00 05/06/23 08:18 Temperature 97.8 F 97.2 F Pulse Rate 82 72 Respiratory Rate 18 18 Blood Pressure 144/71 H 110/59 L Pulse Oximetry 98 98 Oxygen Delivery Method Room Air Room Air BMI result Body Mass Index 23.3 Labs 04/29/23 07:59 04/29/23 07:59 Imaging Radiology Impressions: ITS Impressions Venous Duplex 05/05/23 20:01 IMPRESSION: Nonocclusive deep venous thrombus is noted extending from the proximal femoral vein through the posterior tibial vein in the calf. The peroneal vein was not identified due to edema. The findings and recommendations were discussed with Aydee Ray RN authorized designate for LOVELY Sarabia by telephone at 05/05/2023 9:08 PM and it was ascertained that the content and urgency of the report was understood at the time of direct communication, with read back confirmation of the findings. Medications Medications Current Medications Acetaminophen (Acetaminophen 325 Mg Tablet) 650 mg PO Q6H PRN PRN Reason: Headache/Pain Mild Scale (1-3) Last Admin: 05/04/23 05:07 Dose: 650 mg Al Hydroxide/Mg Hydroxide (Magnesium Hydrox/Alum Hydrox 30 Ml Oral.Susp) 30 ml PO Q6H PRN PRN Reason: Heartburn/Nausea Last Admin: 03/15/23 17:37 Dose: 30 ml Amlodipine Besylate (Amlodipine Besylate 5 Mg Tablet) 5 mg PO DAILY [facility]; Protocol Last Admin: 05/06/23 09:22 Dose: 5 mg Apixaban (Apixaban 5 Mg Tablet) 10 mg PO BID [facility] Stop: 05/12/23 09:01 Last Admin: 05/06/23 09:22 Dose: 10 mg Apixaban (Apixaban 5 Mg Tablet) 5 mg PO BID [facility] Atorvastatin Calcium (Atorvastatin Calcium 10 Mg Tablet) 10 mg PO DAILY [facility] Last Admin: 05/06/23 09:22 Dose: 10 mg Carbidopa/Levodopa (Carbidopa/Levodopa 10/100 Tablet) 2 tab PO Q6H [facility] Last Admin: 05/06/23 11:28 Dose: 2 tab Fluticasone Propionate (Fluticasone Propionate Nasal 16 Gm [place]) 1 spray NOSTRIL-B BID [facility] Last Admin: 05/06/23 09:22 Dose: Not Given Hydrocortisone (Hydrocortisone 1 % Ointment 28.35 Gm Tube) 1 appl TOPICAL BID PRN; Protocol PRN Reason: hemorroids Last Admin: 03/30/23 17:29 Dose: 1 appl Hydroxyzine HCl (Hydroxyzine Hcl 10 Mg Tablet) 10 mg PO Q6H PRN PRN Reason: Anxiety Last Admin: 05/06/23 09:38 Dose: 10 mg Lidocaine (Lidocaine 5 % Ointment 35 Gm) 1 appl TOPICAL Q6H PRN; Protocol PRN Reason: hemorroid pain Last Admin: 03/30/23 17:29 Dose: 1 appl Lorazepam (Lorazepam 1 Mg Tablet) 1 mg PO Q6H [facility] Last Admin: 05/06/23 11:28 Dose: 1 mg Magnesium Hydroxide (Milk Of Magnesia 30 Ml Oral.Susp) 30 ml PO DAILY PRN PRN Reason: Constipation Last Admin: 05/05/23 18:01 Dose: 30 ml Melatonin (Melatonin 3 Mg Tablet) 6 mg PO BEDTIME [facility] Last Admin: 05/05/23 20:20 Dose: 6 mg Multivitamins/Vitamin C (Multivitamin Tablet) 1 tab PO BEDTIME [facility] Last Admin: 05/05/23 20:21 Dose: 1 tab Olanzapine (Olanzapine 7.5 Mg Tablet) 7.5 mg PO DAILY@1900 [facility] Last Admin: 05/05/23 19:46 Dose: 7.5 mg Polyethylene Glycol (Polyethylene Glycol 3350 17 Gm Powd.Pack) 17 gm PO DAILY PRN PRN Reason: Constipation Last Admin: 03/19/23 10:04 Dose: 17 gm Prazosin HCl (Prazosin Hcl 1 Mg Capsule) 1 mg PO BEDTIME [facility]; Protocol Last Admin: 05/05/23 20:20 Dose: 1 mg Trazodone HCl (Trazodone Hcl 50 Mg Tablet) 50 mg PO BEDTIME MRX1 PRN PRN Reason: Insomnia Last Admin: 04/17/23 00:38 Dose: 50 mg Trazodone HCl (Trazodone Hcl 25 Mg Halftab) 25 mg PO BID PRN PRN Reason: Agitation Last Admin: 05/04/23 15:30 Dose: 25 mg Trazodone HCl (Trazodone Hcl 50 Mg Tablet) 50 mg PO BEDTIME [facility] Last Admin: 05/05/23 20:20 Dose: 50 mg Trolamine Salicylate (Trolamine Salicylate 10 % Cream 141 Gm Tube) 1 appl TOPICAL QID PRN; Protocol PRN Reason: Pain, Moderate (Pain Scale 4-6 Last Admin: 03/17/23 00:35 Dose: 1 appl Venlafaxine HCl (Venlafaxine Hcl Er 75 Mg Cap.Er.24h) 225 mg PO DAILY [facility] Last Admin: 05/06/23 09:22 Dose: 225 mg Allergies Allergies Allergy/AdvReac Type Severity Reaction Status Date / Time oxycodone Allergy Unknown Verified 10/14/22 13:51 pollen extracts Allergy skin rash Verified 10/14/22 13:51 Assessment & Plan Assessment & Plan (1) Edema of right lower leg: Status: Acute Code(s): R60.0 - Localized edema Plan Pt is a 72-year-old male with a PMH significant for?Parkinson's disorder, TURP for BPH, HLD, anxiety, with acute onset of psychosis with depression and SI who is admitted to [facility]?who is seen for new-onset lower leg edema. Pt states he began noticing swelling in right leg around a week ago. Lower leg edema Pt with 2+ pitting edema of right lower leg extremity, trace on right Will get U.S. Doppler of right lower extremity Will get echocardiogram Additional recommendations pending imaging results Thank you for allowing us to participate in the care of this patient. Will continue to follow for now pending echo and doppler results. Please let us know if there are any acute complaints or questions. 05/09/23 pt being tx with eloquis cont sinemet awaiting placement Patient educated on: medication risk/benefits Reason for continued inpatient stay Substantial Risk for: inability to function Time Spent With Patient Time: Total time managing care of this patient today ____ minutes.
[2023-05-06 19:45] VITALS: BP 122/62; PULSE 80; RESP 18; TEMP 36.3; O2SAT 98
[2023-05-06] MEDS: Multivitamin TABLET 1 TAB PO (19:47)
[2023-05-06] MEDS: Melatonin 3 MG TABLET 6 MG PO (19:47)
[2023-05-06] MEDS: Prazosin HCL 1 MG CAPSULE PO (19:47)
[2023-05-06] MEDS: traZODone HCL 50 MG TABLET PO (19:48)
[2023-05-06] MEDS: OLANZapine 7.5 MG TABLET PO (19:50)
[2023-05-07] MEDS: LORazepam 1 MG TABLET PO ×4 (05:44→23:29)
[2023-05-07 08:00] VITALS: BP 160/72; PULSE 93; RESP 18; TEMP 36.1; O2SAT 98
[2023-05-07] MEDS: Venlafaxine HCl ER 75 MG CAP.ER.24H 225 MG PO (08:11)
[2023-05-07] MEDS: Atorvastatin Calcium 10 MG TABLET PO (08:11)
[2023-05-07] MEDS: amLODIPine Besylate 5 MG TABLET PO (08:11)
[2023-05-07] MEDS: Apixaban 5 MG TABLET 10 MG PO ×2 (08:11→20:23)
[2023-05-07] MEDS: Acetaminophen 325 MG TABLET 650 MG PO (09:11)
[2023-05-07] MEDS: hydrOXYzine HCL 10 MG TABLET PO (14:31)
--- NOTE | 2023-05-07 17:21 | P.PNPSI_ITS ---
Subjective Subjective Date of Service: 05/07/23 Reason For Visit: SI Subjective Notes: Conditional Voluntary Interim History: Pt reports feeling tired. He is awaiting parkinson meds so he can have breakfast. He denies SI/HI. He does report feeling lousy. Per nursing, no behavioral concerns. slept through the night, additional doses of eliquis given DVT. Review of Systems Review of Systems Right leg edema Denies left leg edema Chronic shortness of breath that may be worse Orthopnea No fever, chills, nausea, vomiting, diarrhea Denies chest pain/pressure, palpitations Yes all other systems are reviewed and are negative Mental Status Exam Mental Status Exam Narrative: adequately dressed and groomed. cooperative. PMR. speech nml rate; decr amount, loudness; nml latency. decr prosody. thoughts linear and logical. affect constricted. no SI/HI/AVH expressed. Diagnostics Vital Signs (24Hr): Vital Signs - 24 hr 05/06/23 19:45 05/07/23 08:00 Temperature 97.4 F 96.9 F Pulse Rate 80 93 Respiratory Rate 18 18 Blood Pressure 122/62 160/72 H Pulse Oximetry 98 98 Oxygen Delivery Method Room Air Room Air BMI result Body Mass Index 23.3 Labs 04/29/23 07:59 04/29/23 07:59 Imaging Radiology Impressions: ITS Impressions Venous Duplex 05/05/23 20:01 IMPRESSION: Nonocclusive deep venous thrombus is noted extending from the proximal femoral vein through the posterior tibial vein in the calf. The peroneal vein was not identified due to edema. The findings and recommendations were discussed with Aydee Ray RN authorized designate for LOVELY Sarabia by telephone at 05/05/2023 9:08 PM and it was ascertained that the content and urgency of the report was understood at the time of direct communication, with read back confirmation of the findings. Medications Medications Current Medications Acetaminophen (Acetaminophen 325 Mg Tablet) 650 mg PO Q6H PRN PRN Reason: Headache/Pain Mild Scale (1-3) Last Admin: 05/07/23 09:11 Dose: 650 mg Al Hydroxide/Mg Hydroxide (Magnesium Hydrox/Alum Hydrox 30 Ml Oral.Susp) 30 ml PO Q6H PRN PRN Reason: Heartburn/Nausea Last Admin: 03/15/23 17:37 Dose: 30 ml Amlodipine Besylate (Amlodipine Besylate 5 Mg Tablet) 5 mg PO DAILY [facility]; Protocol Last Admin: 05/07/23 08:11 Dose: 5 mg Apixaban (Apixaban 5 Mg Tablet) 10 mg PO BID [facility] Stop: 05/12/23 09:01 Last Admin: 05/07/23 08:11 Dose: 10 mg Apixaban (Apixaban 5 Mg Tablet) 5 mg PO BID [facility] Atorvastatin Calcium (Atorvastatin Calcium 10 Mg Tablet) 10 mg PO DAILY [facility] Last Admin: 05/07/23 08:11 Dose: 10 mg Carbidopa/Levodopa (Carbidopa/Levodopa 10/100 Tablet) 2 tab PO Q6H [facility] Last Admin: 05/07/23 11:46 Dose: 2 tab Fluticasone Propionate (Fluticasone Propionate Nasal 16 Gm [place]) 1 spray NOSTRIL-B BID [facility] Last Admin: 05/07/23 08:14 Dose: Not Given Hydrocortisone (Hydrocortisone 1 % Ointment 28.35 Gm Tube) 1 appl TOPICAL BID PRN; Protocol PRN Reason: hemorroids Last Admin: 03/30/23 17:29 Dose: 1 appl Hydroxyzine HCl (Hydroxyzine Hcl 10 Mg Tablet) 10 mg PO Q6H PRN PRN Reason: Anxiety Last Admin: 05/07/23 14:31 Dose: 10 mg Lidocaine (Lidocaine 5 % Ointment 35 Gm) 1 appl TOPICAL Q6H PRN; Protocol PRN Reason: hemorroid pain Last Admin: 03/30/23 17:29 Dose: 1 appl Lorazepam (Lorazepam 1 Mg Tablet) 1 mg PO Q6H [facility] Last Admin: 05/07/23 11:46 Dose: 1 mg Magnesium Hydroxide (Milk Of Magnesia 30 Ml Oral.Susp) 30 ml PO DAILY PRN PRN Reason: Constipation Last Admin: 05/05/23 18:01 Dose: 30 ml Melatonin (Melatonin 3 Mg Tablet) 6 mg PO BEDTIME [facility] Last Admin: 05/06/23 19:47 Dose: 6 mg Multivitamins/Vitamin C (Multivitamin Tablet) 1 tab PO BEDTIME [facility] Last Admin: 05/06/23 19:47 Dose: 1 tab Olanzapine (Olanzapine 7.5 Mg Tablet) 7.5 mg PO DAILY@1900 [facility] Last Admin: 05/06/23 19:50 Dose: 7.5 mg Polyethylene Glycol (Polyethylene Glycol 3350 17 Gm Powd.Pack) 17 gm PO DAILY PRN PRN Reason: Constipation Last Admin: 03/19/23 10:04 Dose: 17 gm Prazosin HCl (Prazosin Hcl 1 Mg Capsule) 1 mg PO BEDTIME [facility]; Protocol Last Admin: 05/06/23 19:47 Dose: 1 mg Trazodone HCl (Trazodone Hcl 50 Mg Tablet) 50 mg PO BEDTIME MRX1 PRN PRN Reason: Insomnia Last Admin: 04/17/23 00:38 Dose: 50 mg Trazodone HCl (Trazodone Hcl 25 Mg Halftab) 25 mg PO BID PRN PRN Reason: Agitation Last Admin: 05/04/23 15:30 Dose: 25 mg Trazodone HCl (Trazodone Hcl 50 Mg Tablet) 50 mg PO BEDTIME [facility] Last Admin: 05/06/23 19:48 Dose: 50 mg Trolamine Salicylate (Trolamine Salicylate 10 % Cream 141 Gm Tube) 1 appl TOPICAL QID PRN; Protocol PRN Reason: Pain, Moderate (Pain Scale 4-6 Last Admin: 03/17/23 00:35 Dose: 1 appl Venlafaxine HCl (Venlafaxine Hcl Er 75 Mg Cap.Er.24h) 225 mg PO DAILY [facility] Last Admin: 05/07/23 08:11 Dose: 225 mg Allergies Allergies Allergy/AdvReac Type Severity Reaction Status Date / Time oxycodone Allergy Unknown Verified 10/14/22 13:51 pollen extracts Allergy skin rash Verified 10/14/22 13:51 Assessment & Plan Assessment & Plan (1) Neurodegenerative cognitive impairment: Status: Acute Code(s): G31.9 - Degenerative disease of nervous system, unspecified (2) Parkinsons disease: Status: Acute Code(s): G20 - Parkinson's disease Plan Pt is a 72-year-old male with a PMH significant for?Parkinson's disorder, TURP for BPH, HLD, anxiety, with acute onset of psychosis with depression and SI who is admitted to [facility]?who is seen for new-onset lower leg edema. Pt states he began noticing swelling in right leg around a week ago. 05/07 continue tx. Reason for continued inpatient stay Substantial Risk for: inability to function Time Spent With Patient Time: Total time managing care of this patient today ____ minutes.
[2023-05-07] MEDS: OLANZapine 7.5 MG TABLET PO (18:23)
[2023-05-07 19:15] VITALS: BP 173/79; PULSE 92; RESP 16; TEMP 36.4; O2SAT 97
[2023-05-07] MEDS: Melatonin 3 MG TABLET 6 MG PO (20:18)
[2023-05-07] MEDS: Prazosin HCL 1 MG CAPSULE PO (20:19)
[2023-05-07] MEDS: traZODone HCL 50 MG TABLET PO (20:20)
[2023-05-08] MEDS: LORazepam 1 MG TABLET PO ×4 (05:40→23:14)
[2023-05-08 08:20] VITALS: BP 122/64; PULSE 71; RESP 18; TEMP 35.8; O2SAT 98
[2023-05-08] MEDS: amLODIPine Besylate 5 MG TABLET PO (08:23)
[2023-05-08] MEDS: Apixaban 5 MG TABLET 10 MG PO ×2 (08:23→20:06)
[2023-05-08] MEDS: Atorvastatin Calcium 10 MG TABLET PO (08:24)
[2023-05-08] MEDS: Venlafaxine HCl ER 75 MG CAP.ER.24H 225 MG PO (08:24)
[2023-05-08] MEDS: hydrOXYzine HCL 10 MG TABLET PO ×2 (14:03→20:10)
[2023-05-08 18:00] VITALS: BP 159/72; PULSE 78; RESP 14; TEMP 36.7; O2SAT 97
--- NOTE | 2023-05-08 18:22 | P.PNPSI_ITS ---
Subjective Subjective Date of Service: 05/08/23 Reason For Visit: SI Subjective Notes: Conditional Voluntary Interim History: Pt continues to report feeling tired.Parkinson meds scheduled for earlier in morning so that he can have breakfast. He denies SI/HI. He does report feeling lousy. Per nursing, no behavioral concerns. slept through the night, additional doses of eliquis given DVT. Review of Systems Review of Systems Right leg edema Denies left leg edema Chronic shortness of breath that may be worse Orthopnea No fever, chills, nausea, vomiting, diarrhea Denies chest pain/pressure, palpitations Yes all other systems are reviewed and are negative Mental Status Exam Mental Status Exam Narrative: adequately dressed and groomed. cooperative. PMR. speech nml rate; decr amou nt, loudness; nml latency. decr prosody. thoughts linear and logical. affect constricted. no SI/HI/AVH expressed. Diagnostics Vital Signs (24Hr): Vital Signs - 24 hr 05/07/23 19:15 05/08/23 08:20 Temperature 97.5 F 96.5 F L Pulse Rate 92 71 Respiratory Rate 16 18 Blood Pressure 173/79 H 122/64 Pulse Oximetry 97 98 Oxygen Delivery Method Room Air Room Air BMI result Body Mass Index 23.3 Labs 04/29/23 07:59 04/29/23 07:59 Imaging Radiology Impressions: ITS Impressions Venous Duplex 05/05/23 20:01 IMPRESSION: Nonocclusive deep venous thrombus is noted extending from the proximal femoral vein through the posterior tibial vein in the calf. The peroneal vein was not identified due to edema. The findings and recommendations were discussed with Aydee Ray RN authorized designate for LOVELY Sarabia by telephone at 05/05/2023 9:08 PM and it was ascertained that the content and urgency of the report was understood at the time of direct communication, with read back confirmation of the findings. Medications Medications Current Medications Acetaminophen (Acetaminophen 325 Mg Tablet) 650 mg PO Q6H PRN PRN Reason: Headache/Pain Mild Scale (1-3) Last Admin: 05/07/23 09:11 Dose: 650 mg Al Hydroxide/Mg Hydroxide (Magnesium Hydrox/Alum Hydrox 30 Ml Oral.Susp) 30 ml PO Q6H PRN PRN Reason: Heartburn/Nausea Last Admin: 03/15/23 17:37 Dose: 30 ml Amlodipine Besylate (Amlodipine Besylate 5 Mg Tablet) 5 mg PO DAILY [facility]; Protocol Last Admin: 05/08/23 08:23 Dose: 5 mg Apixaban (Apixaban 5 Mg Tablet) 10 mg PO BID [facility] Stop: 05/12/23 09:01 Last Admin: 05/08/23 08:23 Dose: 10 mg Apixaban (Apixaban 5 Mg Tablet) 5 mg PO BID [facility] Atorvastatin Calcium (Atorvastatin Calcium 10 Mg Tablet) 10 mg PO DAILY [facility] Last Admin: 05/08/23 08:24 Dose: 10 mg Carbidopa/Levodopa (Carbidopa/Levodopa 10/100 Tablet) 2 tab PO DAILY@0600,1100,1600 [facility] Last Admin: 05/08/23 16:22 Dose: 2 tab Carbidopa/Levodopa (Carbidopa/Levodopa 25/100 Tablet) 1 tab PO DAILY@2130 [facility] Fluticasone Propionate (Fluticasone Propionate Nasal 16 Gm [place]) 1 spray NOSTRIL-B BID PRN PRN Reason: Nasal Congestion Hydrocortisone (Hydrocortisone 1 % Ointment 28.35 Gm Tube) 1 appl TOPICAL BID PRN; Protocol PRN Reason: hemorroids Last Admin: 03/30/23 17:29 Dose: 1 appl Hydroxyzine HCl (Hydroxyzine Hcl 10 Mg Tablet) 10 mg PO Q6H PRN PRN Reason: Anxiety Last Admin: 05/08/23 14:03 Dose: 10 mg Lidocaine (Lidocaine 5 % Ointment 35 Gm) 1 appl TOPICAL Q6H PRN; Protocol PRN Reason: hemorroid pain Last Admin: 03/30/23 17:29 Dose: 1 appl Lorazepam (Lorazepam 1 Mg Tablet) 1 mg PO Q6H [facility] Last Admin: 05/08/23 10:59 Dose: 1 mg Magnesium Hydroxide (Milk Of Magnesia 30 Ml Oral.Susp) 30 ml PO DAILY PRN PRN Reason: Constipation Last Admin: 05/05/23 18:01 Dose: 30 ml Melatonin (Melatonin 3 Mg Tablet) 6 mg PO BEDTIME [facility] Last Admin: 05/07/23 20:18 Dose: 6 mg Multivitamins/Vitamin C (Multivitamin Tablet) 1 tab PO BEDTIME [facility] Last Admin: 05/07/23 20:28 Dose: Not Given Olanzapine (Olanzapine 7.5 Mg Tablet) 7.5 mg PO DAILY@1900 [facility] Last Admin: 05/07/23 18:23 Dose: 7.5 mg Polyethylene Glycol (Polyethylene Glycol 3350 17 Gm Powd.Pack) 17 gm PO DAILY PRN PRN Reason: Constipation Last Admin: 03/19/23 10:04 Dose: 17 gm Prazosin HCl (Prazosin Hcl 1 Mg Capsule) 1 mg PO BEDTIME [facility]; Protocol Last Admin: 05/07/23 20:19 Dose: 1 mg Trazodone HCl (Trazodone Hcl 50 Mg Tablet) 50 mg PO BEDTIME MRX1 PRN PRN Reason: Insomnia Last Admin: 04/17/23 00:38 Dose: 50 mg Trazodone HCl (Trazodone Hcl 25 Mg Halftab) 25 mg PO BID PRN PRN Reason: Agitation Last Admin: 05/04/23 15:30 Dose: 25 mg Trazodone HCl (Trazodone Hcl 50 Mg Tablet) 50 mg PO BEDTIME [facility] Last Admin: 05/07/23 20:20 Dose: 50 mg Trolamine Salicylate (Trolamine Salicylate 10 % Cream 141 Gm Tube) 1 appl TOPICAL QID PRN; Protocol PRN Reason: Pain, Moderate (Pain Scale 4-6 Last Admin: 03/17/23 00:35 Dose: 1 appl Venlafaxine HCl (Venlafaxine Hcl Er 75 Mg Cap.Er.24h) 225 mg PO DAILY [facility] Last Admin: 05/08/23 08:24 Dose: 225 mg Allergies Allergies Allergy/AdvReac Type Severity Reaction Status Date / Time oxycodone Allergy Unknown Verified 10/14/22 13:51 pollen extracts Allergy skin rash Verified 10/14/22 13:51 Assessment & Plan Assessment & Plan (1) Parkinsons disease: Status: Acute Code(s): G20 - Parkinson's disease (2) Major depressive disorder: Status: Acute Code(s): F32.9 - Major depressive disorder, single episode, unspecified (3) Neurodegenerative cognitive impairment: Status: Acute Code(s): G31.9 - Degenerative disease of nervous system, unspecified Plan Pt is a 72-year-old male with a PMH significant for?Parkinson's disorder, TURP for BPH, HLD, anxiety, with acute onset of psychosis with depression and SI who is admitted to [facility]?who is seen for new-onset lower leg edema. Pt states he began noticing swelling in right leg around a week ago. PLAN 05/08 continue tx. Reason for continued inpatient stay Substantial Risk for: inability to function Time Spent With Patient Time: Total time managing care of this patient today ____ minutes.
[2023-05-08] MEDS: OLANZapine 7.5 MG TABLET PO (18:37)
[2023-05-08] MEDS: Acetaminophen 325 MG TABLET 650 MG PO (20:07)
[2023-05-08] MEDS: Carbidopa/Levodopa 25/100 TABLET 1 TAB PO (20:08)
[2023-05-08] MEDS: Prazosin HCL 1 MG CAPSULE PO (20:08)
[2023-05-08] MEDS: traZODone HCL 50 MG TABLET PO (20:10)
[2023-05-08] MEDS: Melatonin 3 MG TABLET 6 MG PO (20:11)
[2023-05-08] MEDS: Multivitamin TABLET 1 TAB PO (20:11)
[2023-05-09] MEDS: traZODone HCL 50 MG TABLET PO ×2 (00:31→20:30)
[2023-05-09] MEDS: hydrOXYzine HCL 10 MG TABLET PO (04:25)
[2023-05-09] MEDS: LORazepam 1 MG TABLET PO ×4 (05:40→23:47)
[2023-05-09 05:58] VITALS: BP 102/57; PULSE 60; RESP 16; TEMP 36.4; O2SAT 96
[2023-05-09 08:45] VITALS: BP 159/72; PULSE 92; RESP 20; TEMP 36.7; O2SAT 96
[2023-05-09] MEDS: Apixaban 5 MG TABLET 10 MG PO ×2 (08:46→20:30)
[2023-05-09] MEDS: Venlafaxine HCl ER 75 MG CAP.ER.24H 225 MG PO (08:47)
[2023-05-09] MEDS: Atorvastatin Calcium 10 MG TABLET PO (08:47)
[2023-05-09] MEDS: amLODIPine Besylate 5 MG TABLET PO (08:47)
[2023-05-09] MEDS: Acetaminophen 325 MG TABLET 650 MG PO (10:42)
--- NOTE | 2023-05-09 14:18 | HO.PSYCHPN ---
Subjective Subjective Date of Service: 05/09/23 Reason For Visit: SI Subjective Notes: Conditional Voluntary Interim History: The nursing staff reported the patient feels better since the schedule of a his medications had been changed. He was diagnosed with DVT last week and he is on Eliquis to. He slept well. The addiction social worker reported the most likely he could be discharged tomorrow. On interview the patient denies new symptoms waiting for placement. Mental Status Exam Mental Status Exam Patient Appearance: Well Grooomed and Appropriate Patient Orientation: Person and Situation Level of Consciousness: Awake and Appropriate Patient Behavior: Guarded and Passive Mood Description: Withdrawn Affect Description: Calm Patient Cognition Impaired: Yes Ability to Follow Directions: Good Speech Pattern: Clear Hallucinations: None Delusions: Not Present Thought Process: Distracted Thought Content: positive for [place] Judgement: Fair Diagnostics Vital Signs (24Hr): Vital Signs - 24 hr 05/08/23 18:00 05/09/23 05:58 05/09/23 08:45 Temperature 98.0 F 97.6 F 98.1 F Pulse Rate 78 60 92 Respiratory Rate 14 16 20 Blood Pressure 159/72 H 102/57 L 159/72 H Pulse Oximetry 97 96 96 Oxygen Delivery Method Room Air Room Air Room Air BMI result Body Mass Index 23.3 Labs 04/29/23 07:59 04/29/23 07:59 Imaging Radiology Impressions: ITS Impressions Venous Duplex 05/05/23 20:01 IMPRESSION: Nonocclusive deep venous thrombus is noted extending from the proximal femoral vein through the posterior tibial vein in the calf. The peroneal vein was not identified due to edema. The findings and recommendations were discussed with Aydee Ray RN authorized designate for LOVELY Sarabia by telephone at 05/05/2023 9:08 PM and it was ascertained that the content and urgency of the report was understood at the time of direct communication, with read back confirmation of the findings. Medications Medications Current Medications Acetaminophen (Acetaminophen 325 Mg Tablet) 650 mg PO Q6H PRN PRN Reason: Headache/Pain Mild Scale (1-3) Last Admin: 05/09/23 10:42 Dose: 650 mg Al Hydroxide/Mg Hydroxide (Magnesium Hydrox/Alum Hydrox 30 Ml Oral.Susp) 30 ml PO Q6H PRN PRN Reason: Heartburn/Nausea Last Admin: 03/15/23 17:37 Dose: 30 ml Amlodipine Besylate (Amlodipine Besylate 5 Mg Tablet) 5 mg PO DAILY [facility]; Protocol Last Admin: 05/09/23 08:47 Dose: 5 mg Apixaban (Apixaban 5 Mg Tablet) 10 mg PO BID [facility] Stop: 05/12/23 09:01 Last Admin: 05/09/23 08:46 Dose: 10 mg Apixaban (Apixaban 5 Mg Tablet) 5 mg PO BID [facility] Atorvastatin Calcium (Atorvastatin Calcium 10 Mg Tablet) 10 mg PO DAILY [facility] Last Admin: 05/09/23 08:47 Dose: 10 mg Carbidopa/Levodopa (Carbidopa/Levodopa 10/100 Tablet) 2 tab PO DAILY@0600,1100,1600 [facility] Last Admin: 05/09/23 11:09 Dose: 2 tab Carbidopa/Levodopa (Carbidopa/Levodopa 25/100 Tablet) 1 tab PO DAILY@2130 [facility] Last Admin: 05/08/23 20:08 Dose: 1 tab Fluticasone Propionate (Fluticasone Propionate Nasal 16 Gm [place]) 1 spray NOSTRIL-B BID PRN PRN Reason: Nasal Congestion Hydrocortisone (Hydrocortisone 1 % Ointment 28.35 Gm Tube) 1 appl TOPICAL BID PRN; Protocol PRN Reason: hemorroids Last Admin: 03/30/23 17:29 Dose: 1 appl Hydroxyzine HCl (Hydroxyzine Hcl 10 Mg Tablet) 10 mg PO Q6H PRN PRN Reason: Anxiety Last Admin: 05/09/23 04:25 Dose: 10 mg Lidocaine (Lidocaine 5 % Ointment 35 Gm) 1 appl TOPICAL Q6H PRN; Protocol PRN Reason: hemorroid pain Last Admin: 03/30/23 17:29 Dose: 1 appl Lorazepam (Lorazepam 1 Mg Tablet) 1 mg PO Q6H [facility] Last Admin: 05/09/23 11:09 Dose: 1 mg Magnesium Hydroxide (Milk Of Magnesia 30 Ml Oral.Susp) 30 ml PO DAILY PRN PRN Reason: Constipation Last Admin: 05/05/23 18:01 Dose: 30 ml Melatonin (Melatonin 3 Mg Tablet) 6 mg PO BEDTIME [facility] Last Admin: 05/08/23 20:11 Dose: 6 mg Multivitamins/Vitamin C (Multivitamin Tablet) 1 tab PO BEDTIME [facility] Last Admin: 05/08/23 20:11 Dose: 1 tab Olanzapine (Olanzapine 7.5 Mg Tablet) 7.5 mg PO DAILY@1900 [facility] Last Admin: 05/08/23 18:37 Dose: 7.5 mg Polyethylene Glycol (Polyethylene Glycol 3350 17 Gm Powd.Pack) 17 gm PO DAILY PRN PRN Reason: Constipation Last Admin: 03/19/23 10:04 Dose: 17 gm Prazosin HCl (Prazosin Hcl 1 Mg Capsule) 1 mg PO BEDTIME [facility]; Protocol Last Admin: 05/08/23 20:08 Dose: 1 mg Trazodone HCl (Trazodone Hcl 50 Mg Tablet) 50 mg PO BEDTIME MRX1 PRN PRN Reason: Insomnia Last Admin: 05/09/23 00:31 Dose: 50 mg Trazodone HCl (Trazodone Hcl 25 Mg Halftab) 25 mg PO BID PRN PRN Reason: Agitation Last Admin: 05/04/23 15:30 Dose: 25 mg Trazodone HCl (Trazodone Hcl 50 Mg Tablet) 50 mg PO BEDTIME [facility] Last Admin: 05/08/23 20:10 Dose: 50 mg Trolamine Salicylate (Trolamine Salicylate 10 % Cream 141 Gm Tube) 1 appl TOPICAL QID PRN; Protocol PRN Reason: Pain, Moderate (Pain Scale 4-6 Last Admin: 03/17/23 00:35 Dose: 1 appl Venlafaxine HCl (Venlafaxine Hcl Er 75 Mg Cap.Er.24h) 225 mg PO DAILY [facility] Last Admin: 05/09/23 08:47 Dose: 225 mg Allergies Allergies Allergy/AdvReac Type Severity Reaction Status Date / Time oxycodone Allergy Unknown Verified 10/14/22 13:51 pollen extracts Allergy skin rash Verified 10/14/22 13:51 Assessment & Plan Assessment & Plan (1) Parkinsons disease: Status: Acute Code(s): G20 - Parkinson's disease (2) Major depressive disorder: Status: Acute Code(s): F32.9 - Major depressive disorder, single episode, unspecified (3) Neurodegenerative cognitive impairment: Status: Acute Code(s): G31.9 - Degenerative disease of nervous system, unspecified Plan Pt is a 72-year-old male with a PMH significant for?Parkinson's disorder, TURP for BPH, HLD, anxiety, with acute onset of psychosis with depression and SI who is admitted to [facility]?who is seen for new-onset lower leg edema. Pt states he began noticing swelling in right leg around a week ago. PLAN 1. Continue with same treatment. 2. Waiting for placement. Reason for continued inpatient stay Substantial Risk for: inability to function, rapid decompensation and med/psych decompensation Time Spent With Patient Time: Total time managing care of this patient today __20__ minutes.
[2023-05-09] MEDS: OLANZapine 7.5 MG TABLET PO (18:33)
[2023-05-09 20:26] VITALS: BP 137/63; PULSE 85; RESP 16; TEMP 36.6; O2SAT 96
[2023-05-09] MEDS: Carbidopa/Levodopa 25/100 TABLET 1 TAB PO (20:29)
[2023-05-09] MEDS: Melatonin 3 MG TABLET 6 MG PO (20:29)
[2023-05-09] MEDS: Multivitamin TABLET 1 TAB PO (20:29)
[2023-05-09] MEDS: Prazosin HCL 1 MG CAPSULE PO (20:30)
[2023-05-10] MEDS: hydrOXYzine HCL 10 MG TABLET PO ×2 (03:43→13:36)
[2023-05-10] MEDS: LORazepam 1 MG TABLET PO ×2 (05:29→11:00)
[2023-05-10 06:00] VITALS: BP 144/81; PULSE 79; RESP 18; TEMP 37; O2SAT 96
[2023-05-10] MEDS: Venlafaxine HCl ER 75 MG CAP.ER.24H 225 MG PO (08:13)
[2023-05-10] MEDS: Atorvastatin Calcium 10 MG TABLET PO (08:14)
[2023-05-10] MEDS: Apixaban 5 MG TABLET 10 MG PO (08:14)
[2023-05-10] MEDS: amLODIPine Besylate 5 MG TABLET PO (08:14)
[2023-05-10] MEDS: Acetaminophen 325 MG TABLET 650 MG PO (08:21)
--- NOTE | 2023-05-10 11:17 | P.PNPSI_ITS ---
Subjective Subjective Date of Service: 05/10/23 Reason For Visit: SI Subjective Notes: Conditional Voluntary Interim History: The nursing staff reported the patient had been medication compliant she has taking PRNs slept 6 hours. The social worker masters reported that he was scheduled to be discharged to residential facility but apparently since he was recently diagnosed of DVT, the does not want to be transfer until he is medically cleared. At this moment the patient does not have medical contraindications to be transfer he was restarted on Eliquis. On interview the patient denies new symptoms pleasant and cooperative. Mental Status Exam Mental Status Exam Patient Appearance: Well Grooomed and Appropriate Patient Orientation: Person and Situation Level of Consciousness: Awake and Appropriate Patient Behavior: Guarded and Passive Mood Description: Calm Affect Description: Constricted Patient Cognition Impaired: Yes Ability to Follow Directions: Good Speech Pattern: Clear Hallucinations: None Delusions: Not Present Thought Process: Distracted and Slowed Thinking Thought Content: positive for [place] and positive for Circumstantial Judgement: Fair Diagnostics Vital Signs (24Hr): Vital Signs - 24 hr 05/09/23 20:26 05/10/23 06:00 Temperature 98 F 98.6 F Pulse Rate 85 79 Respiratory Rate 16 18 Blood Pressure 137/63 144/81 H Pulse Oximetry 96 96 Oxygen Delivery Method Room Air Room Air BMI result Body Mass Index 23.3 Labs 04/29/23 07:59 04/29/23 07:59 Imaging Radiology Impressions: ITS Impressions Venous Duplex 05/05/23 20:01 IMPRESSION: Nonocclusive deep venous thrombus is noted extending from the proximal femoral vein through the posterior tibial vein in the calf. The peroneal vein was not identified due to edema. The findings and recommendations were discussed with Aydee Ray RN authorized designate for LOVELY Sarabia by telephone at 05/05/2023 9:08 PM and it was ascertained that the content and urgency of the report was understood at the time of direct communication, with read back confirmation of the findings. Medications Medications Current Medications Acetaminophen (Acetaminophen 325 Mg Tablet) 650 mg PO Q6H PRN PRN Reason: Headache/Pain Mild Scale (1-3) Last Admin: 05/10/23 08:21 Dose: 650 mg Al Hydroxide/Mg Hydroxide (Magnesium Hydrox/Alum Hydrox 30 Ml Oral.Susp) 30 ml PO Q6H PRN PRN Reason: Heartburn/Nausea Last Admin: 03/15/23 17:37 Dose: 30 ml Amlodipine Besylate (Amlodipine Besylate 5 Mg Tablet) 5 mg PO DAILY [facility]; Protocol Last Admin: 05/10/23 08:14 Dose: 5 mg Apixaban (Apixaban 5 Mg Tablet) 10 mg PO BID [facility] Stop: 05/12/23 09:01 Last Admin: 05/10/23 08:14 Dose: 10 mg Apixaban (Apixaban 5 Mg Tablet) 5 mg PO BID [facility] Atorvastatin Calcium (Atorvastatin Calcium 10 Mg Tablet) 10 mg PO DAILY [facility] Last Admin: 05/10/23 08:14 Dose: 10 mg Carbidopa/Levodopa (Carbidopa/Levodopa 10/100 Tablet) 2 tab PO DAILY@0600,1100,1600 [facility] Last Admin: 05/10/23 10:02 Dose: 2 tab Carbidopa/Levodopa (Carbidopa/Levodopa 25/100 Tablet) 1 tab PO DAILY@2130 [facility] Last Admin: 05/09/23 20:29 Dose: 1 tab Fluticasone Propionate (Fluticasone Propionate Nasal 16 Gm [place]) 1 spray NOSTRIL-B BID PRN PRN Reason: Nasal Congestion Hydrocortisone (Hydrocortisone 1 % Ointment 28.35 Gm Tube) 1 appl TOPICAL BID PRN; Protocol PRN Reason: hemorroids Last Admin: 03/30/23 17:29 Dose: 1 appl Hydroxyzine HCl (Hydroxyzine Hcl 10 Mg Tablet) 10 mg PO Q6H PRN PRN Reason: Anxiety Last Admin: 05/10/23 03:43 Dose: 10 mg Lidocaine (Lidocaine 5 % Ointment 35 Gm) 1 appl TOPICAL Q6H PRN; Protocol PRN Reason: hemorroid pain Last Admin: 03/30/23 17:29 Dose: 1 appl Lorazepam (Lorazepam 1 Mg Tablet) 1 mg PO Q6H [facility] Last Admin: 05/10/23 11:00 Dose: 1 mg Magnesium Hydroxide (Milk Of Magnesia 30 Ml Oral.Susp) 30 ml PO DAILY PRN PRN Reason: Constipation Last Admin: 05/05/23 18:01 Dose: 30 ml Melatonin (Melatonin 3 Mg Tablet) 6 mg PO BEDTIME [facility] Last Admin: 05/09/23 20:29 Dose: 6 mg Multivitamins/Vitamin C (Multivitamin Tablet) 1 tab PO BEDTIME [facility] Last Admin: 05/09/23 20:29 Dose: 1 tab Olanzapine (Olanzapine 7.5 Mg Tablet) 7.5 mg PO DAILY@1900 [facility] Last Admin: 05/09/23 18:33 Dose: 7.5 mg Polyethylene Glycol (Polyethylene Glycol 3350 17 Gm Powd.Pack) 17 gm PO DAILY PRN PRN Reason: Constipation Last Admin: 03/19/23 10:04 Dose: 17 gm Prazosin HCl (Prazosin Hcl 1 Mg Capsule) 1 mg PO BEDTIME [facility]; Protocol Last Admin: 05/09/23 20:30 Dose: 1 mg Trazodone HCl (Trazodone Hcl 50 Mg Tablet) 50 mg PO BEDTIME MRX1 PRN PRN Reason: Insomnia Last Admin: 05/09/23 00:31 Dose: 50 mg Trazodone HCl (Trazodone Hcl 25 Mg Halftab) 25 mg PO BID PRN PRN Reason: Agitation Last Admin: 05/04/23 15:30 Dose: 25 mg Trazodone HCl (Trazodone Hcl 50 Mg Tablet) 50 mg PO BEDTIME [facility] Last Admin: 05/09/23 20:30 Dose: 50 mg Trolamine Salicylate (Trolamine Salicylate 10 % Cream 141 Gm Tube) 1 appl TOPICAL QID PRN; Protocol PRN Reason: Pain, Moderate (Pain Scale 4-6 Last Admin: 03/17/23 00:35 Dose: 1 appl Venlafaxine HCl (Venlafaxine Hcl Er 75 Mg Cap.Er.24h) 225 mg PO DAILY [facility] Last Admin: 05/10/23 08:13 Dose: 225 mg Allergies Allergies Allergy/AdvReac Type Severity Reaction Status Date / Time oxycodone Allergy Unknown Verified 10/14/22 13:51 pollen extracts Allergy skin rash Verified 10/14/22 13:51 Assessment & Plan Assessment & Plan (1) Edema of right lower leg: Status: Acute Code(s): R60.0 - Localized edema Plan Pt is a 72-year-old male with a PMH significant for?Parkinson's disorder, TURP for BPH, HLD, anxiety, with acute onset of psychosis with depression and SI who is admitted to [facility]?who is seen for new-onset lower leg edema. Pt states he began noticing swelling in right leg around a week ago. Lower leg edema Pt with 2+ pitting edema of right lower leg extremity, trace on right Will get [place] Doppler of right lower extremity Will get echocardiogram Additional recommendations pending imaging results Thank you for allowing us to participate in the care of this patient. Will continue to follow for now pending echo and doppler results. Please let us know if there are any acute complaints or questions. 05/09/23 pt being tx with eloquis cont sinemet awaiting placement Reason for continued inpatient stay Substantial Risk for: inability to function, rapid decompensation and med/psych decompensation Time Spent With Patient Time: Total time managing care of this patient today __20__ minutes.
[2023-05-10] MEDS: polyethylene glycoL 3350 17 GM POWD.PACK PO (11:25)
--- NOTE | 2023-05-10 12:51 | P.DS_ITS ---
DS: Providers Provider Date of Service: 05/10/23 Date of admission: 03/03/23 16:41 Date of discharge: 05/10/23 Primary care physician: Unknown Physician Consults: 03/05/23 15:38 Consult to Hospitalist Routine Comment: Consulting Provider: Hospitalist Reason For Exam: admission physical 03/06/23 10:04 Consult to Neurology Routine Consulting Provider: [facility] Reason for consultation: severe parkinsons Has provider been notified: No 05/05/23 21:22 Consult to Hospitalist Stat Comment: Consulting Provider: Hospitalist Reason For Exam: Positive DVT right LE 05/06/23 07:09 Consult to Vascular Surgery Routine Consulting Provider: [facility] Vascular Services Reason for consultation: femoral vein DVT DS: Diagnosis Discharge Diagnosis (1) Edema of right lower leg: Status: Acute DS: Medications Discharge Medications Home Medications: Home Medications Medication Instructions Recorded Confirmed atorvastatin 10 mg tablet (Lipitor) 10 mg PO DAILY 12/02/21 03/03/23 lorazepam 1 mg tablet 1 mg PO QID PRN Anxiety 05/19/22 03/03/23 venlafaxine 150 mg 150 mg PO DAILY 10/14/22 03/03/23 capsule,extended release 24 hr acetaminophen 500 mg PO 1XD PRN Pain 03/03/23 03/03/23 carbidopa 25 mg-levodopa 100 1 tab PO QID 03/03/23 03/03/23 mg-entacapone 200 mg tablet (Stalevo 100) fluticasone propionate 50 1 spray intranasal BID 03/03/23 03/03/23 mcg/actuation nasal spray,suspension melatonin 1 mg tablet 1 mg PO BEDTIME PRN Insomnia 03/03/23 03/03/23 trazodone 50 mg tablet 25 mg PO BID PRN Anxiety 03/03/23 03/03/23 Mental Status Exam Mental Status Exam Patient Appearance: Well Grooomed and Appropriate Patient Orientation: Person and Situation Level of Consciousness: Awake and Appropriate Patient Behavior: Guarded and Passive Mood Description: Calm Affect Description: Constricted Patient Cognition Impaired: Yes Ability to Follow Directions: Good Speech Pattern: Clear Hallucinations: None Delusions: Not Present Thought Process: Linear Thought Content: positive for Intact Judgement: Fair Data Data Completed and Pending Completed studies during hospitalization [Text1]: 03/09/23 17:00 Urine clean catch - Urine rivera top Urine Culture - Final Imaging Diagnostic Imaging Impressions Venous Duplex 05/05/23 20:01 IMPRESSION: Nonocclusive deep venous thrombus is noted extending from the proximal femoral vein through the posterior tibial vein in the calf. The peroneal vein was not identified due to edema. The findings and recommendations were discussed with Aydee Ray RN authorized designate for LOVELY Sarabia by telephone at 05/05/2023 9:08 PM and it was ascertained that the content and urgency of the report was understood at the time of direct communication, with read back confirmation of the findings. DS: Summary Hospital Course Hospital Course: The patient is an elderly male, with a prior history of Parkinson's disease who was admitted into the facility for exacerbation of psychotic symptoms in the context of treatment of his Parkinson's with Sinemet. Also he complained of exacerbation of depression with suicidal ideation. Please see the HPI note for further details. On admission, we discussed the patient's symptoms, he complained of visual hallucinations that were mostly people or children doing things but nonthreatening. Also he reported that most of these psychotic symptoms were in the evening. We discussed risks, benefits, side-effects and alternatives and he agreed to tried Haldol that he was titrated slowly up to 5 mg a day with some improvement of his symptoms. The main complaint of the patient later on was poor sleep and increased anxiety. We consulted the case with Neurology and we decided to change the Sinemet and buried with Ativan for anxiety. Regarding his depressive symptoms, we start titrating up Effexor up to 125 mg p.o. daily with resolution of his suicidality and neurovegetative symptoms. No evidence of side effects with the current treatment of depression. Later on, the patient psychotic symptoms and insomnia worsen it so we decided to change his medications to Zyprexa titrated up to 7.5 mg p.o. q.h.s. with total resolution of the symptoms. Also he reported nightmares that resolved with prazosin. The patient develop edema his legs and DVT was diagnosed with a Doppler test, he was started with Eliquis to with resolution of his symptoms. We had several family meetings and he was cleared at that cannot take care of him in a safe manner in the community so a referral to custodial facility was none. Eventually he was accepted to a local facility and transferring to this facility for continuation of care since there were no safety concerns. Time spent discussing smoking cessation with patient: 3 to 10 minutes Status at Discharge Cognitive/behavioral status at discharge: Impaired at baseline Functional status at discharge: uses cane/walker Overall status at discharge: patient is back to baseline Time Spent with Patient Time attestation: Total time managing care of this patient today ____ minutes. Time spent: Less than 30 minutes Discharge Plan Discharge Anticipated Discharge Date/Time: 05/10/23 14:00 Patient Disposition: Xfer SNF Discharge Diagnosis: Parkinson's disease Major depressive disorder recurrent episode severe. 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 Referrals: Charly Francisco MD [Physician] - 1 Week Physician,Gareth J [Primary Care Provider] - 1 Week Discharge Medications: New Eliquis 5 mg Tablet 5 mg PO BID 30 Days Qty: 60 0RF Eliquis 5 mg Tablet 10 mg PO BID 30 Days Qty: 60 0RF prazosin 1 mg Capsule 1 mg PO BEDTIME 30 Days Qty: 30 0RF Protocol: Hold for SBP< HOLD for SBP < : 90 amlodipine 5 mg Tablet 5 mg PO DAILY 30 Days Qty: 30 0RF Protocol: Hold for SBP< HOLD for SBP < : 90 acetaminophen 325 mg Tablet 650 mg PO Q6H PRN (Reason: Headache/Pain Mild Scale (1-3)) 30 Days Qty: 60 0RF venlafaxine 75 mg Capsule,Extended Release 24hr 225 mg PO DAILY 30 Days Qty: 90 0RF trazodone 50 mg Tablet 50 mg PO BEDTIME 30 Days Qty: 30 0RF trazodone 50 mg Tablet 50 mg PO BEDTIME MRX1 PRN (Reason: Insomnia) 30 Days Qty: 60 0RF polyethylene glycol 3350 17 gram Powder In Packet 17 g PO DAILY PRN (Reason: Constipation) 30 Days Qty: 30 0RF hydrocortisone 1 % Ointment 1 appl topical BID PRN (Reason: hemorroids) Qty: 28.35 0RF Protocol: Apply to: Apply to: rectum melatonin 3 mg Tablet 6 mg PO BEDTIME 30 Days Qty: 60 0RF olanzapine 7.5 mg Tablet 7.5 mg PO DAILY@1900 30 Days Qty: 30 0RF carbidopa-levodopa 10-100 mg Tablet 2 tab PO DAILY@0600,1100,1600 30 Days Qty: 180 0RF carbidopa-levodopa 25-100 mg Tablet 1 tab PO DAILY@2130 30 Days Qty: 30 0RF hydroxyzine HCl 10 mg Tablet 10 mg PO Q6H PRN (Reason: Anxiety) 30 Days Qty: 90 0RF trolamine salicylate [Aspercreme] 10 % Cream 1 appl topical QID PRN (Reason: Pain, Moderate (Pain Scale 4-6) 30 Days Qty: 1 0RF Protocol: Apply to: Apply to: low back lidocaine 5 % Ointment 1 appl topical Q6H PRN (Reason: hemorroid pain) Qty: 30 0RF Protocol: Apply to: Apply to: rectum multivitamin [Daily-[place]sa] Tablet 1 tab PO BEDTIME 30 Days Qty: 30 0RF Continued trazodone 50 mg Tablet 25 mg PO BID PRN (Reason: Anxiety) 30 Days Qty: 30 0RF atorvastatin [Lipitor] 10 mg tablet 10 mg PO DAILY 30 Days Qty: 30 0RF fluticasone propionate 50 mcg/actuation [place],Suspension 1 spray INTRANASAL BID 30 Days Qty: 1 0RF Rx Instructions: administer into each nostril Discontinued acomuxtvj-lhpatqnv-eahhvnxvas [Stalevo 100] 25-100-200 mg Tablet 1 tab PO QID melatonin 1 mg Tablet 1 mg PO BEDTIME PRN (Reason: Insomnia) acetaminophen 500 mg tablet 500 mg PO 1XD PRN (Reason: Pain) lorazepam 1 mg tablet 1 mg PO QID PRN (Reason: Anxiety) venlafaxine 150 mg capsule,extended release 24hr 150 mg PO DAILY Discharge Orders: Discharge Order (Routine); Ordered 05/10/23 Ordered By: Humza Duran Diet: Advance to usual diet Activity on Discharge: As tolerated Stand Alone Forms: Patient Portal Discharge page Care Plan Goals: Care plan goals achieved in this admission Health Concerns: Continue treatment with primary care physician and neurologist Plan of Treatment: Continue treatment with outpatient providers Assessment: Elderly male with a long history of Parkinson's disorder treated with Sinemet who was brought into the facility for exacerbation of depression and psychosis, treated with Zyprexa and increase Effexor with resolution of suicidality and psychosis. At this moment safe to be transfer to custodial facility for continuation of care.
--- NOTE | 2023-05-10 13:00 | PC.NURSE ---
Nurse to nurse report given to Rosa at [facility].
== END 2023-05-10 14:24 | disposition skilled nursing facility (03) | DRG 885 ==
PROVIDERS: Admitting Provider Psychiatry & Neurology Psychiatry; Visit Provider Psychiatry & Neurology Psychiatry
DX: F33.3 Major depressive disorder, recurrent, severe with psychotic symptoms (principal); R45.851 Suicidal ideations; I82.411 Acute embolism and thrombosis of right femoral vein; I82.441 Acute embolism and thrombosis of right tibial vein; F41.9 Anxiety disorder, unspecified; F06.70 Mild neurocognitive disorder due to known physiological condition without behavioral disturbance; E78.5 Hyperlipidemia, unspecified; G20 Parkinson's disease; Z79.51 Long term (current) use of inhaled steroids; Z79.899 Other long term (current) drug therapy
CPT/HCPCS: 36415; 80048; 80053; 80061; 80076; 81001; 84443; 85025; 87086; 92950; 93306; 93971